=== PATIENT | female | born 1980 | race Caucasian/White ===

== ENCOUNTER 2018-06-01 16:50 | Outpatient (CLI) | payer OTHER, SELFPAY ==
[2018-06-01 17:09] VITALS: BMI 39.1
--- NOTE | 2018-06-02 08:41 | OB.TRI.NOTE ---
History of Present Illness Date of Service: 06/01/18 Reason For Visit: DECREASE MOVEMENT Date of Service: 06/01/18 Allergies iodine Allergy (Verified 01/14/16 14:49) Rash NST - FHR Rate Baby A Baseline: normal Variability:: Moderate Accelerations:: None Decelerations:: None NST Reactive:: Appropriate for gestational age, Non-Reactive FHR Category:: Category I Uterine Activity:: quiet Impression/Plan 38-year-old high risk multigravida at 26 weeks gestation with decreased movement. History of previous section. heart tones appropriate for gestational age. Reviewed with patient movement counts. Follow-up in the office as scheduled or as needed. patient is comfortable with this plan.
== END 2018-06-01 17:20 | disposition home or self-care (01) ==
LOC: WPOUT 16:55 → WP 16:55
PROVIDERS: Family Provider Family Medicine; PCP Family Medicine; Visit Provider Obstetrics & Gynecology
DX: O36.8120 Decreased fetal movements, second trimester, not applicable or unspecified (principal); Z3A.26 26 weeks gestation of pregnancy
CPT/HCPCS: 59025; 59050; 99218; G0378

== ENCOUNTER 2018-08-28 05:30 | Inpatient (IN) | payer OTHER, SELFPAY ==
[2018-08-24 16:48] VITALS: BMI 42.3
[2018-08-28] VITALS (20 sets, daily range): BP systolic 96–133; BP diastolic 55–82; PULSE 77–105; RESP 10–22; TEMP 36.1–37; O2SAT 96–99
[2018-08-28] MEDS: Lactated Ringers 1,000 ML 999 ML IV (06:00)
[2018-08-28 06:29] LABS: Absolute Lymphocyte Count 2.12 X10^3/ul (0.83-4.51); Absolute Neutrophil Count 6.9 X10^3/uL (2.0-7.7); Basophil# 0.02 X10^3/uL; Basophil% 0.2 % (0-1); Eosinophil# 0.08 X10^3/uL; Eosinophils% 0.8 % (0-5); Hematocrit 35.6 % (37-47); Hemoglobin 11.8 g/dl (12.0-15.0); Lymphocyte # 2.12 X10^3/ul (4.0); Lymphocyte % 21.5 % (19-41); Mean Corp Hgb Conc 33.1 g/gl (32-36); Mean Corpuscular Volume 87.5 fL (81-99); Monocyte# 0.68 X10^3/uL; Monocyte% 6.9 % (0-10); Neutrophil # 6.91 X10^3/uL (2.7-7.7); Neutrophil % 70.3 % (47-70); Platelet Count 252 K/mm3 (150-450); RBC Distribution Width CV 13.5 % (11.6-14.6); RBC Distribution Width SD 42.1 fl (35.1-43.9); Red Blood Count 4.07 M/mm3 (4.2-5.4); White Blood Count 9.8 K/mm3 (4.4-11.0)
[2018-08-28 06:34] LABS: POSITIVE COUNT NO; POSITIVE DIFFERENTIAL NO; POSITIVE MORPHOLOGY NO
[2018-08-28] MEDS: Sodium Citrate/Citric Acid 30 ML UDC PO (07:06)
[2018-08-28] MEDS: Lactated Ringers 1,000 ML 150 ML IV (07:07)
--- NOTE | 2018-08-28 07:30 | FALS_PTH ---
PATIENT: ESTELLA HOPSON LOC: [facility] U#:[id number] AGE/SX: 38/F ROOM: [facility]004 RE08/28/[address]: Dr. Irina Simpson MD : 1980 BED: 1 DIS: 08/30/2018 SPEC #: [id number] RECD: 08/28/18 09:52 STATUS: FRANCHESCA REEmelia #: [id number] LINCOLN: 08/28/18 07:[address]: Irina Simpson DEPT: SURGICAL PATHOLOGY RECD BY: Redd Lozano ENTERED: 08/28/18 11:18 SP TYPE: FALL TUBES OTHR DR: Dr. Nicholas Burciaga MD Tissues: Fallopian tube Procedures: Surgery Specimen Level II HEADER OPERATION: Tubal ligation PRE-OP DIAGNOSIS: Bilateral tubal ligation TISSUE SUBMITTED: Fallopian tube MICROSCOPIC DIAGNOSIS Right and left fallopian tubes, bilateral salpingectomies: Two complete segments of fallopian tubes with no pathologic change. AM:marjorie 08/29/18 MICROSCOPIC DESCRIPTION Slides are reviewed. GROSS DESCRIPTION Received is one container labeled with the patient's name and designated bilateral fallopian tubes. The specimen consists of two fallopian tubes with an average length of 3.5 cm and has an average diameter of 0.6 cm. One fallopian tube has a suture. No mass lesions are identified. Also present free in the container is what appears to be a fimbriated end of fallopian tube measuring 1.5 x 1 x 0.4 cm. The specimen is totally submitted in two cassettes. The fallopian tube with suture is submitted in cassette 1. / AM:marjorie 08/28/18 TC: 5 CPT: 15549 x2
[2018-08-28] MEDS: Cefazolin 2 GM in 0.9% Normal Saline 100 ML IV (07:35)
[2018-08-28] MEDS: Oxytocin 30 units/NS 500 ml 30 UNITS/500 ML IV.SOLN 167 UNITS IV (07:55)
[2018-08-28] MEDS: Nalbuphine 10 MG/ML Ampul 5 MG IV ×2 (09:43→13:18)
[2018-08-28 09:51] LABS: Pathology Specimen OB SEE PATHOLOGY REPORT
--- NOTE | 2018-08-28 12:58 | PCM.OB.CSR ---
Delivery Classification: Scheduled Final NITIN: 09/02/18 Final NITIN Source: US <20 weeks Gestational age: 39 Weeks and 2 Days Indications for : Repeat Elective , Desires elective sterilization Description of Procedure: The patient was taken to the operating room. She was prepped and draped in the dorsal supine position with a leftward tilt. A Pfannenstiel skin incision was made approximately 2 cm above the symphysis pubis and carried through to underlying layer fascia with the scalpel. The fascia was incised incised in the midline and extended laterally with the Khan scissors. The fascia was dissected off the rectus muscles with blunt and sharp dissection. The rectus muscles were in the midline and the peritoneum was entered bluntly. The peritoneal incision was stretched and the bladder blade was placed. The uterine incision was made in a low transverse fashion with the scalpel and extended superiorly and inferiorly with blunt dissection. The amniotic membranes were ruptured bluntly and clear amniotic fluid returned. The infant's head was brought to the incision in the flexed position and delivered without difficulty. The remainder of the infant was delivered with gentle traction and fundal pressure in the standard fashion. The mouth and nares were bulb suctioned. The cord was clamped and cut as the was stimulated. Cord clamping was delayed. The infant was handed off to the waiting nursing staff. There were no significant intraperitoneal adhesions. The placenta was delivered with fundal massage and gentle traction in the standard fashion. The uterus was exteriorized and cleared of all clots and debris. The cervix was dilated with a ring forcep. The bladder was checked to make sure that it was down below the level of the incision and all the way of the uterine closure. The uterine incision was closed with #1 Vicryl in a running locked fashion. A second layer of the same suture was used in an imbricating fashion. Several [id number] sutures were needed through some sinuses to obtain hemostasis. The incision was examined and was found to be hemostatic. The right tube was identified and followed out and it was noted there was no fimbriated end. The insertion near the cornual edge of the uterus was clamped across with a Varsha clamp. The antimesenteric portions of the tube were clamped across with Varsha clamps. This was carried down to where the tube appeared to end into the ovary. The tube was removed from the uterus and the broad ligament with Metzenbaum scissors. The pedicles were oversewn with 2-0 Vicryl sutures and free ties. A Filshie clip was placed over the proximal portion of the tube were inserted into the cornual. The pedicles were hemostatic. The left tube was followed out to the fimbriated end. The same procedure was performed on the contralateral side. When I reached the fimbria, the very distal portions of the fimbria were attached to the ovary near the IP ligament. A small portion of the fimbria were left attached to the ovary or so as not to disrupt the blood supply. The remainder the tube had been removed. Both sides were confirmed to be hemostatic. The uterus was placed back into the peritoneal cavity and hemostasis was again confirmed. The rectus muscles were examined and any bleeding was Bovie cauterized. The parietal peritoneum and rectus muscles were closed en bloc with an 0 Vicryl running suture. The surgical teams outer gloves were then changed. The rectus fascia was examined and any bleeding was Bovie cauterized and the rectus fascia was closed with #1 PDS suture in a running standard fashion. The subcutaneous tissue was examining and any bleeding was Bovie cauterized. The subcutaneous tissue was reapproximated with 3-0 Vicryl suture. The skin was closed in a subcuticular fashion by the SOFTWARE QUALITY ENGINEER with me present in the labor and delivery suite. I performed the remainder of the procedure with assistance. All sponge, lap, and needle counts were correct. The patient was taken to her room for recovery in a stable condition. Procedure: Repeat low transverse section Via Pfannenstiel skin incision with bilateral salpingectomy Surgeon: Irina Simpson MD Forensic Document Examiner: Triny TUCKER Amniotic Membrane Rupture Type: Artificial Amniotic Fluid Description: Clear Placenta Disposition: [facility] Specimen(s) sent to pathology: bilateral portions of fallopian tubes Drain: Soria to straight drain Fluids Replaced: 1700cc Cord Entanglement: Around neck x 1, loose Nuchal Cord Compression: Without compression Cord Vessel Description: 3 Vessels Esitmated Blood Loss (ml): 900 Gender: Male Delayed cord clamping: Yes Pre-op Antibiotic Given: Ancef 2 grams IV x1 Complications: None - Admit VTE Documentation VTE Present on Admission: No VTE Mechan Device Prophylaxis: SCD's VTE Pharm Prophylaxis ordered?: Yes
--- NOTE | 2018-08-28 13:04 | OP.PCM_ITS ---
Delivery Classification: Scheduled Final NITIN: 09/02/18 Final NITIN Source: US <20 weeks Gestational age: 39 Weeks and 2 Days Indications for : Repeat Elective , Desires elective sterilization Description of Procedure: The patient was taken to the operating room. She was prepped and draped in the dorsal supine position with a leftward tilt. A Pfannenstiel skin incision was made approximately 2 cm above the symphysis pubis and carried through to underlying layer fascia with the scalpel. The fascia was incised incised in the midline and extended laterally with the Khan scissors. The fascia was dissected off the rectus muscles with blunt and sharp dissection. The rectus muscles were in the midline and the peritoneum was entered bluntly. The peritoneal incision was stretched and the bladder blade was placed. The uterine incision was made in a low transverse fashion with the scalpel and extended superiorly and inferiorly with blunt dissection. The amniotic m embranes were ruptured bluntly and clear amniotic fluid returned. The infant's head was brought to the incision in the flexed position and delivered without difficulty. The remainder of the was delivered with gentle traction and fundal pressure in the standard fashion. The mouth and nares were bulb suctioned. The cord was clamped and cut as the was stimulated. Cord clamping was delayed. The was handed off to the waiting nursing staff. There were no significant intraperitoneal adhesions. The placenta was delivered with fundal massage and gentle traction in the stand barbra fashion. The uterus was exteriorized and cleared of all clots and debris. The cervix was dilated with a ring forcep. The bladder was checked to make sure that it was down below the level of the incision and all the way of the uterine closure. The uterine incision was closed with #1 Vicryl in a running locked fashion. A second layer of the same suture was used in an imbricating fashion. Several [id number]-[id number] sutures were needed through some sinuses to obtain hemostasis. The incision was examined and was found to be hemostatic. The right tube was identified and followed out and it was noted there was no fimbriated end. The insertion near the cornual edge of the uterus was clamped across with a Varsha clamp. The antimesenteric portions of the tube were clamped across with Varsha clamps. This was carried down to where the tube appeared to end into the ovary. The tube was removed from the uterus and the broad ligament with Metzenbaum scissors. The pedicles were oversewn with 2-0 Vicryl sutures and free ties. A Filshie clip was placed over the proximal portion of the tube were inserted into the cornual. The pedicles were hemostatic. The left tube was followed out to the fimbriated end. The same procedure was performed on the contralateral side. When I reached the fimbria, the very distal portions of the fimbria were attached to the ovary near the IP ligament. A small portion of the fimbria were left attached to the ovary or so as not to disrupt the blood supply. The remainder the tube had been removed. Both sides were confirmed to be hemostatic. The uterus was placed back into the peritoneal cavity and hemostasis was again confirmed. The rectus muscles were examined and any bleeding was Bovie cauterized. The parietal peritoneum and rectus muscles were closed en bloc with an 0 Vicryl running suture. The surgical teams outer gloves were then changed. The rectus fascia was examined and any bleeding was Bovie cauterized and the rectus fascia was closed with #1 PDS suture in a running standard fashion. The subcutaneous tissue was examining and any bleeding was Bovie cauterized. The subcutaneous tissue was reapproximated with 3-0 Vicryl suture. The skin was closed in a subcuticular fashion by the SUPERVISOR OVENS with me present in the labor and delivery suite. I performed the remainder of the procedure with assistance. All sponge, lap, and needle counts were correct. The patient was taken to her room for recovery in a stable condition. Procedure: Repeat low transverse section Via Pfannenstiel skin incision with bilateral salpingectomy Surgeon: Irina Simpson MD Audit Lead: Triny TUCKRE Amniotic Membrane Rupture Type: Artificial Amniotic Fluid Description: Clear Placenta Disposition: [facility] Specimen(s) sent to pathology: bilateral portions of fallopian tubes Drain: Soria to straight drain Fluids Replaced: 1700cc Cord Entanglement: Around neck x 1, loose Nuchal Cord Compression: Without compression Cord Vessel Description: 3 Vessels Esitmated Blood Loss (ml): 900 Infant Gender: Male Delayed cord clamping: Yes Pre-op Antibiotic Given: Ancef 2 grams IV x1 Complications: None - Admit VTE Documentation VTE Present on Admission: No VTE Mechan Device Prophylaxis: SCD's VTE Pharm Prophylaxis ordered?: Yes
[2018-08-28] MEDS: Ketorolac 30 MG/ML Syringe IV ×2 (13:18→19:03)
[2018-08-28] MEDS: 0.9% Saline Lock 10 ML Syringe IV ×3 (13:19→19:03)
[2018-08-28] MEDS: Ondansetron 4 MG/2 ML Vial IV (14:02)
[2018-08-28] MEDS: Lactated Ringers 1,000 ML 100 ML IV ×2 (16:08→22:14)
[2018-08-28] MEDS: proMETHazine 25 MG/ML Syringe 12.5 MG IV (16:24)
[2018-08-28] MEDS: Senna/Docusate Sodium 1 Tablet PO (21:53)
--- NOTE | 2018-08-28 22:34 | NURSING ---
Pt. has had c/o lightheadedness. Uterus firm at 2 below with appropriate bleeding. Pt. reports occasional gushing but bleeding on pad looks like a small amount. No clots palpable or expelled from uterus when massaged or checked. Blood pressure appropriate at 107/59.
[2018-08-29] VITALS (8 sets, daily range): BP systolic 94–116; BP diastolic 53–71; PULSE 70–89; RESP 15–18; TEMP 36.2–36.8; O2SAT 98–99
[2018-08-29] MEDS: Ketorolac 30 MG/ML Syringe IV ×4 (00:42→18:14)
[2018-08-29 05:22] LABS: Hematocrit 28.8 % (37-47); Hemoglobin 9.5 g/dl (12.0-15.0); Mean Corpuscular Hgb 28.9 pg (27.0-32.0); Mean Corpuscular Volume 87.5 fL (81-99); Mean Platelet Vol. 8.9 fl (6.2-12.0); Platelet Count 189 K/mm3 (150-450); RBC Distribution Width CV 14.1 % (11.6-14.6); RBC Distribution Width SD 44.7 fl (35.1-43.9); Red Blood Count 3.29 M/mm3 (4.2-5.4); Scan Indicated on CBC? Y/N NO; White Blood Count 9.7 K/mm3 (4.4-11.0)
[2018-08-29] MEDS: Enoxaparin 40 MG/0.4 ML Syringe SC (05:59)
--- NOTE | 2018-08-29 08:38 | PCM.PN.OB ---
Subjective: pain well controlled, average lochia, + flatus, less nausea this am. Able to tolerate some crackers and po fluids overnight. No lightheadedness - Physical Exam General: Alert, Cooperative, No apparent distress Abdomen: Soft, Distended - moderately, softly, Tender - appropriately Extremities: Edema - 1+ Skin: Incision - bandage clean,d ry and intact Vital Signs Temp Pulse Resp BP Pulse Ox 97.9 F 79 16 100/57 L 98 08/29/18 04:45 08/29/18 06:00 08/29/18 06:00 08/29/18 04:45 08/29/18 06:00 Oxygen Delivery Method Room Air Weight: 101.5 kg Body Mass Index (BMI) 42.3 Intake and Output for Last 24 Hours 08/27/18//18 08/29/18 23:59 23:59 23:59 Intake Total 4589 / 4589 1099 / 1099 Output Total 1325 / 1325 800 / 800 Balance 3264 / 3264 299 / 299 Laboratory Tests Past 24 Hrs 08/29/18 05:15 WBC 9.7 RBC 3.29 L Hgb 9.5 L Hct 28.8 L MCV 87.5 MCH 28.9 MCHC 33.0 RDW 14.1 RDW Differential 44.7 H Plt Count 189 MPV 8.9 Medical Necessity - Tobacco Use Smoking Status: Never smoker Assessment/Plan POD#1 doing well mild acute blood loss anemia, appropriate for EBL from surgery, recheck later today to ensure it isn't trending down ambulate d/c zuluaga diet as tolerated
[2018-08-29] MEDS: Senna/Docusate Sodium 1 Tablet PO (09:02)
[2018-08-29] MEDS: Acetaminophen 500 MG Tablet 1000 MG PO ×2 (09:03→17:04)
[2018-08-29] MEDS: 0.9% Saline Lock 10 ML Syringe IV ×3 (10:00→18:15)
[2018-08-29 14:20] LABS: Hematocrit 30.9 % (37-47); Hemoglobin 10.1 g/dl (12.0-15.0); Mean Corp Hgb Conc 32.7 g/gl (32-36); Mean Corpuscular Hgb 28.7 pg (27.0-32.0); Mean Corpuscular Volume 87.8 fL (81-99); Mean Platelet Vol. 9.2 fl (6.2-12.0); Platelet Count 206 K/mm3 (150-450); RBC Distribution Width SD 44.6 fl (35.1-43.9); Red Blood Count 3.52 M/mm3 (4.2-5.4); White Blood Count 10.2 K/mm3 (4.4-11.0)
[2018-08-29 14:21] LABS: Scan Indicated on CBC? Y/N NO
--- NOTE | 2018-08-29 21:45 | NURSING ---
Pt. reports having loose stools/diarrhea at least 3-4 times over the past two hours. States abdominal pain is getting better but she still feels puffy. Abdomen is distended and pt. is painful during fundus checks.
[2018-08-29] MEDS: oxyCODONE 5 MG Tablet PO (23:09)
--- NOTE | 2018-08-29 23:15 | NURSING ---
Pt. called RN to room for increasing abdominal pain requesting pain medication. Pt. says she coughed and the pain got worse. Dressing and abdomen assessed. Dressing intact with old drainage circled, no new drainage. Abdomen distended and tender. Pt. rates pain a 6 out of 10 and describes it as aching, pressure, crampy, and at times a sharp pain. This RN will continue to monitor.
--- NOTE | 2018-08-29 23:55 | NURSING ---
Pt. states abdominal pain and pressure has been relieved since administration of medication. She now rates her pain as a 1 or 2 out of 10. Pt. has been able to get more comfortable and sleep.
[2018-08-30] MEDS: Ketorolac 30 MG/ML Syringe IV ×2 (01:15→06:28)
[2018-08-30] MEDS: 0.9% Saline Lock 10 ML Syringe IV ×2 (01:16→06:28)
[2018-08-30 01:23] VITALS: BP 108/71; PULSE 64; RESP 17; TEMP 36.6; O2SAT 99
--- NOTE | 2018-08-30 01:23 | NURSING ---
Pt. states that her stomach feels less puffy than before. Abdomen assessed and pt. tolerance of pressure has improved. Pt. reports that she is able to pass gas and she thinks her bowel movements from earlier in the evening helped. Pt. is now stating her pain is a 2 out of 10.
[2018-08-30] MEDS: Enoxaparin 40 MG/0.4 ML Syringe SC (06:29)
[2018-08-30 08:20] VITALS: BP 108/79; PULSE 76; RESP 18; TEMP 36.4; O2SAT 97
[2018-08-30] MEDS: oxyCODONE 5 MG Tablet PO (08:29)
--- NOTE | 2018-08-30 09:07 | PCM.PN.OB ---
Subjective: pain well controlled, average lochia, + Bm. Tolerating PO. - Physical Exam General: Alert, Cooperative, No apparent distress Abdomen: Soft, Distended - mildly, softly, less than yesterday, - - fundus firm below umbilicus Skin: Incision - bandage clean, dry and intact Vital Signs Temp Pulse Resp BP Pulse Ox 97.8 F 64 17 108/71 99 08/30/18 01:23 08/30/18 01:23 08/30/18 01:23 08/30/18 01:23 08/30/18 01:23 Oxygen Delivery Method Room Air Weight: 101.5 kg Body Mass Index (BMI) 42.3 Intake and Output for Last 24 Hours 08/28/18 08/29/18 08/30/18 23:59 23:59 23:59 Intake Total 4589 / 4589 1099 / 1099 Output Total 1325 / 1325 1900 / 1900 Balance 3264 / 3264 -801 / -801 Laboratory Tests Past 24 Hrs 08/29/18 14:00 WBC 10.2 RBC 3.52 L Hgb 10.1 L Hct 30.9 L MCV 87.8 MCH 28.7 MCHC 32.7 RDW 14.0 RDW Differential 44.6 H Plt Count 206 MPV 9.2 Medical Necessity - Tobacco Use Smoking Status: Never smoker Assessment/Plan POD#2 doing well infant likely home later today
--- NOTE | 2018-08-30 09:19 | DCINST_ITS ---
Discharge Diet: No Restrictions Discharge Activity: Return to Normal Activity, May Not Drive - for 2 weeks, May not drive while taking narcotic pain medications., May Shower, May Take a Tub Bath - in 7 days. May resume sexual activity in: 4-6 weeks Lifting Restrictions: 20 pounds Additional Activity Instructions:: Nothing in the vagina for 4-6 weeks. You may return to work/school in 6 weeks. Call your doctor if your incision/area has: Continuous Slow Oozing, Sudden Increased Bleeding, Increased Pain/ Swelling, Increased Redness, Foul Smelling Discharge Call your doctor if you observe: Fever of 101 or Higher, Using more than one pad per hour - for 2 hours Suture Line Care: Avoid Pulling/Pushing, Avoid Pinching/Bending Cleanse incision/area with: Keep Dressing Clean & Dry, - - Remove the bandage on 09/01 or 09/02 or if it becomes wet or saturated Additional Instructions: If you experience any of the following, contact your healthcare provider. * Bleeding that soaks a pad every hour for 2 hours * Fever 100.4 or higher * Unrelieved incision or abdominal pain * Swelling, redness, discharge or bleeding from your incision or episiotomy site * Your incision begins to separate * Problems urinating (including inability to urinate or burning while urinating). * Visual changes * Severe headache * Flu-like symptoms * Pain or redness in one of both of your breasts * Pain, warmth, tenderness or swelling in your legs, especially the calf area * Frequent nausea and vomiting * Symptoms of depression or anxiety If you experience any of the following, call 911 or go to the nearest Emergency Room. * Chest pain * Problems breathing * Seizure activity * Partial or complete paralysis of a body part, slurred speech, weakness or drooping of the face, or a sudden inability to walk or hold your balance Allergies/Adverse Reactions: Allergies iodine Allergy (Verified 01/14/16 14:49) Rash Medications to take at Discharge Vits [Prenatabs FA ] 1 tablet PO DAILY 06/01/18 Ibuprofen [Motrin] 800 mg PO TID PRN PRN #60 tab 08/30/18 Oxycodone HCl/Acetaminophen [Percocet 5/325] 1 - 2 tab PO Q8 PRN 7 Days #28 tab 08/30/18 The following prescriptions were given: Ibuprofen [Motrin] 800 mg PO TID PRN PRN #60 tab PRN Reason: Pain Oxycodone HCl/Acetaminophen [Percocet 5/325] 1 - 2 tab PO Q8 PRN 7 Days #28 tab PRN Reason: Pain Follow-Up: Call to make an appointment with your doctor for an incision check in 1-2 weeks. You will also need a 6 week post- follow up appointment. Test results from this visit will be discussed in further detail at your follow- up appointment, if applicable. Please Follow Up With: Irina Simpson MD - Call to make an appointment for an incision check in 1-2 [phone] When: You will need a post check in 6 weeks. Primary Care Physician: Nicholas Burciaga MD [Primary Care Provider] -
[2018-08-30] MEDS: Docusate Sodium 100 MG Capsule PO (09:53)
[2018-08-30] MEDS: Naproxen 250 MG Tablet PO (13:04)
[2018-08-30 14:00] VITALS: BP 109/76; PULSE 81; RESP 18; TEMP 36.8; O2SAT 97
--- NOTE | 2018-08-31 10:43 | PCM.DC.SUM ---
Discharge Date and Diagnosis Date of Admission: 08/28/18 Date of Discharge: 08/30/18 Hospital Course and Treatment Operations: - - Repeat low transverse section Via Pfannenstiel skin incision with bilateral salpingectomy Procedures: None Summary of Care Provided: 38-year-old multigravida female whose was complicated by advanced maternal age and maternal obesity with BMI 42 presents for repeat section. She was 39 weeks gestation and desires sterilization. The repeat low transverse section Via Pfannenstiel skin incision with bilateral salpingectomy was performed without difficulty. She had mild acute blood loss anemia appropriate for blood loss during the surgery. By postoperative day #2 she was ambulating, urinating and tolerating regular diet without difficulty. She was discharged home with routine instructions and prescriptions. She is to follow-up in our office in 1-2 and 6 weeks or as needed. - Physical Exam Vital Signs Temp Pulse Resp BP Pulse Ox 98.3 F 81 18 109/76 97 08/30/18 14:00 08/30/18 14:00 08/30/18 14:00 08/30/18 14:00 08/30/18 14:00 Oxygen Delivery Method Room Air Weight: 101.5 kg Body Mass Index (BMI) 42.3 Intake and Output for Last 24 Hours 08/29/18 08/30/18 08/31/18 23:59 23:59 23:59 Intake Total 1099 / 1099 Output Total 1900 / 1900 Balance -801 / -801 Discharge Diet: No Restrictions Discharge Activity: Return to Normal Activity, May Not Drive - for 2 weeks, May not drive while taking narcotic pain medications., May Shower, May Take a Tub Bath - in 7 days. May resume sexual activity in: 4-6 weeks Additional Activity Instructions:: Nothing in the vagina for 4-6 weeks. You may return to work/school in 6 weeks. Call your doctor if your incision/area has: Continuous Slow Oozing, Sudden Increased Bleeding, Increased Pain/ Swelling, Increased Redness, Foul Smelling Discharge Call your doctor if you observe: Fever of 101 or Higher, Using more than one pad per hour - for 2 hours Suture Line Care: Avoid Pulling/Pushing, Avoid Pinching/Bending Cleanse incision/area with: Keep Dressing Clean & Dry, - - Remove the bandage on 09/01 or 12/22 or if it becomes wet or saturated Home Medications: Medications to take at Discharge Vits [Prenatabs FA ] 1 tablet PO DAILY 06/01/18 Docusate Sodium [Colace] 100 mg PO DAILY #30 cap 08/30/18 Ibuprofen [Motrin] 800 mg PO TID PRN PRN #60 tab 08/30/18 Oxycodone HCl/Acetaminophen [Percocet 5/325] 1 - 2 tab PO Q8 PRN 7 Days #28 tab 08/30/18 Following Prescrptions Were Given to Patient: Docusate Sodium [Colace] 100 mg PO DAILY #30 cap Ibuprofen [Motrin] 800 mg PO TID PRN PRN #60 tab PRN Reason: Pain Oxycodone HCl/Acetaminophen [Percocet 5/325] 1 - 2 tab PO Q8 PRN 7 Days #28 tab PRN Reason: Pain Primary Care Physician: Nicholas Burciaga MD [Primary Care Provider] - Please Follow Up With: Irina Simpson MD - Call to make an appointment for an incision check in 1-2 [phone] When: You will need a post check in 6 weeks. Medical Necessity - Tobacco Use Smoking Status: Never smoker Meaningful Use Info Meaningful Use Diagnoses (Choose all that apply): None applicable
--- OUTSIDE RECORDS SUMMARY | 2018-11-29 16:18 | XMS RPT_ITS ---
:1980 Author Organization OHIP Care Team Providers Name Role Phone SOFIE VELASQUEZ Attending Unavailable SOFIE VELASQUEZ Attending Unavailable SOFIE VELASQUEZ Referring Unavailable SOFIE VELASQUEZ Attending Unavailable SOFIE VELASQUEZ Referring Unavailable RAPHAEL GOINS Attending Unavailable EVA SOFIE L Referring Unavailable RAPHAEL GOINS Referring Unavailable EVA SOFIE Angely Attending Unavailable EVA SOFIE L Referring Unavailable EVA SOFIE L Referring Unavailable MADELIN GUERRERO Attending Unavailable EVA SOFIE Angely Referring Unavailable VIVI VELASQUEZCA Angely Attending Unavailable EVA SOFIE Angely Attending Unavailable EVA SOFIE Angely Attending Unavailable EVA SOFIE L Referring Unavailable EVA SOFIE Angely Attending Unavailable EVA SOFIE L Attending Unavailable EVA SOFIE Angely Attending Unavailable EVA SOFIE Angely Attending Unavailable EVA SOFIE Angely Attending Unavailable EVA SOFIE L Attending Unavailable EVA SOFIE L Attending Unavailable DAVIN, ADRIENNE Attending Unavailable WISWELL, ADRIENNE Referring Unavailable EVA, SOFIE L Attending Unavailable Burciaga, Nicholas Primary Care Unavailable Steven Owen Attending Unavailable Wiswell, Adrienne Attending Unavailable Wiswell, Adrienne Referring Unavailable Burciaga, Nicholas Primary Care Unavailable Eva, Sofie Admitting Unavailable Eva, Sofie Attending Unavailable Eva, Sofie Referring Unavailable Burciaga, Nicholas Primary Care Unavailable PROBLEMS PROBLEMS DATE TYPE CONDITION / CODE ATTENDING STATUS SOURCE 08/30/2018 Unknown G89.18 - Other acute Eva, Active [place] postprocedural pain Sofie [facility] / G89.18(ICD-10) Hospital Repository 06/12/2018 Unknown O36.8120 - Decreased Adrienne Taylor Active [place] movements, [facility] second trimester, Hospital not applicable or Repository unspecified / O36.8120(ICD-10) 03/28/2018 Active 17 weeks gestation NA Active [place] [facility] / Clinic Main Z3A.17(ICD-10) [place] Repository 01/23/2018 Active Supervision of NA Active [facility] Main multigravida, [place] unspecified Repository trimester / O09.529(ICD-10) 01/31/2018 Active 9 weeks gestation of NA Active [place] / Clinic Main Z3A.09(ICD-10) [place] Repository 01/31/2018 Active Supervision of NA Active [facility] Main multigravida, third [place] trimester / Repository O09.523(ICD-10) 01/31/2018 Active Supervision of high NA Active [place] risk , Clinic Main unspecified, first [place] trimester / Repository O09.91(ICD-10) 01/23/2018 Active Unknown / NA Active [place] UNK(Unknown) Clinic Main [place] Repository PROCEDURES PROCEDURES No Procedure Records FoundRESULTS RESULTS PROGRESS Observed: 09/06/2018 Status: COMPLETED Source: [place] 5:15 PM CLINIC MAIN CAMPUS REPOSITORY HNO ID: [id number] Author: Sofie Velasquez Service: (none) Author Type: Physician Type: Progress Notes Filed: 09/06/2018 5:18 PM Note Text: This is a 38 year old female who presents today with: CHIEF COMPLAINTS: postop c/s HISTORY OF PRESENT ILLNESS: S/p c/s on 08/28. Had another episode of being very cold early am on 09/05. Did not have last night. No fever. No increased pain. Average lochia. going well. No SOB/Cough or acute illness symptoms. Mild REDDY. No visual changes. No REDDY now. No CP. MEDICATIONS: Current Outpatient Prescriptions on File Prior to Visit: DOCOSAHEXANOIC ACID (DHA ORAL) Take by mouth. FOLIC ACID ORAL Take by mouth. [place]-3 Fatty Acids (FISH OIL) 500 mg cap Take 2 capsules by mouth once daily. POLYETHYLENE GLYCOL 3350 (MIRALAX ORAL) Take by mouth. multivitamin ( TABLET) 28 mg iron- 800 mcg tab Take 1 tablet by mouth once daily. No current facility-administered medications on file prior to visit. 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 Skin: Skin color, texture, turgor normal, no suspicious rashes or lesions incision well healed. No erythema. Abd- soft, nontender ext- trace edema 2+ DTRs, no clonus ASSESSMENT: postop c/s PLAN: doing well except for 2 nights in a row had chills. No fever w/ it. No source of infection. Did not occur last night. D/w her if fever or other change in symptoms notify us. Otherwise, monitor and she is comfortable w/ this. Seems like it is improving on its own. no evidence of preeclampsia. She is comfortable w/ plan Sofie Velasquez MD PROGRESS Observed: 09/06/2018 Status: COMPLETED Source: [place] 12:31 PM [facility] MAIN CAMPUS REPOSITORY [facility] ID: [id number] Author: Sofie Velasquez Service: (none) Author Type: Physician Type: Progress Notes Filed: 09/06/2018 12:37 PM Note Text: S/p repeat c/s and bilateral salpingectomy on 08/28/18. Patient was in the ED last night for an episode of feeling chilled and she just couldn't get warm. It was so intense that it was painful and she was crying. Her actually called the squad and she ended up going to the emergency room. When she arrived there, she started to feel somewhat better. She states breast-feeding is going well. She's had no persistent shortness of breath or headache. No visual changes or epigastric pain. She states she's having bowel movements. She denies any dysuria or hematuria. She has average lochia. Denies cough, sorethroat or other c/o At the emergency room, she had CAT scan of her head, blood work that was normal, her hgb was stable from dishcarge from her c/s, she was afebrile and her blood pressure was for the most part normal. PE- awake, alert, no acute distress. Patient is breathing easily. Skin-warm, dry and intact Breasts are symmetrical, no erythema, no palpable masses. ext- 3+ DTRs, no clonus, trace edema incision- clean, dry and intact abd- soft, nondistended, appropriately tender a/p POD#7 s/p c/s and bilateral salpingectomy I reassured the patient that there is no evidence of preeclampsia or acute infection. I discussed the patient recommend she continue with her NSAIDs and Tylenol as needed. If she gets a fever above 100.5, she should contact us. If she has symptoms of severe preeclampsia she could should contact us. Otherwise f/u in 2-3 days if not feeling well. If she is feeling well, okay to cancel her appointment in 2 days and follow up for her normal 6 week exam. Patient is comfortable with this plan. Sofie Velasquez MD EMERGENCY DEPARTMENT Observed: 09/04/2018 Status: F Source: [place] SUMMARY 5:31 AM [facility] REPOSITORY [facility] Medical Records Department [address] [place] [address] Emergency Department Summary 09/04/18 0338 MR#: [id number] Acct: [id number] Name: KRISTIN HOPSON Rep #: [id number] : 1980 38 From: Steven Owen MD PCP: Nicholas Burciaga MD Status: DEP ER - ER Visit Summary Date of Service: 09/04/18 Chief Complaint: Chills History of Present Illness: The patient is a [address] Nicholas Burciaga. She is a who had a [address] Velasquez. She was at 39 weeks. She was discharged from hospital after 2 days. No complications during or the delivery. She reports that her vaginal bleeding is essentially unchanged since the delivery. There is no odor to her lochia. She denies any abdominal pain. Patient reports that her blood pressure typically runs 107 over 60s. Patient reports approximately 2 hours ago she bent over to black pickler her son had the abrupt onset of chills. States that they have lasted approximately 2 minutes. She denies any fever or cold sweats. She states that she feels congested. She denies any sore throat or cough. She reports she has been nauseated. No vomiting or diarrhea. No dysuria frequency. No rash. Patient reports that she had an episode of chest pain yesterday while she was at rest. It was tightness on and off the last approximately 1 hour. Nothing made this better or worse. States that it was posterior to her left breast and she question whether it was my milk coming in. Patient reports that she has a headache that began yesterday and is gradually gotten worse. It is frontal in location. She describes as a dull, aching pain that is 3 out of 10 currently and 5 out of 10 at worst. This is not positional. Nothing makes this better or worse. There is no change in her vision. No numbness, tingling, or weakness. No photophobia. She does have a history of similar headaches. Physical Examination: Vitals: 98.5, 151/94, 91, 18, 95% on room air which is not hypoxic. General: Well-nourished and well-developed. Head: Normocephalic atraumatic. Neck: Supple, no lymphadenopathy. No JVD. Nontender. Cardiovascular: Regular rate and rhythm. No murmurs. Respiratory: No respiratory distress. Clear to auscultation bilaterally. Abdominal: Soft, nontender, nondistended, normal bowel sounds. No guarding, rebound, or peritoneal signs. Incision is healing well. There is appropriate tenderness to palpation. There is no erythema, warmth, or induration. Back: Nontender. The spinal site shows no erythema, warmth, or tenderness to palpation. Extremities: Nontender, no edema. Skin: Normal color, no rash. Neurologic: Alert and oriented 3. Cranial nerves II through XII are intact. Normal strength and sensation. Psych: Normal affect. Test Results: EKG is sinus at 90 with no acute changes. There is no old EKG for comparison. Troponin is negative. 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 Chest x-ray shows no acute disease. No cardiomegaly or CHF. CT brain is normal. UA shows 10-25 white blood cells, 25-50 red blood cells, and rare bacteria. This was sent for culture. LFTs are marked for an albumin of 2.5. Chem-7 is more for chloride of 110 and calcium 7.9. Lactic acid is 1.2. CBC is more for an H AND H of 10.6 and 32.4, 7 neutrophils 78, lymphs lites 15. Emergency Department Course and Treatment: Patient had an IV placed. She was given a liter of normal saline. She was given morphine and Zofran IV. Without any antihypertensive medication her blood pressure decreased to 122/74 and she is resting comfortably. Her heart rate came down to 78. Treatment Plan: Patient was discussed with Dr. Taylor. At this time she does not want her urine treated for infection. States that this is similar to what urine looks like at this point . This was sent for culture. She would like the patient to follow-up with her in the office today to repeat her blood pressure and to see how she is feeling. Patient is happy with this plan. Return to the emergency department for any worsening symptoms. Disposition: To home in improved and stable condition. Impression: 1. 1 week status post . 2. Cephalgia. 3. Atypical chest pain. 4. Chills. This note was generated with [employer] dictation software. It may contain incorrect words, spelling, and punctuation that were not noted in review of the chart prior to signing ED Disposition - Plan for ED Patient: Disposition: Home or Assisted Living Chief Complaint: General Illness Instructions: ED Cephalgia Unspecified Referrals: Adrienne Taylor DO [STAFF PHYSICIAN] - 09/04/18 What to do if you have Problems For any increased pain, shortness of breath, bleeding, nausea or vomiting, chest pain, or any unexpected problems, contact your Primary Care Provider. Call [facility] ([phone]) or report to the closest Emergency Room. Call 911 if necessary. 09/04/18 0531 <Electronically signed by Steven Owen MD> Date Steven Owen MD Cosigner Signature (If Indicated): Date CC: Nicholas Burciaga MD URINALYSIS, COMPLETE Collected: 09/04/2018 Status: F Source: [place] 2:05 AM [facility] REPOSITORY Order Comment: Order Date: 09/04/18 How was Urine Obtained? CLEAN CATCH TYPE CODE TESTS RESULT OUT OF RANGE REFERENCE UNITS LAB L400.3000 Yellow Normal COLOR SEE COMMENT BELOW Result Comment: Visual Urine Color: PINK LAB L400.3050 Clear Normal CLARITY Sl. Cloudy LAB L400.3200 Normal mg/dl Normal GLUCOSE, UR Normal LAB L400.3300 Negative mg/dL Normal BILIRUBIN URINE Negative LAB L400.3400 Negative mg/dl Normal KETONE UR Negative LAB L400.3465 1.002-1.030 Normal SP.GR. DIPSTX 1.005 LAB L400.3550 5.0 - 8.0 pH UR Normal 7.0 LAB L400.3600 Negative mg/dl High PROT 30 DIPSTX LAB L400.3700 Normal mg/dl Normal UROBILI Normal LAB L400.3750 Negative Normal NITRITE UR Negative LAB L400.3780 Negative /ul High OCCULT BLOOD-UR 250 LAB L400.3800 Negative /ul High LEUK ESTERASE 500 LAB L400.4050 0-5 /hpf WBC Normal 10-25 SEEN LAB L400.4100 0-5 /hpf Normal RBC-UA 25-50 SEEN LAB L400.4150 5-10 /hpf SQUAM Normal EPI 0-5 SEEN LAB L400.4300 None Seen /hpf Normal BACTERIA RARE LAB L400.4350 <or=2+ /hpf 0 Normal MUCUS, URINE SEEN Performed By: #### L400.0001 #### [facility] [address] [place], [address] Observed: 09/04/2018 Status: F Source: [place] CULTURE, URINE 2:05 AM [facility] REPOSITORY Order Date: 09/04/18 Has pt arrived? Y Urine Culture ORGANISM 1: Mixed Gram Positive Organisms [place] Count 50,000-80,000 MIX CULTURE Mixed contaminants. Submit a new specimen if indicated. Performed By: #### M100.0650 #### [facility] [address] [place], [address] CBC W/DIFF, AUTOMATED Collected: 09/04/2018 Status: F Source: [place] 1:30 AM [facility] REPOSITORY TYPE CODE TESTS RESULT OUT OF RANGE REFERENCE UNITS LAB L100.1000 4.4-11.0 K/mm3 Normal WBC 6.8 LAB L100.1200 4.2-5.4 M/mm3 Low RBC 3.63 LAB L100.1300 12.0-15.0 g/dl Low HGB 10.6 LAB L100.1400 37-47 % Low HCT 32.4 LAB L100.1500 81-99 fL Normal MCV 89.3 LAB L100.1600 27.0-32.0 pg Normal MCH 29.2 LAB L100.1700 32-36 g/gl Normal MCHC 32.7 LAB L100.1810 11.6-14.6 % Normal RDW CV 13.2 LAB L100.1820 35.1-43.9 fl Normal RDW SD 41.8 LAB L100.1900 150-450 K/mm3 Normal PLT 361 LAB L100.2000 6.2-12.0 fl Normal MPV 9.2 LAB L100.2100 47-70 % High NEUT% 77.9 LAB L100.2200 19-41 % Low LY% 14.8 LAB L100.2300 0-10 % Normal MONO% 5.3 LAB L100.2400 0-5 % Normal EO% 1.6 LAB L100.2500 0-1 % Normal BASO% 0.3 LAB L100.2550 0.0-0.9 % Normal IM GRAN % 0.100 Result Comment: IG% - Immature Granulocytes (promyelocytes, myelocytes and metamyelocytes) > 1% indicates that a LEFT SHIFT is Present. LAB L100.2620 2.0-7.7 X10 3/uL Normal Absolute Neut 5.3 LAB L100.2720 0.83-4.51 X10 3/ul Normal Absolute Lymph 1.01 Performed By: #### L100.0100 #### [facility] [address] [place], [address] COMPREHENSIVE METABOLIC Collected: 09/04/2018 Status: F [facility] 1:30 AM [facility] REPOSITORY TYPE CODE TESTS RESULT OUT OF RANGE REFERENCE UNITS LAB L501.0100 74-106 mg/dL Normal GLU 86 Result Comment: Please note revised GLUCOSE reference range effective 2017. LAB L501.1000 7-18 mg/dL Normal BUN 15 LAB L501.1100 0.55-1.02 mg/dL Normal CREAT,SERUM 0.66 Result Comment: The validity of the calculated GFR AND GFRAA in patients over 70 years has not been determined. Clinical correlation is essential. LAB L501.1110 >60 mL/min Normal EST GFR 106 Result Comment: Non- GFR Calc LAB L501.1115 >60 mL/min Normal EST GFR - AA 129 Result Comment: GFR Calc LAB L501.1255 ml/min Normal Estimated CRCL 87.21 LAB L501.1300 10-20 RATIO High BUN/CRE 22.8 LAB L501.1500 6.4-8. g/dL Normal 2 T PROT 6.7 LAB L501.1800 3.2-5. g/dL Low 0 ALB 2.5 LAB L501.1950 2.2-4. g/dL Normal 2 GLOB 4.2 LAB L501.2000 0.9-2. RATIO Low 4 A/G 0.6 LAB L501.2200 8.5-10 mg/dL Low .1 CA 7.9 LAB L501.4100 15-37 U/L Normal AST 18 LAB L501.4305 45-117 U/L Normal ALK P 115 LAB L501.4405 13-56 U/L Normal ALT 22 LAB L501.4600 0.20-1 mg/dL Normal .00 T BILI 0.20 LAB L501.5300 136-14 mmol/L Normal 5 NA 142 LAB L501.5600 3.5-5. mmol/L Normal 1 K 3.8 LAB L501.5900 98-107 mmol/L High CL 110 LAB L501.6100 21.0-3 mmol/L Normal 2.0 CO2 23.0 LAB L501.6200 5-15 Normal GAP 9 Performed By: #### L500.4050, L501.4010 #### [facility] [address] [place], [address] TROPONIN-I Collected: 09/04/2018 Status: F Source: [place] 1:30 AM [facility] REPOSITORY TYPE CODE TESTS RESULT OUT OF RANGE REFERENCE UNITS LAB L501.4010 <0.045 ng/mL Normal < 0.015 TROPONIN-I Result Comment: TROPONIN-I EXPECTED VALUES <0.045 Negative 0.045 - 0.590 Consistent with Cardiac Damage > OR = 0.600 Critical Value Not every elevated troponin is indicative of NJ. These values should be used with clinical judgement in examining the patient's clinical picture for diagnosis. To establish a diagnosis of NJ versus myocardial injury, there must be a demonstrated rise and/or fall in the troponin values, in addition to ischemic symptoms, EKG changes, new regional wall motion abnormality, and/or angiographical evidence. PLEASE NOTE: REFERENCE RANGES EDITED 18 Performed By: #### L500.4050, L501.4010 #### [facility] [address] [place], [address] LACTIC ACID Collected: 09/04/2018 Status: F Source: [place] 1:30 AM [facility] REPOSITORY Order Comment: Yes/No query for Sepsis Lactate Rule Y TYPE CODE TESTS RESULT OUT OF RANGE REFERENCE UNITS LAB L503.6005 0.4-2.0 mmol/L Normal LACTIC ACID 1.2 Performed By: #### L503.6005 #### [facility] [address] [place], [address] BNP,B-TYPE NATRIURETIC Collected: 09/04/2018 Status: F Source: [place] 1:30 AM [facility] REPOSITORY TYPE CODE TESTS RESULT OUT OF RANGE REFERENCE UNITS LAB L503.6620 0-100 pg/mL High B-TYPE 111.9 ILDA PEP Performed By: #### L503.6620 #### [facility] [address] [place], [address] Observed: 09/04/2018 Status: F Source: [place] CULTURE, BLOOD (WB) 1:30 AM [facility] REPOSITORY BC No growth in 5 days. Performed By: #### M200.1000 #### [facility] [address] [place], [address] Observed: 09/04/2018 Status: F Source: [place] CULTURE, BLOOD (WB) 1:30 AM [facility] REPOSITORY BC No growth in 5 days. Performed By: #### M200.1000 #### [facility] [address] [place], [address] BRAIN/HEAD WITHOUT Observed: 09/04/2018 Status: F Source: [place] CONTRAST 1:19 AM [facility] REPOSITORY [facility] Imaging Services [address] [place] [address] Brain/Head without Contrast MR#: [id number] Acct: [id number] Name: KRISTIN HOPSON Rep #: [id number] : 1980 F 38 From: Gregory Holguin MD PCP: Nicholas Burciaga MD Status: REG ER Study: Brain/Head without Contrast Date of Exam: 09/04/18 Exam# [id number] Ordering Dr: Steven Owen MD HISTORY: 6 days post , c/o reddy, cold chills, cp, s/p TECHNIQUE: Multiple axial images were obtained of the brain without intravenous contrast. A radiation dose optimization technique was used for this scan. IV Contrast dosage and agent: None. COMPARISON: None FINDINGS: PARANASAL SINUSES AND MASTOID AIR CELLS: Clear. INTRACRANIAL HEMORRHAGE: None. BRAIN PARENCHYMA: No CT evidence of stroke. No intracranial masses. There is preservation of the feliz/white matter interface. Posterior fossa structures are unremarkable. CSF SPACES: Appropriate for age. There is no hydrocephalus. MASS EFFECT: None. ORBITS: Both globes, extraocular muscles, optic nerves and retrobulbar fat appear unremarkable. CALVARIUM: No discrete lytic or blastic abnormalities observed. CT/Brain/Head without Contrast IMPRESSION: Normal CT brain without contrast. Individualized dose optimization techniques were used for this CT. at 0157 Reported and signed by: Gregory Holguin MD Electronically Signed: Gregory Holguin, at 1:56 EST Tel , Service support , CC: Nicholas Burciaga MD; Steven Owen MD Maintenance Shop Welder: Signed CHEST PA AND LATERAL Observed: 09/04/2018 Status: F Source: [place] 1:19 AM [facility] REPOSITORY [facility] Imaging Services [address] [place] [address] Chest PA and Lateral MR#: [id number] Acct: [id number] Name: KRISTIN HOPSON Rep #: [id number] : 1980 F 38 From: Gregory Holguin MD PCP: Nicholas Burciaga MD Status: REG ER Study: Chest PA and Lateral Date of Exam: 09/04/18 Exam# [id number] Ordering Dr: Steven Owen MD HISTORY: 6 DAYS POST C SECTION. HEADACHE, COLD CHILLS, AND CHEST PAIN EXAM: XR Chest 2 Views: COMPARISON: None FINDINGS: EKG leads in place. Shallow inspiration. Normal heart size. No vascular congestion, pleural effusion, or acute pulmonary infiltration. No pneumothorax. The bony thorax appears intact. RAD/Chest PA and Lateral IMPRESSION: No acute cardiopulmonary disease. at 0221 Reported and signed by: Gregory Holguin MD Electronically Signed: Gregory Holguin, at 2:20 EST Tel , Service support , CC: Nicholas Burciaga MD; Steven Owen MD Maintenance Shop Welder: Signed DISCHARGE SUMMARY Observed: 08/31/2018 Status: F Source: [place] 10:44 AM [facility] REPOSITORY [facility] Medical Records Department [address] [place] [address] Discharge Summary 08/31/18 1043 MR#: [id number] Acct: [id number] Name: KRISTIN HOPSON Rep #: [id number] : 1980 38 From: Sofie Velasquez MD PCP: Nicholas Burciaga MD Status: DIS IN Y Location: [id number] Discharge Date and Diagnosis Date of Admission: 08/28/18 Date of Discharge: 08/30/18 Hospital Course and Treatment Operations: - - Repeat low transverse section Via Pfannenstiel skin incision with bilateral salpingectomy Procedures: None Summary of Care Provided: 38-year-old multigravida female whose was complicated by advanced maternal age and maternal obesity with BMI 42 presents for repeat section. She was 39 weeks gestation and desires sterilization. The repeat low transverse section Via Pfannenstiel skin incision with bilateral salpingectomy was performed without difficulty. She had mild acute blood loss anemia appropriate for blood loss during the surgery. By postoperative day #2 she was ambulating, urinating and tolerating regular diet without difficulty. She was discharged home with routine instructions and prescriptions. She is to follow-up in our office in 1-2 and 6 weeks or as needed. - Physical Exam Vital Signs Temp Pulse Resp BP Pulse Ox 98.3 F 81 18 109/76 97 08/30/18 14:00 08/30/18 14:00 08/30/18 14:00 08/30/18 14:00 08/30/18 14:00 Oxygen Delivery Method Room Air Weight: 101.5 kg Body Mass Index (BMI) 42.3 Intake and Output for Last 24 Hours Intake Total 1099 / 1099 Output Total 1900 / 1900 Balance -801 / -801 Discharge Diet: No Restrictions Discharge Activity: Return to Normal Activity, May Not Drive - for 2 weeks, May not drive while taking narcotic pain medications., May Shower, May Take a Tub Bath - in 7 days. May resume sexual activity in: 4-6 weeks Additional Activity Instructions:: Nothing in the vagina for 4-6 weeks. You may return to work/school in 6 weeks. Call your doctor if your incision/area has: Continuous Slow Oozing, Sudden Increased Bleeding, Increased Pain/ Swelling, Increased Redness, Foul Smelling Discharge Call your doctor if you observe: Fever of 101 or Higher, Using more than one pad per hour - for 2 hours Suture Line Care: Avoid Pulling/Pushing, Avoid Pinching/Bending Cleanse incision/area with: Keep Dressing Clean AND Dry, - - Remove the bandage on 09/01 or 09/02 or if it becomes wet or saturated Home Medications: Medications to take at Discharge Vits [Prenatabs FA ] 1 tablet PO DAILY 06/01/18 Docusate Sodium [Colace] 100 mg PO DAILY #30 cap 08/30/18 Ibuprofen [Motrin] 800 mg PO TID PRN PRN #60 tab 08/30/18 Oxycodone HCl/Acetaminophen [Percocet 5/325] 1 - 2 tab PO Q8 PRN 7 Days #28 tab 08/30/18 Following Prescrptions Were Given to Patient: Docusate Sodium [Colace] 100 mg PO DAILY #30 cap Ibuprofen [Motrin] 800 mg PO TID PRN PRN #60 tab PRN Reason: Pain Oxycodone HCl/Acetaminophen [Percocet 5/325] 1 - 2 tab PO Q8 PRN 7 Days #28 tab PRN Reason: Pain Primary Care Physician: Nicholas Burciaga MD [Primary Care Provider] - Please Follow Up With: Sofie Velasquez MD - Call to make an appointment for an incision check in 1-2 [phone] When: You will need a post check in 6 weeks. Medical Necessity - Tobacco Use Smoking Status: Never smoker Meaningful Use Info Meaningful Use Diagnoses (Choose all that apply): None applicable 08/31/18 1044 <Electronically signed by Sofie Velasquez MD> Date Sofie Velasquez MD Cosigner Signature (if applicable): Date CC: Nicholas Burciaga MD; Sofie Velasquez MD Signed PROGRESS Observed: 08/30/2018 Status: COMPLETED Source: [place] 4:01 PM [facility] [place] REPOSITORY O ID: [id number] Author: Kimberly Olivera LPN Service: (none) Author Type: (none) Type: Progress Notes Filed: 08/30/2018 4:03 PM Note Text: Pt delivered via RC/S at [facility] on 08/28/[address] Velasquez and GARRETT. See OB Outcome note. Kimberly Olivera LPN DISCHARGE INSTRUCTION Observed: 08/30/2018 Status: F Source: [place] 9:19 AM [facility] REPOSITORY [facility] Medical Records Department [address] [place] [address] Instructions for Home/Discharge Instructions 08/30/18 0918 MR#: [id number] Acct: [id number] Name: KRISTIN HOPSON Rep #: [id number] : 1980 38 From: Sofie Velasquez MD PCP: Nicholas Burciaga MD Status: ADM IN Discharge Diet: No Restrictions Discharge Activity: Return to Normal Activity, May Not Drive - for 2 weeks, May not drive while taking narcotic pain medications., May Shower, May Take a Tub Bath - in 7 days. May resume sexual activity in: 4-6 weeks Lifting Restrictions: 20 pounds Additional Activity Instructions:: Nothing in the vagina for 4-6 weeks. You may return to work/school in 6 weeks. Call your doctor if your incision/area has: Continuous Slow Oozing, Sudden Increased Bleeding, Increased Pain/ Swelling, Increased Redness, Foul Smelling Discharge Call your doctor if you observe: Fever of 101 or Higher, Using more than one pad per hour - for 2 hours Suture Line Care: Avoid Pulling/Pushing, Avoid Pinching/Bending Cleanse incision/area with: Keep Dressing Clean AND Dry, - - Remove the bandage on 09/01 or 09/02 or if it becomes wet or saturated Additional Instructions: If you experience any of the following, contact your healthcare provider. * Bleeding that soaks a pad every hour for 2 hours * Fever 100.4 or higher * Unrelieved incision or abdominal pain * Swelling, redness, discharge or bleeding from your incision or episiotomy site * Your incision begins to separate * Problems urinating (including inability to urinate or burning while urinating). * Visual changes * Severe headache * Flu-like symptoms * Pain or redness in one of both of your breasts * Pain, warmth, tenderness or swelling in your legs, especially the calf area * Frequent nausea and vomiting * Symptoms of depression or anxiety If you experience any of the following, call 911 or go to the nearest Emergency Room. * Chest pain * Problems breathing * Seizure activity * Partial or complete paralysis of a body part, slurred speech, weakness or drooping of the face, or a sudden inability to walk or hold your balance Allergies/Adverse Reactions: Allergies iodine Allergy (Verified 01/14/16 14:49) Rash Medications to take at Discharge Vits [Prenatabs FA ] 1 tablet PO DAILY 06/01/18 Ibuprofen [Motrin] 800 mg PO TID PRN PRN #60 tab 08/30/18 Oxycodone HCl/Acetaminophen [Percocet 5/325] 1 - 2 tab PO Q8 PRN 7 Days #28 tab 08/30/18 The following prescriptions were given: Ibuprofen [Motrin] 800 mg PO TID PRN PRN #60 tab PRN Reason: Pain Oxycodone HCl/Acetaminophen [Percocet 5/325] 1 - 2 tab PO Q8 PRN 7 Days #28 tab PRN Reason: Pain Follow-Up: Call to make an appointment with your doctor for an incision check in 1-2 weeks. You will also need a 6 week post- follow up appointment. Test results from this visit will be discussed in further detail at your follow-up appointment, if applicable. Please Follow Up With: Sofie Velasquez MD - Call to make an appointment for an incision check in 1-2 [phone] When: You will need a post check in 6 weeks. Primary Care Physician: Nicholas Burciaga MD [Primary Care Provider] - 08/30/18 0919 <Electronically signed by Sofie Velasquez MD> Date Sofie Velasquez MD CC: Nicholas Burciaga MD HOSP Observed: 08/30/2018 Status: COMPLETED Source: [place] 12:00 AM [facility] REPOSITORY Patient Update (WOOB) MARK ANTHONYKRISTIN ([id number]) 1980 F Date Time Provider Department 08/30/18 SOFIE VELASQUEZ During your visit today, we recorded the following information about you: Suki RED 08/30/2018 4:03 PM Signed Pt delivered via RC/S at [facility] on 08/28/[address] Velasquez and GARRETT. See OB Outcome note. Suki RED Allergies As of Date: 08/30/2018 Noted Allergy Reaction IODINE 03/07/2013 2 - Rash Comments: Pt had reaction to iodine prep during csection Date Reviewed: 08/23/2018 Reviewed by: Sofie Velasquez - Fully Assessed Prescriptions as of 08/30/2018 Sig: DHA ORAL Take by mouth. FOLIC ACID ORAL Take by mouth. OMEGA-3 FATTY ACIDS 500 MG CA* Take 2 capsules by mouth once* MIRALAX ORAL Take by mouth. VITAMIN-FERROUS FUMA* Take 1 tablet by mouth once d* Problem List As Of Date 08/30/2018 Noted Resolved Threatened , antepartum [O20.0] INVALID FOR*11/13/2010 Supervision of normal [Z34.90] INVALID FOR*02/22/2011 Hx of maternal laceration, 3rd degree, currentl*INVALID FOR*01/30/2016 More... History of IBS [Z87.19] INVALID FOR*07/01/2015 More... History of depression [Z86.59] INVALID FOR* More... Family history of defects [Z82.79] INVALID FOR*01/30/2016 More... Fissure in ano [K60.2] INVALID FOR*07/01/2015 Hemorrhoids [K64.9] INVALID FOR*07/01/2015 Encounter for supervision of normal first pregn*INVALID FOR*07/01/2015 More... Supervision of other high risk pregnancies, fir*INVALID FOR*01/30/2016 Previous delivery affecting *INVALID FOR* More... Abnormal glucose complicating [O99.81*INVALID FOR*01/30/2016 Antepartum multigravida of advanced maternal ag*INVALID FOR* More... Patient requested diagnostic testing [Z01.89] INVALID FOR* More... Obesity in [O99.210] INVALID FOR* More... Request for sterilization [Z30.2] INVALID FOR* More... Encounter Status:Closed by KIMBERLY OLIVERA LPN on 08/30/18 CBC-COMPLETE BLOOD CNT Collected: 08/29/2018 Status: F Source: [place] NO DIFF 2:00 PM [facility] REPOSITORY TYPE CODE TESTS RESULT OUT OF RANGE REFERENCE UNITS LAB L100.1000 4.4-11.0 K/mm3 Normal WBC 10.2 LAB L100.1200 4.2-5.4 M/mm3 Low RBC 3.52 LAB L100.1300 12.0-15.0 g/dl Low HGB 10.1 LAB L100.1400 37-47 % Low HCT 30.9 LAB L100.1500 81-99 fL Normal MCV 87.8 LAB L100.1600 27.0-32.0 pg Normal MCH 28.7 LAB L100.1700 32-36 g/gl Normal MCHC 32.7 LAB L100.1810 11.6-14.6 % Normal RDW CV 14.0 LAB L100.1820 35.1-43.9 fl High RDW SD 44.6 LAB L100.1900 150-450 K/mm3 Normal PLT 206 LAB L100.2000 6.2-12.0 fl Normal MPV 9.2 Performed By: #### L100.0500 #### [facility] [address] [place], [place], [address] CBC-COMPLETE BLOOD CNT Collected: 08/29/2018 Status: F Source: [place] NO DIFF 5:15 AM [facility] REPOSITORY Order Comment: Comments: Day #1 Reason for Laboratory Test TYPE CODE TESTS RESULT OUT OF RANGE REFERENCE UNITS LAB L100.1000 4.4-11.0 K/mm3 Normal WBC 9.7 LAB L100.1200 4.2-5.4 M/mm3 Low RBC 3.29 LAB L100.1300 12.0-15.0 g/dl Low HGB 9.5 LAB L100.1400 37-47 % Low HCT 28.8 LAB L100.1500 81-99 fL Normal MCV 87.5 LAB L100.1600 27.0-32.0 pg Normal MCH 28.9 LAB L100.1700 32-36 g/gl Normal MCHC 33.0 LAB L100.1810 11.6-14.6 % Normal RDW CV 14.1 LAB L100.1820 35.1-43.9 fl High RDW SD 44.7 LAB L100.1900 150-450 K/mm3 Normal PLT 189 LAB L100.2000 6.2-12.0 fl Normal MPV 8.9 Performed By: #### L100.0500 #### [facility] [address] [place], [address] OPERATIVE REPORT Observed: 08/28/2018 Status: F Source: [place] 1:04 PM [facility] REPOSITORY [facility] Medical Records Department [address] [place] [address] Operative Report 08/28/18 1258 MR#: [id number] Acct: [id number] Name: KRISTIN HOPSON Rep #: [id number] : 1980 38 From: Sofie Velasquez MD PCP: Nicholas Burciaga MD Status: ADM IN Y Location: [place] [address]-1 Delivery Classification: Scheduled Final NITIN: 09/02/18 Final NITIN Source: US <20 weeks Gestational age: 39 Weeks and 2 Days Indications for : Repeat Elective , Desires elective sterilization Description of Procedure: The patient was taken to the operating room. She was prepped and draped in the dorsal supine position with a leftward tilt. A Pfannenstiel skin incision was made approximately 2 cm above the symphysis pubis and carried through to underlying layer fascia with the scalpel. The fascia was incised incised in the midline and extended laterally with the Khan scissors. The fascia was dissected off the rectus muscles with blunt and sharp dissection. The rectus muscles were in the midline and the peritoneum was entered bluntly. The peritoneal incision was stretched and the bladder blade was placed. The uterine incision was made in a low transverse fashion with the scalpel and extended superiorly and inferiorly with blunt dissection. The amniotic membranes were ruptured bluntly and clear amniotic fluid returned. The 's head was brought to the incision in the flexed position and delivered without difficulty. The remainder of the was delivered with gentle traction and fundal pressure in the standard fashion. The mouth and nares were bulb suctioned. The cord was clamped and cut as the infant was stimulated. Cord clamping was delayed. The was handed off to the waiting nursing staff. There were no significant intraperitoneal adhesions. The placenta was delivered with fundal massage and gentle traction in the standard fashion. The uterus was exteriorized and cleared of all clots and debris. The cervix was dilated with a ring forcep. The bladder was checked to make sure that it was down below the level of the incision and all the way of the uterine closure. The uterine incision was closed with #1 Vicryl in a running locked fashion. A second layer of the same suture was used in an imbricating fashion. Several [id number] sutures were needed through some sinuses to obtain hemostasis. The incision was examined and was found to be hemostatic. The right tube was identified and followed out and it was noted there was no fimbriated end. The insertion near the cornual edge of the uterus was clamped across with a Varsha clamp. The antimesenteric portions of the tube were clamped across with Varsha clamps. This was carried down to where the tube appeared to end into the ovary. The tube was removed from the uterus and the broad ligament with Metzenbaum scissors. The pedicles were oversewn with 2-0 Vicryl sutures and free ties. A Filshie clip was placed over the proximal portion of the tube were inserted into the cornual. The pedicles were hemostatic. The left tube was followed out to the fimbriated end. The same procedure was performed on the contralateral side. When I reached the fimbria, the very distal portions of the fimbria were attached to the ovary near the IP ligament. A small portion of the fimbria were left attached to the ovary or so as not to disrupt the blood supply. The remainder the tube had been removed. Both sides were confirmed to be hemostatic. The uterus was placed back into the peritoneal cavity and hemostasis was again confirmed. The rectus muscles were examined and any bleeding was Bovie cauterized. The parietal peritoneum and rectus muscles were closed en bloc with an 0 Vicryl running suture. The surgical teams outer gloves were then changed. The rectus fascia was examined and any bleeding was Bovie cauterized and the rectus fascia was closed with #1 PDS suture in a running standard fashion. The subcutaneous tissue was examining and any bleeding was Bovie cauterized. The subcutaneous tissue was reapproximated with 3-0 Vicryl suture. The skin was closed in a subcuticular fashion by the INTERPRETIVE NATURALIST with me present in the labor and delivery suite. I performed the remainder of the procedure with assistance. All sponge, lap, and needle counts were correct. The patient was taken to her room for recovery in a stable condition. Procedure: Repeat low transverse section Via Pfannenstiel skin incision with bilateral salpingectomy Surgeon: Sofie Velasquez MD Distresser: Triny TUCKER Amniotic Membrane Rupture Type: Artificial Amniotic Fluid Description: Clear Placenta Disposition: [facility] Specimen(s) sent to pathology: bilateral portions of fallopian tubes Drain: Soria to straight drain Fluids Replaced: 1700cc Cord Entanglement: Around neck x 1, loose Nuchal Cord Compression: Without compression Cord Vessel Description: 3 Vessels Esitmated Blood Loss (ml): 900 Gender: Male Delayed cord clamping: Yes Pre-op Antibiotic Given: Ancef 2 grams IV x1 Complications: None - Admit VTE Documentation VTE Present on Admission: No VTE Mechan Device Prophylaxis: SCD's VTE Pharm Prophylaxis ordered?: Yes 08/28/18 1304 <Electronically signed by Sofie Velasquez MD> Date Sofie Velasquez MD CC: Nicholas Burciaga MD; Sofie Velasquez MD Signed PATHOLOGY SPECIMEN OB Collected: 08/28/2018 Status: F Source: [place] 8:15 AM [facility] REPOSITORY Order Comment: Reason for Laboratory Test Placenta for Lab studies Send Specimen For (Specify): Studies @ [facility] Lab:Routine Time of Procedure: 729 Date of Procedure: 08/28/18 Reason specimen being sent to pathology (Hx/complications): tubal Type of specimen: Fallopian Tube Type of procedure performed: Tubal Ligation TYPE CODE TESTS RESULT OUT OF RANGE REFERENCE UNITS LAB L350.1800 SEE Normal PATH. PATHOLOGY Spec. OB REPORT Result Comment: Specimen submitted to Anatomical Pathology Department for testing. Performed By: #### L350.1800 #### [facility] [address], [address] FALLOPIAN TUBES/STERILIZATION Observed: 08/28/2018 Status: F Source: [place] 7:30 AM [facility] REPOSITORY Patient: KRISTIN HOPSON : 1980 (38/F) Acct Num: [id number] Phys: Sofie Velasquez MD Unit Num: [id number] Loc: WP [id number] Specimen: [id number] Received: 08/28/18951 Spec Type: FALL TUBES TISSUES 1 TISSUES: Fallopian tube GROSS DESCRIPTION Received is one container labeled with the patient's name and designated bilateral fallopian tubes. The specimen consists of two fallopian tubes with an average length of 3.5 cm and has an average diameter of 0.6 cm. One fallopian tube has a suture. No mass lesions are identified. Also present free in the container is what appears to be a fimbriated end of fallopian tube measuring 1.5 x 1 x 0.4 cm. The specimen is totally submitted in two cassettes. The fallopian tube with suture is submitted in cassette 1. / AM: 08/28/18 TC: 5 CPT: 15385 x2 HEADER OPERATION: Tubal ligation PRE-OP DIAGNOSIS: Bilateral tubal ligation TISSUE SUBMITTED: Fallopian tube MICROSCOPIC DESCRIPTION Slides are reviewed. MICROSCOPIC DIAGNOSIS Right and left fallopian tubes, bilateral salpingectomies: Two complete segments of fallopian tubes with no pathologic change. AM: 08/29/18 Signed Eligio Awan, DO 08/29/18 <signature on file> Performed By: #### PFALS #### [facility] [address] [place], [address] CBC W/DIFF, AUTOMATED Collected: 08/28/2018 Status: F Source: [place] 6:00 AM [facility] REPOSITORY TYPE CODE TESTS RESULT OUT OF RANGE REFERENCE UNITS LAB L100.1000 4.4-11.0 K/mm3 Normal WBC 9.8 LAB L100.1200 4.2-5.4 M/mm3 Low RBC 4.07 LAB L100.1300 12.0-15.0 g/dl Low HGB 11.8 LAB L100.1400 37-47 % Low HCT 35.6 LAB L100.1500 81-99 fL Normal MCV 87.5 LAB L100.1600 27.0-32.0 pg Normal MCH 29.0 LAB L100.1700 32-36 g/gl Normal MCHC 33.1 LAB L100.1810 11.6-14.6 % Normal RDW CV 13.5 LAB L100.1820 35.1-43.9 fl Normal RDW SD 42.1 LAB L100.1900 150-450 K/mm3 Normal PLT 252 LAB L100.2000 6.2-12.0 fl Normal MPV 10.0 LAB L100.2100 47-70 % High NEUT% 70.3 LAB L100.2200 19-41 % Normal LY% 21.5 LAB L100.2300 0-10 % Normal MONO% 6.9 LAB L100.2400 0-5 % Normal EO% 0.8 LAB L100.2500 0-1 % Normal BASO% 0.2 LAB L100.2550 0.0-0.9 % Normal IM GRAN % 0.300 Result Comment: IG% - Immature Granulocytes (promyelocytes, myelocytes and metamyelocytes) > 1% indicates that a LEFT SHIFT is Present. LAB L100.2620 2.0-7.7 X10 3/uL Normal Absolute Neut 6.9 LAB L100.2720 0.83-4.51 X10 3/ul Normal Absolute Lymph 2.12 Performed By: #### L100.0100 #### [facility] [address] [place], [place], [id number] TYPE AND SCREEN Collected: 08/28/2018 Status: F Source: [place] 6:00 AM [facility] REPOSITORY Order Comment: Reason for Type AND Screen/Red Cells: SURGERY Type of Surgery: TYPE CODE TESTS RESULT OUT OF RANGE REFERENCE UNITS LAB B10.0800 A Normal BLOOD TYPE GEL POSITIVE LAB B100.4000 Normal Antibody NEGATIVE Screen Performed By: #### B101.7450 #### [facility] [address] [place], [address] PROGRESS Observed: 08/23/2018 Status: COMPLETED Source: [place] 2:46 PM [facility] [place] REPOSITORY HNO ID: [id number] Author: Sofie Velasquez Service: (none) Author Type: Physician Type: Progress Notes Filed: 08/23/2018 3:46 PM Note Text: NST SUMMARY PROVIDER ASSESSMENT AND INTERPRETATION Kristin Hopson is a 38 year old female, , who is at 38w4d with an NITIN of 09/02/2018, by Last Menstrual Period dating method. Indications for NST: AMA Baseline: 145 Variability: Moderate Accelerations: Present 15 X 15 Decelerations: None Contractions: TOCO: None Interpretation: Category I and Reactive SIGNATURE: Sofie Velasuqez MD HISTORY PHYSICAL Observed: 08/23/2018 Status: COMPLETED Source: [place] 2:21 PM [facility] REPOSITORY HNO ID: [id number] Author: Sofie Velasquez Service: (none) Author Type: Physician Type: HANDP Filed: 08/23/2018 3:46 PM Note Text: Pre-Op History and Physical HPI: The patient is a 38 year old female presenting for pre-operative visit. She is scheduled for and sterilization, for delivery and tubal on 08/28/18. Procedure discussed along with risks, benefits and complications. Other alternatives discussed for management. Consent form signed? Yes. PAST MEDICAL HISTORY Diagnosis Date - Anemia - Depression 2002 took meds only couple weeks - Fissure, anal 2012 - Hemorrhoid - History of blood transfusion 2012 H/o transfusion after first c/s 2 units - IBS (irritable bowel syndrome) - PMH - PAST MEDICAL HISTORY OF [place] disease (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) - PMH - PAST MEDICAL HISTORY OF Slipped lumbar disc - depression - hemorrhage PAST SURGICAL HISTORY Procedure Laterality Date - DELIVERY ONLY 10/24/12 , low transverse - DELIVERY ONLY 01/15/16 , low transverse - EXTRACTION ERUPTED TOOTH/EXR @ 21yrs of age Current Outpatient Prescriptions: aspirin, enteric coated (ASPIRIN, ENTERIC COATED) 81 mg EC tablet Take 1 tablet by mouth once daily. start at 12 weeks Disp: 30 tablet Rfl: 6 DOCOSAHEXANOIC ACID (DHA ORAL) Take by mouth. Disp: Rfl: fenugreek seed extract 500 mg cap Take by mouth. Disp: Rfl: FOLIC ACID ORAL Take by mouth. Disp: Rfl: guaiFENesin (MUCINEX) 600 mg 12 hr tablet Take 2 tablets by mouth twice daily. Disp: 30 tablet Rfl: 0 guaiFENesin (MUCINEX) 600 mg 12 hr tablet Take 2 tablets by mouth twice daily. Disp: 30 tablet Rfl: 0 [place]-3 Fatty Acids (FISH OIL) 500 mg cap Take 2 capsules by mouth once daily. Disp: 120 capsule Rfl: 6 oxymetazoline (AFRIN SINUS, OXYMETAZOLINE,) 0.05 % nasal spray Use 2 Sprays in the nose twice daily. Disp: 1 Bottle Rfl: 0 POLYETHYLENE GLYCOL 3350 (MIRALAX ORAL) Take by mouth. Disp: Rfl: multivitamin ( TABLET) 28 mg iron- 800 mcg tab Take 1 tablet by mouth once daily. Disp: 30 tablet Rfl: 12 No current facility-administered medications for this visit. 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 Social History Main Topics Smoking status: Never Smoker Smokeless tobacco: Never Used Alcohol use: No Drug use: No Sexual activity: Yes Partners with: Male control/protection: Condom FAMILY HISTORY: FAMILY HISTORY Problem Relation Age of Onset - Hypertension Mother - Hypertension Father - Seizures Sister - Cancer Maternal Grandmother colon - Diabetes Maternal Grandfather - Diabetes Paternal Grandmother - Heart Paternal Grandmother - Hypertension Paternal Grandmother - Diabetes Paternal Grandfather - Heart Paternal Grandfather fatal [place] - Asthma Son - Allergies Son - Asthma Son - Allergies Son - Allergies Son REVIEW OF SYMPTOMS: GENERAL: denies fevers or chills ENDOCRINOLOGY: has not been on steroids Cardiology : denies palpitations or chest pain Respiratory: denies SOB or cough Hematology: denies history of prolonged bleeding or easy bruising or VTE Allergy: Denies history of personal or family history of allergy to anesthesia PHYSICAL EXAMINATION: VITALS: Last menstrual period 11/26/2017, currently . GENERAL: The patient is well nourished, well hydrated in no acute distress. , The patient is oriented to time, place, and person. NECK: Supple. No lynphadenopathy, normal thyroid, no thyromegaly. LUNGS: Clear to auscultation bilaterally. no wheezes, rhonchi or rales HEART: Regular rate and rhythm, Normal heart sounds and No murmurs or gallops IMPRESSION: 39 week on 08/28/18 PLAN: The risks/benefits/alternatives and personal involved for the planned c/s and salpingectomy or tubal ligation with filshie clips depending on anatomy were reviewed with the patient. Her questions were answered to her satisfaction and she desires to proceed. Consent was signed. I reviewed with her postop instructions and expectations. I have reviewed and updated past medical and surgical history, medications and allergies Sofie Velasquez M.D. PROGRESS Observed: 08/18/2018 Status: COMPLETED Source: [place] 4:33 PM [facility] REPOSITORY HNO ID: [id number] Author: Sofie Velasquez Service: (none) Author Type: Physician Type: Progress Notes Filed: 08/18/2018 4:35 PM Note Text: NST SUMMARY PROVIDER ASSESSMENT AND INTERPRETATION Kristin Hopson is a 38 year old female, , who is at 37w6d with an NITIN of 09/02/2018, by Last Menstrual Period dating method. Indications for NST: AMA Baseline: 120 Variability: Moderate Accelerations: Present 15 X 15 Decelerations: None Contractions: TOCO: Irregular Interpretation: Category I and Reactive SIGNATURE: Sofie Velasquez MD PROGRESS Observed: 08/13/2018 Status: COMPLETED Source: [place] 4:57 PM [facility] REPOSITORY HNO ID: [id number] Author: Sofie Velasquez Service: (none) Author Type: Physician Type: Progress Notes Filed: 08/13/2018 4:57 PM Note Text: lab reviewed, please place result in chart. Sofie Velasquez MD` PROGRESS Observed: 08/11/2018 Status: COMPLETED Source: [place] 2:39 PM [facility] REPOSITORY HNO ID: [id number] Author: Sofie Velasquez Service: (none) Author Type: Physician Type: Progress Notes Filed: 08/11/2018 2:47 PM Note Text: NST SUMMARY PROVIDER ASSESSMENT AND INTERPRETATION Kristin Hopson is a 38 year old female, , who is at 36w6d with an NIITN of 09/02/2018, by Last Menstrual Period dating method. Indications for NST: AMA and Decreased Movement Baseline: 120 Variability: Moderate Accelerations: Present 15 X 15 Decelerations: None Contractions: TOCO: Irregular Interpretation: Category I and Reactive SIGNATURE: Sofie Velasquez MD GROUP B STREP PCR Collected: 08/11/2018 Status: F Source: [place] 2:39 PM [facility] REPOSITORY TYPE CODE TESTS RESULT OUT OF RANGE REFERENCE UNITS LAB GBPCRT Positive for Abnormal Group B Alert GROUP B Streptococcus by STREP PCR PCR. If susceptibility testing is needed and was not requested with initial test order, call lab ([phone]) within 5 days to initiate workup. Performed By: #### GBPCR #### [facility] [address], [place] [address] PROGRESS Observed: 08/01/2018 Status: COMPLETED Source: [place] 2:22 PM [facility] REPOSITORY HNO ID: [id number] Author: Sofie Velasquez Service: (none) Author Type: Physician Type: Progress Notes Filed: 08/01/2018 4:01 PM Note Text: NST SUMMARY PROVIDER ASSESSMENT AND INTERPRETATION Kristin Hopson is a 38 year old female, , who is at 35w3d with an NITIN of 09/02/2018, by Last Menstrual Period dating method. Indications for NST: AMA Baseline: 140 Variability: Moderate Accelerations: Present 15 X 15 Decelerations: None Contractions: TOCO: None Interpretation: Category I and Reactive SIGNATURE: Sofie Velasquez MD PROGRESS Observed: 07/18/2018 Status: COMPLETED Source: [place] 3:24 PM [facility] REPOSITORY HNO ID: [id number] Author: Franny Beyer Ma Service: (none) Author Type: (none) Type: Progress Notes Filed: 07/19/2018 8:39 AM Note Text: Patient identified by name and date of . Kristin Hopson presents today for a vaccination of Tdap. Patient denies an allergy to latex: yes Patient denies a severe (life-threatening) allergy to a previous dose of Tdap, DTP, DTaP, DT or Td vaccine. Yes Patient denies history of epilepsy or neurological problems: Yes Patient is afebrile and denies being moderately or severely ill: Yes Patient denies history of Guillain-Floyd Syndrome (a severe paralytic illness): Yes Tdap Adacel injection was given without incident. See immunizations for details of immunizations administered today. VIS sheet provided: Yes Provider Dr Danielson was present in office at time of injection. Franny Beyer Ma PROGRESS Observed: 06/20/2018 Status: COMPLETED Source: [place] 3:18 PM [facility] REPOSITORY HNO ID: [id number] Author: Franny Beyer Ma Service: (none) Author Type: (none) Type: Progress Notes Filed: 06/20/2018 3:37 PM Note Text: 38 year old female here for INACTIVATED INFLUENZA VACCINE. 2205-6141 Season Patient is identified by name and date of : Yes [] CONTRAINDICATIONS color enhanced section Age less than 6 months? No Allergy to eggs, chicken, chicken feathers, or chicken dander? No Allergy to thimerosal (a preservative) or formaldehyde, gelatin? No History of severe reaction to any vaccine component or a previous dose of influenza vaccination? No History of Guillain-Floyd Syndrome within 6 weeks after a previous influenza vaccine? No Patient is not moderately or severely ill? No Current temperature greater or equal to 100.4F? No History of Bone Marrow Transplant prior 6 months or solid organ transplant in the past 3 months ? No History of fainting after a prior injection or medical procedure? No- ? If patient has fainted in the past, the CDC recommends sitting or lying down for 15 minutes after the vaccination. [] VERIFICATION color enhanced section Was the answer Yes for any of the above contraindications? No contraindications present. Acceptable to proceed with vaccine. Patient/guardian agrees the above answers are true to the best of their knowledge? Yes Flu vaccine information sheet given? Yes See immunization activity in EpicCare for details of immunizations adminstered today. Patient age: [age] year old For The 8918-2282 Flu Season 6-35 months old: Fluzone 0.25 ml - IM (Preservative Free) 3 years of age: Fluzone 0.5 ml - IM (Preservative Free) 3 years and older: Fluzone 0.5 ml- IM-(with Preservatives) 65+ years old: 2-49 years old Fluzone High-Dose 0.5 ml - IM (Preservative Free) FLUMIST- intranasal REMEMBER: If patient is less than 9 years of age and this is the first vaccine of Influenza to be received in any flu season, they should receive a second dose in one months time. PROGRESS Observed: 06/02/2018 Status: COMPLETED Source: [place] 10:05 AM [facility] REPOSITORY HNO ID: [id number] Author: Sofie Velasquez Service: (none) Author Type: Physician Type: Progress Notes Filed: 06/02/2018 10:05 AM Note Text: lab reviewed, please place result in chart. Sofie Velasquez MD` CBC AND DIFFERENTIAL Collected: 06/01/2018 Status: F Source: [place] 4:33 PM [facility] REPOSITORY TYPE CODE TESTS RESULT OUT OF REFERENCE UNITS RANGE LAB WBC 3.70-11.00 k/uL WBC 10.82 LAB RBC 3.90-5.20 m/uL RBC 3.91 LAB HGB 11.5-15.5 g/dL Hemoglobin 11.6 LAB HCT 36.0-46.0 % Hematocrit 36.3 LAB MCV 80.0-100.0 fL MCV 92.8 LAB MCH 26.0-34.0 pG MCH 29.7 LAB MCHC 30.5-36.0 g/dL MCHC 32.0 LAB RDWCV 11.5-15.0 % RDW-CV 13.4 LAB PLTCT 150-400 k/uL Platelet Count 300 LAB MPV 9.0-12.7 fL MPV 10.6 LAB ANEUT % Neut% 78.1 LAB AANEUT 1.45-7.50 k/uL Abs Neut High 8.45 LAB ALYMP % Lymph% 15.4 LAB AALYMP 1.00-4.00 k/uL Abs Lymph 1.67 LAB AMONO % [place]% 5.6 LAB AAMONO <0.87 k/uL Abs [place] 0.61 LAB AEOS % Eosin% 0.6 LAB AAEOS <0.46 k/uL Abs Eosin 0.06 LAB ABASO % Baso% 0.3 LAB AABASO <0.11 k/uL Abs Baso 0.03 LAB AUNRBC 0 /100 WBC NRBCs 0.0 LAB ABNRBC <0.01 k/uL Absolute nRBC <0.01 LAB DTYP DTYPE Auto Diff Performed By: #### CBCDIF, GLTGST #### [facility] [address] [place] [id number] 50G, 1HR GEST. Collected: 06/01/2018 Status: F Source: [place] GSCRN 4:33 PM [facility] REPOSITORY TYPE CODE TESTS RESULT OUT OF REFERENCE UNITS RANGE LAB GLUP 74-134 mg/dL Glucose 106 Screen, Preg Result Comment: [place] [employer] of Obstetricians and Gynecologists (Fischer/Junior) guidelines state a gestational diabetes mellitus positive screen is made, in women not previously diagnosed with overt diabetes, when the 1 hr plasma glucose level is equal to or above 140 mg/dL. The [facility] recommends a 135 mg/dL cutoff. Performed By: #### CBCDIF, GLTGST #### [facility] [address] [place] [address] CNCO Observed: 05/10/2018 Status: COMPLETED Source: [place] 12:00 AM [facility] REPOSITORY Letter Text Sofie Velasquez M.D. [address] [address] 05/10/2018 [place] [id number] CCF#: [id number] Dear Kristin, This letter is to confirm with you the dates and times of your upcoming surgery: Surgery at [facility] is on 08/28/18 at 7:30am Pre-Op Appointment at Dr. Velasquez's Office is on 08/23/18 at 3:10pm Pre-Admission Testing at [facility] is on 08/24/18 at 11:00am *An Arrival Time for Date of Surgery will be given at this appointment Post-Op Appointment at Dr. Velasquez's Office is on 09/06/18 at 3:10pm In addition, we will do a precertification approximately 1 week prior to your surgery. This means we will give your insurance company the medical information they need to make a predetermination. This is not a guarantee of payment and you will need to call your insurance company to verify benefits and coverage. If you are self-pay and/or receive [facility] Financial Assistance, and are having surgery at [facility], please call them at [phone] to make financial arrangements. We will only call you if there is a problem. If you have any questions, please feel free to call us at the phone number above. We appreciate your confidence in choosing the [facility] for your medical care and we look forward to seeing you at your next appointment. Thank you, [facility] PROGRESS Observed: 04/11/2018 Status: COMPLETED Source: [place] 6:39 PM [facility] REPOSITORY HNO ID: [id number] Author: Madelin Guerrero Service: (none) Author Type: Physician Type: Progress Notes Filed: 04/11/2018 6:41 PM Note Text: A mcelroy? fetus in utero with symmetric measurements Adequate growth (AGA). Estimated Date of Delivery: 09/02/18 EGA = 19w3d The anatomy appears normal. There are no evident malformations and /or effusions. No genetic markers are noted. The amniotic fluid volume is within normal limits. The sensitivity of ultrasound in the detection of malformations overall is approximately 35%. RECOMMENDATIONS: - Follow up ultrasound as clinically indicated ALPHA FETO MATERNAL Collected: 03/28/2018 Status: F Source: [place] 2:59 PM [facility] REPOSITORY TYPE CODE TESTS RESULT OUT OF REFERENCE UNITS RANGE LAB PREINT Screen Negative Interp LAB AFPM View Note results in Scanned Documents link when available. Performed By: #### AFPMAT #### [facility] [address] [place], [place] [address] PROGRESS Observed: 02/28/2018 Status: COMPLETED Source: [place] 1:04 PM [facility] REPOSITORY HNO ID: [id number] Author: Raphael Goins Service: (none) Author Type: Physician Type: Progress Notes Filed: 02/28/2018 1:05 PM Note Text: Please see ultrasound report for details of this visit. Raphael Goins M.D. [id number] PLUS Collected: 02/28/2018 Status: F Source: [place] 10:55 AM [facility] REPOSITORY TYPE CODE TESTS RESULT OUT OF REFERENCE UNITS RANGE LAB CHRM21 Chromosome 21 Negative LAB CHRM18 Chromosome 18 Negative LAB CHRM13 Chromosome 13 Negative LAB CHRMY Y Chromosome Detected LAB CHYINT Y Chromosome See Notes Interp Result Comment: (NOTE) Consistent with a male fetus. LAB AFIND Additional Findings N/A LAB AFINT Additnl Findings Int N/A LAB AFINTE Additnl Findings Nte N/A LAB MTINT MT21 Interpretation See Notes Result Comment: (NOTE) This specimen showed an expected representation of chromosome 21, 18 and 13 material. Clinical correlation is suggested. LAB LDNTE Stable Hand Nte See Notes Result Comment: (NOTE) Fraction: 7% LAB MTAPR MT21 Approval See Notes Result Comment: (NOTE) Kevin Sánchez MD LAB MTMETH Method See Notes Result Comment: (NOTE) Circulating cell-free DNA was purified from the plasma component of anti-coagulated maternal whole blood. It was then converted into a genomic DNA library for the determination of chromosome 21, 18, 13 representation and the presence of the Y chromosome.[1] Other chromosomal material, including sex chromosome (X and Y) representation, was also evaluated and will only be reported as an Additional Finding when an abnormality is detected. LAB MTABT About See the test Notes Result Comment: (NOTE) The GtdtshwO41 PLUS test analyzes circulating cell-free DNA extracted from a maternal blood sample. The test is indicated for use in women with increased risk for chromosomal aneuploidy. Validation data on twin pregnancies is limited and the ability of this test to detect aneuploidy in a triplet has not yet been validated. LAB MTPERF Performance See Notes Result Comment: (NOTE) The performance characteristics of the ZhrzprtE72 PLUS laboratory-developed test (LDT) have been determined in a clinical validation study with women at increased risk for chromosomal aneuploidy.[1,2,3] LAB MTPERD Performance Data See Notes Result Comment: (NOTE) Trisomy 21 Sensitivity: 99.1%; CI: 96.3-99.8% Trisomy 21 Specificity: 99.9%; CI: 99.6-99.9% Trisomy 18 Sensitivity: >99.9%; CI: 92.4-100.0% Trisomy 18 Specificity: 99.6%; CI: 99.2-99.8% Trisomy 13 Sensitivity: 91.7%; CI: 59.7-99.6% Trisomy 13 Specificity: 99.7%; CI: 99.3-99.9% Y Chromosome Accuracy: 99.4%; CI: 99.0-99.6% LAB MTLMT Limitations See Notes Result Comment: (NOTE) DNA test results do not provide a definitive genetic risk in all individuals. Cell-free DNA does not replace the accuracy and precision of diagnosis with CVS or amniocentesis. These tests are not intended to identify pregnancies at risk for neural tube defects or ventral wall defects. A patient with a positive test result or presence of an Additional Finding should be referred for genetic counseling and offered invasive diagnosis for confirmation of test results.[4] A negative test result does not ensure an unaffected . The absence of an Additional Finding does not indicate a negative result. While results of this testing are highly accurate, not all chromosomal abnormalities may be detected due to placental, maternal or mosaicism, or other causes. Sex chromosomal aneuploidies are not reportable for known multiple gestations. The health care provider is responsible for the use of this information in the management of their patient. LAB MTNTE See Test Note Notes Result Comment: (NOTE) This test was developed and its performance characteristics determined by [facility]. It has not been cleared or approved by the U.S. FDA. This test is used for clinical purposes. It should not be regarded as investigational or for research. This laboratory is certified under the Clinical Laboratory Improvement Amendments (CLIA) as qualified to perform high complexity clinical laboratory testing and accredited by the [employer] [place] [employer]. LAB MTREF References See Notes Result Comment: (NOTE) 1. Sigifredo WELLS, et al. Michelle Med. 2012;14(3):296-305. 2. Sigifredo WELLS, et al. Michelle Med. 2011;13(11):913-920. 3. Jonny AMOR, et al. Prenat Diag. 2013;33(6):591-597. 4. ACOG/SMFM Joint Committee Opinion No. 545, Aug 2012. CNPN Observed: 02/28/2018 Status: COMPLETED Source: [place] 12:00 AM [facility] REPOSITORY Telephone (WOOB) KRISTIN HOPSON ([id number]) 1980 F Date Time Provider Department 02/28/18 SOFIE VELASQUEZ During your visit today, we recorded the following information about you: Juliet Melgar RN 02/28/2018 11:46 AM Signed Please sign pending anatomy u/s order, per PSR request Juliet Velasquez MD 02/28/2018 11:48 AM Signed completed. Sofie Velasquez MD Allergies As of Date: 02/28/2018 Noted Allergy Reaction IODINE 03/07/2013 2 - Rash Comments: Pt had reaction to iodine prep during csection Date Reviewed: 02/28/2018 Reviewed by: Sofie Velasquez - Fully Assessed Reason for Visit: ultrasound order [Other] Primary Visit Diagnosis:Encounter for ultrasound [Z36.9] Other Visit Diagnoses:Previous delivery affecting [O34.219] Antepartum multigravida of advanced maternal age [O09.529] Order(s):[facility] [[id number]] Order #: [id number]: 1 Prescriptions as of 02/28/2018 Sig: OMEGA-3 FATTY ACIDS 500 MG CA* Take 2 capsules by mouth once* ASPIRIN 81 MG TABLET,DELAYED * Take 1 tablet by mouth once d* VITAMIN-FERROUS FUMA* Take 1 tablet by mouth once d* GUAIFENESIN ER 600 MG TABLET,* Take 2 tablets by mouth twice* Patient not taking: Reported on 02/28/2018 OXYMETAZOLINE 0.05 % NASAL SP* Use 2 Sprays in the nose twic* GUAIFENESIN ER 600 MG TABLET,* Take 2 tablets by mouth twice* FENUGREEK SEED EXTRACT 500 MG* Take by mouth. MIRALAX ORAL Take by mouth. DHA ORAL Take by mouth. FOLIC ACID ORAL Take by mouth. Problem List As Of Date 02/28/2018 Noted Resolved Threatened , antepartum [O20.0] INVALID FOR*11/13/2010 Supervision of normal [Z34.90] INVALID FOR*02/22/2011 Hx of maternal laceration, 3rd degree, currentl*INVALID FOR*01/30/2016 More... History of IBS [Z87.19] INVALID FOR*07/01/2015 More... History of depression [Z86.59] INVALID FOR* More... Family history of defects [Z82.79] INVALID FOR*01/30/2016 More... Fissure in ano [K60.2] INVALID FOR*07/01/2015 Hemorrhoids [K64.9] INVALID FOR*07/01/2015 Encounter for supervision of normal first pregn*INVALID FOR*07/01/2015 More... Supervision of other high risk pregnancies, fir*INVALID FOR*01/30/2016 Previous delivery affecting *INVALID FOR* More... Abnormal glucose complicating [O99.81*INVALID FOR*01/30/2016 Antepartum multigravida of advanced maternal ag*INVALID FOR* More... Patient requested diagnostic testing [Z01.89] INVALID FOR* More... Obesity in [O99.210] INVALID FOR* More... Encounter Status:Closed by SOFIE VELASQUEZ MD on 02/28/18 CBC Collected: 01/31/2018 Status: F Source: [place] 4:36 PM [facility] TYPE CODE TESTS RESULT OUT OF REFERENCE UNITS RANGE LAB WBC 3.70-11.00 k/uL WBC High 11.01 LAB RBC 3.90-5.20 m/uL RBC 4.52 LAB HGB 11.5-15.5 g/dL Hemoglobin 12.7 LAB HCT 36.0-46.0 % Hematocrit 39.3 LAB MCV 80.0-100.0 fL MCV 86.9 LAB MCH 26.0-34.0 pG MCH 28.1 LAB MCHC 30.5-36.0 g/dL MCHC 32.3 LAB RDWCV 11.5-15.0 % RDW-CV 13.4 LAB PLTCT 150-400 k/uL Platelet Count 310 LAB MPV 9.0-12.7 fL MPV 10.5 LAB ABSNUC <0.01 k/uL Absolute nRBC <0.01 Performed By: #### CBC, SYPHGX, HBSAG, HIV12C, RUBIGG #### [place] [id number] [place] [phone] SYPHILIS IGG WITH Collected: 01/31/2018 Status: F Source: [facility] 4:36 [facility] REPOSITORY TYPE CODE TESTS RESULT OUT OF REFERENCE UNITS RANGE LAB SYPHQL Nonreactive Syphilis IgG, Nonreactive Qual Result Comment: In conjunction with this result, the immune status of the patient should be evaluated based on their clinical status, related risk factors, and other diagnostic test results. LAB SYPHLG AI Syphilis IgG <0.2 Result Comment: Antibody index is interpreted as follows: Non reactive SPECIMENS <=0.8 Weak reactive SPECIMENS 0.9 to 5.9 Reactive SPECIMENS >=6.0 Performed By: #### CBC, SYPHGX, HBSAG, HIV12C, RUBIGG #### [phone] HEPATITIS B SURF. AG Collected: 01/31/2018 Status: F Source: [place] 4:36 [facility] REPOSITORY TYPE CODE TESTS RESULT OUT OF REFERENCE UNITS RANGE LAB HBSAG Negative Hepatitis B Negative Surf. Ag Performed By: #### CBC, SYPHGX, HBSAG, HIV12C, RUBIGG #### [place] [phone] HIV 12 COMBO (AG/AB) Collected: 01/31/2018 Status: F Source: [place] 4:36 [facility] REPOSITORY TYPE CODE TESTS RESULT OUT OF REFERENCE UNITS RANGE LAB HVAGAB Non Reactive HIV Non Reactive 12 Ag/Ab Result Comment: (NOTE) HIV Information: [place] Rev. Code 3701.243(E): This information has been disclosed to you from confidential records protected from disclosure by state law. You shall make no further disclosure of this information without the specific, written, and informed release of the individual to whom it pertains, or as otherwise permitted by state law. A general authorization for the release of medical or other information is not sufficient for the purpose of the release of HIV test results or diagnoses. Performed By: #### CBC, SYPHGX, HBSAG, HIV12C, RUBIGG #### [place] [id number] [place] [id number] RUBELLA IGG ANTIBODY Collected: 01/31/2018 Status: F Source: [place] 4:36 PM [facility] REPOSITORY TYPE CODE TESTS RESULT OUT OF RANGE REFERENCE UNITS LAB RUBGQL Negative Abnormal Rubella IgG Positive Alert Ab, Qual Result Comment: Sample is considered positive for IgG antibodies to rubella virus. A positive result indicates previous exposure to Rubella virus or vaccination. LAB RUBQNT Index Value Rubella IgG Ab 1.67 Result Comment: Index values are interpreted as follows: Negative specimens <0.90 Equivocol specimens 0.90 to 0.99 Positive specimens >0.99 The magnitude of the measured result is not indicative of the amount of antibody present. Performed By: #### CBC, SYPHGX, HBSAG, HIV12C, RUBIGG #### [place] [id number] 50G, 1HR GEST. Collected: 01/31/2018 Status: F Source: [place] GSCRN 4:36 PM [facility] REPOSITORY TYPE CODE TESTS RESULT OUT OF REFERENCE UNITS RANGE LAB GLUP 74-134 mg/dL Glucose 113 Screen, Preg Result Comment: [place] Congress of Obstetricians and Gynecologists (Fischer/Coustan) guidelines state a gestational diabetes mellitus positive screen is made, in women not previously diagnosed with overt diabetes, when the 1 hr plasma glucose level is equal to or above 140 mg/dL. The [facility] Relations [facility] [place] recommends a 135 mg/dL cutoff. Performed By: #### GLTGST #### [facility] [address] [place] [address] TYPE AND SCR,PRENATL Collected: 01/31/2018 Status: F Source: [place] 4:36 PM [facility] REPOSITORY TYPE CODE TESTS RESULT OUT OF REFERENCE UNITS RANGE LAB %ABR A ABO/RH(D) POSITIVE LAB % Antibody NEG Screen Performed By: #### TSPN #### [facility] [address] [place], [place] [address] GC/CHLAMYDIA AMPLIF Collected: 01/31/2018 Status: F Source: [place] 4:05 PM [facility] REPOSITORY TYPE CODE TESTS RESULT OUT OF REFERENCE UNITS RANGE LAB GCCTSR GC/Chlam Amp [facility]ervix Source LAB GCAMPL GC Negative Amplification for Neisseria gonorrhoeae by amplification. LAB CLAMPL Chlamydia Negative Amplif for Chlamydia trachomatis by amplification. Performed By: #### GCCT #### [facility] [address] [place], [place] [address] TOXICOLOGY SCREEN,UR Collected: 01/31/2018 Status: F Source: [place] 3:40 PM [facility] REPOSITORY TYPE CODE TESTS RESULT OUT OF REFERENCE UNITS RANGE LAB UPCP2 Negative Negative Phencyclidin e, Urine Result Comment: Cutoff threshold at 25 ng/mL. LAB UBENZ2 Negative Benzodiazepines, Ur Negative Result Comment: Cutoff threshold at 200 ng/mL. LAB UCOC2 Negative Cocaine, Negative Urine Result Comment: Cutoff threshold at 300 ng/mL. LAB UAMPH2 Negative Amphetamines, Urine Negative Result Comment: Cutoff threshold at 1000 ng/mL. LAB UTHC2 Negative Cannabinoids, Urine Negative Result Comment: Cutoff threshold at 50 ng/mL. LAB UOPI2 Negative Opiates, Negative Urine Result Comment: Cutoff threshold at 300 ng/mL. LAB UBARB2 Negative Barbiturates, Urine Negative Result Comment: Cutoff threshold at 200 ng/mL. LAB UETOH <11 mg/dL <11 Ethanol, Urine LAB UOXYC Negative Oxycodone, Negative Urine Result Comment: Cutoff threshold at 100 ng/mL. Comment: Immunoassay screen only. Cross reactivity with other substances can occur with immunoassay screening. Detection of any drug(s) in this urine toxicology panel is presumptive only. These tests are for med ical purposes only and should not be used for compliance monitoring, legal, or forensic use. In clinical settings, confirmatory testing is at the practitioner's discretion [1]. If clinically indicated, confirmation by high specificity, quantitative methodology may be requested on the same speci men through Client Services ([phone]) if contacted within 48 hours of initial testing. [1]Substance Abuse and Mental Health Services Administration (2012). Clinical Drug Testing in Primary Care Technical Assistance Publication Series 32. Department of Health and Human Services, [place], p.10. These tests were developed and their performance characteristics determined by [facility] [place] ([facility]). They have not been cleared or a pproved by the FDA. [facility] is regulated under CLIA as qualified to perform high complexity testing. These tests are used for clinical purposes. They should not be regarded as investigational or for research. Performed By: #### UTOX2 #### [facility] [address], [place] [address] Observed: 01/31/2018 Status: F Source: [place] URINE CULTURE 3:40 PM [facility] REPOSITORY Sp. Request/Comment: - Best Practice Alert: To ensure optimal transport conditions and accurate culture results transfer urine specimens to feliz top C and S preservative tube. Culture Result - 10,000 - <50,000 CFU/ml Normal urogenital nick Performed By: #### URCUL #### [facility] [address], [place] [address] PROGRESS Observed: 01/31/2018 Status: COMPLETED Source: [place] 3:27 PM [facility] REPOSITORY HNO ID: [id number] Author: Sofie Velasquez Service: (none) Author Type: Physician Type: Progress Notes Filed: 01/31/2018 4:15 PM Note Text: INITIAL OB ASSESSMENT OB Provider: Franny Beyer Ma HPI: Kristin Hopson is a 37 year old female here to establish Obstetrical Care. Patient's last menstrual period was 11/26/2017. from OB Dating Form. Cycle length: irreg slightly days Complaints: nausea without vomiting was planned. Obstetric History T3 L3 SAB1 TAB0 Ectopic0 Multiple0 Live Births3 Prior : yes x 2 History of 4th degree laceration: No Patient's Risk Screening for delivery: History of abnormal pap: No Prior treatment for cervical dysplasia: none. 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 Patient BMI over 30? 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 oxymetazoline (AFRIN SINUS, OXYMETAZOLINE,) 0.05 % nasal spray Use 2 Sprays in the nose twice daily. guaiFENesin (MUCINEX) 600 mg 12 hr tablet Take 2 tablets by mouth twice daily. fenugreek seed extract 500 mg cap Take by mouth. POLYETHYLENE GLYCOL 3350 (MIRALAX ORAL) Take by mouth. VIT/IRON FUMARATE/FA ( ORAL) Take by mouth. DOCOSAHEXANOIC ACID (DHA ORAL) Take by mouth. FOLIC ACID ORAL Take by mouth. No current facility-administered medications on file prior to visit. Review of Systems: GENERAL: Negative for: Fever or Chills HEENT: Negative for: Headache, Impaired Vision, Ringing in Ears, Nosebleeds NECK: Negative for: Swelling, Pain, Stiffness RESPIRATORY: Negative for: Cough, Shortness of breath, Wheezing GASTROINTESTINAL: Positive for: Constipation and nausea MUSCULOSKELETAL: Negative for: Muscle or joint pain, stiffness, Joint swelling NEUROLOGIC/PSYCHIATRIC: Negative for: Weakness, Paralysis, Numbness, Tingling, Tremor, Anxiety, Depression, Memory loss SKIN: Negative for: Rash, Itching GENITOURINARY: Negative for: vaginal itching, vaginal discharge, hematuria or dysuria PHYSICAL EXAM: LMP 11/26/2017 GENERAL: pleasant female in no apparent distress DERMATOLOGY: Normal, without lesions, non-icteric and non-hirsute NECK: Supple, full range of motion, no adenopathy and thyroid normal CHEST: Normal inspiratory effort BREAST: soft, non-tender, symmetric, no dominant mass, normal nipple-areolar complex, no lymphadenopathy and no nipple discharge ABDOMEN: soft, non-tender and no masses NEURO: alert and oriented x3,exam grossly non-focal PELVIS: External genitalia normal without lesions. Perineal body intact. No vaginal or cervical lesions. Cervix closed. Uterus 9 week size. No adnexal masses or tenderness. Clinical Pelvimetry: Pelvimetry clinically assessed as adequate Limited OB ultrasound exam: single intrauterine , positive cardiac activity and crown-rump length c/s 9w3d ASSESSMENT: 37 year old at 9w3d wks gestational age PLAN: 1) Patient oriented to practice. Discussed nutrition, folic acid supplementation, dietary guidelines, exercise, smoking, alcohol, caffeine, and drug use. Discussed routine OB labs including STD/HIV. Discussed aneuploidy screening options including serum screening and nuchal translucency. CF carrier screening discussed and declined. 2) recommend asa 81 mg daily for preeclampsia prevention Follow up in 4 weeks or sooner prn. Sofie Velasquez MD PROGRESS Observed: 01/23/2018 Status: COMPLETED Source: [place] 3:03 PM [facility] REPOSITORY HNO ID: [id number] Author: Adrianne Pascual RN Service: (none) Author Type: (none) Type: Progress Notes Filed: 01/23/2018 3:18 PM Note Text: #: 1, Date: 12/06/09, Sex: None, Weight: None, GA: 8w0d, Delivery: None, Apgar1: None, Apgar5: None, Living: None, Comments: No DANMA #: 2, Date: 01/01/11, Sex: Male, Weight: 7 lb (3.175 kg), GA: 40w6d, Delivery: Vaginal, Vacuum (Extractor), Apgar1: 8, Apgar5: 9, Living: Living, Comments: PROM,MATERNAL EXHERSTIONIO 3RD DEGREE PERINEAL LAC, LEFT VAG.VAULT LAC. #: 3, Date: 10/24/12, Sex: Male, Weight: 7 lb 8 oz (3.402 kg), GA: 41w2d, Delivery: , Low Transverse, Apgar1: None, Apgar5: None, Living: Living, Comments: AROM, Pitocin induction, arrest of descent, Right cervical transection, EBL 1500cc, blood transfusion #: 4, Date: 01/15/16, Sex: Male, Weight: 6 lb 11 oz (3.033 kg), GA: 39w4d, Delivery: , Low Transverse, Apgar1: None, Apgar5: None, Living: Living, Comments: FLOR LAST 800 #: 5, Date: None, Sex: None, Weight: None, GA: None, Delivery: None, Apgar1: None, Apgar5: None, Living: None, Comments: None CNNURSE Observed: 01/23/2018 Status: COMPLETED Source: [place] 1:30 PM [facility] REPOSITORY Nurse Visit (WOOB) KRISTIN HOPSON ([id number]) 1980 F Date Time Provider Department 01/23/18 1:30 PM NURSE PNOB [facility] WSTR WOOB During your visit today, we recorded the following information about you: Last Period 11/26/17 Adrianne Pascual RN 01/23/2018 2:03 PM Signed SEQUENTIAL SCREENINGS The [facility] offers sequential screenings for women who are interested in screenings for chromosomal abnormalities and certain defects during a . The sequential screen combines ultrasound and blood tests to determine the risk of chromosomal abnormalities, including Down's Syndrome (Trisomy 21) and Trisomy 18, as well as open neural tube defects including spina bifida. Ultrasound examination is performed between 11 weeks and 13 weeks gestational age. Blood tests are drawn after the ultrasound and again later in the between 15 and 21 weeks gestational age. Please let your physician know if you are interested in this testing. It will require an appointment with our civil laboratory technician. This is not an ultrasound performed by a physician in our office during a routine visit. SIGNS AND SYMPTOMS OF LABOR 1. Contractions every 10 minutes or more often 2. Clear, pink, or brownish fluid (water) leaking from vagina 3. Feeling that baby is pushing down, pressure 4. Low, dull backache 5. Cramps that feel like a period 6. Cramps with or without diarrhea If you notice any of the above symptoms, contact our office at [phone] and ask to speak with a nurse. After hours, you can call [facility] at [phone] OR call [facility] at [phone] and ask to have the doctor promotions firm accounts manager paged. If you consider this an emergency, dial [phone] or go to your nearest emergency department. Cord-Blood Banking Up until recently, the umbilical cord--along with the blood that remained in it after a baby was born and the cord cut--was simply discarded by the hospital. Then, in the late , researchers discovered that cord blood possessed unusual properties that made it useful in the treatment of patients with some cancers and other illnesses. While the actual process of collecting cord blood is straightforward, many parents are not even aware that this option now exists, much less familiar with all the issues involved. The case for saving your baby's cord blood The blood running back and forth between your baby and the placenta is full of immature cells called stem cells. Unlike embryonic stem cells, which have the ability to develop into any type of body cell, cord-blood stem cells already are locked into a certain, vital function: making all the different components of the blood, such as platelets, white blood cells, and red blood cells-serving, in effect, like bone marrow. When transfused into a patient whose own blood cells have faulty genetic coding or have been destroyed by chemotherapy or other cancer treatments, the cord-blood cells can implant themselves in the bone marrow and generate legions of new, healthy cells. These days, cord-blood transplants most commonly are used in cancer patients when a donor can't be found for a bone-marrow transplant. The treatment is particularly effective in young patients-the [facility] reports a 70 percent success rate in children, but only 20 to 40 percent in adults. Researchers envision improving those odds and see many future applications as well, such as curing sickle cell disease and other blood-related genetic illnesses. So there is a possibility that your child, or someone else, may need these super-healthy and versatile cells one day. The drawbacks Aside from not knowing about this medical option, the main reason most people do not save their baby's stem cells is cost. In a private blood bank, the initial costs run from $275 to $1,500. Most also charge a yearly storage fee of $50 to $95. The advantage of using a private bank is that your sample is saved for only you to use. An alternative to private banking Public cord-blood mcnamara are an alternative. These cost no money to use, but your sample is not specifically saved for you. Another person with a more immediate need may use it. If the time should come that you need stem cells, yours may still be available, or you may use donations from other people without charge. You also can direct your sample to go to a relative with an immediate need if the blood type matches. Anyone else needing to use stem cells from a public bank who has not been a donor must pay for it, sometimes tens of thousands of dollars. Will my family benefit from saving stem cells? Right now, situations in which stem cells would be helpful are quite rare. As mentioned earlier, stem-cell transplants are most commonly used for rare genetic conditions and for some types of cancer, including leukemia and lymphoma. And even with these present uses, many questions remain. In cancer treatment, for example, some researchers are concerned about the wisdom of transplanting back into the child the same cells that already showed a propensity to become malignant. Doctors also aren't sure if the number of cells taken at the time of would be enough to treat a full-grown 16-year-old. It is also not completely clear how active the cells would be after years of being stored. The treatment is so new and rare, we just don't have the data yet to resolve these important issues. What do the experts say? The [place] [employer] encourages philanthropic blood banking in public mcnamara, but only for families with a current or potential need. Blood-bank proponents encourage any kind of banking, pointing out that research is getting closer and closer to many diverse, live-saving applications. How do I decide? Each family must weigh the pros and cons for themselves. Some families say that any cost is worth their peace of mind. Others say that in the face of uncertainty about the effectiveness of the treatment, they will use their resources elsewhere. Some choose the middle ground of donating publicly, knowing that their sample might benefit another family, if not themselves. For more information, ask your doctor or nurse, and be sure to check out our article on the technical aspects of cord-blood banking. Technical Aspects of Cord-Blood Banking If you are interested in storing your baby's umbilical-cord blood because of its possible use in emerging medical treatments, you must make arrangements with a blood bank before your child is born. The collection procedure is quite simple: After delivery of the baby, the umbilical cord is clamped and cut in the usual way. The blood that remains in the umbilical-cord vessels is then collected in sterile containers. The blood may be removed from the cord with a large needle or allowed to flow freely, depending on the company's collection system. The containers may look like large test tubes or like the plastic bags used in a blood bank. It does not cause the mother or the baby any pain to collect the blood, and no blood is taken that the baby needs at the moment. The nurse, sheet rock nailer, or physician will then label the samples, check them over with you, and package them for a special pickup arranged with a commercial carrier. When the blood arrives at the blood-bank facility, it is processed and the parents are notified. It is then kept in an advanced storage system for years. How do I know that my sample is safe? Power outages and bankruptcies potentially could threaten any organization, but so far none have been reported. It is to be hoped that the scientists in these mcnamara would arrange for safe transfer to another facility if the need arose. YOU MUST MAKE ARRANGEMENTS AHEAD OF TIME! Public cord-blood mcnamara--DONATION: [employer] [phone] [facility] Placental Blood Program, [facility] Umbilical Cord Blood Bank, Private cord-blood mcnamara--SAVING FOR YOUR OWN USE: [employer], (I think this is the least expensive) [employer] [phone] [employer], [phone]) [employer] [place] [facility], [phone], [phone] [place] [facility], Cord Blood [facility], [phone]) [employer], An Internet search may provide you with additional listings. Adrianne Pascual RN 01/23/2018 3:18 PM Signed #: 1, Date: [birth year]06[birth year]09, Sex: None, Weight: None, GA: 8w0d, Delivery: None, Apgar1: None, Apgar5: None, Living: None, Comments: No [facility] #: 2, Date: 01/01/11, Sex: Male, Weight: 7 lb (3.175 kg), GA: 40w6d, Delivery: Vaginal, Vacuum (Extractor), Apgar1: 8, Apgar5: 9, Living: Living, Comments: PROM,MATERNAL EXHERSTIONIO 3RD DEGREE PERINEAL LAC, LEFT VAG.VAULT LAC. #: 3, Date: 10/24/12, Sex: Male, Weight: 7 lb 8 oz (3.402 kg), GA: 41w2d, Delivery: , Low Transverse, Apgar1: None, Apgar5: None, Living: Living, Comments: AROM, Pitocin induction, arrest of descent, Right cervical transection, EBL 1500cc, blood transfusion #: 4, Date: 01/15/16, Sex: Male, Weight: 6 lb 11 oz (3.033 kg), GA: 39w4d, Delivery: , Low Transverse, Apgar1: None, Apgar5: None, Living: Living, Comments: RC/S, EBL 800cc #: 5, Date: None, Sex: None, Weight: None, GA: None, Delivery: None, Apgar1: None, Apgar5: None, Living: None, Comments: None Referring Provider: SELF [[id number]] Allergies As of Date: 01/23/2018 Noted Allergy Reaction IODINE 03/07/2013 2 - Rash Comments: Pt had reaction to iodine prep during csection Date Reviewed: 01/23/2018 Reviewed by: Adrianne Pascual RN - Fully Assessed Reason for Visit: Care [86] Cmt: Pre-New OB Primary Visit Diagnosis:ADVANCED MATERNAL AGE:MULTIPARA[659.63] [O09.529] Other Visit Diagnoses:Antepartum multigravida of advanced maternal age [O09.529] Previous delivery affecting [O34.219] History of depression [Z86.59] Family history of defects [Z82.79] Patient requested diagnostic testing [Z01.89] Obesity in [O99.210] Prescriptions as of 01/23/2018 Sig: ORAL Take by mouth. DHA ORAL Take by mouth. FOLIC ACID ORAL Take by mouth. GUAIFENESIN ER 600 MG TABLET,* Take 2 tablets by mouth twice* Patient not taking: Reported on 01/23/2018 OXYMETAZOLINE 0.05 % NASAL SP* Use 2 Sprays in the nose twic* Patient not taking: Reported on 11/14/2016 GUAIFENESIN ER 600 MG TABLET,* Take 2 tablets by mouth twice* Patient not taking: Reported on 11/14/2016 FENUGREEK SEED EXTRACT 500 MG* Take by mouth. MIRALAX ORAL Take by mouth. Problem List As Of Date 01/23/2018 Noted Resolved Threatened , antepartum [O20.0] INVALID FOR*11/13/2010 Supervision of normal [Z34.90] INVALID FOR*02/22/2011 Hx of maternal laceration, 3rd degree, currentl*INVALID FOR*01/30/2016 More... History of IBS [Z87.19] INVALID FOR*07/01/2015 More... History of depression [Z86.59] INVALID FOR* More... Family history of defects [Z82.79] INVALID FOR*01/30/2016 More... Fissure in ano [K60.2] INVALID FOR*07/01/2015 Hemorrhoids [K64.9] INVALID FOR*07/01/2015 Encounter for supervision of normal first pregn*INVALID FOR*07/01/2015 More... Supervision of other high risk pregnancies, fir*INVALID FOR*01/30/2016 Previous delivery affecting *INVALID FOR* More... Abnormal glucose complicating [O99.81*INVALID FOR*01/30/2016 Antepartum multigravida of advanced maternal ag*INVALID FOR* More... Patient requested diagnostic testing [Z01.89] INVALID FOR* More... Obesity in [O99.210] INVALID FOR* More... Other instructions from your clinician: SEQUENTIAL SCREENINGS The [facility] offers sequential screenings for women who are interested in screenings for chromosomal abnormalities and certain defects during a . The sequential screen combines ultrasound and blood tests to determine the risk of chromosomal abnormalities, including Down's Syndrome (Trisomy 21) and Trisomy 18, as well as open neural tube defects including spina bifida. Ultrasound examination is performed between 11 weeks and 13 weeks gestational age. Blood tests are drawn after the ultrasound and again later in the between 15 and 21 weeks gestational age. Please let your physician know if you are interested in this testing. It will require an appointment with our civil laboratory technician. This is not an ultrasound performed by a physician in our office during a routine visit. SIGNS AND SYMPTOMS OF LABOR 1. Contractions every 10 minutes or more often 2. Clear, pink, or brownish fluid (water) leaking from vagina 3. Feeling that baby is pushing down, pressure 4. Low, dull backache 5. Cramps that feel like a period 6. Cramps with or without diarrhea If you notice any of the above symptoms, contact our office at [phone] and ask to speak with a nurse. After hours, you can call [facility] at [phone] OR call [facility] at [phone] and ask to have the doctor promotions firm accounts manager paged. If you consider this an emergency, dial 9-1-1 or go to your nearest emergency department. Cord-Blood Banking Up until recently, the umbilical cord--along with the blood that remained in it after a baby was born and the cord cut--was simply discarded by the hospital. Then, in the late 1980s, researchers discovered that cord blood possessed unusual properties that made it useful in the treatment of patients with some cancers and other illnesses. While the actual process of collecting cord blood is straightforward, many parents are not even aware that this option now exists, much less familiar with all the issues involved. The case for saving your baby's cord blood The blood running back and forth between your baby and the placenta is full of immature cells called stem cells. Unlike embryonic stem cells, which have the ability to develop into any type of body cell, cord-blood stem cells already are locked into a certain, vital function: making all the different components of the blood, such as platelets, white blood cells, and red blood cells-serving, in effect, like bone marrow. When transfused into a patient whose own blood cells have faulty genetic coding or have been destroyed by chemotherapy or other cancer treatments, the cord-blood cells can implant themselves in the bone marrow and generate legions of new, healthy cells. These days, cord-blood transplants most commonly are used in cancer patients when a donor can't be found for a bone-marrow transplant. The treatment is particularly effective in young patients- the [facility] Cord Blood [facility] reports a 70 percent success rate in children, but only 20 to 40 percent in adults. Researchers envision improving those odds and see many future applications as well, such as curing sickle cell disease and other blood-related genetic illnesses. So there is a possibility that your child, or someone else, may need these super-healthy and versatile cells one day. The drawbacks Aside from not knowing about this medical option, the main reason most people do not save their baby's stem cells is cost. In a private blood bank, the initial costs run from $275 to $1,500. Most also charge a yearly storage fee of $50 to $95. The advantage of using a private bank is that your sample is saved for only you to use. An alternative to private banking Public cord-blood m[facility] are an alternative. These cost no money to use, but your sample is not specifically saved for you. Another person with a more immediate need may use it. If the time should come that you need stem cells, yours may still be available, or you may use donations from other people without charge. You also can direct your sample to go to a relative with an immediate need if the blood type matches. Anyone else needing to use stem cells from a public bank who has not been a donor must pay for it, sometimes tens of thousands of dollars. Will my family benefit from saving stem cells? Right now, situations in which stem cells would be helpful are quite rare. As mentioned earlier, stem-cell transplants are most commonly used for rare genetic conditions and for some types of cancer, including leukemia and lymphoma. And even with these present uses, many questions remain. In cancer treatment, for example, some researchers are concerned about the wisdom of transplanting back into the child the same cells that already showed a propensity to become malignant. Doctors also aren't sure if the number of cells taken at the time of would be enough to treat a full-grown 16-year-old. It is also not completely clear how active the cells would be after years of being stored. The treatment is so new and rare, we just don't have the data yet to resolve these important issues. What do the experts say? The [place] [employer] encourages philanthropic blood banking in public m[place], but only for families with a current or potential need. Blood-bank proponents encourage any kind of banking, pointing out that research is getting closer and closer to many diverse, live-saving applications. How do I decide? Each family must weigh the pros and cons for themselves. Some families say that any cost is worth their peace of mind. Others say that in the face of uncertainty about the effectiveness of the treatment, they will use their resources elsewhere. Some choose the middle ground of donating publicly, knowing that their sample might benefit another family, if not themselves. For more information, ask your doctor or nurse, and be sure to check out our article on the technical aspects of cord-blood banking. Technical Aspects of Cord-Blood Banking If you are interested in storing your baby's umbilical- cord blood because of its possible use in emerging medical treatments, you must make arrangements with a blood bank before your child is born. The collection procedure is quite simple: After delivery of the baby, the umbilical cord is clamped and cut in the usual way. The blood that remains in the umbilical-cord vessels is then collected in sterile containers. The blood may be removed from the cord with a large needle or allowed to flow freely, depending on the company's collection system. The containers may look like large test tubes or like the plastic bags used in a blood bank. It does not cause the mother or the baby any pain to collect the blood, and no blood is taken that the baby needs at the moment. The nurse, sheet rock nailer, or physician will then label the samples, check them over with you, and package them for a special pickup arranged with a commercial carrier. When the blood arrives at the blood- bank facility, it is processed and the parents are notified. It is then kept in an advanced storage system for years. How do I know that my sample is safe? Power outages and bankruptcies potentially could threaten any organization, but so far none have been reported. It is to be hoped that the scientists in these m[place] would arrange for safe transfer to another facility if the need arose. YOU MUST MAKE ARRANGEMENTS AHEAD OF TIME! Public cord-blood mcnamara--DONATION: [employer] [phone] [facility] [facility], [facility] Cord [facility], Private cord-blood mcnamara--SAVING FOR YOUR OWN USE: ClearView™ Audio, (I think this is the least expensive) [employer] [phone] [employer], [phone]) [employer] [place] [facility], [phone] Cells, [phone] [place] [facility], Cord Blood Registry, [phone] CORDBLOOD [employer], An Internet search may provide you with additional listings. Disposition: Return in 3 weeks (on 02/14/2018) for New OB with Dr Velasquez. Follow-up and Disposition History Recorded Letter Text Dear Kristin Hopson: How to activate your [facility] [employer] Account 1. Visit the LoveThat[employer] Signup page at [email or web address] 2. Identify yourself using your one-time use activation code: [email or web address] 3. Follow the on-screen prompts to choose your own secure username and password The following information will be necessary to access your account for the first time: Information needed for sign-up: Your custom activation code used one-time only for the initial account set-up. Your date of The last 4 digits of your social security number What to do next: Fill in the requested information on the Identify Yourself Form at [email or web address] , click Next. Create your login and password, choose a LoveThatFit ID and password that will be easy for you to use, but impossible for anyone else to guess. Pick a security question that will assist you in the event you forget your password the next time you log-on. If you have difficulty activating your account, please call our LoveThat[employer] helpline at [phone] or toll free at . We hope you enjoy using LoveThat[employer]! Kindest Regards, [facility] [employer] Team Encounter Status:Closed by ADRIANNE PASCUAL RN on 01/23/18 ALLERGIES ALLERGIES DATE TYPE / CODE NAME / CODE REACTION SEVERITY SOURCE 01/14/2016 Drug iodine/[id number] Rash Unknown [facility] Allergy/4160 852(RXNORM) Hospital [address](SNOMED Repository CT) 03/07/[address] [facility] INGREDI/[address] [place] [address](SNOMED Repository CT) ENCOUNTERS ENCOUNTERS ADMIT/DISCHARGE ACCOUNT ADMITTING ENCOUNTER LOCATION SOURCE NUMBER CLASS 09/06/2018/09/08/20 [id number] Ambulatory [place] [facility] [address] [place] Repository 09/04/2018/09/08/20 [id number] Ambulatory [address] [place] Repository 09/04/2018/09/04/20 [id number] Emergency [address] ing:ED Repository 08/28/2018/08/30/20 [id number] Eva, Inpatient [place] [address] Sofie Encounter [facility] ing:WPRoom: Repository [id number]: 1 08/23/2018/08/24/20 [id number] Ambulatory [address] [place] Repository 08/18/2018/08/21/20 [id number] Ambulatory [address] [place] Repository 08/11/2018/08/14/20 [id number] Ambulatory [address] [place] Repository 08/01/2018/08/02/20 [id number] Ambulatory [address] [place] Repository 07/18/2018/07/20/20 [id number] Ambulatory [place] [facility] [place] Repository 07/03/2018/07/05/20 [id number] Ambulatory [place] [facility] [address] [place] Repository 06/20/2018/06/21/20 [id number] Ambulatory [place] [facility] [address] [place] Repository 06/01/2018/06/01/20 [id number] Ambulatory [address] ing:WPOUT Repository 06/01/2018/06/01/20 [id number] Ambulatory [place] [facility] [address] [place] Repository 05/16/2018/05/20/20 [id number] Ambulatory [place] [facility] [address] [place] Repository 05/05/2018/05/08/20 [id number] Ambulatory [place] [facility] [address] [place] Repository 04/11/2018/04/12/20 [id number] Ambulatory [place] 18 [facility] [address] [place] Repository 03/28/2018/03/28/20 [id number] Ambulatory [place] [facility] [address] [place] Repository 03/28/2018/03/29/20 [id number] Ambulatory [place] [facility] [address] [place] Repository 02/28/2018/02/29/20 [id number] Ambulatory [place] [facility] [address] [place] Repository 02/28/2018/02/29/20 [id number] Ambulatory [address] Repository 02/28/2018/03/02/20 [id number] Ambulatory [address] Repository 01/31/2018/02/01/20 [id number] Ambulatory [address] Repository 01/31/2018/02/01/[id number] Repository 01/27/2018/01/28/20 [id number] Ambulatory [address] Repository 01/23/2018/01/26/[id number] Repository PAYERS PAYERS ENCOUNTER GUARANTOR PAYER SUBSCRIBER SOURCE 09/04/2018 D EDGAR Primary EDGAR FANNONDOB: [place] [id number] Insurance:HE[facility] [id number] [address]Faq: (330) Number: Repository [phone] () [id number] Date:5937-80-94ZZ [address] [place] [address]MZ: 09/04/2018 Secondary NOT GIVENUNK [place] Insurance:SELF PAY [facility] Number: Effective Repository Date:2018-09-04 08/28/2018 D EDGAR Primary EDGAR FANNONDOB: [place] [id number] [address] Insurance:HEALTH [id number] [facility]als [facility] [address]Yov: (330) Number: Repository [phone] () [id number] Date:1748-30-89XG [address] [place] [address]XL: 08/28/2018 Secondary NOT GIVENUNK [place] Insurance:SELF PAY [facility] Number: Effective Repository Date:2018-05-10 06/01/2018 D Edgar Primary EDGAR FANNONDOB: [place] [id number] [place] Insurance:HEALTH [id number] [address]Nkw: (330) Number: Repository [phone] () [id number] Date:5019-02-78IY [address] [address]TI: 06/01/2018 Secondary NOT GIVENUNK [place] Insurance:SELF PAY [facility]: Effective Repository Date:2018-06-01
== END 2018-08-30 17:20 | disposition home or self-care (01) | DRG 784 ==
PROVIDERS: Admitting Provider Obstetrics & Gynecology; Family Provider Family Medicine; PCP Family Medicine; Referring Provider Obstetrics & Gynecology; Visit Provider Obstetrics & Gynecology
PROC: 10D00Z1 Extraction of Products of Conception, Low, Open Approach (ICD-10-PCS; CPT 59514; principal; 2018-08-28 07:15)
DX: O34.211 Maternal care for low transverse scar from previous cesarean delivery (principal); Z68.41 Body mass index [BMI] 40.0-44.9, adult; D62 Acute posthemorrhagic anemia; O69.81X0 Labor and delivery complicated by cord around neck, without compression, not applicable or unspecified; O99.214 Obesity complicating childbirth; Z3A.39 39 weeks gestation of pregnancy; Z37.0 Single live birth; O90.81 Anemia of the puerperium; Z79.82 Long term (current) use of aspirin
CPT/HCPCS: 85025; 85027; 86850; 86900; 88302; 99218; J7120; A4216; G0378; J2405

== ENCOUNTER 2018-09-04 00:52 | Emergency (ER) | payer OTHER, SELFPAY ==
[2018-09-04] VITALS (7 sets, daily range): BP systolic 122–151; BP diastolic 74–94; PULSE 76–94; RESP 18–20; TEMP 36.5–36.9; O2SAT 94–98; BMI 41.6
--- NOTE | 2018-09-04 01:10 | ED.RN ---
I SPOKE TO AGBRIELLE SMITH RN IN OB TO SEE IF PATIENT IS TO COME OVER THERE FIRST PRIOR TO BEING SEEN FOR HEADACHE, HYPERTENSION AND POST . SHE SAID TO EVALUATE HER FIRST AND IF HER OB WANTS HER TO COME OVER SHE CAN.
--- NOTE | 2018-09-04 01:16 | CT_ITS ---
HISTORY: 6 days post , c/o reddy, cold chills, cp, s/p TECHNIQUE: Multiple axial images were obtained of the brain without intravenous contrast. A radiation dose optimization technique was used for this scan. IV Contrast dosage and agent: None. COMPARISON: None FINDINGS: PARANASAL SINUSES AND MASTOID AIR CELLS: Clear. INTRACRANIAL HEMORRHAGE: None. BRAIN PARENCHYMA: No CT evidence of stroke. No intracranial masses. There is preservation of the feliz/white matter interface. Posterior fossa structures are unremarkable. CSF SPACES: Appropriate for age. There is no hydrocephalus. MASS EFFECT: None. ORBITS: Both globes, extraocular muscles, optic nerves and retrobulbar fat appear unremarkable. CALVARIUM: No discrete lytic or blastic abnormalities observed. CT/Brain/Head without Contrast IMPRESSION: Normal CT brain without contrast. Individualized dose optimization techniques were used for this CT. at 0157 Reported and signed by: Gregory Holguin MD Electronically Signed: Gregory Holguin, at 1:56 EST Tel , Service support ,
--- NOTE | 2018-09-04 01:45 | RAD_ITS ---
HISTORY: 6 DAYS POST C SECTION. HEADACHE, COLD CHILLS, AND CHEST PAIN EXAM: XR Chest 2 Views: COMPARISON: None FINDINGS: EKG leads in place. Shallow inspiration. Normal heart size. No vascular congestion, pleural effusion, or acute pulmonary infiltration. No pneumothorax. The bony thorax appears intact. RAD/Chest PA and Lateral IMPRESSION: No acute cardiopulmonary disease. at 0221 Reported and signed by: Gregory Holguin MD Electronically Signed: Gregory Holguin, at 2:20 EST Tel , Service support ,
[2018-09-04 01:47] LABS: Absolute Lymphocyte Count 1.01 X10^3/ul (0.83-4.51); Absolute Neutrophil Count 5.3 X10^3/uL (2.0-7.7); Basophil# 0.02 X10^3/uL; Basophil% 0.3 % (0-1); Eosinophil# 0.11 X10^3/uL; Eosinophils% 1.6 % (0-5); Hematocrit 32.4 % (37-47); Hemoglobin 10.6 g/dl (12.0-15.0); Lymphocyte # 1.01 X10^3/ul (4.0); Lymphocyte % 14.8 % (19-41); Mean Corp Hgb Conc 32.7 g/gl (32-36); Mean Corpuscular Hgb 29.2 pg (27.0-32.0); Mean Corpuscular Volume 89.3 fL (81-99); Mean Platelet Vol. 9.2 fl (6.2-12.0); Monocyte# 0.36 X10^3/uL; Monocyte% 5.3 % (0-10); Neutrophil # 5.31 X10^3/uL (2.7-7.7); Neutrophil % 77.9 % (47-70); Platelet Count 361 K/mm3 (150-450); RBC Distribution Width CV 13.2 % (11.6-14.6); RBC Distribution Width SD 41.8 fl (35.1-43.9); Red Blood Count 3.63 M/mm3 (4.2-5.4); White Blood Count 6.8 K/mm3 (4.4-11.0)
[2018-09-04 01:48] LABS: POSITIVE COUNT NO; POSITIVE DIFFERENTIAL NO; POSITIVE MORPHOLOGY NO
[2018-09-04 02:00] LABS: ALB/GLOB Ratio 0.6 RATIO (0.9-2.4); AST(SGOT) 18 U/L (15-37); Alanine Aminotransfer ALT/SGPT 22 U/L (13-56); Albumin, Serum 2.5 g/dL (3.2-5.0); Alkaline Phosphatase 115 U/L (45-117); Anion Gap 9 (5-15); BUN 15 mg/dL (7-18); BUN/Creat Ratio 22.8 RATIO (10-20); Calcium,Total 7.9 mg/dL (8.5-10.1); Chloride 110 mmol/L (98-107); Creatinine, Serum 0.66 mg/dL (0.55-1.02); EST Glomerular Filtration Rate 106 mL/min (>60); Est Glom Filt Rate - Afr Amer 129 mL/min (>60); Estimated Creatinine Clearance 87.21 ml/min; Globulin 4.2 g/dL (2.2-4.2); Glucose 86 mg/dL (74-106); Potassium 3.8 mmol/L (3.5-5.1); Protein, Total 6.7 g/dL (6.4-8.2); Sodium Level 142 mmol/L (136-145)
[2018-09-04 02:10] LABS: Mucous, Urine 0 SEEN /hpf (<or=2+)
[2018-09-04 02:12] LABS: Glucose, Dipstick Normal (Normal); Ketone-Dipstick Negative (Negative); Leukocyte Esterase-Dipstick 500 /ul (Negative); Nitrite-Dipstick Negative (Negative); Occult Blood-Urine 250 /ul (Negative); Protein-Dipstick 30 mg/dl (Negative); Specific Gravity, Urine 1.005 (1.002-1.030); Urine Bilirubin Dipstick Negative (Negative); Urine Clarity Sl. Cloudy (Clear); Urine Urobilinogen Normal (Normal)
[2018-09-04 02:26] LABS: Lactic Acid 1.2 mmol/L (0.4-2.0)
[2018-09-04 02:27] LABS: BNP,B-Type NATRIURETIC PEPTIDE 111.9 pg/mL (0-100)
[2018-09-04 02:31] LABS: Color, Urine SEE COMMENT BELOW (Yellow)
[2018-09-04 02:32] LABS: Bacteria RARE /hpf (None Seen); Red Blood Cells-Urine 25-50 SEEN /hpf (0-5); Squamous Epithelial Cells - UA 0-5 SEEN /hpf (5-10); White Blood Cells 10-25 SEEN /hpf (0-5)
--- NOTE | 2018-09-04 03:38 | ED.VISSUMM ---
- ER Visit Summary Date of Service: 09/04/18 Chief Complaint: Chills History of Present Illness: The patient is a [address] Nicholas Burciaga. She is a who had a [address] Simpson. She was at 39 weeks. She was discharged from hospital after 2 days. No complications during or the delivery. She reports that her vaginal bleeding is essentially unchanged since the delivery. There is no odor to her lochia. She denies any abdominal pain. Patient reports that her blood pressure typically runs 107 over 60s. Patient reports approximately 2 hours ago she bent over to leaf size picker her son had the abrupt onset of chills. States that they have lasted approximately 2 minutes. She denies any fever or cold sweats. She states that she feels congested. She denies any sore throat or cough. She reports she has been nauseated. No vomiting or diarrhea. No dysuria frequency. No rash. Patient reports that she had an episode of chest pain yesterday while she was at rest. It was tightness on and off the last approximately 1 hour. Nothing made this better or worse. States that it was posterior to her left breast and she question whether it was my milk coming in. Patient reports that she has a headache that began yesterday and is gradually gotten worse. It is frontal in location. She describes as a dull, aching pain that is 3 out of 10 currently and 5 out of 10 at worst. This is not positional. Nothing makes this better or worse. There is no change in her vision. No numbness, tingling, or weakness. No photophobia. She does have a history of similar headaches. Physical Examination: Vitals: 98.5, 151/94, 91, 18, 95% on room air which is not hypoxic. General: Well-nourished and well-developed. Head: Normocephalic atraumatic. Neck: Supple, no lymphadenopathy. No JVD. Nontender. Cardiovascular: Regular rate and rhythm. No murmurs. Respiratory: No respiratory distress. Clear to auscultation bilaterally. Abdominal: Soft, nontender, nondistended, normal bowel sounds. No guarding, rebound, or peritoneal signs. Incision is healing well. There is appropriate tenderness to palpation. There is no erythema, warmth, or induration. Back: Nontender. The spinal site shows no erythema, warmth, or tenderness to palpation. Extremities: Nontender, no edema. Skin: Normal color, no rash. Neurologic: Alert and oriented ?3. Cranial nerves II through XII are intact. Normal strength and sensation. Psych: Normal affect. Test Results: EKG is sinus at 90 with no acute changes. There is no old EKG for comparison. Troponin is negative. PT [employer]P[facility] [employer]NAGER is minimally elevated at 111.9. Chest x-ray shows no acute disease. No cardiomegaly or CHF. CT brain is normal. UA shows 10-25 white blood cells, 25-50 red blood cells, and rare bacteria. This was sent for culture. LFTs are marked for an albumin of 2.5. Chem-7 is more for chloride of 110 and calcium 7.9. Lactic acid is 1.2. CBC is more for an H&H of 10.6 and 32.4, 7 neutrophils 78, lymphs lites 15. Emergency Department Course and Treatment: Patient had an IV placed. She was given a liter of normal saline. She was given morphine and Zofran IV. Without any antihypertensive medication her blood pressure decreased to 122/74 and she is resting comfortably. Her heart rate came down to 78. Treatment Plan: Patient was discussed with Dr. Taylor. At this time she does not want her urine treated for infection. States that this is similar to what urine looks like at this point . This was sent for culture. She would like the patient to follow-up with her in the office today to repeat her blood pressure and to see how she is feeling. Patient is happy with this plan. Return to the emergency department for any worsening symptoms. Disposition: To home in improved and stable condition. Impression: 1. 1 week status post . 2. Cephalgia. 3. Atypical chest pain. 4. Chills. This note was generated with [employer] dictation software. It may contain incorrect words, spelling, and punctuation that were not noted in review of the chart prior to signing ED Disposition - Plan for ED Patient: Disposition: Home or Assisted Living Chief Complaint: General Illness Instructions: ED Cephalgia Unspecified Referrals: Ceci Taylor DO [STAFF PHYSICIAN] - 09/04/18
== END 2018-09-04 03:47 | disposition home or self-care (01) ==
PROVIDERS: Emergency Provider Emergency Medicine; Family Provider Family Medicine; PCP Family Medicine
DX: O90.89 Other complications of the puerperium, not elsewhere classified (principal); R51 Headache; R07.89 Other chest pain; R68.83 Chills (without fever)
CPT/HCPCS: 70450; 71046; 80053; 81001; 83605; 83880; 84484; 85025; 87040; 87086; 87088; 93005; 96360; 99284; J7030; J7040; A4216; J2405

== ENCOUNTER → 2019-09-18 11:28 | Outpatient (CLI) | payer OTHER, SELFPAY ==
[2018-09-04 00:54] VITALS: BMI 41.6
--- NOTE | 2019-09-18 11:31 | RAD_ITS ---
STUDY: X-RAY CHEST REASON FOR EXAM: Female, 39 years old. Acute bronchitis TECHNIQUE: PA and lateral views of the chest. COMPARISON: Comparison is made with prior study dated September 04, 2018. FINDINGS: The lungs are clear and expanded. Scattered calcified granulomas. There is no demonstrated pleural abnormality. Normal size heart. Normal mediastinum and kalpana. Normal visualized pulmonary arteries. Normal visualized aortic arch and descending thoracic aorta. Normal visualized thoracic spine. Normal visualized ribs, clavicles, and shoulders. There is no demonstrated abnormality of the visualized soft tissue structures of the upper abdomen. RAD/Chest PA and Lateral IMPRESSION: No acute abnormality is seen. Electronically Signed: Jose Abraham, at 12:52 EST , Service support ,
== END ==
PROVIDERS: Family Provider Family Medicine; PCP Family Medicine; Referring Provider Family Medicine; Visit Provider Family Medicine
DX: J20.9 Acute bronchitis, unspecified (principal)
CPT/HCPCS: 71046

== ENCOUNTER → 2019-09-20 12:04 | Outpatient (CLI) | payer OTHER, SELFPAY ==
[2018-09-04 00:54] VITALS: BMI 41.6
--- NOTE | 2019-09-20 12:08 | RAD_ITS ---
STUDY: X-RAY - UNILATERAL RIBS ( LEFT ) REASON FOR EXAM: Female, 39 years old. left side rib pain TECHNIQUE: 3 view(s) of the ribs. COMPARISON: 70 11/30/2019 chest x-ray FINDINGS: There is no pneumothorax. There are no displaced rib fractures or destructive lesions. Please note that nondisplaced rib fractures are not well detected with conventional imaging modalities. Shoulder appears unremarkable. Soft tissues are unremarkable. RAD/Ribs Unil 2V No CXR IMPRESSION: 1. No pneumothorax. 2. No displaced rib fractures. Electronically Signed: Roxi Lyn, at 19:41 EST Tel , Service support ,
== END ==
PROVIDERS: Family Provider Family Medicine; PCP Family Medicine; Referring Provider Family Medicine; Visit Provider Family Medicine
DX: R07.81 Pleurodynia (principal)
CPT/HCPCS: 71100; 71101

== ENCOUNTER → 2019-09-21 11:30 | Outpatient (CLI) | payer OTHER, SELFPAY ==
[2018-09-04 00:54] VITALS: BMI 41.6
--- NOTE | 2019-09-21 11:33 | CT_ITS ---
STUDY: CT CHEST WITH CONTRAST REASON FOR EXAM: Female, 39 years old. LT RIB PAIN/INCLUDE SPLEEN. Cough x 3 weeks. Rib xray normal RADIATION DOSAGE (If Supplied By Facility): CTDIvol = ( 12.90 ) mGy, DLP = ( 663.79 ) mGycm TECHNIQUE: Transaxial imaging was performed following intravenous administration of IV 100mL Isovue-300. Multiplanar coronal and sagittal images were reformatted. Individualized dose optimization techniques were used for this CT. COMPARISON: None. FINDINGS: Small benign appearing bilateral axillary lymph nodes. Patchy infiltrate in the posterior aspect of the right upper lobe as well as in the right middle lobe adjacent to the right minor fissure. Infiltration is also seen in the right lower lobe as well as patchy infiltrate in the left lower lobe. There is no demonstrated pleural abnormality. Normal heart and pericardium. Normal mediastinum. Normal hilar regions. Normal enhanced pulmonary arteries. Normal aorta arch and descending thoracic aorta. Normal osseous structures. There is no demonstrated abnormality of the visualized upper abdomen. CT/Chest WITH Contrast IMPRESSION: Bilateral patchy pulmonary infiltrates worse on the right side as described. Radiographic follow-up is recommended. Electronically Signed: Jose Abraham, at 12:13 EST , Service support ,
== END ==
PROVIDERS: Family Provider Family Medicine; PCP Family Medicine; Referring Provider Family Medicine; Visit Provider Family Medicine
DX: R07.81 Pleurodynia (principal)
CPT/HCPCS: 71260; Q9967

== ENCOUNTER → 2021-01-19 11:51 | Outpatient (CLI) | payer OTHER, SELFPAY ==
[2018-09-04 00:54] VITALS: BMI 41.6
[2021-01-19 15:05] LABS: Absolute Lymphocyte Count 2.05 X10^3/uL (0.83-4.51); Absolute Neutrophil Count 4.2 X10^3/uL (2.0-7.7); Basophil# 0.05 X10^3/uL; Basophil% 0.7 % (0-1); Eosinophil# 0.08 X10^3/uL; Eosinophils% 1.1 % (0-5); Hematocrit 39.5 % (37-47); Hemoglobin 12.4 g/dL (12.0-15.0); Lymphocyte # 2.05 X10^3/ul (0.83-4.51); Lymphocyte % 29.5 % (19-41); Mean Corp Hgb Conc 31.4 g/dL (32-36); Mean Corpuscular Hgb 27.6 pg (27.0-32.0); Mean Platelet Vol. 10.4 fl (6.2-12.0); Monocyte# 0.53 X10^3/uL; Monocyte% 7.6 % (0-10); NRBC Flagged by Analyzer 0 % (0-5); Neutrophil # 4.23 X10^3/uL (2.7-7.7); Neutrophil % 60.8 % (47-70); Platelet Count 306 K/mm3 (150-450); RBC Distribution Width CV 13.5 % (11.6-14.6); RBC Distribution Width SD 43.8 fl (35.1-43.9); Red Blood Count 4.49 M/mm3 (4.2-5.4)
[2021-01-19 15:13] LABS: Anion Gap 3 (5-15); BUN 12 mg/dL (7-18); BUN/Creat Ratio 17.9 RATIO (10-20); Calcium,Total 8.8 mg/dL (8.5-10.1); Chloride 106 mmol/L (98-107); Creatinine, Serum 0.67 mg/dL (0.55-1.02); EST Glomerular Filtration Rate 103 mL/min (>60); Est Glom Filt Rate - Afr Amer 125 mL/min (>60); Glucose 78 mg/dL (74-106); Potassium 4.1 mmol/L (3.5-5.1); Sodium Level 137 mmol/L (136-145)
[2021-01-19 15:53] LABS: D-Dimer Quantitative (DVT/PE) <= 0.27 FEU/ug/m (0.27-0.49)
== END ==
PROVIDERS: PCP Family Medicine; Referring Provider Family Medicine; Visit Provider Family Medicine
DX: R07.9 Chest pain, unspecified (principal)
CPT/HCPCS: 36415; 80048; 85025; 85379

== ENCOUNTER → 2025-05-29 | Outpatient (CLI) | payer BC, SELFPAY ==
[2025-05-29 18:00] LABS: Hematocrit 36.9 % (37-47); Hemoglobin 12.2 g/dL (12.0-15.0); Immature Granulocytes Count 0.040 X10^3/uL (0.0-0.0); Mean Corp Hgb Conc 33.1 g/dL (32-36); Mean Corpuscular Volume 79.9 fL (81-99); Mean Platelet Vol. 9.9 fl (6.2-12.0); NRBC Flagged by Analyzer 0 % (0-5); POSITIVE MORPHOLOGY YES; Platelet Count 300 K/mm3 (150-450); RBC Distribution Width CV 14.4 % (11.6-14.6); RBC Distribution Width SD 41.9 fl (35.1-43.9); Red Blood Count 4.62 M/mm3 (4.2-5.4); White Blood Count 6.6 K/mm3 (4.4-11.0)
[2025-05-29 18:06] LABS: Differential Indicated SCAN CRITERIA MET
[2025-05-29 18:30] LABS: AST(SGOT) 129 U/L (<=31); Alanine Aminotransfer ALT/SGPT 108 U/L (<=34); Albumin, Serum 3.6 g/dL (3.5-5.0); Alkaline Phosphatase 92 U/L (35-104); Anion Gap 12 (5-15); BUN 10 mg/dL (4-19); BUN/Creat Ratio 14.3 RATIO (10-20); Calcium,Total 8.4 mg/dL (7.6-11.0); Carbon Dioxide 20.8 mmol/L (21.0-32.0); Chloride 106 mmol/L (98-108); Globulin 2.9 g/dL (2.2-4.2); Glucose 98 mg/dL (70-99); Potassium 3.4 mmol/L (3.3-5.1)
[2025-05-29 19:21] LABS: Differential Comment SCANNED
--- OUTSIDE RECORDS SUMMARY | 2025-05-29 21:39 | XMS RPT_ITS | CCD ---
Author Organization [facility] Care Team Providers Care Speech Assistant Name Role Phone Gualberto CHISHOLM, Nicholas Hallman Primary Care Provider [phone] Laurita CHISHOLM, Meliton Ortega Primary Care Provider Laurita CHISHOLM, Meliton Ortega Primary Care Provider Laurita CHISHOLM, Meliton Ortega Primary Care Provider MELITON SHAY Primary Care Unavailable ANGELICA SHETTY Attending Unavail able LAURITA, MELITON Ortega Primary Care Unavailable IRINA VELASQUEZ Referring Unavailable IRINA VELASQUEZ Attending Unavailable LAURITA, MELITON Ortega Primary Care Unavailable ANGELICA SHETTY Referring Unavail able SHAY, MELITON Ortega Primary Care Unavailable SHAY, MELITON Ortega Primary Care Unavailable AGNELICA SHETTY Attending Unavail able IRINA VELASQUEZ Attending Unavailable ESTELLA BASURTO Referring Unavailable SHAY, MELITON Ortega Primary Care Unavailable ESTELLA BASURTO Referring Unavailable SHAY, MELITON Ortega Primary Care Unavailable SHANNAN COX Referring Unavailable SHAY, MELITON Ortega Primary Care Unavailable SUSAN RICHARD Attending Unavailable SHAY, MELITON Ortega Primary Care Unavailable SHANNAN COX Attending Unavailable SUSAN RICHARD Referring Unavailable SHAY, MELITON Ortega Primary Care Unavailable HALIMA BLANCHARD Attending Unavailable Allergies Allergy Classification Reported Allergen(s) Allergy Type Date of Onset Reaction(s) Facility (20 sources) Iodine; Translations: [IODINE] Drug Allergy 03-07-2013 [facility] Work Phone: Medications Current Medications Medication Drug Class(es) Dates Sig (Normalized) Sig (Original) 24 hr buPROPion hydrochloride 150 mg extended release oral tablet (20 sources) Aminoketone Start: 09-17-2024 End: 03-20-2025 take 1 tablet by mouth once daily buPROPion XL (WELLBUTRIN XL) 150 mg 24 hr tablet Take 1 tablet by mouth once daily. 30 tablet 6 03/20/2025 Active Start: 04-18-2024 End: 09-17-2024 take 1 tablet by mouth once daily as needed buPROPion SR (WELLBUTRIN SR) 100 mg 12 hr tablet Take 1 tablet by mouth once daily as needed (for symptoms). 30 tablet 1 04/18/2024 09/17/2024 Discontinued cholecalciferol 1.25 mg oral capsule (9 sources) Vitamin D Start: 12-20-2024 End: 03-20-2025 take 1 capsule by mouth every week cholecalciferol, Vitamin D3, (VITAMIN D3) 1,250 mcg (50,000 unit) cap capsule Indications: Vitamin D deficiency Take 1 capsule by mouth one time a week. 4 capsule 2 12/20/2024 Active ondansetron 4 mg disintegrating oral tablet (1 source) Serotonin-3 Receptor Antagonist Start: 05-26-2025 take 1 tablet by mouth every eight hours as needed for nausea ondansetron orally disintegrating (ZOFRAN ODT) 4 mg disintegrating tablet Indications: Viral gastroenteritis , Nausea and vomiting, unspecified vomiting type Take 1 tablet by mouth every 8 hours as needed for nausea/vomiting. 10 tablet 2 05/26/2025 Active oseltamivir 75 mg oral capsule (1 source) Neuraminidase Inhibitor Start: 10-16-2023 End: 10-21-2023 take 1 capsule by mouth twice daily oseltamivir (TAMIFLU) 75 mg capsule Indications: Influenza A Take 1 capsule by mouth two times a day for 5 days. 10 capsule 0 10/16/2023 10/21/2023 Active Comment on above: [facility] 5 days. polyethylene glycol 3350 607998 mg / potassium chloride 2970 mg / sodium bicarbonate 6740 mg / sodium chloride 5860 mg / sodium sulfate 96309 mg powder for oral solution (1 source) Osmotic Laxative Start: 05-03-2024 End: 05-03-2024 peg 3350-Electrolytes (GOLYTELY) 236-22.74-6.74 -5.86 gram suspension Indications: Blood in stool Take 4,000 mL by mouth one time only for 1 dose. Refer to printed prep instructions from your provider. 4000 mL 05/03/2024 05/03/2024 Active Completed/Discontinued Medications Medication Drug Class(es) Dates Sig (Normalized) Sig (Original) [id number] 200 actuat albuterol 0.09 mg/actuat metered dose inhaler (4 sources) beta2-Adrenergic Agonist Start: 09-16-2019 End: 11-18-2022 take 2 puff(s) by inhalation every four hours as needed for wheezing albuterol HFA (PROVENTIL HFA, VENTOLIN HFA) 90 mcg/actuation inhaler Indications: Viral bronchitis Inhale 2 Puffs as instructed every 4 hours as needed for Wheezing/Shortness of Breath. 1 Inhaler 0 09/16/2019 11/18/2022 Discontinued Comment on above: Inhale 2 Puffs as instructed every 4 ivone rs as needed for Wheezing/Shortness of Breath. Benzocaine (1 source) Standardized Chemical Allergen Start: 06-04-2024 End: 06-04-2024 1 [place], TOPICAL, DIRECTED, Starting on Tue06/04/24 at 1200, Until Tue06/04/24 at 1559, Dosing as directed for intraprocedural use only - Pharmaceutical Waste: Aerosol -, Intraprocedure calcium chloride 0.0014 meq/ml / potassium chloride 0.004 meq/ml / sodium chloride 0.103 meq/ml / sodium lactate 0.028 meq/ml injectable solution (1 source) Start: 06-04-2024 End: 06-04-2024 take 100 mL intravenously every hour 100 mL/hr, INTRAVENOUS, CONTINUOUS, Starting on Tue06/04/24 at 1200, Until Tue06/04/24 at 1215, Preprocedure cholecalciferol, vitamin D3, (VITAMIN D3 ORAL) (5 sources) End: 04-16-2024 cholecalciferol, vitamin D3, (VITAMIN D3 ORAL) Take by mouth. 0 04/16/2024 Discontinued cholecalciferol, vitamin D3, (VITAMIN D3 ORAL) Take by mouth. 0 Active Comment on above: Take by mouth. diphenhydrAMINE (1 source) Histamine-1 Receptor Antagonist Start: 06-04-2024 End: 06-04-2024 12.5-50 mg, INTRAVENOUS, DIRECTED, Starting on Tue06/04/24 at 1200, Until Tue06/04/24 at 1559, DOSING DIRECTED BY PHYSICIAN FOR PROCEDURAL SEDATION ONLY, Intraprocedure DOCOSAHEXANOIC ACID (DHA ORAL) (4 sources) End: 11-18-2022 DOCOSAHEXANOIC ACID (DHA ORAL) Take by mouth. 0 11/18/2022 Discontinued DOCOSAHEXANOIC A JOHN (DHA ORAL) Take by mouth. 0 Active Comment on above: Take by mouth. Docusate (4 sources) End: 11-18-2022 docusate sodium (STOOL SOFTE NER ORAL) Take by mouth. 0 11/18/2022 Discontinued docusate sodium (STOOL SOFTENER ORAL) Take by mouth. 0 Active Comment on above: Take by mouth. escitalopram 10 mg oral tablet (4 sources) Serotonin Reuptake Inhibitor Start: 0 End: 3 take 1 tablet by mouth once daily escitalopram oxalate (LEXAPRO) 10 mg tablet Take 1 tablet by mouth once daily. 30 tablet 5 12/03/2019 11/18/2022 Discontinued Comment on above: Take 1 tablet by sai th once daily. Ethinyl Estradiol / Norethindrone (5 sources) Estrogen Start: 3 End: 4 take 1 tablet by mouth once daily, then take 0.05 tablet by mouth once Norethindrone Acet-Ethinyl Est (LOESTRIN 1/20, 21,) 1-20 mg-mcg per tablet Take 1 tablet by mouth once daily. 28 tablet 12 04/25/2023 04/16/2024 Discontinued Start: 04-25-2023 take 1 tablet by sai th once daily, then take 0.05 tablet by mouth once Norethindrone Acet-Ethinyl Est (LOESTRIN 120, 21,) 1-20 mg-mcg per tablet Take 1 tablet by mouth once daily. 28 tablet 12 04/25/2023 Active Comment on above: Take 1 tablet by sai th once daily. 1 ml fentaNYL 0.05 mg/ml injection (1 source) Opioid Agonist Start: 06-04-2024 End: 06-04-2024 25-100 mcg, INTRAVENOUS, DIRECTED, Starting on Tue06/04/24 at 1200, Until Tue06/04/24 at 1559, DOSING DIRECTED BY PHYSICIAN FOR PROCEDURAL SEDATION ONLY, Intraprocedure Folic Acid (4 sources) End: 11-18-2022 FOLIC ACID ORAL Take by mouth. 0 11/18/2022 Discontinued FOLIC ACID ORAL Take by mouth. 0 Active Comment on above: Take by mouth. 5 ml midazolam 1 mg/ml injection (1 source) Benzodiazepine Start: 06-04-2024 End: 06-04-2024 1-5 mg, INTRAVENOUS, DIRECTED, Starting on Tue06/04/24 at 1200, Until Tue06/04/24 at 1559, DOSING DIRECTED BY PHYSICIAN FOR PROCEDURAL SEDATION ONLY, Intraprocedure [place]-3 Fatty Acids (FISH OIL) 500 mg cap (10 sources) Start: 02-28-2018 End: 04-16-2024 take 2 capsules by mouth once daily [place]-3 Fatty Acids (FISH OIL) 500 mg cap Take 2 capsules by mouth once daily. 120 capsule 6 02/28/2018 04/16/2024 Discontinued Start: 02-28-2018 take 2 capsules by m outh once daily [place]-3 Fatty Acids (FISH OIL) 500 mg cap Take 2 capsules by mouth once daily. 120 capsule 6 02/28/2018 Active Comment on above: Take 2 capsules by m outh once daily. Polyethylene Glycols (4 sources) End: 11-18-2022 POLYETHYLENE GLYCOL 3350 (MIRALAX ORAL) Take by mouth. 0 11/18/2022 Discontinued POLYETHYLENE GLY COL 3350 (MIRALAX ORAL) Take by mouth. 0 Active Comment on above: Take by mouth. predniSONE 10 mg oral tablet (4 sources) Start: 10-15-2023 End: 04-16-2024 predniSONE (DELTASONE) 10 mg tablet Take 4 tabs daily for 3 days, then 2 tabs daily for 3 days, then 1 tab daily for 3 days with food. 21 tablet 0 10/15/2023 04/16/2024 Discontinued Comment on above: Take 4 tabs daily fo r 3 days, then 2 tabs daily for 3 days, then 1 tab daily for 3 days with food. multivitamin ( TABLET) 28 mg iron- 800 mcg tab (4 sources) Start: 01-31-2018 End: 11-18-2022 take 1 tablet by mouth once daily multivitamin ( TABLET) 28 mg iron- 800 mcg tab Take 1 tablet by mouth once daily. 30 tablet 12 01/31/2018 11/18/2022 Discontinued Start: 01-31-2018 take 1 tablet by sai th once daily multivitamin ( TABLET) 28 mg iron- 800 mcg tab Take 1 tablet by mouth once daily. 30 tablet 12 01/31/2018 Active Comment on above: Take 1 tablet by sai th once daily. Uh[place]'s Wort 300 mg cap (8 sources) Start: 09-17-2019 End: 04-16-2024 Gabriel's Wort 300 mg cap Start: 09-17-2019 [place]'s Wor t 300 mg cap VITAMIN B COMPLEX-100 ORAL (8 sources) Start: 09-17-2019 End: 04-16-2024 VITAMIN B COMPLEX-100 ORAL Start: 09-17-2019 VITAMIN B COMP BLAS-100 ORAL Problems Active Problems Problem Classification Problem Date Documented Da te Episodic/Chronic Disorders of lipid metabolism (2 sources) Hypercholesterolemi a; Translations: [Pure hypercholesterolemi a, unspecified] Onset: 04-18-2025 12-19-2024 Chronic Influenza (1 source) Influenza due to Influenza A virus; Translations: [Influenza due to other identified influenza virus with other respiratory manifestations] 10-16-2023 Episodic Intestinal infection (2 sources) Viral gastroenteritis; Translations: [Viral intestinal infection, unspecified] Onset: 05-26-2025 05-26-2025 Episodic Malaise and fatigue (6 sources) Malaise and fatigue; Translations: [Other malaise] Onset: 04-18-2025 04-25-2023 Episodic Menstrual disorders (1 source) Irregular periods; Translations: [Irregular menstruation, unspecified] 04-25-2023 Chronic Nausea and vomiting (2 sources) Nausea and vomiting; Translations: [Nausea with vomiting, unspecified] Onset: 05-26-2025 05-26-2025 Episodic Nutritional deficiencies (1 source) Vitamin D deficiency; Translations: [Vitamin D deficiency, unspecified] 12-20-2024 Chronic Other endocrine disorders (1 source) Polycystic ovary syndrome; Translations: [Polycystic ovarian syndrome] 12-19-2024 Chronic Other endocrine disorders (1 source) Polycystic ovarian syndrome; Translations: [PCOS (polycystic ovarian syndrome)] Onset: 04-18-2025 Chronic Other lower respiratory disease (3 sources) Snoring; Translations: [Snoring] 12-19-2024 Episodic Other lower respiratory disease (1 source) Snoring; Translations: [Snoring] Onset: 04-18-2025 Episodic Other nervous system disorders (1 source) Mental disorder; Translations: [Other symptoms and signs involving cognitive functions and awareness] 04-16-2024 Episodic Other nutritional; endocrine; and metabolic disorders (2 sources) Obesity caused by energy imbalance; Translations: [Other obesity due to excess calories] 04-16-2024 Chronic Other nutritional; endocrine; and metabolic disorders (3 sources) Severe obesity; Translations: [Class 2 severe obesity with serious comorbidity and body mass index (BMI) of 38.0 to 38.9 in adult, unspecified obesity type (HCC)] 12-19-2024 Chronic Other nutritional; endocrine; and metabolic disorders (1 source) Body mass index (BMI) 38.0-38.9, adult; Translations: [Class 2 severe obesity with serious comorbidity and body mass index (BMI) of 38.0 to 38.9 in adult, unspecified obesity type (HCC)] Onset: 12-19-2024 Chronic Other nutritional; endocrine; and metabolic disorders (1 source) Morbid (severe) obesity due to excess calories; Translations: [Class 2 severe obesity with serious comorbidity and body mass index (BMI) of 38.0 to 38.9 in adult, unspecified obesity type (HCC)] Onset: 12-19-2024 Chronic Other upper respiratory infections (1 source) Acute upper respiratory infection; Translations: [Acute upper respiratory infection, unspecified] 10-15-2023 Episodic Residual codes; unclassified (3 sources) Sleep apnea; Translations: [Sleep apnea, unspecified] 12-19-2024 Chronic Residual codes; unclassified (1 source) Sleep apnea, unspecified; Translations: [Observed sleep apnea] Onset: 04-18-2025 Chronic Unclassified (1 source) Class 2 severe obesity with serious comorbidity and body mass index (BMI) of 38.0 to 38.9 in adult, unspecified obesity type (HCC); Translations: [Class 2 severe obesity with serious comorbidity and body mass index (BMI) of 38.0 to 38.9 in adult, unspecified obesity type (HCC)] Onset: 12-19-2024 Past or Other Problems Problem Classification Problem Date Documented Da te Episodic/Chronic Anal and rectal conditions (20 sources) Anal fissure; Translations: [Anal fissure, unspecified] Onset: 03-22-2012 Resolved: 07-01-2015 07-01-2015 Episodic Diabetes or abnormal glucose tolerance complicating ; childbirth; or the puerperium (20 sources) Abnormal glucose level; Translations: [Abnormal glucose complicating ] Onset: 10-20-2015 Resolved: 01-30-2016 01-30-2016 Episodic Gastrointestinal hemorrhage (20 sources) Hematochezia; Translations: [Melena] Onset: 06-04-2024 04-16-2024 Episodic Hemorrhage during ; abruptio placenta; placenta previa (20 sources) Threatened miscarriage; Translations: [Threatened ] Onset: 05-01-2010 Resolved: 11-13-2010 11-13-2010 Episodic Hemorrhoids (20 sources) Hemorrhoids; Translations: [Unspecified hemorrhoids] Onset: 04-11-2013 Resolved: 07-01-2015 07-01-2015 Episodic Nonmalignant breast conditions (7 sources) Lump in right breast; Translations: [Unspecified lump in the right breast, unspecified quadrant] Onset: 02-05-2025 12-27-2024 Episodic Other complications of (20 sources) History of third degree perineal laceration; Translations: [Supervision of with other poor reproductive or obstetric history, unspecified trimester] Onset: 02-23-2012 Resolved: 01-30-2016 09-07-2021 Episodic Other complications of (20 sources) High risk ; Translations: [Supervision of other high risk pregnancies, first trimester] Onset: 07-01-2015 Resolved: 01-30-2016 01-30-2016 Episodic Other gastrointestinal disorders (20 sources) History of irritable bowel syndrome; Translations: [Personal history of other diseases of the digestive system] Onset: 02-23-2012 Resolved: 07-01-2015 09-07-2021 Episodic Other gastrointestinal disorders (18 sources) Dysphagia; Translations: [Dysphagia, unspecified] Onset: 06-04-2024 05-03-2024 Episodic Other gastrointestinal disorders (1 source) Dysphagia, unspecified; Translations: [Dysphagia, unspecified type] Onset: 06-04-2024 Episodic Other and delivery including normal (20 sources) Normal ; Translations: [Encounter for supervision of normal , unspecified, unspecified trimester] Onset: 05-07-2010 Resolved: 07-01-2015 02-22-2011 Episodic Other screening for suspected conditions (not mental disorders or infectious disease) (20 sources) Patient encounter status; Translations: [Encounter for screening mammogram for malignant neoplasm of breast] Onset: 06-04-2024 Episodic Residual codes; unclassified (20 sources) FH: Congenital anomaly; Translations: [Family history of other congenital malformations, deformations and chromosomal abnormalities] Onset: 02-23-2012 Resolved: 01-30-2016 01-23-2018 Episodic Screening and history of mental health and substance abuse codes (20 sources) H/O: depression; Translations: [Personal history of other mental and behavioral disorders] Onset: 02-23-2012 01-23-2018 Episodic Results Test Name Value Interpretation Reference Range Facility [facility] 05-26-2025 CNOV Office Visit ([facility]) ESTELLA ROBLES ([id number]) 1980 F Date Time Provider Department 05/26/25 11:00 AM HALIMA BLANCHARD During your visit today, we recorded the following information about you: Temperature Pulse Respiration Blood pressure 98 degrees 83/minute 16/minute 108/76 Weight 94.2 kg Halima Blanchard MD 05/26/2025 11:23 AM Signed [facility] Subjective Estella Robles is a 45 year old female. Patient presents with: Fever: Fever, vomiting and fatigue x 1 day HPI Generalized Weakness and Myalgias: - Onset yesterday. - Estella is taking ibuprofen, Theraflu, and Tylenol with minimal relief. Fever: - Tmax 100.4 degreeF last night. Abdominal Pain: - Diffuse abdominal pain xweeks. Emesis: - Multiple episodes of emesis and dry heaving since last night. - Estella is unable to tolerate oral intake; emesis triggered by drinking fluids. Dizziness: - Episodes of dizziness and lightheadedness when sitting, standing, and ambulating. - Episodes last a few minutes. Review of Systems Constitutional: (+) generalized weakness, (+) fever Ears/Nose/Mouth/Throa t: (-) nasal congestion Respiratory: (-) cough, (-) dyspnea Gastrointestinal: (+) abdominal pain, (+) vomiting, (+) dry heaving, (-) diarrhea Musculoskeletal: (+) myalgias Neurological: (+) dizziness Objective BP 108/76 Pulse 83 Temp 36.7 ?C (98 ?F) (Tympanic) Resp 16 Wt 94.2 kg (207 lb 10.8 oz) LMP 04/07/2025 (Within Days) SpO2 98% BMI 38.60 kg/m? Physical Exam General: Well-appearing in NAD Cardiovascular - Rate/Rhythm: Regular rate and rhythm - Heart sounds: Normal Pulmonary - Respiratory Effort: Breathing comfortably, lungs CTA bilaterally Abdomen: soft, ND, Mild diffuse tenderness, no focal findings on palpation, no rebound or guarding Neurologic - Mental Status: Cognition grossly normal Lymphatic - Cervical: No cervical lymphadenopathy { 1. Viral gastroenteritis (A08.4) 2. Nausea and vomiting, unspecified vomiting type (R11.2) - Most likely etiology is viral gastroenteritis - Start Zofran as needed for nausea and vomiting. - Continue supportive care with Tylenol and ibuprofen for fever, fatigue, and myalgias. - Advised to maintain adequate hydration and monitor for worsening symptoms, including severe abdominal pain, inability to tolerate oral intake, or persistent dizziness. - Provided education on typical illness course - Provided work absence note for tomorrow - Discussed covid/flu/rsv testing which pt declined and Recording using ambient [employer] software for draft documentation of the visit was discussed with the patient/authorized risk control representative; all questions welcomed and answered. Patient/authorized risk control representative agreed to proceed Halima Blanchard MD [facility] May 26, 2025 11:06 AM Differential Diagnoses - Viral gastroenteritis is more likely for the following reason(s): suggested by HANDP - Nausea and vomiting is more likely for the following reason(s): suggested by HANDP Disposition The patient was discharged. OTC Medications were advised: Tylenol/ibuprofen Procedures Allergies As of Date: 05/26/2025 Noted Allergy Reaction IODINE 03/07/2013 2 - Rash Comments: Pt had reaction to iodine prep during csection Date Reviewed: 05/26/2025 Reviewed by: [place], Pricila, VOCATIONAL INSTRUCTOR - Fully Assessed Reason for Visit: Fever [47] Cmt: Fever, vomiting and fatigue x 1 day Primary Visit Diagnosis:Viral gastroenteritis [A08.4] Other Visit Diagnosis:Nausea and vomiting, unspecified vomiting type [R11.2] Order(s):ondansetron orally disintegrating (ZOFRAN ODT) 4 mg disintegrating tabletTake 1 tablet by mouth every 8 hours as needed for nausea/vomiting.Disp: 10 tabletRfl: 2 Prescriptions as of 05/26/2025 - ondansetron orally disintegrating (ZOFRAN ODT) 4 mg disintegrating tablet Take 1 tablet by mouth every 8 hours as needed for nausea/vomiting. - buPROPion XL (WELLBUTRIN XL) 150 mg 24 hr tablet Take 1 tablet by mouth once daily. - cholecalciferol, Vitamin D3, (VITAMIN D3) 1,250 mcg (50,000 unit) cap capsule Take 1 capsule by mouth one time a week. Problem List As Of Date 05/26/2025 Noted Resolved Threatened , antepartum [O20.0] 05/01/2010 11/13/2010 Supervision of normal [Z34.90] 05/07/2010 02/22/2011 Hx of maternal laceration, 3rd degree, currentl*02/23/2012 01/30/2016 History of IBS [Z87.19] 02/23/2012 07/01/2015 History of depression [Z86.59] 02/23/2012 Family history of defects [Z82.79] 02/23/2012 01/30/2016 Fissure in ano [K60.2] 03/22/2012 07/01/2015 Hemorrhoids [K64.9] 04/11/2013 07/01/2015 Encounter for supervision of normal first pregn*06/30/2015 07/01/2015 Supervision of other high risk pregnancies, fir*07/01/2015 01/30/2016 Abnormal glucose complicating [O99.81*10/20/2015 01/30/2016 Blood in (more content not included)... Normal [facility]OV[facility] 04-18-2025 CNOV Office Visit (OBGYWM ) ESTELLA ROBLES ([id number]) 1980 F Date Time Provider Department 04/18/25 3:00 PM ANGELICA SHETTY [facility] During your visit today, we recorded the following information about you: Pulse Blood pressure Weight Last Period 97/minute 124/72 95.7 kg 04/07/25 Angelica Shetty MD 04/18/2025 4:57 PM Signed Some documentation from previous visit of 12/19/24 was copied and pasted, documentation has been reviewed and edited as necessary for today's visit. Patient Summary: Estella is a 45 year old Female who presents for follow-up evaluation of obesity/weight management to treat and prevent related co-morbidities. In our previous visits we have discussed lifestyle intervention including a nutrition recommendations and physical activity optimization. Her last office visit was 4 month ago. Assessment/plan from last visit: -PT WOULD LIKE TO START WITH NUTRITION ONLY WILL CONSIDER MEDICATIONS - SLEEP STUDY ORDERED and consult to sleep medicine - DISCUSSED PROTEIN 90-140 G PER DAY - TRACKING REVIEWED- DIFFICULT FOR PATIENT -LABS ORDERED - METFORMIN REVIEWED- CONSIDER PHENTERMINE / TOPIRAMATE Interval History PT specifies the following items as new or significant updates since the last appointment: - - Reports gaining 10 lbs after stopping intermittent fasting. - Describes herself as an emotional eater, noting that the last few weeks have been extremely stressful, contributing to weight gain. - Denies wanting to start weight loss medications at this time. 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 - Often eats late at night, sometimes as late as 10:30 PM, and acknowledges that this is not ideal for her weight management goals. - Tried using the [employer] gabriele but found it was not free; switched back to [employer] but struggled to keep up with tracking due to a hectic schedule. - Attempting to drink more water but finds it challenging to measure intake accurately. - Trying to increase protein intake and has reduced carbohydrate consumption, avoiding breads and focusing on natural carbs like fruits and brown rice. - Has not been measuring food portions, citing time constraints. - Tried drinking protein shakes before practice but found it difficult to maintain this habit consistently. - Discussed with her the possibility of him taking over lunch preparations to reduce her evening snacking. - Continues to exercise regularly, although not this week due to a busy schedule with [employer] ([employer]). 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 Weight loss since last vist: +5 lbs - Last Wt 04/18/25 : 95.7 kg (211 lb) 12/19/24 : 93.4 kg (206 lb)- Initial weight Goal weight: 170 lb 5% weight loss = 196 lbs, 10% weight loss = 185 lbs Anti-obesity medications: none. Benefit: Adverse effects: Anti-obesity medications: . Benefit: Adverse effects: AOM Medications: Bupropion- Dr. Velasquez Weight promoting medications: Other none reported Previous Diet (initial appointment): Awake - 6:30am B - tries to do 16hr fast (7:30-11:30) works out in morning 8:15-8:45- no improvement S - L - protein shake- 30g powder from aldi , sometimes 2- apple w/ all natural PB, lunch meat without bread, eggs, S - popcorn 4pm sweet cravings- tammy crackers, raisins D - 7-8:30pm egg casserole, oatmeal casserole, madhav steak sandwich without bread, broccoli, green beans, always has fruit and sometimes salads, always dips fork in dressing. S - 9pm-9:30pm- grazing super food Fluids: drinking less since fasting- water (<40oz per day), decaf tea unsweetened, occasionally soda (2 cans in 3 months) Bedtime - 12am Quality of diet: 24hr recall suggests in between diet. Characterization of diet:Unstructured, excessive cravings, evening snacking, and skip meals. 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 of impaired eating habits:excessive hunger, mindlessness , boredom, emotion, and stress Eating Disorder no Cravings: sweets Dietary changes: has not made many- but trying to get more protein B - S - L - S - D - S - Fluids - Increasing protein Current Barriers: emotional eating, stress eating, eating high-calorie foods, large portion sizes, grazing/irregular meal patterns, poor sleep hygiene, and inadequate sleep duration Exercise: stable Regular exercise: yes -weight lifting-3 days a week, pilates, walking other 2 days a week - goal is 30min - MORNING workout Strength/resistance exercise:yes Barriers to regular exercise? 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 Gym Membership: no Activity Tracker: no average steps per day N/A Stress: stableYES, Cause:Personal Sleep: stable 6 hours. Wakes up gasping for air sometimes - h (more content not included)... Normal [facility] Kristin 02-08-2025 CNPN Telephone (OBGYWM) ESTELLA ROBLES ([id number]) 1980 F Date Time Provider Department 02/08/25 ANGELICA SHETTY OBGY During your visit today, we recorded the following information about you: Yazmin Cardona RN 02/08/2025 4:08 PM Signed Next weight mgmt appt is scheduled for 02/26, but she won't have her sleep study results until 03/08. Asking if she should reschedule her weight mgmt appt for after the instead so you have those results to discuss? Next available appt isn't until April 18 though as of right now. HALINA Hays Deidre, MD 02/08/2025 4:51 PM Signed No- she should keep her appointment as is. Melina Valera RN 02/08/2025 4:57 PM Signed Pt notified and voiced understanding. Melina Valera RN Allergies As of Date: 02/08/2025 Noted Allergy Reaction IODINE 03/07/2013 2 - Rash Comments: Pt had reaction to iodine prep during csection Date Reviewed: 12/27/2024 Reviewed by: Irina Velasquez MD - Fully Assessed Reason for Visit: Appointment [186] Prescriptions as of 02/08/2025 - cholecalciferol, Vitamin D3, (VITAMIN D3) 1,250 mcg (50,000 unit) cap capsule Take 1 capsule by mouth one time a week. - buPROPion XL (WELLBUTRIN XL) 150 mg 24 hr tablet Take 1 tablet by mouth once daily. Problem List As Of Date 02/08/2025 Noted Resolved Threatened , antepartum [O20.0] 05/01/2010 11/13/2010 Supervision of normal [Z34.90] 05/07/2010 02/22/2011 Hx of maternal laceration, 3rd degree, currentl*02/23/2012 01/30/2016 History of IBS [Z87.19] 02/23/2012 07/01/2015 History of depression [Z86.59] 02/23/2012 Family history of defects [Z82.79] 02/23/2012 01/30/2016 Fissure in ano [K60.2] 03/22/2012 07/01/2015 Hemorrhoids [K64.9] 04/11/2013 07/01/2015 Encounter for supervision of normal first pregn*06/30/2015 07/01/2015 Supervision of other high risk pregnancies, fir*07/01/2015 01/30/2016 Abnormal glucose complicating [O99.81*10/20/2015 01/30/2016 Blood in stool [K92.1] 06/04/2024 Dysphagia [R13.10] 06/04/2024 Screen for colon cancer [Z12.11] 06/04/2024 Encounter Status:Closed by MELINA VALERA on 02/08/25 Normal [facility] DBT Breast - right diagnosti c for implanton 02-05-2025 IMPRESSION: There is no mammographic or sonographic evidence of malignancy. Return to annual screening mammogram is recommended. Annual mammogram will be due in 8 months. BI-RADS Category 2: Benign RISK: Based on the Tyrer-Cuzick (TC) risk assessment model, this patient has a 4.4% lifetime risk of developing breast cancer, meaning they are at average risk for developing breast cancer. However, this is only an estimate based on available history provided on the patient's questionnaire. We encourage all patients to talk with their providers about these results, further recommendations for managing breast health, and appropriate supplemental screening options if the patient has dense breast tissue. Interpreting Radiologist: Robbie Young M.D. Electronically signed on: 02/05/2025 Pharmacy Messenger: YVES Transcribe Date/Time: Feb 05 2025 8:27A Dictated by: ROBBIE YOUNG MD This examination was interpreted and the report reviewed and electronically signed by: ROBBIE YOUGN MD on Feb 05 2025 9:26AM [facility] DIVISION OF RADIOLOGY * * *Final Report* * * DATE OF EXAM: Feb 05 2025 8:37AM [facility] 0629 - [facility] DIAG W JESSICA RT / PROCEDURE REASON: Mass of right breast, unspecified quadrant * * * * Physician Interpretation * * * * RESULT: [place] [address] #[id number] - [facility] DIAG W JESSICA RT #[id number] - [facility] BREAST LTD RT HISTORY: 44 year-old patient seen for diagnostic evaluation of a palpable abnormality and area of clinical concern in the right breast. Patient states no personal history of breast cancer. COMPARISON STUDIES: The present examination has been compared to prior imaging studies dated 01/25/2022 (mammogram), 02/01/2023 (mammogram) and 09/17/2024 (mammogram). MAMMOGRAM TECHNIQUE: The study was acquired using full field digital technology and interpreted from soft copy. Digital Breast Tomosynthesis (DBT) images were obtained and used to assist in the interpretation of this examination. MAMMOGRAM FINDINGS: The breast is almost entirely fatty. There is a fat-containing cyst measuring 1 cm with circumscribed margins in the right breast at 12 o'clock. This is consistent with an oil cyst. No suspicious masses, calcifications or other abnormalities are seen in the right breast. ULTRASOUND TECHNIQUE: Targeted ultrasound of the indicated area was performed. Storm scale images were saved. ULTRASOUND FINDINGS: Ultrasound demonstrates a cyst measuring 0.9 cm in the right breast at 12 o'clock. There are no suspicious findings in the imaged area. DIVISION OF RADIOLOGY Provider, [facility] - 02/05/2025 * * *Final Report* * * DATE OF EXAM: Feb 05 2025 8:37AM [facility] 0629 - [facility] BINU Sal[place]ar JESSICA RT / PROCEDURE REASON: Mass of right breast, unspecified quadrant * * * * Physician Interpretation * * * * RESULT: [facility] [address] [id number] #[id number] - [facility] BINU W JESSICA RT #[id number] - [facility] US BREAST LTD RT HISTORY: 44 year-old patient seen for diagnostic evaluation of a palpable abnormality and area of clinical concern in the right breast. Patient states no personal history of breast cancer. COMPARISON STUDIES: The present examination has been compared to prior imaging studies dated 01/25/2022 (mammogram), 02/01/2023 (mammogram) and 09/17/2024 (mammogram). MAMMOGRAM TECHNIQUE: The study was acquired using full field digital technology and interpreted from soft copy. Digital Breast Tomosynthesis (DBT) images were obtained and used to assist in the interpretation of this examination. MAMMOGRAM FINDINGS: The breast is almost entirely fatty. There is a fat-containing cyst measuring 1 cm with circumscribed margins in the right breast at 12 o'clock. This is consistent with an oil cyst. No suspicious masses, calcifications or other abnormalities are seen in the right breast. ULTRASOUND TECHNIQUE: Targeted ultrasound of the indicated area was performed. Storm scale images were saved. ULTRASOUND FINDINGS: Ultrasound demonstrates a cyst measuring 0.9 cm in the right breast at 12 o'clock. There are no suspicious findings in the imaged area. IMPRESSION IMPRESSION: There is no mammographic or sonographic evidence of malignancy. Return to annual screening mammogram is recommended. Annual mammogram will be due in 8 months. BI-RADS Category 2: Benign RISK: Based on the Tyrer-Cuzick (TC) risk assessment model, this patient has a 4.4% lifetime risk of developing breast cancer, meaning they are at average risk for developing breast cancer. However, this is only an estimate based on available history provided on the patient's questionnaire. We encourage all patients to talk with their providers about these results, further recommendations for managing breast health, and appropriate supplemental screening options if the patient has dense breast tissue. Interpreting Radiologist: Robbie Young M.D. Electronically signed on: 02/05/2025 Pharmacy Messenger: YVES Transcribe Date/Time: Feb 05 2025 8:27A Dictated by: ROBBIE YOUNG MD This examination was interpreted and the report reviewed and electronically signed by: ROBBIE YOUNG MD on Feb 05 2025 9:26AM EST [facility] JASMEET DIAG W JESSICA RTon 025 [facility]ET DIAG W JESSICA RT * * *Final Report* * * DATE OF EXAM: Feb 05 2025 8:37AM [facility] 0629 - [facility] DIAG W JESSICA RT / PROCEDURE REASON: Mass of right breast, unspecified quadrant * * * * Physician Interpretation * * * * RESULT: [address] [address] [place] [address] #[id number] - [facility] DIAG W JESSICA RT #[id number] - [facility] US BREAST LTD RT HISTORY: 44 year-old patient seen for diagnostic evaluation of a palpable abnormality and area of clinical concern in the right breast. Patient states no personal history of breast cancer. COMPARISON STUDIES: The present examination has been compared to prior imaging studies dated 01/25/2022 (mammogram), 02/01/2023 (mammogram) and 09/17/2024 (mammogram). MAMMOGRAM TECHNIQUE: The study was acquired using full field digital technology and interpreted from soft copy. Digital Breast Tomosynthesis (DBT) images were obtained and used to assist in the interpretation of this examination. MAMMOGRAM FINDINGS: The breast is almost entirely fatty. There is a fat-containing cyst measuring 1 cm with circumscribed margins in the right breast at 12 o'clock. This is consistent with an oil cyst. No suspicious masses, calcifications or other abnormalities are seen in the right breast. ULTRASOUND TECHNIQUE: Targeted ultrasound of the indicated area was performed. Storm scale images were saved. ULTRASOUND FINDINGS: Ultrasound demonstrates a cyst measuring 0.9 cm in the right breast at 12 o'clock. There are no suspicious findings in the imaged area. IMPRESSION: There is no mammographic or sonographic evidence of malignancy. Return to annual screening mammogram is recommended. Annual mammogram will be due in 8 months. BI-RADS Category 2: Benign RISK: Based on the Tyrer-Cuzick (TC) risk assessment model, this patient has a 4.4% lifetime risk of developing breast cancer, meaning they are at average risk for developing breast cancer. However, this is only an estimate based on available history provided on the patient's questionnaire. We encourage all patients to talk with their providers about these results, further recommendations for managing breast health, and appropriate supplemental screening options if the patient has dense breast tissue. Interpreting Radiologist: Robbie Young M.D. Electronically signed on: 02/05/2025 Pharmacy Messenger: YVES Transcribe Date/Time: Feb 05 2025 8:27A Dictated by: ROBBIE YOUNG MD This examination was interpreted and the report reviewed and electronically signed by: ROBBIE YOUNG MD on Feb 05 2025 9:26AM EST [id number] Normal [facility] BREAST [employer] RTon 02-05 [facility] [place] BREAST [employer] RT * * *Final Report* * * DATE OF EXAM: Feb 05 2025 9:15AM [facility] 0594 - [facility] [place] BREAST [employer] RT / PROCEDURE REASON: Mass of right breast, unspecified quadrant * * * * Physician Interpretation * * * * [place] [address] #[id number] - [facility] BINU LOPEZ RT #[id number] - [facility] [employer] BREAST [employer] RT HISTORY: 44 year-old patient seen for diagnostic evaluation of a palpable abnormality and area of clinical concern in the right breast. Patient states no personal history of breast cancer. COMPARISON STUDIES: The present examination has been compared to prior imaging studies dated 01/25/2022 (mammogram), 02/01/2023 (mammogram) and 09/17/2024 (mammogram). MAMMOGRAM TECHNIQUE: The study was acquired using full field digital technology and interpreted from soft copy. Digital Breast Tomosynthesis (DBT) images were obtained and used to assist in the interpretation of this examination. MAMMOGRAM FINDINGS: The breast is almost entirely fatty. There is a fat-containing cyst measuring 1 cm with circumscribed margins in the right breast at 12 o'clock. This is consistent with an oil cyst. No suspicious masses, calcifications or other abnormalities are seen in the right breast. ULTRASOUND TECHNIQUE: Targeted ultrasound of the indicated area was performed. Storm scale images were saved. ULTRASOUND FINDINGS: Ultrasound demonstrates a cyst measuring 0.9 cm in the right breast at 12 o'clock. There are no suspicious findings in the imaged area. IMPRESSION: There is no mammographic or sonographic evidence of malignancy. Return to annual screening mammogram is recommended. Annual mammogram will be due in 8 months. BI-RADS Category 2: Benign RISK: Based on the Tyrer-Cuzick (TC) risk assessment model, this patient has a 4.4% lifetime risk of developing breast cancer, meaning they are at average risk for developing breast cancer. However, this is only an estimate based on available history provided on the patient's questionnaire. We encourage all patients to talk with their providers about these results, further recommendations for managing breast health, and appropriate supplemental screening options if the patient has dense breast tissue. Interpreting Radiologist: Robbie Young M.D. Electronically signed on: 02/05/2025 Pharmacy Messenger: YVES Transcribe Date/Time: Feb 05 2025 8:59A Dictated by : ROBBIE YOUNG MD This examination was interpreted and the report reviewed and electronically signed by: ROBBIE YOUNG MD on Feb 05 2025 9:26AM EST [id number] Normal [facility] No Panel InformationOrdered By: Cc Provider on 02-05-2025 [facility] No Panel Informationon 02-05 Radiology Study observation (narrative) [facility] US Breast - right limitedon 02-05-2025 IMPRESSION: There is no mammographic or sonographic evidence of malignancy. Return to annual screening mammogram is recommended. Annual mammogram will be due in 8 months. BI-RADS Category 2: Benign RISK: Based on the Tyrer-Cuzick (TC) risk assessment model, this patient has a 4.4% lifetime risk of developing breast cancer, meaning they are at average risk for developing breast cancer. However, this is only an estimate based on available history provided on the patient's questionnaire. We encourage all patients to talk with their providers about these results, further recommendations for managing breast health, and appropriate supplemental screening options if the patient has dense breast tissue. Interpreting Radiologist: Robbie Young M.D. Electronically signed on: 02/05/2025 Pharmacy Messenger: YVES Transcribe Date/Time: Feb 05 2025 8:59A Dictated by : ROBBIE YOUNG MD This examination was interpreted and the report reviewed and electronically signed by: ROBBIE YOUNG MD on Feb 05 2025 9:26AM [facility] DIVISION OF RADIOLOGY * * *Final Report* * * DATE OF EXAM: Feb 05 2025 9:15AM [facility] 0594 - [facility] [place] BREAST [employer] RT / PROCEDURE REASON: Mass of right breast, unspecified quadrant * * * * Physician Interpretation * * * * [place] [address] #[id number] - [facility] BINU LOPEZ RT #[id number] - [facility] [employer] RT HISTORY: 44 year-old patient seen for diagnostic evaluation of a palpable abnormality and area of clinical concern in the right breast. Patient states no personal history of breast cancer. COMPARISON STUDIES: The present examination has been compared to prior imaging studies dated 01/25/2022 (mammogram), 02/01/2023 (mammogram) and 09/17/2024 (mammogram). MAMMOGRAM TECHNIQUE: The study was acquired using full field digital technology and interpreted from soft copy. Digital Breast Tomosynthesis (DBT) images were obtained and used to assist in the interpretation of this examination. MAMMOGRAM FINDINGS: The breast is almost entirely fatty. There is a fat-containing cyst measuring 1 cm with circumscribed margins in the right breast at 12 o'clock. This is consistent with an oil cyst. No suspicious masses, calcifications or other abnormalities are seen in the right breast. ULTRASOUND TECHNIQUE: Targeted ultrasound of the indicated area was performed. Storm scale images were saved. ULTRASOUND FINDINGS: Ultrasound demonstrates a cyst measuring 0.9 cm in the right breast at 12 o'clock. There are no suspicious findings in the imaged area. DIVISION OF RADIOLOGY Provider, [facility] - 02/05/2025 * * *Final Report* * * DATE OF EXAM: Feb 05 2025 9:15AM [facility] 0594 - [facility] [place] BREAST [employer] RT / PROCEDURE REASON: Mass of right breast, unspecified quadrant * * * * Physician Interpretation * * * * [address] [id number] #[id number] - [facility] BINU LOPEZ RT #[id number] - [facility] US BREAST LTD RT HISTORY: 44 year-old patient seen for diagnostic evaluation of a palpable abnormality and area of clinical concern in the right breast. Patient states no personal history of breast cancer. COMPARISON STUDIES: The present examination has been compared to prior imaging studies dated 01/25/2022 (mammogram), 02/01/2023 (mammogram) and 09/17/2024 (mammogram). MAMMOGRAM TECHNIQUE: The study was acquired using full field digital technology and interpreted from soft copy. Digital Breast Tomosynthesis (DBT) images were obtained and used to assist in the interpretation of this examination. MAMMOGRAM FINDINGS: The breast is almost entirely fatty. There is a fat-containing cyst measuring 1 cm with circumscribed margins in the right breast at 12 o'clock. This is consistent with an oil cyst. No suspicious masses, calcifications or other abnormalities are seen in the right breast. ULTRASOUND TECHNIQUE: Targeted ultrasound of the indicated area was performed. Storm scale images were saved. ULTRASOUND FINDINGS: Ultrasound demonstrates a cyst measuring 0.9 cm in the right breast at 12 o'clock. There are no suspicious findings in the imaged area. IMPRESSION IMPRESSION: There is no mammographic or sonographic evidence of malignancy. Return to annual screening mammogram is recommended. Annual mammogram will be due in 8 months. BI-RADS Category 2: Benign RISK: Based on the Tyrer-Cuzick (TC) risk assessment model, this patient has a 4.4% lifetime risk of developing breast cancer, meaning they are at average risk for developing breast cancer. However, this is only an estimate based on available history provided on the patient's questionnaire. We encourage all patients to talk with their providers about these results, further recommendations for managing breast health, and appropriate supplemental screening options if the patient has dense breast tissue. Interpreting Radiologist: Robbie Young M.D. Electronically signed on: 02/05/2025 Pharmacy Messenger: YVES Transcribe Date/Time: Feb 05 2025 8:59A Dictated by : ROBBIE YOUNG MD This examination was interpreted and the report reviewed and electronically signed by: ROBBIE YOUNG MD on Feb 05 2025 9:26AM EST [facility] CNOVon 12-27-2024 CNOV Office Visit (OBGYWM ) ESTELLA ROBLES ([id number]) 1980 F Date Time Provider Department 12/27/24 11:20 AM IRINA VELASQUEZ OBGYWM During your visit today, we recorded the following information about you: Blood pressure Weight Last Period 110/72 94.3 kg 12/26/24 Irina Velasquez MD 12/27/2024 1:25 PM Signed BREAST LUMP HISTORY: This is a 44 year old female Presents with breast mass right Mass has been present for 1 weeks Tenderness No Change in sizeNo Any history breast mass no Caffeine use No Last [id number] normal no nipple discharge or itching Any previous breast surgery No Any family history breast disease/ breast cancer Yes Doing well on wellbutrin, doesn't get as low or go in her hole of despair. OB History Gravida5 Para4 Term4 Preterm0 AB1 Living4 SAB1 IAB0 Ectopic0 Multiple0 Live Births4 PAST MEDICAL HISTORY Diagnosis Date Anemia Depression 2002 took meds only couple weeks Fissure, anal 2012 Hemorrhoid History of blood transfusion 2012 H/o transfusion after first c/s 2 units IBS (irritable bowel syndrome) PMH - PAST MEDICAL HISTORY OF [place] disease (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) PMH - PAST MEDICAL HISTORY OF Slipped lumbar disc depression hemorrhage (HCC) PAST SURGICAL HISTORY Procedure Laterality Date DELIVERY ONLY 10/24/2012 , low transverse DELIVERY ONLY 01/15/2016 , low transverse DELIVERY ONLY 08/28/2018 RC/S low transverse COLONOSCOPY SCREENING 06/04/2024 repeat 10 years EGD W/O [facility] SPEC VARICIES INJ 06/04/2024 EXTRACTION, ERUPTED TOOTH OR EXPOSED ROOT (ELEVATION AND/OR FORCEPS REMOVAL) @ 21yrs of age SALPINGECTOMY COMPLETE/PARTIAL UNI/BI SPX Bilateral 08/28/2018 FAMILY HISTORY Problem Relation Age of Onset Hypertension Mother Hypertension Father Seizures Sister Heart Sister Cancer Maternal Grandmother colon Diabetes Maternal Grandfather Diabetes Paternal Grandmother Heart Paternal Grandmother Hypertension Paternal Grandmother Diabetes Paternal Grandfather Heart Paternal Grandfather fatal [place] Asthma Son Allergies Son Asthma Son Allergies Son Allergies Son SOCIAL HISTORY Social History Tobacco Use Smoking status: Never Smokeless tobacco: Never Vaping Use Vaping status: Never Used Substance Use Topics Alcohol use: No Drug use: No PAST SURGICAL HISTORY Procedure Laterality Date DELIVERY ONLY 10/24/2012 , low transverse DELIVERY ONLY 01/15/2016 , low transverse DELIVERY ONLY 08/28/2018 RC/S low transverse COLONOSCOPY SCREENING 06/04/2024 repeat 10 years EGD W/O [facility] SPEC VARICIES INJ 06/04/2024 EXTRACTION, ERUPTED TOOTH OR EXPOSED ROOT (ELEVATION AND/OR FORCEPS REMOVAL) @ 21yrs of age SALPINGECTOMY COMPLETE/PARTIAL UNI/BI SPX Bilateral 08/28/2018 Current Outpatient Medications Medication Sig cholecalciferol, Vitamin D3, (VITAMIN D3) 1,250 mcg (50,000 unit) cap capsule Take 1 capsule by mouth one time a week. buPROPion XL (WELLBUTRIN XL) 150 mg 24 hr tablet Take 1 tablet by mouth once daily. No current facility-administered medications for this visit. Allergies As of Date: 12/27/2024 Allergen Noted Reaction IODINE 03/07/2013 Rash Fully Assessed 12/27/2024 SENSITIVE EXAM: Sensitive exam not performed. EXAMINATION: There is no concerning cervical, supraclavicular, or axillary lymphadenopathy. She has a 1.3 x 0.7 cm irregularly shaped, rubbery, mobile nontender area at approximately 10-11 o'clock on the right upper outer quadrant. No other discrete nodules are noted. There are some diffuse density bilaterally.. On the left are no dominant masses, skin changes or nipple discharge. There are no skin changes or nipple discharge. IMPRESSION: right breast mass. PLAN: No orders found for this visit on 12/27/24. A discussion was held with the patient and patient who agrees with Imaging Irina Velasquez MD Allergies As of Date: 12/27/2024 Noted Allergy Reaction IODINE 03/07/2013 2 - Rash Comments: Pt had reaction to iodine prep during csection Date Reviewed: 12/27/2024 Reviewed by: Irina Velasquez MD - Fully Assessed Reason for Visit: Breast Problem [16] Cmt: Right breast lump Primary Visit Diagnosis:Mass of right breast, unspecified quadrant [N63.10] Order(s):[facility] DIAGNOSTIC RIGHT [[id number]] Order #: [id number] FUTURE BREAST LTD RIGHT [[id number]] Order #: [id number] FUTURE Prescriptions as of 12/27/2024 - cholecalciferol, Vitamin D3, (VITAMIN D3) 1,250 mcg (50,000 unit) cap capsule Take 1 capsule by mouth one time a week. - buPROPion XL (WELLBUTRIN XL) 150 mg 24 hr tablet Take 1 tablet by mouth once daily. Problem List As Of Date 12/27/2024 Noted Resolved Threatened , antepartum [O20.0] 05/01/2010 11/13/2010 Supervision of (more content not included)... Normal [facility] Kristin 12-21-2024 CNPN Telephone (OBGYWM) ESTELLA ROBLES ([id number]) 1980 F Date Time Provider Department 12/21/24 IRINA VELASQUEZ OBGYWM During your visit today, we recorded the following information about you: Melina Valera RN 12/21/2024 8:57 AM Signed Last annual exam with RR 09/17/24. Pt calls stating she recently as noticed a right breast lump that seems to be changing in size. Denies pain to right breast. Denies dimpling/Denies nipple drainage. Scheduled appt with RR 12/27/24. Melina Valera RN Allergies As of Date: 12/21/2024 Noted Allergy Reaction IODINE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 Encounter for screening for malignant neoplasm of colon CPT copyright 2020 [employer]. All rights reserved. The codes documented in this report are preliminary and upon eap consultant review may be revised to meet current compliance requirements. Attending Participation: I personally performed the entire procedure. Scope In: 11:54:37 AM Scope Out: 12:07:21 PM MD Shannan Shah MD 06/04/2024 12:10:36 PM This report has been signed electronically by Shannan Cox MD Number of Addenda: 0 Note Initiated On: 06/04/2024 11:23 AM Estimated Blood Loss: Estimated blood loss: none. Normal [facility] EGD Study observation Narrat ashley 06-04-2024 [facility] Gastrointestinal Endoscopy Patient Name: Estella Robles Procedure Date: 06/04/2024 11:24 AM Date of : 1980 Admit Type: Outpatient Age: 44 Gender: Female Note Status: Bdc Manager Override Procedure: Upper GI endoscopy Indications: Dysphagia Providers: Shannan Cox MD Patient Profile: Refer to note in patient chart for documentation of history and physical. Referring Physician: Susan Richard (Referring MD) Medicines: Midazolam 6 mg IV, Fentanyl 50 micrograms IV, Diphenhydramine 50 mg IV, Benzocaine spray, See the other procedure note for documentation of the administered medications Complications: No immediate complications. Requesting Provider: Procedure: Pre-Anesthesia Assessment: - Prior to the procedure, a History and Physical was performed, and patient medications and allergies were reviewed. The patient is competent. The risks and benefits of the procedure and the sedation options and risks were discussed with the patient. All questions were answered and informed consent was obtained. Patient identification and proposed procedure were verified by the physician in the pre-procedure area. Mental Status Examination: alert and oriented. Airway Examination: normal oropharyngeal airway and neck mobility. Respiratory Examination: clear to auscultation. CV Examination: normal. Prophylactic Antibiotics: The patient does not require prophylactic antibiotics. Prior Anticoagulants: The patient has taken no anticoagulant or antiplatelet agents. ASA Grade Assessment: II - A patient with mild systemic disease. After reviewing the risks and benefits, the patient was deemed in satisfactory condition to undergo the procedure. The anesthesia plan was to use moderate sedation / analgesia (conscious sedation). Immediately prior to administration of medications, the patient was re-assessed for adequacy to receive sedatives. The heart rate, respiratory rate, oxygen saturations, blood pressure, adequacy of pulmonary ventilation, and response to care were monitored throughout the procedure. The physical status of the patient was re-assessed after the procedure. After obtaining informed consent, the endoscope was passed under direct vision. Throughout the procedure, the patient's blood pressure, pulse, and oxygen saturations were monitored continuously. The Endoscope was introduced through the mouth, and advanced to the second part of duodenum. The upper GI endoscopy was accomplished without difficulty. The patient tolerated the procedure well. Moderate Sedation: The administration of moderate sedation was initiated at 11:34 AM. Moderate (conscious) sedation was personally administered by the endoscopist. The following parameters were monitored: oxygen saturation, heart rate, blood pressure, respiratory rate, EKG, adequacy of pulmonary ventilation, and response to care. See the other procedure note for documentation of moderate sedation with intraservice time. Findings: The first portion of the duodenum, second portion of the duodenum and third portion of the duodenum were normal. Localized mildly erythematous mucosa without bleeding was found in the gastric antrum. Biopsies were taken with a cold forceps for histology/H pylori. Verification of patient identification for the specimen was done by the nurse. Estimated blood loss was minimal. A very small hiatal hernia was present. Biopsies were taken with a cold forceps for histology at the GEJ and mid esophagus to rule out EE. Verification of patient identification for the specimen was done by the nurse. Estimated blood loss was minimal. Impression: - Normal first portion of the duodenum, second portion of the duodenum and third portion of the duodenum. - Erythematous mucosa in the (more content not included)... [facility] Flexible sigmoidoscopy study on 06-04-2024 [facility] Gastrointestinal Endoscopy Patient Name: Estella Robles Procedure Date: 06/04/2024 11:23 AM Date of : 1980 Admit Type: Outpatient Age: 44 Gender: Female Note Status: Finalized Procedure: Colonoscopy Indications: Screening for colorectal malignant neoplasm Providers: Shannan Cox MD Patient Profile: Refer to note in patient chart for documentation of history and physical. Last Colonoscopy: none. The patient's first colonoscopy is today. Referring Physician: Susan Richard (Referring MD) Medicines: Midazolam 2 mg IV, See the other procedure note for documentation of the administered medications Complications: No immediate complications. Requesting Provider: Procedure: Pre-Anesthesia Assessment: - Prior to the procedure, a History and Physical was performed, and patient medications and allergies were reviewed. The patient is competent. The risks and benefits of the procedure and the sedation options and risks were discussed with the patient. All questions were answered and informed consent was obtained. Patient identification and proposed procedure were verified by the physician in the pre-procedure area. Mental Status Examination: alert and oriented. Airway Examination: normal oropharyngeal airway and neck mobility. Respiratory Examination: clear to auscultation. CV Examination: normal. Prophylactic Antibiotics: The patient does not require prophylactic antibiotics. Prior Anticoagulants: The patient has taken no anticoagulant or antiplatelet agents. ASA Grade Assessment: II - A patient with mild systemic disease. After reviewing the risks and benefits, the patient was deemed in satisfactory condition to undergo the procedure. The anesthesia plan was to use moderate sedation / analgesia (conscious sedation). Immediately prior to administration of medications, the patient was re-assessed for adequacy to receive sedatives. The heart rate, respiratory rate, oxygen saturations, blood pressure, adequacy of pulmonary ventilation, and response to care were monitored throughout the procedure. The physical status of the patient was re-assessed after the procedure. After I obtained informed consent, the scope was passed under direct vision. Throughout the procedure, the patient's blood pressure, pulse, and oxygen saturations were monitored continuously. The Colonoscope was introduced through the anus and advanced to the cecum, identified by the appendiceal orifice, IC valve and transillumination. The colonoscopy was performed without difficulty. The patient tolerated the procedure well. The appendiceal orifice and the rectum were photographed. The quality of the bowel preparation was suboptimal. There was still retained fecal material which required lavage and aspiration to visualize the archibald adequately. This was done, but took some time, however, the archibald were visualized adequately. Moderate Sedation: The administration of moderate sedation was initiated at 11:52 AM. Moderate (conscious) sedation was personally administered by the endoscopist. The following parameters were monitored: oxygen saturation, heart rate, blood pressure, respiratory rate, EKG, adequacy of pulmonary ventilation, and response to care. Findings: The perianal and digital rectal examinations were normal. Non-bleeding internal hemorrhoids were found. Impression: - Non-bleeding internal hemorrhoids. - No specimens collected. Recommendation: - Repeat colonoscopy in 10 years for screening purposes. - Return to primary care physician PRN. - Patient has a contact number available for emergenci (more content not included)... [facility] HISTORY PHYSICALon HISTORY PHYSICAL HNO ID: [id number] Author: SHANNAN COX MD Service: General Surgery Author Type: Physician Type: H&P Filed: 06/04/2024 10:37 Note Text: HISTORY AND PHYSICAL Estella Robles : 1980 REFERRING PHYSICIAN: Ir[address] [facility] [address] CHIEF COMPLAINT: Patient presents with: Consult: Colonoscopy consultation, blood in stool, family history of colon cancer. HPI: Estella is a 44 year old female referred for endoscopy. Estella notes blood in stools. Estella states that she was on vacation in March when she had 2 episodes of BRBPR when wiping followed by an episode of bright red blood in the toilet. Estella also refers that frequently when she is eating she will choke on the food, this does not happen with water Only also refers that after eating she will get upset stomach with mild allover abdominal pain that relieves on its own. Denies any change in bowel habits, weight changes, black tarry stools. Denies reflux Refers family history of colon issues.-Maternal grandmother with colon cancer Estella has not undergone prior endoscopy. CURRENT MEDICATIONS Current Outpatient Medications Medication Sig buPROPion SR (WELLBUTRIN SR) 100 mg 12 hr tablet Take 1 tablet by mouth once daily as needed (for symptoms). No current facility-administered medications for this visit. ALLERGIES: Iodine PAST MEDICAL HISTORY PAST MEDICAL HISTORY No date: Anemia 2002: Depression Comment: took meds only couple weeks 2013: Fissure, anal No date: Hemorrhoid 2013: History of blood transfusion Comment: H/o transfusion after first c/s 2 units No date: IBS (irritable bowel syndrome) No date: PMH - PAST MEDICAL HISTORY OF Comment: [place] disease (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) No date: PMH - PAST MEDICAL HISTORY OF Comment: Slipped lumbar disc No date: depression No date: hemorrhage PAST SURGICAL HISTORY PAST SURGICAL HISTORY 10/24/12: DELIVERY ONLY Comment: , low transverse 01/15/16: DELIVERY ONLY Comment: , low transverse 08/28/2018: DELIVERY ONLY Comment: RC/S low transverse No date: EXTRACTION, ERUPTED TOOTH OR EXPOSED ROOT (ELEVATION AND/OR FORCEPS REMOVAL) Comment: @ 21yrs of age 1208/28/2018: SALPINGECTOMY COMPLETE/PARTIAL UNI/BI SPX; Bilateral FAMILY HISTORY FAMILY HISTORY Problem Relation Age of Onset Hypertension Mother Hypertension Father Seizures Sister Heart Sister Cancer Maternal Grandmother colon Diabetes Maternal Grandfather Diabetes Paternal Grandmother Heart Paternal Grandmother Hypertension Paternal Grandmother Diabetes Paternal Grandfather Heart Paternal Grandfather fatal [place] Asthma Son Allergies Son Asthma Son Allergies Son Allergies Son SOCIAL HISTORY Social History Tobacco Use Smoking status: Never Smokeless tobacco: Never Vaping Use Vaping status: Never Used Substance Use Topics Alcohol use: No Drug use: No REVIEW OF SYMPTOMS: The review of systems data was entered by the nurse and reviewed by hi Nursing Notes: Edna Paula RN 05/03/2024 10:01 AM Signed REVIEW OF SYSTEMS: General: The patient denies fatigue, denies weight loss, denies weight gain, denies feeling hot, and denies feelings of cold. Eyes: The patient denies glaucoma, denies eye injury/surgery, does not wear glasses or contacts. Ear/Nose/Throat: The patient NOTES allergies, denies hayfever, denies ear infections, and denies bloody noses. Cardiovascular: The patient denies chest pain, denies heart disease, denies high blood pressure,denies cardiac stent, denies prior heart attack, denies irregular heart beat, denies high cholesterol, denies poor circulation, denies heart failure, other cardiac issues, denies claudication, denies cold feet, denies peripheral arterial stent. Respiratory: The patient denies tuberculosis, denies pneumonia, denies frequent cough, denies pulmonary embolism, denies shortness of breath, and denies coughing up blood. Gastrointestinal: The patient denies difficulty swallowing, denies acid reflux, denies ulcers, denies vomiting, denies jaundice/hepatitis, denies gallbladder problems, denies black or tarry stools, NOTES hemorrhoids, NOTES bleeding from rectum, denies diverticulitis, denies constipation, denies diarrhea, denies loss of stool control, denies hernias, and NOTES IBS. Kidney/Bladder: The patient denies kidney stones, denies urine infections, and denies bloody urine. Skin: The patient denies a history of skin cancer, denies bleeding/changing moles, and denies a history of skin rash. Neurologic: The patient denies a history of epilepsy/convulsions, denies headaches, denies head/spinal injuries, and denies stroke/TIA. Psychiatric: The patient denies psychiatric medications, NOTES depression, and denies voices, denies substance abuse. Endocrine: The patient denies thyroid disorders, denies (more content not included)... Normal [facility] No Panel Informationon 06-04 Radiology Study observation (narrative) [facility] SURGICAL PATHOLOGYon 024 CASE REPORT Normal [facility] Comment on above: Order Comment: Speci men Type: TISSUE SPECIMENOrdering Facility: [facility] Address: [address] [place] [address] Result Comment: Surg [facility] Pathology Report Case: [id number] Authorizing Provider: Shannan Cox MD Collected: 06/04/2024 11:44 AM Ordering Location: Ambulatory Surgery Received: 06/04/2024 12:22 PM Pathologist: Nicholas Butler MD Specimens: A) - Stomach, Antrum, Biopsy, stomach bx check for h/h B) - Esophagogastric Junction, Biopsy, GE junction bx C) - Esophagus, Mid, Biopsy Performed By: #### S ####[facility] LABCLIA [id number] [address] LABCLIA [id number] [address] FINAL DIAGNOSIS Normal [facility] Comment on above: Order Comment: Speci men Type: TISSUE SPECIMENOrdering Facility: [facility] Address: [address] [place] [address] Result Comment: A. G astric antrum, biopsy: - No significant pathologic change. - No morphologic evidence of Helicobacter pylori. B. Esophagogastric junction, biopsy: - Fragments of fundic-type mucosa and scant fragments of superficial squamous mucosa. - No evidence of intestinal metaplasia or dysplasia. - No evidence of eosinophilia. C. Mid esophagus, biopsy: - Fragments of unremarkable squamous mucosa. - No evidence of eosinophilia. JORJE/[place] 06/05/2024 Performed By: #### S ####[facility] LABCLIA [id number] [place] [id number] [facility] LABCLIA [id number] [address] OF [place] FINAL PERFORMING LAB Normal [facility] Comment on above: Order Comment: Speci men Type: TISSUE SPECIMENOrdering Facility: [facility] Address: [address] [place] [address] Result Comment: Diag nostic interpretation performed at [facility], [address] [place] [address] CLIA# [id number] Slice Plug Cutter Operator Helper: Malick Gutierrez M.D. Performed By: #### S ####[facility] LABCLIA [id number] [address] STATES OF [facility] LABCLIA [id number] [address] STATES OF [place] GROSS DESCRIPTION Normal [facility] Comment on above: Order Comment: Speci men Type: TISSUE SPECIMENOrdering Facility: [facility] Address: [address] [place] [address] Result Comment: A. S tomach, Antrum, Biopsy Received in formalin are two pieces of ryder, soft tissue aggregating to 0.5 x 0.4 x 0.2 cm. Totally submitted in one cassette. B. Esophagogastric Junction, Biopsy Received in formalin are two pieces of ryder, soft tissue aggregating to 0.6 x 0.3 x 0.2 cm. Totally submitted in one cassette. C. Esophagus, Mid, Biopsy Received in formalin are multiple pieces of ryder, soft tissue aggregating to 0.5 x 0.4 x 0.2 cm. Totally submitted in one cassette. [facility] June 04, 2024 8:35 PM Gross examination performed at [facility], [address] [place] [address] Performed By: #### S ####[facility] LABCLIA [id number] [address] OF [facility] LABCLIA [id number] [address] STATES OF [place] Upper GI endoscopyon 06-04-2 024 Upper GI endoscopy [facility] Gastrointestinal Endoscopy Patient Name: Estella Robles Procedure Date: 06/04/2024 11:24 AM Date of : 1980 Admit Type: Outpatient Age: 44 Gender: Female Note Status: Bdc Manager Override Procedure: Upper GI endoscopy Indications: Dysphagia Providers: Shannan Cox MD Patient Profile: Refer to note in patient chart for documentation of history and physical. Referring Physician: Susan Richard (Referring MD) Medicines: Midazolam 6 mg IV, Fentanyl 50 micrograms IV, Diphenhydramine 50 mg IV, Benzocaine spray, See the other procedure note for documentation of the administered medications Complications: No immediate complications. Requesting Provider: Procedure: Pre-Anesthesia Assessment: - Prior to the procedure, a History and Physical was performed, and patient medications and allergies were reviewed. The patient is competent. The risks and benefits of the procedure and the sedation options and risks were discussed with the patient. All questions were answered and informed consent was obtained. Patient identification and proposed procedure were verified by the physician in the pre-procedure area. Mental Status Examination: alert and oriented. Airway Examination: normal oropharyngeal airway and neck mobility. Respiratory Examination: clear to auscultation. CV Examination: normal. Prophylactic Antibiotics: The patient does not require prophylactic antibiotics. Prior Anticoagulants: The patient has taken no anticoagulant or antiplatelet agents. ASA Grade Assessment: II - A patient with mild systemic disease. After reviewing the risks and benefits, the patient was deemed in satisfactory condition to undergo the procedure. The anesthesia plan was to use moderate sedation / analgesia (conscious sedation). Immediately prior to administration of medications, the patient was re-assessed for adequacy to receive sedatives. The heart rate, respiratory rate, oxygen saturations, blood pressure, adequacy of pulmonary ventilation, and response to care were monitored throughout the procedure. The physical status of the patient was re-assessed after the procedure. After obtaining informed consent, the endoscope was passed under direct vision. Throughout the procedure, the patient's blood pressure, pulse, and oxygen saturations were monitored continuously. The Endoscope was introduced through the mouth, and advanced to the second part of duodenum. The upper GI endoscopy was accomplished without difficulty. The patient tolerated the procedure well. Moderate Sedation: The administration of moderate sedation was initiated at 11:34 AM. Moderate (conscious) sedation was personally administered by the endoscopist. The following parameters were monitored: oxygen saturation, heart rate, blood pressure, respiratory rate, EKG, adequacy of pulmonary ventilation, and response to care. See the other procedure note for documentation of moderate sedation with intraservice time. Findings: The first portion of the duodenum, second portion of the duodenum and third portion of the duodenum were normal. Localized mildly erythematous mucosa without bleeding was found in the gastric antrum. Biopsies were taken with a cold forceps for histology/H pylori. Verification of patient identification for the specimen was done by the nurse. Estimated blood loss was minimal. A very small hiatal hernia was present. Biopsies were taken with a cold forceps for histology at the GEJ and mid esophagus to rule out EE. Verification of patient identification for the specimen was done by the nurse. Estimated blood loss was minimal. Impression: - Normal first portion of the duodenum, second portion of the duodenum and third portion of the duodenum. - Erythematous mucosa in the antrum. Biopsied. - Small hiatal hernia. Biopsied esophagus. Recommendation: - Discharge patient to home (ambulatory). - Resume previous diet. - Continue present medications. - Await pathology results. - - Follow up with Shiela Richard NP, may be via televisit for discussion of pathology results and determination of timing of future endoscopies Procedure Code(s): --- Professional --- 76089, Esophagogastroduodeno scopy, flexible, transoral; with biopsy, single or multiple Diagnosis Code(s): --- Professional --- R13.10, Dysphagia, unspecified K44.9, Diaphragmatic hernia without obstruction or gangrene K31.89, Other diseases of stomach and duodenum CPT copyright 2020 [employer]. All rights reserved. The codes documented in this report are preliminary and upon eap consultant review may be revised to meet current compliance requirements. Attending Participation: I personally performed the entire procedure. Scope In: 11:42:59 AM Scope Out: 11:47:03 AM MD Shannan Shah MD 06/04/2024 11:51:34 AM This report has been signed electronicall (more content not included)... Normal [facility] STREP A MOLECULAR (POC)on Procedural Control Valid [facility] Strep A (POCT) Negative Negative [facility] JASMEET SCREENINGon 02-01-2023 [facility] JASMEET SCREENINGon 01-25-2022 [facility] Basic Metabolic Profile (BMP )on 01-19-2021 BUN/CRE 17.9 RATIO Normal 07-01 [facility] Comment on above: Performed By: #### L 300.8000, L500.2500, L100.0100 #### [facility] [address] [place], [address] CA,Total 8.8 mg/dL Normal 8.5-10.1 [facility] Comment on above: Performed By: #### L 300.8000, L500.2500, L100.0100 #### [facility] [address] [place], [address] Chloride [Moles/Vol] 106 mmol/L Normal 98-107 [facility] Comment on above: Performed By: #### L 300.8000, L500.2500, L100.0100 #### [facility] [address] [place], [address] CO2 [Moles/Vol] 28.0 mmol/L Normal 21.0-32.0 [facility] Comment on above: Performed By: #### L 300.8000, L500.2500, L100.0100 #### [facility] [address] [place], [address] Creatinine [Mass/Vol] 0.67 mg/dL Normal 0.55-1.02 [facility] Comment on above: Result Comment: The validity of the calculated GFR GFRAA in patients over 70 years has not been determined. Clinical correlation is essential. Performed By: #### L 300.8000, L500.2500, L100.0100 #### [facility] [address] [place], [address] EST GFR - AA 125 mL/min Normal >60 [facility] Comment on above: Result Comment: Afri can [employer] GFR Calc Performed By: #### L 300.8000, L500.2500, L100.0100 #### [facility] [address] [place], [address] GAP 3 Low 5-15 [facility] Comment on above: Performed By: #### L 300.8000, L500.2500, L100.0100 #### [facility] [address] [place], [address] GFR/1.73 sq M.predicted among non-blacks MDRD (S/P/Bld) [Vol rate/Area] 103 mL/min/{1.73_m2} Normal >60 [facility] Comment on above: Result Comment: Non- GFR Calc Performed By: #### L 300.8000, L500.2500, L100.0100 #### [facility] [address] [place], [address] Glucose [Mass/Vol] 78 mg/dL Normal 74-106 [facility] Comment on above: Result Comment: Dequanangy note revised GLUCOSE reference range effective 2017. Performed By: #### L 300.8000, L500.2500, L100.0100 #### [facility] [address] [place], [address] Potassium [Moles/Vol] 4.1 mmol/L Normal 3.5-5.1 [facility] Comment on above: Performed By: #### L 300.8000, L500.2500, L100.0100 #### [facility] [address] [place], [address] Sodium [Moles/Vol] 137 mmol/L Normal 136-145 [facility] Comment on above: Performed By: #### L 300.8000, L500.2500, L100.0100 #### [facility] [address] [place], [address] Urea nitrogen [Mass/Vol] 12 mg/dL Normal 7-18 [facility] Comment on above: Performed By: #### L 300.8000, L500.2500, L100.0100 #### [facility] [address] [place], [address] CBC W/Diff, Automatedon 05-1 0-2020 Absolute Lymph 2.05 X10 3/uL Normal 0.83-4.51 [facility] Comment on above: Performed By: #### L 300.8000, L500.2500, L100.0100 #### [facility] [address] [place], [address] Absolute Neut 4.2 X10 3/uL Normal 2.0-7.7 [facility] Comment on above: Performed By: #### L 300.8000, L500.2500, L100.0100 #### [facility] [address] [place], [address] Basophils/100 WBC (Bld) 0.7 % Normal 0-1 [facility] Comment on above: Performed By: #### L 300.8000, L500.2500, L100.0100 #### [facility] [address] [place], [address] Eosinophils/100 WBC (Bld) 1.1 % Normal 0-5 [facility] Comment on above: Performed By: #### L 300.8000, L500.2500, L100.0100 #### [facility] [address] [place], [address] Erythrocyte distribution width (RBC) [Ratio] 13.5 % Normal 11.6-14.6 [facility] Comment on above: Performed By: #### L 300.8000, L500.2500, L100.0100 #### [facility] [address] [place], [address] Hematocrit (Bld) [Volume fraction] 39.5 % Normal 37-47 [facility] Comment on above: Performed By: #### L 300.8000, L500.2500, L100.0100 #### [facility] [address] [place], [address] Hemoglobin (Bld) [Mass/Vol] 12.4 g/dL Normal 12.0-15.0 [facility] Comment on above: Performed By: #### L 300.8000, L500.2500, L100.0100 #### [facility] [address] [place], [address] IG% 0.300 Normal 0.0-0.9 [facility] Comment on above: Result Comment: IG% - Immature Granulocytes (promyelocytes, myelocytes and metamyelocytes) > 1% indicates that a LEFT SHIFT is Present. Performed By: #### L 300.8000, L500.2500, L100.0100 #### [facility] [address] [place], [address] Lymphocytes/100 WBC (Bld) 29.5 % Normal 19-41 [facility] Comment on above: Performed By: #### L 300.8000, L500.2500, L100.0100 #### [facility] [address] [place], [address] MCH (RBC) [Entitic mass] 27.6 pg Normal 27.0-32.0 [facility] Comment on above: Performed By: #### L 300.8000, L500.2500, L100.0100 #### [facility] [address] [place], [address] MCHC (RBC) [Mass/Vol] 31.4 g/dL Low 32-36 [facility] Comment on above: Performed By: #### L 300.8000, L500.2500, L100.0100 #### [facility] [address] [place], [address] MCV (RBC) [Entitic vol] 88.0 fL Normal 81-99 [facility] Comment on above: Performed By: #### L 300.8000, L500.2500, L100.0100 #### [facility] [address] [facility] [place], [address] Monocytes/100 WBC (Bld) 7.6 % Normal 0-10 [facility] Comment on above: Performed By: #### L 300.8000, L500.2500, L100.0100 #### [facility] [address] [place], [address] Neutrophils/100 WBC (Bld) 60.8 % Normal 47-70 [facility] Comment on above: Performed By: #### L 300.8000, L500.2500, L100.0100 #### [facility] [address] [place], [address] Nucleated RBC (Bld) [#/Vol] 0 10*3/uL Normal 0-5 [facility] Comment on above: Performed By: #### L 300.8000, L500.2500, L100.0100 #### [facility] [address] [place], [address] Platelet mean volume (Bld) [Entitic vol] 10.4 fL Normal 6.2-12.0 [facility] Comment on above: Performed By: #### L 300.8000, L500.2500, L100.0100 #### [facility] [address] [place], [address] Platelets (Bld) [#/Vol] 306 10*3/uL Normal 150-450 [facility] Comment on above: Performed By: #### L 300.8000, L500.2500, L100.0100 #### [facility] [address] [place], [address] RBC (Bld) [#/Vol] 4.49 10*6/uL Normal 4.2-5.4 [facility] Comment on above: Performed By: #### L 300.8000, L500.2500, L100.0100 #### [facility] [address] [place], [address] RDW SD 43.8 fl Normal 35.1-43.9 [facility] Comment on above: Performed By: #### L 300.8000, L500.2500, L100.0100 #### [facility] [address] [place], [address] WBC (Bld) [#/Vol] 7.0 10*3/uL Normal 4.4-11.0 [facility] Comment on above: Performed By: #### L 300.8000, L500.2500, L100.0100 #### [facility] [address] [place], [address] D-Dimer Quantitative (DVT/PE )on 01-19-2021 D-DIMER QUANT <= 0.27 Normal 0.27-0.49 [facility] Comment on above: Result Comment: NORM AL D-Dimer level (<0.50) indicates no DVT or PE. Performed By: #### L 300.8000, L500.2500, L100.0100 #### [facility] [address] [place], [place], [address] Vital Signs Date Time Vital Sign Value Performing Clinician Stevie ahmadi 05-26-2025 11:06-0400 Body mass index (BMI) [Ratio] 38.6 kg/m2 Halima Blanchard MD Work Phone: [facility] 05-26-2025 11:06-0400 Body temperature 98.01 [degF] Halima Blanchard MD Work Phone: [facility] 05-26-2025 11:06-0400 Body weight 94.2 kg Halima Blanchard MD Work Phone: [facility] 05-26-2025 11:06-0400 Diastolic blood pressure 76 mm[Hg] Halima Blanchard MD Work Phone: [facility] 05-26-2025 11:06-0400 Heart rate 83 /min Halima Blanchard MD Work Phone: [facility] 05-26-2025 11:06-0400 Respiratory rate 16 /min Halima Blanchard MD Work Phone: [facility] 05-26-2025 11:06-0400 SaO2% (BldA) [Mass fraction] 98 % Halima Blanchard MD Work Phone: [facility] 05-26-2025 11:06-0400 Systolic blood pressure 108 mm[Hg] Halima Blanchard MD Work Phone: [facility] 12-27-2024 11:30-0400 Body mass index (BMI) [Ratio] 38.66 kg/m2 Irina Velasquez MD Work Phone: [facility] 12-27-2024 11:30-0400 Body weight 94.35 kg Irina Velasquez MD Work Phone: [facility] 12-27-2024 11:30-0400 Diastolic blood pressure 72 mm[Hg] Irina Velasquez MD Work Phone: [facility] 12-27-2024 11:30-0400 Systolic blood pressure 110 mm[Hg] Irina Velasquez MD Work Phone: [facility] 12-19-2024 10:09-0400 Body height 156.2 cm Angelica Garber MD Work Phone: [facility] 12-19-2024 10:09-0400 Body mass index (BMI) [Ratio] 38.29 kg/m2 Angelica Garber MD Work Phone: [facility] 12-19-2024 10:09-0400 Body weight 93.44 kg Angelica Garber MD Work Phone: [facility] 12-19-2024 10:09-0400 Diastolic blood pressure 80 mm[Hg] Angelica Garber MD Work Phone: [facility] 12-19-2024 10:09-0400 Heart rate 82 /min Angelica Garber MD Work Phone: [facility] 12-19-2024 10:09-0400 SaO2% (BldA) [Mass fraction] 99 % Angelica Garber MD Work Phone: [facility] 12-19-2024 10:09-0400 Systolic blood pressure 132 mm[Hg] Angelica Garber MD Work Phone: [facility] 09-17-2024 10:130500 Body height 156.2 cm Irina Velasquez MD Work Phone: [facility] 09-17-2024 10:13-0500 Body mass index (BMI) [Ratio] 38.11 kg/m2 Irina Velasquez MD Work Phone: [facility] 09-17-2024 10:13-0500 Body weight 92.99 kg Irina Velasquez MD Work Phone: [facility] 09-17-2024 10:13-0500 Diastolic blood pressure 78 mm[Hg] Irina Velasquez MD Work Phone: [facility] 09-17-2024 10:13-0500 Systolic blood pressure 114 mm[Hg] Irina Velasquez MD Work Phone: [facility] 06-04-2024 12:45-0400 Respiratory rate 16 /min Shannan Cox MD Work Phone: [facility] 06-04-2024 12:06-0400 Diastolic blood pressure 76 mm[Hg] Shannan Cox MD Work Phone: [facility] 06-04-2024 12:06-0400 Heart rate 79 /min Shannan Cox MD Work Phone: [facility] 06-04-2024 12:06-0400 SaO2% (BldA) [Mass fraction] 96 % Shannan Cox MD Work Phone: [facility] 06-04-2024 12:06-0400 Systolic blood pressure 132 mm[Hg] Shannan Cox MD Work Phone: [facility] 06-04-2024 11:22-0400 Body mass index (BMI) [Ratio] 39.01 kg/m2 Shannan Cox MD Work Phone: [facility] 06-04-2024 11:22-0400 Body temperature 98.1 [degF] Shannan Cox MD Work Phone: [facility] 06-04-2024 11:22-0400 Body weight 95.2 kg Shannan Cox MD Work Phone: [facility] 05-03-2024 09:52-0400 Body height 156.2 cm Susan Nikolai BUSINESS INTELLIGENCE DEVELOPER[employer] Work Phone: [facility] 05-03-2024 09:52-0400 Body mass index (BMI) [Ratio] 39 kg/m2 Susan Nikolai BUSINESS INTELLIGENCE DEVELOPER[employer] Work Phone: [facility] 05-03-2024 09:52-0400 Body temperature 98.01 [degF] Susan Nikolai BUSINESS INTELLIGENCE DEVELOPER.[employer] Work Phone: [facility] 05-03-2024 09:52-0400 Body weight 95.17 kg Susan Nikolai BUSINESS INTELLIGENCE DEVELOPER.[employer] Work Phone: [facility] 05-03-2024 09:52-0400 Diastolic blood pressure 70 mm[Hg] Susan Nikolai BUSINESS INTELLIGENCE DEVELOPER.[employer] Work Phone: [facility] 05-03-2024 09:52-0400 Heart rate 97 /min Susan Nikolai BUSINESS INTELLIGENCE DEVELOPER[employer] Work Phone: [facility] 05-03-2024 09:52-0400 SaO2% (BldA) [Mass fraction] 98 % Susan Nikolai BUSINESS INTELLIGENCE DEVELOPER[employer] Work Phone: [facility] 05-03-2024 09:52-0400 Systolic blood pressure 118 mm[Hg] Susan Nikolai BUSINESS INTELLIGENCE DEVELOPER[employer] Work Phone: [facility] 04-16-2024 09:27-0400 Body mass index (BMI) [Ratio] 37.43 kg/m2 Irina Velasquez MD Work Phone: [facility] 04-16-2024 09:27-0400 Body weight 92.08 kg Irina Velasquez MD Work Phone: [facility] 04-16-2024 09:27-0400 Diastolic blood pressure 72 mm[Hg] Irina Velasquez MD Work Phone: [facility] 04-16-2024 09:27-0400 Systolic blood pressure 118 mm[Hg] Irina Velasquez MD Work Phone: [facility] 10-15-2023 11:02-0500 Body temperature 97.7 [degF] Sloane Walter BUSINESS INTELLIGENCE DEVELOPER[employer] Work Phone: [facility] 10-15-2023 11:02-0500 Body weight 94.8 kg Sloane Walter BUSINESS INTELLIGENCE DEVELOPER.[employer] Work Phone: [facility] 10-15-2023 11:02-0500 Diastolic blood pressure 64 mm[Hg] Sloane Walter BUSINESS INTELLIGENCE DEVELOPER[employer] Work Phone: [facility] 10-15-2023 11:02-0500 Heart rate 100 /min Sloane Walter BUSINESS INTELLIGENCE DEVELOPER[employer] Work Phone: [facility] 10-15-2023 11:02-0500 Respiratory rate 16 /min Sloane Walter BUSINESS INTELLIGENCE DEVELOPER[employer] Work Phone: [facility] 10-15-2023 11:02-0500 SaO2% (BldA) [Mass fraction] 97 % Sloane Walter BUSINESS INTELLIGENCE DEVELOPER[employer] Work Phone: [facility] 10-15-2023 11:02-0500 Systolic blood pressure 104 mm[Hg] Sloane Walter BUSINESS INTELLIGENCE DEVELOPER[employer] Work Phone: [facility] 04-25-2023 09:03-0400 Body height 156.8 cm Irina Velasquez MD Work Phone: [facility] 04-25-2023 09:03-0400 Body weight 88.91 kg Irina Velasquez MD Work Phone: [facility] 04-25-2023 09:03-0400 Diastolic blood pressure 64 mm[Hg] Irina Velasquez MD Work Phone: [facility] 04-25-2023 09:03-0400 Systolic blood pressure 116 mm[Hg] Irina Velasquez MD Work Phone: [facility] 01-25-2022 14:02-0400 Body weight 83.92 kg Irina Velasquez MD Work Phone: [facility] 01-25-2022 14:02-0400 Diastolic blood pressure 68 mm[Hg] Irina Velasquez MD Work Phone: [facility] 01-25-2022 14:02-0400 Systolic blood pressure 118 mm[Hg] Irina Velasquez MD Work Phone: [facility] Encounters Encounter Date Encounter Type Care Provider Facility Start: 05-26-2025 End: 05-26-2025 Office outpatient new 30 minutes Halima Blanchard MD Work Phone: [facility] [place] Comment on above: Viral gastroenteriti s (Primary Dx); Nausea and vomiting, unspecified vomiting type Start: 05-26-2025 End: 05-27-2025 ambulatory [facility] Facility:[facility] Start: 04-18-2025 End: 04-18-2025 ambulatory [facility] Facility:[facility] Start: 03-20-2025 End: 03-20-2025 Refill Irina Velasquez MD Work Phone: OB/Gynecology Comment on above: Refill Request Start: 02-08-2025 End: 02-08-2025 Telephone encounter Angelica Garber MD Work Phone: OB/Gynecology Comment on above: Appointment Start: 02-05-2025 ambulatory [facility] Facility :[facility] Start: 02-05-2025 End: 02-05-2025 Subsequent hospital visit by physician [facility] Work Phone: Radiology Comment on above: Mass of right breast , unspecified quadrant [N63.10] Start: 01-19-2025 End: 01-21-2025 Refill Irina Velasquez MD Work Phone: OB/Gynecology Comment on above: Refill Request Start: 12-27-2024 End: 12-27-2024 Patient encounter procedure Irina Velasquez MD Work Phone: OB/Gynecology Comment on above: Mass of right breast , unspecified quadrant (Primary Dx) Start: 12-27-2024 End: 12-27-2024 ambulatory IRINA VELASQUEZ Facility:[facility] Start: 12-21-2024 End: 12-21-2024 Telephone encounter Irina Velasquez MD Work Phone: OB/Gynecology Comment on above: Right breast lump Start: 12-20-2024 End: 02-19-2025 Follow-up encounter Angelica Garber MD Work Phone: OB/Gynecology Start: 12-19-2024 End: 12-19-2024 ambulatory ANGELICA GARBER Facility:[facility] Start: 12-19-2024 End: 12-19-2024 ambulatory MELITON SHAY Facility:[facility] Start: 12-19-2024 End: 12-19-2024 Patient encounter procedure Angelica Garber MD Work Phone: OB/Gynecology Comment on above: PCOS (polycystic ova raúl syndrome) (Primary Dx); Malaise and fatigue; Hypercholesteremia; Snoring; Observed sleep apnea; Screening cholesterol level; Screening for deficiency anemia; Screening for diabetes mellitus; Screening for metabolic disorder; Screening for thyroid disorder; Encounter for vitamin deficiency screening; Class 2 severe obesity with serious comorbidity and body mass index (BMI) of 38.0 to 38.9 in adult, unspecified obesity type (HCC); Class 2 obesity due to excess calories without serious comorbidity with body mass index (BMI) of 37.0 to 37.9 in adult Start: 12-17-2024 End: 12-17-2024 E-mail encounter from caregiver Angelica Garber MD Work Phone: OB/Gynecology Start: 12-17-2024 End: 12-17-2024 Patient encounter procedure Angelica Garber MD Work Phone: OB/Gynecology Comment on above: Dr. Garber appoint ment 12/19/2024 Start: 09-17-2024 End: 09-17-2024 Patient encounter procedure Irina Velasquez MD Work Phone: OB/Gynecology Comment on above: Encounter for gyneco logical examination (general) (routine) without abnormal findings (Primary Dx); Encounter for screening mammogram for breast cancer Start: 09-17-2024 End: 09-17-2024 Patient encounter status Irina Velasquez MD Work Phone: [facility] Start: 09-17-2024 End: 09-17-2024 ambulatory IRINA VELASQUEZ Facility:[facility] Start: 09-17-2024 End: 09-17-2024 Subsequent hospital visit by physician Screen Mammo [facility] M[facility] Comment on above: Encounter for screen ing mammogram for malignant neoplasm of breast [Z12.31] Start: 06-13-2024 End: 06-13-2024 ambulatory SHANNAN COX Facility:[facility] Start: 06-13-2024 End: 06-13-2024 Patient encounter procedure Susan Richard APRN.[employer] Work Phone: General Surgery Comment on above: BRBPR (bright red bl ood per rectum) (Primary Dx) Start: 06-04-2024 End: 02-14-2025 Telephone encounter Shannan Cox MD Work Phone: General Surgery Comment on above: Patient Question Start: 06-04-2024 End: 06-04-2024 ambulatory MELITON SHAY Facility:[facility] Start: 06-04-2024 End: 06-04-2024 Subsequent hospital visit by physician Shannan Cox MD Work Phone: Ambulatory Surgery Comment on above: Blood in stool [K92. 1] Start: 06-03-2024 End: 06-03-2024 ambulatory Tania (Rn) Laurent RN NURSE REAL ESTATE RECRUITER Comment on above: Nausea & Vomiting Start: 05-03-2024 End: 05-03-2024 Patient encounter procedure Susan Richard APRN.[employer] Work Phone: General Surgery Comment on above: Blood in stool (Prim tremayne Dx); Dysphagia, unspecified type; Screen for colon cancer; BRBPR (bright red blood per rectum) Start: 04-16-2024 End: 04-16-2024 Patient encounter procedure Irina Velasquez MD Work Phone: OB/Gynecology Comment on above: Blood in stool (Prim tremayne Dx); Class 2 obesity due to excess calories without serious comorbidity with body mass index (BMI) of 37.0 to 37.9 in adult; Thought disorder Start: 04-06-2024 Telephone encounter Irina Velasquez MD Work Phone: OB/Gynecology Comment on above: Orders (Screening Ma mmogram) Start: 10-16-2023 Telephone encounter Louisa Casas BUSINESS INTELLIGENCE DEVELOPER.[employer] Work Phone: [facility] Comment on above: Results Start: 10-15-2023 End: 10-15-2023 Patient encounter procedure Sloane Saba BUSINESS INTELLIGENCE DEVELOPER.[employer]AL[employer] Work Phone: [facility] Comment on above: URI, acute (Primary Dx) Start: 04-25-2023 End: 04-25-2023 Patient encounter procedure Irina Velasquez MD Work Phone: OB/Gynecology Comment on above: Encounter for gyneco logical examination (general) (routine) without abnormal findings (Primary Dx); Encounter for screening mammogram for breast cancer; Malaise and fatigue; Irregular menstrual cycle; Screening cholesterol level; Encounter for screening for diabetes mellitus Start: 04-25-2023 End: 04-25-2023 Patient encounter status Irina Velasquez MD Work Phone: [facility] Start: 02-01-2023 End: 02-01-2023 Patient encounter status Screen [facility] Start: 02-01-2023 End: 02-01-2023 Subsequent hospital visit by physician Screen Mammo [facility] M[facility] Comment on above: Encounter for gyneco logical examination (general) (routine) without abnormal findings [Z01.419] Start: 11-18-2022 Telephone encounter Irina Velasquez MD Work Phone: OB/Gynecology Comment on above: Patient Question Start: 01-25-2022 End: 01-25-2022 Patient encounter procedure Irina Velasquez MD Work Phone: OB/Gynecology Comment on above: Encounter for gyneco logical examination (general) (routine) without abnormal findings; Screening for cervical cancer; Encounter for screening for human papillomavirus (HPV); Encounter for screening mammogram for breast cancer Start: 01-25-2022 End: 01-25-2022 Patient encounter status Irina Velasquez MD Work Phone: OB/Gynecology Start: 01-25-2022 End: 01-25-2022 Subsequent hospital visit by physician Screen Mammo [facility] Comment on above: Encounter for screen ing mammogram for malignant neoplasm of breast [Z12.31] Start: 12-07-2021 Telephone encounter Irina Velasquez MD Work Phone: OB/Gynecology Comment on above: Orders Procedures Date Procedure Procedure Detail Performing Clinician Start: 02-05-2025 Us breast uni real time with image limited Irina Velasquez MD Work Phone: Start: 02-05-2025 Digital breast tomosynthesis unilateral Irina Velasquez MD Work Phone: Start: 12-19-2024 Lipid 1996 panel - Serum or Plasma Ryan Garber MD Work Phone: Start: 06-04-2024 Colonoscopy flx dx w/collj spec when pfrmd Susan Richard BUSINESS INTELLIGENCE DEVELOPER.[employer] Work Phone: Start: 06-04-2024 Esophagogastroduodenoscopy transoral diagnostic Susan Richard BUSINESS INTELLIGENCE DEVELOPER.[employer] Work Phone: Start: 06-04-2024 SURGICAL PATHOLOGY Shannan Cox MD Work Phone: Start: 06-04-2024 Colonoscopy Susan Richard BUSINESS INTELLIGENCE DEVELOPER.[employer] Work Phone: Start: 10-15-2023 STREP A MOLECULAR (POC) Sloane Walter BUSINESS INTELLIGENCE DEVELOPER.[employer] Work Phone: Start: 02-01-2023 End: 02-01-2023 Mammography Irina Velasquez MD Work Phone: Start: 01-25-2022 End: 01-25-2022 Mammography Irina Velasquez MD Work Phone: Plan of Treatment Date Care Activity Detail Author Start: 06-04-2034 Screening for malign ant neoplasm of colon [facility] Start: 12-19-2029 Lipid panel Lipid Screening [facility] Start: 07-18-2028 Urine microalbumin profile [facility] Start: 12-20-2027 Diabetes Screening Diabetes Screenin g [facility] Start: 01-25-2027 HPV TESTING HPV TESTING [facility] Start: 01-25-2027 PAP TESTING PAP TESTING [facility] Start: 01-25-2027 Screening for malign ant neoplasm of cervix [facility] Start: 09-18-2025 End: 09-18-2025 Patient encounter procedure Mammogram Comment on above: Encounter for screen ing mammogram for breast cancer [Z12.31] Annual Start: 09-17-2025 Screening for malign ant neoplasm of breast Mammogram Screening [facility] Start: 05-13-2025 Influenza vaccination [facility] Start: 04-18-2025 End: 04-18-2025 Patient encounter procedure 04/18/2025 3:00 PM EDT Office Visit OB/Gynecology [address] [place] [address] Angelica Shetty MD [address] [place] [address] weight management follow up OB/Gynecology Comment on above: weight management fo llow up Start: 02-26-2025 End: 02-26-2025 Patient encounter procedure 02/26/2025 8:20 AM EDT Office Visit OB/Gynecology [address] [place] [address] Angelica Shetty MD [address] [place] [address] weight management follow up OB/Gynecology Comment on above: weight management fo llow up Start: 02-05-2025 End: 02-05-2025 Patient encounter procedure Mammogram Comment on above: Mass of right breast , unspecified quadrant [N63.10] Comp- RT Mass Start: 12-27-2024 End: 12-27-2024 Patient encounter procedure 12/27/2024 11:20 AM EDT Office Visit OB/Gynecology [address] [place] [address] Irina Velasquez MD [address] [place] [address] Lump in right breast OB/Gynecology Comment on above: Lump in right breast Start: 12-19-2024 End: 03-20-2025 25-hydroxyvitamin D3 [Mass/volume] in Serum or Plasma [facility] Work Phone: Comment on above: Expected: 12/19/2024 , Expires: 03/20/2025 Start: 12-19-2024 End: 03-20-2025 Hemoglobin A1c in Blood [facility] Comment on above: Expected: 12/19/2024 , Expires: 03/20/2025 Start: 12-19-2024 End: 03-20-2025 Insulin [Units/volume] in Serum or Plasma [facility] Comment on above: Expected: 12/19/2024 , Expires: 03/20/2025 Start: 12-19-2024 End: 03-20-2025 Lipid 1996 panel - Serum or Plasma [facility] Comment on above: Expected: 12/19/2024 , Expires: 03/20/2025 Start: 12-19-2024 End: 03-20-2025 Thyrotropin [Units/volume] in Serum or Plasma [facility] Comment on above: Expected: 12/19/2024 , Expires: 03/20/2025 Start: 12-19-2024 End: 12-19-2024 Patient encounter procedure 12/19/2024 10:20 AM EDT Office Visit OB/Gynecology [address] [address] Angelica Shetty MD [address] [place] [address] weight management consult OB/Gynecology Comment on above: weight management co nsult Start: 10-12-2024 End: 10-12-2024 Patient encounter procedure 10/12/2024 8:00 AM EST Office Visit OB/Gynecology [address] [place] [address] Ann-Marie Heath APRN.SAL[employer] AG[employer] [address] [place] [address] New Wt Mmgt OB/Gynecology Comment on above: New Wt Mmgt Start: 09-14-2024 End: 09-14-2024 Patient encounter procedure 09/14/2024 2:20 PM EST Office Visit OB/Gynecology [address] [place] [address] Irina Velasquez MD [address] [place] [address] Annual OB/Gynecology Comment on above: Annual Start: 09-14-2024 End: 09-14-2024 Patient encounter procedure 09/14/2024 1:10 PM EST Appointment Mammogram [address] [place] [address] Screening Mammogram Comment on above: Screening Start: 07-19-2024 End: 07-19-2024 Patient encounter procedure 07/19/2024 8:00 AM EST Office Visit OB/Gynecology [address] [place] [address] Ann-Marie Heath APRN.[employer]AL[employer] [address] [place] [address] New Wt Mmgt OB/Gynecology Comment on above: New Wt Mmgt Start: 06-13-2024 End: 06-13-2024 Patient encounter procedure 06/13/2024 9:30 AM EDT Office Visit General Surgery [address] [place] [address] Susan Richard APRN.[employer] [address] [place] [address] 06-04 EGD & Colon follow up General Surgery Comment on above: 06-04 EGD & Colon fo llow up Start: 06-04-2024 End: 06-04-2024 Patient encounter procedure Ambulatory Surgery Comment on above: Blood in stool [K92. 1] Start: 05-13-2024 Covid-19 Vaccine ( season) Covid-19 Vaccine () [facility] Start: 05-13-2024 Influenza vaccination Influenza Vacc ine (#1) [facility] Start: 05-03-2024 End: 05-03-2024 Patient encounter procedure 05/03/2024 10:00 AM EDT Office Visit General Surgery [address] [place] [address] Susan Richard APRN.[employer] [address] [place] [address] Colonoscopy Consult General Surgery Comment on above: Colonoscopy Consult Start: 04-25-2024 End: 04-25-2024 Patient encounter procedure 04/25/2024 9:00 AM EDT Office Visit OB/Gynecology [address] [place] [address] Irina Velasquez MD [address] [place] [address] Annual OB/Gynecology Comment on above: Annual Start: 04-16-2024 End: 04-16-2024 Patient encounter procedure 04/16/2024 9:20 AM EDT Office Visit OB/Gynecology [address] [place] [address] Irina Velasquez MD [address] [place] [place] [address] Decipher if symptoms of fatigue, cramping, bloating, nausea, and abdominal pain when eating are caused from perimenopause OB/Gynecology Comment on above: Decipher if symptoms of fatigue, cramping, bloating, nausea, and abdominal pain when eating are caused from perimenopause Start: 02-02-2024 Mammography [facility] Start: 02-02-2024 Screening for malign ant neoplasm of breast Mammogram Screening [facility] Start: 10-15-2023 End: 10-29-2023 COVID & INFLUENZA A/B & RSV NAAT, ROUTINE COVID & INFLUENZA A/B & RSV NAAT, ROUTINE Microbiology Routine URI, acute Expected: 10/15/2023, Expires: 10/29/2023 [facility] Work Phone: Comment on above: Expected: 10/15/2023 , Expires: 10/29/2023 Start: 09-12-2023 Depression Assessment Depression Ass essment [facility] Start: 05-13-2023 Covid-19 Vaccine () Covid-19 Vaccine () [facility] Start: 05-13-2023 Influenza vaccination C [facility] Start: 04-25-2023 End: 06-25-2023 Basic metabolic 2000 panel - Serum or Plasma BASIC METABOLIC PNL Lab Routine Malaise and fatigue Encounter for screening for diabetes mellitus Expected: 04/25/2023, Expires: 06/25/2023 [facility] Work Phone: Comment on above: Expected: 04/25/2023 , Expires: 06/25/2023 Start: 04-25-2023 End: 06-25-2023 CBC panel - Blood by Automated count CBC Lab Routine Malaise and fatigue Expected: 04/25/2023, Expires: 06/25/2023 [facility] Work Phone: Comment on above: Expected: 04/25/2023 , Expires: 06/25/2023 Start: 04-25-2023 End: 06-25-2023 Hemoglobin A1c in Blood HGB A1C Lab Routine Encounter for screening for diabetes mellitus Expected: 04/25/2023, Expires: 06/25/2023 [facility] Work Phone: Comment on above: Expected: 04/25/2023 , Expires: 06/25/2023 Start: 04-25-2023 End: 06-25-2023 LIPID PANEL, NONFASTING LIPID PANEL, NONFASTING Lab Routine Screening cholesterol level Expected: 04/25/2023, Expires: 06/25/2023 [facility] Work Phone: Comment on above: Expected: 04/25/2023 , Expires: 06/25/2023 Start: 04-25-2023 End: 06-25-2023 Thyrotropin [Units/volume] in Serum or Plasma TSH BLD Lab Routine Malaise and fatigue Expected: 04/25/2023, Expires: 06/25/2023 [facility] Work Phone: Comment on above: Expected: 04/25/2023 , Expires: 06/25/2023 Start: 01-25-2023 Mammography MAMMOGRAM [facility] Start: 09-12-2022 DEPRESSION ASSESSMENT DEPRESSION ASS ESSMENT [facility] Start: 05-13-2022 Influenza vaccination C [facility] Start: 05-13-2021 Influenza vaccination INFLUENZA (#1) [facility] Start: 2020 Mammography MAMMOGRAM [facility] Start: 07-05-2019 HPV TESTING HPV TESTING [facility] Start: 07-05-2019 PAP TESTING PAP TESTING [facility] Start: 02-08-2007 HPV Vaccine (1 - 3-d ose SCDM series) HPV Vaccine (1 - 3-dose SCDM series) [facility] Start: 02-08-1999 Hepatitis B Vaccine (1 of 3 - 19+ 3-dose series) Hepatitis B Vaccine (1 of 3 - 19+ 3-dose series) [facility] Start: 02-08-1998 Anxiety Screening Anxiety Screening [facility] Start: 02-08-1998 Depression Screening Depression Scre ening [facility] Start: 02-08-1998 HEPATITIS C SCREENING HEPATITIS C [facility] Start: 02-08-1998 Hepatitis C screening Hepatitis C [facility] Start: 1992 Adult depression screening assessment DEPRESSION SCREENING [facility] Start: 02-08-1985 COVID-19 VACCINE (#1) COVID-19 VACCI NE (#1) [facility] Start: 02-08-1985 COVID-19 VACCINE (1) COVID-19 VACCIN E (1) [facility] Start: 1980 COVID-19 VACCINE (#1) COVID-19 VACCI NE (#1) [facility] Start: 1980 HEPATITIS B (1 of 3 - 3-dose series) HEPATITIS B (1 of 3 - 3-dose series) [facility] Start: 1980 Hepatitis B Vaccine (1 of 3 - 3-dose series) Hepatitis B Vaccine (1 of 3 - 3-dose series) [facility] Start: 1980 Screening for malign ant neoplasm of colon [facility] End: 10-17-2025 DBT Breast - bilateral screening JASMEET SCREENING W JESSICA Radiology Routine Encounter for gynecological examination (general) (routine) without abnormal findings Encounter for screening mammogram for breast cancer 1 Occurrences starting 09/17/2024 until 10/17/2025 [facility] Work Phone: Comment on above: 1 Occurrences starti ng 09/17/2024 until 10/17/2025 End: 05-03-2025 EGD DIAGNOSTIC EGD DIAGNOSTIC Endoscopy Routine Blood in stool Dysphagia, unspecified type 1 Occurrences starting 05/03/2024 until 05/03/2025 [facility] Comment on above: 1 Occurrences starti ng 05/03/2024 until 05/03/2025 End: 05-03-2025 Flexible sigmoidoscopy study COLONOSCOPY DIAGNOSTIC Endoscopy Routine Blood in stool Screen for colon cancer 1 Occurrences starting 05/03/2024 until 05/03/2025 [facility] Work Phone: Comment on above: 1 Occurrences starti ng 05/03/2024 until 05/03/2025 End: 12-19-2025 HOME SLEEP APNEA TEST (HSAT) HOME SLEEP APNEA TEST (HSAT) Procedures Routine Malaise and fatigue Class 2 severe obesity with serious comorbidity and body mass index (BMI) of 38.0 to 38.9 in adult, unspecified obesity type (HCC) Observed sleep apnea Snoring 1 Occurrences starting 12/19/2024 until 12/19/2025 [facility] Comment on above: 1 Occurrences starti ng 12/19/2024 until 12/19/2025 End: 05-24-2024 JASMEET SCREENING JASMEET SCREENING Radiology Routine Encounter for gynecological examination (general) (routine) without abnormal findings Encounter for screening mammogram for breast cancer 1 Occurrences starting 04/25/2023 until 05/24/2024 [facility] Work Phone: Comment on above: 1 Occurrences starti ng 04/25/2023 until 05/24/2024 End: 01-26-2026 MG Breast - right Diagnostic for implant JASMEET DIAGNOSTIC RIGHT Radiology Routine Mass of right breast, unspecified quadrant 1 Occurrences starting 12/27/2024 until 01/26/2026 [facility] Work Phone: Comment on above: 1 Occurrences starti ng 12/27/2024 until 01/26/2026 End: 05-06-2025 MG Breast Screening JASMEET SCREENING Radiology Routine Encounter for screening mammogram for malignant neoplasm of breast 1 Occurrences starting 04/06/2024 until 05/06/2025 [facility] Work Phone: Comment on above: 1 Occurrences starti ng 04/06/2024 until 05/06/2025 MG Breast Screening JASMEET SCREENIN G Radiology Routine Encounter for screening mammogram for malignant neoplasm of breast 09/17/2024 9:56 AM EST [facility] Work Phone: PAP FLUID CERVICAL SCREENING PAP FLUID CERVICAL SCREENING Lab Routine Encounter for gynecological examination (general) (routine) without abnormal findings Screening for cervical cancer Encounter for screening for human papillomavirus (HPV) 01/25/2022 3:00 PM EDT [facility] Work Phone: End: 01-06-2023 Screening mammography bi 2-view breast inc cad JASMEET SCREENING Radiology Routine Encounter for screening mammogram for malignant neoplasm of breast 1 Occurrences starting 12/07/2021 until 01/06/2023 [facility] Work Phone: Comment on above: 1 Occurrences starti ng 12/07/2021 until 01/06/2023 End: 02-24-2023 Screening mammography bi 2-view breast inc cad JASMEET SCREENING Radiology Routine Encounter for gynecological examination (general) (routine) without abnormal findings Encounter for screening mammogram for breast cancer 1 Occurrences starting 01/25/2022 until 02/24/2023 [facility] Work Phone: Comment on above: 1 Occurrences starti ng 01/25/2022 until 02/24/2023 End: 01-26-2026 US Breast - right limited US BREAST LTD RIGHT Radiology Routine Mass of right breast, unspecified quadrant 1 Occurrences starting 12/27/2024 until 01/26/2026 [facility] Comment on above: 1 Occurrences starti ng 12/27/2024 until 01/26/2026 [facility] Immunizations Immunization Date Immunization Notes Care Provider Claudette [email or web address] 07-18-2018 tetanus toxoid, redu jamir diphtheria toxoid, and acellular pertussis vaccine, adsorbed Irina Velasquez MD Work Phone: [facility] 06-20-2018 influenza, injectabl e, quadrivalent, contains preservative Irina Velasquez MD Work Phone: [facility] 06-20-2018 influenza virus vaccine, unspecified formulation Screen Wstr [facility] 10-01-2017 influenza, injectabl e, quadrivalent, contains preservative Irina Velasquez MD Work Phone: [facility] Work Phone: 10-01-2017 influenza, injectabl e, quadrivalent, preservative free Irina Velasquez MD Work Phone: [facility] Work Phone: 11-13-2015 influenza, injectabl e, quadrivalent, contains preservative Irina Velasquez MD Work Phone: [facility] 10-28-2015 tetanus toxoid, redu jamir diphtheria toxoid, and acellular pertussis vaccine, adsorbed Irina Velasquez MD Work Phone: [facility] Work Phone: 07-27-2012 tetanus toxoid, redu jamir diphtheria toxoid, and acellular pertussis vaccine, adsorbed Irina Velasquez MD Work Phone: [facility] Work Phone: 06-15-2012 influenza virus vaccine, unspecified formulation Irina Velasquez MD Work Phone: [facility] Payers Date Payer Category Payer [employer] BLUE CARD PPO OOS [id number] 2021 Unknown [employer] BLUE CARD PPO OOS [id number] 2021-Present [phone] [address] [place] [address] PPO [id number] 2021 Unknown [employer] BLUE CARD PPO OOS [id number] 2021-Present [phone] [id number] [place] [id number] PPO [id number] 2021 Unknown [id number] 2011 Private Health Insurance SELMA Perez [email or web address] [id number] 2011-Present [phone] [address] [place] [address] Indemnity [id number] 2011 Private Health Insurance SELMA Perez [email or web address] [id number] 2011-Present [phone] [address] [place] [address] Indemnity [id number] Social History Date Type Detail Facility Start: [facility] Start: 12-03-2019 End: 05-26-2025 Alcohol intake Current non-drinker of alcohol (finding) [facility] Start: 1980 Sex Assigned At Not on file C [facility] Start: 01-15-2022 End: 01-25-2022 Exposure to SARS-CoV-2 (event) Not sure [facility] Start: 04-25-2023 End: 12-27-2024 History of Social function [facility] Start: 04-25-2023 End: 12-27-2024 Tobacco use panel [facility] Start: 08-13-2012 National Score (1-10 0), lower number is lower risk 64 [facility] Start: 04-16-2024 Tobacco use and exposure Smoke less tobacco non-user [facility] Functional Status Date Assessment Result Facility 07-05-2014 Are you deaf, or do you have serious difficulty hearing No 07/05/2014 4:01 PM Desiree Rouse Ma [facility] 07-05-2014 Are you blind, or do you have serious difficulty seeing, even when wearing glasses Yes 07/05/2014 4:01 PM Desiree Rouse Ma Yes [facility] 07-05-2014 Do you have serious difficulty walking or climbing stairs No 07/05/2014 4:01 PM Desiree Rouse Ma No [facility] 07-05-2014 Do you have difficul ty dressing or bathing No 07/05/2014 4:01 PM Desiree Rouse Ma No [facility] 07-05-2014 Because of a physica l, mental, or emotional condition, do you have difficulty doing errands alone such as visiting a physician's office or shopping No 07/05/2014 4:01 PM Desiree Rouse Ma [facility] Mental Status Date Assessment Result Facility 07-05-2014 Because of a physica l, mental, or emotional condition, do you have serious difficulty concentrating, remembering, or making decisions Yes 07/05/2014 4:01 PM Desiree Rouse Ma Yes [facility] Clinical Notes 10-20-2015 to 05-26-2025 Halima Blanchard MD - 05/26/2025 11:06 AM EDTTelephone Encounter - Radha Wooten RN - 03/20/2025 11:46 AM EDTTelephone Encounter - Radha Wooten RN - 03/20/2025 11:46 AM EDTPatient Instructions Note Date & Type Note Facility 05-26-2025 Note HNO ID: [id number] Author: HALIMA BLANCHARD MD Service: ? Author Type: Physician Type: Progress Notes Filed: 05/26/2025 11:23 Note Text: [facility] Subjective Estella Robles is a 45 year old female. Patient presents with: Fever: Fever, vomiting and fatigue x 1 day HPI Generalized Weakness and Myalgias: - Onset yesterday. - Estella is taking ibuprofen, Theraflu, and Tylenol with minimal relief. Fever: - Tmax 100.4 degreeF last night. Abdominal Pain: - Diffuse abdominal pain xweeks. Emesis: - Multiple episodes of emesis and dry heaving since last night. - Estella is unable to tolerate oral intake; emesis triggered by drinking fluids. Dizziness: - Episodes of dizziness and lightheadedness when sitting, standing, and ambulating. - Episodes last a few minutes. Review of Systems Constitutional: (+) generalized weakness, (+) fever Ears/Nose/Mouth/Throat: (-) nasal congestion Respiratory: (-) cough, (-) dyspnea Gastrointestinal: (+) abdominal pain, (+) vomiting, (+) dry heaving, (-) diarrhea Musculoskeletal: (+) myalgias Neurological: (+) dizziness Objective BP 108/76 Pulse 83 Temp 36.7 ?C (98 ?F) (Tympanic) Resp 16 Wt 94.2 kg (207 lb 10.8 oz) LMP 04/07/2025 (Within Days) SpO2 98% BMI 38.60 kg/m? Physical Exam General: Well-appearing in NAD Cardiovascular - Rate/Rhythm: Regular rate and rhythm - Heart sounds: Normal Pulmonary - Respiratory Effort: Breathing comfortably, lungs CTA bilaterally Abdomen: soft, ND, Mild diffuse tenderness, no focal findings on palpation, no rebound or guarding Neurologic - Mental Status: Cognition grossly normal Lymphatic - Cervical: No cervical lymphadenopathy { 1. Viral gastroenteritis (A08.4) 2. Nausea and vomiting, unspecified vomiting type (R11.2) - Most likely etiology is viral gastroenteritis - Start Zofran as needed for nausea and vomiting. - Continue supportive care with Tylenol and ibuprofen for fever, fatigue, and myalgias. - Advised to maintain adequate hydration and monitor for worsening symptoms, including severe abdominal pain, inability to tolerate oral intake, or persistent dizziness. - Provided education on typical illness course - Provided work absence note for tomorrow - Discussed covid/flu/rsv testing which pt declined and Recording using [email or web address] software for draft documentation of the visit was discussed with the patient/authorized risk control representative; all questions welcomed and answered. Patient/authorized risk control representative agreed to proceed Halima Blanchard MD [facility] May 26, 2025 11:06 AM Differential Diagnoses - Viral gastroenteritis is more likely for the following reason(s): suggested by HANDP - Nausea and vomiting is more likely for the following reason(s): suggested by HANDP Disposition The patient was discharged. OTC Medications were advised: Tylenol/ibuprofen Procedures [facility] 05-26-2025 History of Present illness Narrative [facility] Mendez Estella Robles is a 45 year old female. Patient presents with: Fever: Fever, vomiting and fatigue x 1 day HPI Generalized Weakness and Myalgias: - Onset yesterday. - Estella is taking ibuprofen, Theraflu, and Tylenol with minimal relief. Fever: - Tmax 100.4 degreeF last night. Abdominal Pain: - Diffuse abdominal pain xweeks. Emesis: - Multiple episodes of emesis and dry heaving since last night. - Estella is unable to tolerate oral intake; emesis triggered by drinking fluids. Dizziness: - Episodes of dizziness and lightheadedness when sitting, standing, and ambulating. - Episodes last a few minutes. Review of Systems Constitutional: (+) generalized weakness, (+) fever Ears/Nose/Mouth/Throat: (-) nasal congestion Respiratory: (-) cough, (-) dyspnea Gastrointestinal: (+) abdominal pain, (+) vomiting, (+) dry heaving, (-) diarrhea Musculoskeletal: (+) myalgias Neurological: (+) dizziness Objective BP 108/76 Pulse 83 Temp 36.7 C (98 F) (Tympanic) Resp 16 Wt 94.2 kg (207 lb 10.8 oz) LMP 04/07/2025 (Within Days) SpO2 98% BMI 38.60 kg/m Physical Exam General: Well-appearing in NAD Cardiovascular - Rate/Rhythm: Regular rate and rhythm - Heart sounds: Normal Pulmonary - Respiratory Effort: Breathing comfortably, lungs CTA bilaterally Abdomen: soft, ND, Mild diffuse tenderness, no focal findings on palpation, no rebound or guarding Neurologic - Mental Status: Cognition grossly normal Lymphatic - Cervical: No cervical lymphadenopathy { 1. Viral gastroenteritis (A08.4) 2. Nausea and vomiting, unspecified vomiting type (R11.2) - Most likely etiology is viral gastroenteritis - Start Zofran as needed for nausea and vomiting. - Continue supportive care with Tylenol and ibuprofen for fever, fatigue, and myalgias. - Advised to maintain adequate hydration and monitor for worsening symptoms, including severe abdominal pain, inability to tolerate oral intake, or persistent dizziness. - Provided education on typical illness course - Provided work absence note for tomorrow - Discussed covid/flu/rsv testing which pt declined and Recording using [email or web address] software for draft documentation of the visit was discussed with the patient/authorized risk control representative; all questions welcomed and answered. Patient/authorized risk control representative agreed to proceed Halima Blanchard MD [facility] May 26, 2025 11:06 AM Differential Diagnoses - Viral gastroenteritis is more likely for the following reason(s): suggested by H&P - Nausea and vomiting is more likely for the following reason(s): suggested by H&P Disposition The patient was discharged. OTC Medications were advised: Tylenol/ibuprofen Procedures documented in this encounter [facility] 04-18-2025 Note HNO ID: [id number] Author: ANGELICA SHETTY MD Service: ? Author Type: Physician Type: Progress Notes Filed: 04/18/2025 16:57 Note Text: Some documentation from previous visit of 12/19/24 was copied and pasted, documentation has been reviewed and edited as necessary for today's visit. Patient Summary: Estella is a 45 year old Female who presents for follow-up evaluation of obesity/weight management to treat and prevent related co-morbidities. In our previous visits we have discussed lifestyle intervention including a nutrition recommendations and physical activity optimization. Her last office visit was 4 month ago. Assessment/plan from last visit: -PT WOULD LIKE TO START WITH NUTRITION ONLY WILL CONSIDER MEDICATIONS - SLEEP STUDY ORDERED and consult to sleep medicine - DISCUSSED PROTEIN 90-140 G PER DAY - TRACKING REVIEWED- DIFFICULT FOR PATIENT -LABS ORDERED - METFORMIN REVIEWED- CONSIDER PHENTERMINE / TOPIRAMATE Interval History PT specifies the following items as new or significant updates since the last appointment: - - Reports gaining 10 lbs after stopping intermittent fasting. - Describes herself as an emotional eater, noting that the last few weeks have been extremely stressful, contributing to weight gain. - Denies wanting to start weight loss medications at this time. 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 - Often eats late at night, sometimes as late as 10:30 PM, and acknowledges that this is not ideal for her weight management goals. - Tried using the Lose It gabriele but found it was not free; switched back to [employer] but struggled to keep up with tracking due to a hectic schedule. - Attempting to drink more water but finds it challenging to measure intake accurately. - Trying to increase protein intake and has reduced carbohydrate consumption, avoiding breads and focusing on natural carbs like fruits and brown rice. - Has not been measuring food portions, citing time constraints. - Tried drinking protein shakes before practice but found it difficult to maintain this habit consistently. - Discussed with her the possibility of him taking over lunch preparations to reduce her evening snacking. - Continues to exercise regularly, although not this week due to a busy schedule with [employer] ([employer]). 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 Weight loss since last vist: +5 lbs - Last Wt 04/18/25 : 95.7 kg (211 lb) 12/19/24 : 93.4 kg (206 lb)- Initial weight Goal weight: 170 lb 5% weight loss = 196 lbs, 10% weight loss = 185 lbs Anti-obesity medications: none. Benefit: Adverse effects: Anti-obesity medications: . Benefit: Adverse effects: AOM Medications: Bupropion- Dr. Velasquez Weight promoting medications: Other none reported Previous Diet (initial appointment): Awake - 6:30am B - tries to do 16hr fast (7:30-11:30) works out in morning 8:15-8:45- no improvement S - L - protein shake- 30g powder from aldi , sometimes 2- apple w/ all natural PB, lunch meat without bread, eggs, S - popcorn 4pm sweet cravings- tammy crackers, raisins D - 7-8:30pm egg casserole, oatmeal casserole, madhav steak sandwich without bread, broccoli, green beans, always has fruit and sometimes salads, always dips fork in dressing. S - 9pm-9:30pm- grazing super food Fluids: drinking less since fasting- water (<40oz per day), decaf tea unsweetened, occasionally soda (2 cans in 3 months) Bedtime - 12am Quality of diet: 24hr recall suggests in between diet. Characterization of diet:Unstructured, excessive cravings, evening snacking, and skip meals. 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 of impaired eating habits:excessive hunger, mindlessness , boredom, emotion, and stress Eating Disorder no Cravings: sweets Dietary changes: has not made many- but trying to get more protein B - S - L - S - D - S - Fluids - Increasing protein Current Barriers: emotional eating, stress eating, eating high-calorie foods, large portion sizes, grazing/irregular meal patterns, poor sleep hygiene, and inadequate sleep duration Exercise: stable Regular exercise: yes -weight lifting-3 days a week, pilates, walking other 2 days a week - goal is 30min - MORNING workout Strength/resistance exercise:yes Barriers to regular exercise? 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 Gym Membership: no Activity Tracker: no average steps per day N/A Stress: stableYES, Cause:Personal Sleep: stable 6 hours. Wakes up gasping for air sometimes - has witness apena for 9 seconds. Does snore at times. Has never had sleep study. TARIQ NO ; CPAP NO Estimated Creatinine Clearance: 98.6 mL/min (based on SCr of 0.77 mg/dL). PAST MEDICAL HISTORY Diagnosis Date Anemia Depression 2002 took meds only couple (more content not included)... [facility] 03-20-2025 Telephone encounter Note Patient calling requesting a refill on her Wellbutrin Rx. Patient states she is doing well on this medication and dosage. Last seen 09/17/24 for annual. Order pended, will only call patient back if there is a problem. Radha Wooten RN [facility] 03-20-2025 Miscellaneous Notes Patient calling requesting a refill on her Wellbutrin Rx. Patient states she is doing well on this medication and dosage. Last seen 09/17/24 for annual. Order pended, will only call patient back if there is a problem. Radha Wooten RN documented in this encounter [facility] 02-08-2025 Telephone encounter Note Pt notified and voiced understanding. Melina Valera RN [facility] 02-08-2025 Miscellaneous Notes Pt notified and voiced understanding. Melina Valera RN No- she should keep her appointment as is. Next weight mgmt appt is scheduled for 02/26, but she won't have her sleep study results until 03/08. Asking if she should reschedule her weight mgmt appt for after the instead so you have those results to discuss? Next available appt isn't until April 18 though as of right now. Yazmin Cardona RN documented in this encounter [facility] 02-08-2025 Telephone encounter Note No- she should keep her appointment as is. [facility] 02-08-2025 Telephone encounter Note Next weight mgmt appt is scheduled for 02/26, but she won't have her sleep study results until 03/08. Asking if she should reschedule her weight mgmt appt for after the instead so you have those results to discuss? Next available appt isn't until April 18 though as of right now. Yazmin Cardona RN [facility] 02-05-2025 History of Present illness Narrative Radiology Service Progress Note PATIENT NAME: Estella Robles DATE OF SERVICE: February 05, 2025 TIME: 1:18 PM PATIENT IDENTITY VERIFICATION COMPLETED USING TWO (2) IDENTIFIERS: Name and Date of confirmed by patient verbally. FALL SCREENING: Has the patient had 2 falls in the last year or 1 fall with injury or currently using an Ambulatory Assistive Device (Walker, Cane, Wheelchair, Crutches, etc.)? No PATIENT GENDER DATA: Assigned female at . status: : No status: NO. PATIENT RELEVANT IMPLANT DATA REVIEWED: Not Applicable PATIENT PRESENTS WITH AN IMPLANTABLE OR ATTACHED BUILDING SERVICES COORDINATOR: No RADIOLOGY DEPARTMENT: Ultrasound PERIPHERAL IV DATA: Not applicable SIGNED BY: Sloane Tolentino RDMS RVT February 05, 2025 1:18 PM documented in this encounter [facility] 02-05-2025 Note HNO ID: [id number] Author: SLOANE TOLENTINO RDMS Service: ? Author Type: Maintenance Manager Type: Progress Notes Filed: 02/05/2025 13:18 Note Text: Radiology Service Progress Note PATIENT NAME: Estella Robles DATE OF SERVICE: February 05, 2025 TIME: 1:18 PM PATIENT IDENTITY VERIFICATION COMPLETED USING TWO (2) IDENTIFIERS: Name and Date of confirmed by patient verbally. FALL SCREENING: Has the patient had 2 falls in the last year or 1 fall with injury or currently using an Ambulatory Assistive Device (Walker, Cane, Wheelchair, Crutches, etc.)? No PATIENT GENDER DATA: Assigned female at . status: : No status: NO. PATIENT RELEVANT IMPLANT DATA REVIEWED: Not Applicable PATIENT PRESENTS WITH AN IMPLANTABLE OR ATTACHED BUILDING SERVICES COORDINATOR: No RADIOLOGY DEPARTMENT: Ultrasound PERIPHERAL IV DATA: Not applicable SIGNED BY: Sloane Tolentino RDMS RVT February 05, 2025 1:18 PM [facility] 02-05-2025 History of Present illness Narrative Radiology Service Progress Note PATIENT NAME: Estella Robles DATE OF SERVICE: February 05, 2025 TIME: 9:48 AM PATIENT IDENTITY VERIFICATION COMPLETED USING TWO (2) IDENTIFIERS: Name and Date of confirmed by patient verbally. FALL SCREENING: Has the patient had 2 falls in the last year or 1 fall with injury or currently using an Ambulatory Assistive Device (Walker, Cane, Wheelchair, Crutches, etc.)? No PATIENT GENDER DATA: Assigned female at . status: : No status: NO. PATIENT RELEVANT IMPLANT DATA REVIEWED: Not Applicable PATIENT PRESENTS WITH AN IMPLANTABLE OR ATTACHED BUILDING SERVICES COORDINATOR: No RADIOLOGY DEPARTMENT: Mammography PERIPHERAL IV DATA: Not applicable SIGNED BY: DESMOND Aragon) February 05, 2025 9:48 AM documented in this encounter [facility] 02-05-2025 Note HNO ID: [id number] Author: SARAH ALCALA RT(R) Service: ? Author Type: Technologist Type: Progress Notes Filed: 02/05/2025 09:49 Note Text: Radiology Service Progress Note PATIENT NAME: Estella Robles DATE OF SERVICE: February 05, 2025 TIME: 9:48 AM PATIENT IDENTITY VERIFICATION COMPLETED USING TWO (2) IDENTIFIERS: Name and Date of confirmed by patient verbally. FALL SCREENING: Has the patient had 2 falls in the last year or 1 fall with injury or currently using an Ambulatory Assistive Device (Walker, Cane, Wheelchair, Crutches, etc.)? No PATIENT GENDER DATA: Assigned female at . status: : No status: NO. PATIENT RELEVANT IMPLANT DATA REVIEWED: Not Applicable PATIENT PRESENTS WITH AN IMPLANTABLE OR ATTACHED BUILDING SERVICES COORDINATOR: No RADIOLOGY DEPARTMENT: Mammography PERIPHERAL IV DATA: Not applicable SIGNED BY: Sarah Alcala, RT(R) February 05, 2025 9:48 AM [facility] 12-27-2024 Note HNO ID: [id number] Author: IRINA VELASQUEZ MD Service: ? Author Type: Physician Type: Progress Notes Filed: 12/27/2024 13:25 Note Text: BREAST LUMP HISTORY: This is a 44 year old female Presents with breast mass right Mass has been present for 1 weeks Tenderness No Change in sizeNo Any history breast mass no Caffeine use No Last [id number] normal no nipple discharge or itching Any previous breast surgery No Any family history breast disease/ breast cancer Yes Doing well on wellbutrin, doesn't get as low or go in her hole of despair. OB History Gravida5 Para4 Term4 Preterm0 AB1 Living4 SAB1 IAB0 Ectopic0 Multiple0 Live Births4 PAST MEDICAL HISTORY Diagnosis Date Anemia Depression 2002 took meds only couple weeks Fissure, anal 2012 Hemorrhoid History of blood transfusion 2012 H/o transfusion after first c/s 2 units IBS (irritable bowel syndrome) PMH - PAST MEDICAL HISTORY OF [place] disease (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) PMH - PAST MEDICAL HISTORY OF Slipped lumbar disc depression hemorrhage (HCC) PAST SURGICAL HISTORY Procedure Laterality Date DELIVERY ONLY 10/24/2012 , low transverse DELIVERY ONLY 01/15/2016 , low transverse DELIVERY ONLY 08/28/2018 RC/S low transverse COLONOSCOPY SCREENING 06/04/2024 repeat 10 years EGD W/O BRSH SPEC VARICIES INJ 06/04/2024 EXTRACTION, ERUPTED TOOTH OR EXPOSED ROOT (ELEVATION AND/OR FORCEPS REMOVAL) @ 21yrs of age SALPINGECTOMY COMPLETE/PARTIAL UNI/BI SPX Bilateral 08/28/2018 FAMILY HISTORY Problem Relation Age of Onset Hypertension Mother Hypertension Father Seizures Sister Heart Sister Cancer Maternal Grandmother colon Diabetes Maternal Grandfather Diabetes Paternal Grandmother Heart Paternal Grandmother Hypertension Paternal Grandmother Diabetes Paternal Grandfather Heart Paternal Grandfather fatal [place] Asthma Son Allergies Son Asthma Son Allergies Son Allergies Son SOCIAL HISTORY Social History Tobacco Use Smoking status: Never Smokeless tobacco: Never Vaping Use Vaping status: Never Used Substance Use Topics Alcohol use: No Drug use: No PAST SURGICAL HISTORY Procedure Laterality Date DELIVERY ONLY 10/24/2012 , low transverse DELIVERY ONLY 01/15/2016 , low transverse DELIVERY ONLY 08/28/2018 RC/S low transverse COLONOSCOPY SCREENING 06/04/2024 repeat 10 years EGD W/O [facility] SPEC VARICIES INJ 06/04/2024 EXTRACTION, ERUPTED TOOTH OR EXPOSED ROOT (ELEVATION AND/OR FORCEPS REMOVAL) @ 21yrs of age SALPINGECTOMY COMPLETE/PARTIAL UNI/BI SPX Bilateral 08/28/2018 Current Outpatient Medications Medication Sig cholecalciferol, Vitamin D3, (VITAMIN D3) 1,250 mcg (50,000 unit) cap capsule Take 1 capsule by mouth one time a week. buPROPion XL (WELLBUTRIN XL) 150 mg 24 hr tablet Take 1 tablet by mouth once daily. No current facility-administered medications for this visit. Allergies As of Date: 12/27/2024 Allergen Noted Reaction IODINE 03/07/2013 Rash Fully Assessed 12/27/2024 SENSITIVE EXAM: Sensitive exam not performed. EXAMINATION: There is no concerning cervical, supraclavicular, or axillary lymphadenopathy. She has a 1.3 x 0.7 cm irregularly shaped, rubbery, mobile nontender area at approximately 10-11 o'clock on the right upper outer quadrant. No other discrete nodules are noted. There are some diffuse density bilaterally.. On the left are no dominant masses, skin changes or nipple discharge. There are no skin changes or nipple discharge. IMPRESSION: right breast mass. PLAN: No orders found for this visit on 12/27/24. A discussion was held with the patient and patient who agrees with Imaging Irina Velasquez MD [facility] 12-27-2024 History of Present illness Narrative BREAST LUMP HISTORY: This is a 44 year old female Presents with breast mass right Mass has been present for 1 weeks Tenderness No Change in sizeNo Any history breast mass no Caffeine use No Last [id number] normal no nipple discharge or itching Any previous breast surgery No Any family history breast disease/ breast cancer Yes Doing well on wellbutrin, doesn't get as low or go in her hole of despair. OB History Gravida5 Para4 Term4 Preterm0 AB1 Living4 SAB1 IAB0 Ectopic0 Multiple0 Live Births4 PAST MEDICAL HISTORY Diagnosis Date Anemia Depression 2002 took meds only couple weeks Fissure, anal 2012 Hemorrhoid History of blood transfusion 2012 H/o transfusion after first c/s 2 units IBS (irritable bowel syndrome) PMH - PAST MEDICAL HISTORY OF [place] disease (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) PMH - PAST MEDICAL HISTORY OF Slipped lumbar disc depression hemorrhage (HCC) PAST SURGICAL HISTORY Procedure Laterality Date DELIVERY ONLY 10/24/2012 , low transverse DELIVERY ONLY 01/15/2016 , low transverse DELIVERY ONLY 08/28/2018 RC/S low transverse COLONOSCOPY SCREENING 06/04/2024 repeat 10 years EGD W/O BRSH SPEC VARICIES INJ 06/04/2024 EXTRACTION, ERUPTED TOOTH OR EXPOSED ROOT (ELEVATION AND/OR FORCEPS REMOVAL) @ 21yrs of age SALPINGECTOMY COMPLETE/PARTIAL UNI/BI SPX Bilateral 08/28/2018 FAMILY HISTORY Problem Relation Age of Onset Hypertension Mother Hypertension Father Seizures Sister Heart Sister Cancer Maternal Grandmother colon Diabetes Maternal Grandfather Diabetes Paternal Grandmother Heart Paternal Grandmother Hypertension Paternal Grandmother Diabetes Paternal Grandfather Heart Paternal Grandfather fatal [place] Asthma Son Allergies Son Asthma Son Allergies Son Allergies Son SOCIAL HISTORY Social History Tobacco Use Smoking status: Never Smokeless tobacco: Never Vaping Use Vaping status: Never Used Substance Use Topics Alcohol use: No Drug use: No PAST SURGICAL HISTORY Procedure Laterality Date DELIVERY ONLY 10/24/2012 , low transverse DELIVERY ONLY 01/15/2016 , low transverse DELIVERY ONLY 08/28/2018 RC/S low transverse COLONOSCOPY SCREENING 06/04/2024 repeat 10 years EGD W/O BRSH SPEC VARICIES INJ 06/04/2024 EXTRACTION, ERUPTED TOOTH OR EXPOSED ROOT (ELEVATION AND/OR FORCEPS REMOVAL) @ 21yrs of age SALPINGECTOMY COMPLETE/PARTIAL UNI/BI SPX Bilateral 08/28/2018 Current Outpatient Medications Medication Sig cholecalciferol, Vitamin D3, (VITAMIN D3) 1,250 mcg (50,000 unit) cap capsule Take 1 capsule by mouth one time a week. buPROPion XL (WELLBUTRIN XL) 150 mg 24 hr tablet Take 1 tablet by mouth once daily. No current facility-administered medications for this visit. Allergies As of Date: 12/27/2024 Allergen Noted Reaction IODINE 03/07/2013 Rash Fully Assessed 12/27/2024 SENSITIVE EXAM: Sensitive exam not performed. EXAMINATION: There is no concerning cervical, supraclavicular, or axillary lymphadenopathy. She has a 1.3 x 0.7 cm irregularly shaped, rubbery, mobile nontender area at approximately 10-11 o'clock on the right upper outer quadrant. No other discrete nodules are noted. There are some diffuse density bilaterally.. On the left are no dominant masses, skin changes or nipple discharge. There are no skin changes or nipple discharge. IMPRESSION: right breast mass. PLAN: No orders found for this visit on 12/27/24. A discussion was held with the patient and patient who agrees with Imaging Irina Velasquez MD documented in this encounter [facility] 12-21-2024 Telephone encounter Note Last annual exam with RR 09/17/24. Pt calls stating she recently as noticed a right breast lump that seems to be changing in size. Denies pain to right breast. Denies dimpling/Denies nipple drainage. Scheduled appt with RR 12/27/24. Melina Valera RN [facility] 12-21-2024 Miscellaneous Notes Last annual exam with RR 09/17/24. Pt calls stating she recently as noticed a right breast lump that seems to be changing in size. Denies pain to right breast. Denies dimpling/Denies nipple drainage. Scheduled appt with RR 12/27/24. Melina Valera, HALINA documented in this encounter [facility] 12-19-2024 Note Addended by: ANGELICA AMES on: 12/19/2024 02:55 PM Modules accepted: Orders [facility] 12-19-2024 Miscellaneous Notes Addended by: ANGELICA GARBER on: 12/19/2024 02:55 PM Modules accepted: Orders documented in this encounter [facility] 12-19-2024 Note HNO ID: [id number] Author: ANGELICA SHETTY MD Service: ? Author Type: Physician Type: Progress Notes Filed: 12/19/2024 14:55 Note Text: Patient Summary: Estella Robles is a 44 year old female with obesity who presents for an initial evaluation of overweight/obesity to treat and prevent co-morbidities and is interested in behavioral . Motivation for seeking treatment for the disease of overweight/obesity : She wants to lose weight Goal weight: 170 lb Lowest recall weight: 145 lb (1999) Highest non- recall weight: 221 lb ([id number]) Patient identified barriers to weight loss: Time and frustration not seeing results with efforts. They eat late as a family due to kids activities Weight History: She reports a strong family history of obesity (parents/sister, grandparents) and childhood weight gain. She states her weight gain is related to the following factors, including weight retention , consumption of unhealthy foods, and inadequate sleep duration. Difficulty losing weight? Yes she has tried numerous things and the scale doesn't move much History of weight loss with regain? In college she went from 175 lbs to 145 lbs. She was working out 2 times a day. During pandemic in 2019 she went from 212 lb down to 170 lb she was fasting and had more time to cook better (no carbs and sugar). She noticed after age 40 the same weight loss efforts did not work the same. - Last Wt 12/19/24 : 93.4 kg (206 lb) 5% weight loss = 196 lbs, 10% weight loss = 185 lbs WEIGHT GRAPH: Diet/Nutrition overview: Awake - 6:30am B - tries to do 16hr fast (7:30-11:30) works out in morning 8:15-8:45- no improvement S - L - protein shake- 30g powder from aldi , sometimes 2- apple w/ all natural PB, lunch meat without bread, eggs, S - popcorn 4pm sweet cravings- tammy crackers, raisins D - 7-8:30pm egg casserole, oatmeal casserole, madhav steak sandwich without bread, broccoli, green beans, always has fruit and sometimes salads, always dips fork in dressing. S - 9pm-9:30pm- grazing super food Fluids: drinking less since fasting- water (<40oz per day), decaf tea unsweetened, occasionally soda (2 cans in 3 months) Bedtime - 12am Quality of diet: 24hr recall suggests in between diet. Characterization of diet:Unstructured, excessive cravings, evening snacking, and skip meals. 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 of impaired eating habits:excessive hunger, mindlessness , boredom, emotion, and stress Eating Disorder no Cravings: sweets Sleep Duration: 6 hours. Wakes up gasping for air sometimes - has witness apena for 9 seconds. Does snore at times. Has never had sleep study. TARIQ NO ; CPAP NO Stress Stress:YES, Cause:Personal Obesity Related Comorbidities: Prior Weight Loss Surgery:No PAST MEDICAL HISTORY Diagnosis Date Anemia Depression 2002 took meds only couple weeks Fissure, anal 2012 Hemorrhoid History of blood transfusion 2012 H/o transfusion after first c/s 2 units IBS (irritable bowel syndrome) PMH - PAST MEDICAL HISTORY OF [place] disease (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) PMH - PAST MEDICAL HISTORY OF Slipped lumbar disc depression hemorrhage (HCC) PAST SURGICAL HISTORY Procedure Laterality Date DELIVERY ONLY 10/24/2012 , low transverse DELIVERY ONLY 01/15/2016 , low transverse DELIVERY ONLY 08/28/2018 RC/S low transverse COLONOSCOPY SCREENING 06/04/2024 repeat 10 years EGD W/O BRSH SPEC VARICIES INJ 06/04/2024 EXTRACTION, ERUPTED TOOTH OR EXPOSED ROOT (ELEVATION AND/OR FORCEPS REMOVAL) @ 21yrs of age SALPINGECTOMY COMPLETE/PARTIAL UNI/BI SPX Bilateral 08/28/2018 FAMILY HISTORY Problem Relation Age of Onset Hypertension Mother Hypertension Father Seizures Sister Heart Sister Cancer Maternal Grandmother colon Diabetes Maternal Grandfather Diabetes Paternal Grandmother Heart Paternal Grandmother Hypertension Paternal Grandmother Diabetes Paternal Grandfather Heart Paternal Grandfather fatal [place] Asthma Son Allergies Son Asthma Son Allergies Son Allergies Son Social History Tobacco Use Smoking status: Never Smokeless tobacco: Never Vaping Use Vaping status: Never Used Substance Use Topics Alcohol use: No Drug use: No AOM Medications: Bupropion- Dr. Velasquez Weight Promoting Medications: Diet/weight loss History: Past weight loss attempts? self-directed. Low Carbohydrate diet, low sugar, Erwin plan and intermittent fasting Exercise: Regular exercise: yes -weight lifting-3 days a week, pilates, walking other 2 days a week - goal is 30min - MORNING workout Strength/resistance exercise:yes Barriers to regular exercise? 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 [facility] 12-19-2024 History of Present illness Narrative Images from the original note were not included. Patient Summary: Estella Robles is a 44 year old female with obesity who presents for an initial evaluation of overweight/obesity to treat and prevent co-morbidities and is interested in behavioral . Motivation for seeking treatment for the disease of overweight/obesity : She wants to lose weight Goal weight: 170 lb Lowest recall weight: 145 lb (1999) Highest non- recall weight: 221 lb ([id number]) Patient identified barriers to weight loss: Time and frustration not seeing results with efforts. They eat late as a family due to kids activities Weight History: She reports a strong family history of obesity (parents/sister, grandparents) and childhood weight gain. She states her weight gain is related to the following factors, including weight retention , consumption of unhealthy foods, and inadequate sleep duration. Difficulty losing weight? Yes she has tried numerous things and the scale doesn't move much History of weight loss with regain? In college she went from 175 lbs to 145 lbs. She was working out 2 times a day. During pandemic in 2019 she went from 212 lb down to 170 lb she was fasting and had more time to cook better (no carbs and sugar). She noticed after age 40 the same weight loss efforts did not work the same. - Last Wt 12/19/24 : 93.4 kg (206 lb) 5% weight loss = 196 lbs, 10% weight loss = 185 lbs WEIGHT GRAPH: Diet/Nutrition overview: Awake - 6:30am B - tries to do 16hr fast (7:30-11:30) works out in morning 8:15-8:45- no improvement S - L - protein shake- 30g powder from aldi , sometimes 2- apple w/ all natural PB, lunch meat without bread, eggs, S - popcorn 4pm sweet cravings- tammy crackers, raisins D - 7-8:30pm egg casserole, oatmeal casserole, madhav steak sandwich without bread, broccoli, green beans, always has fruit and sometimes salads, always dips fork in dressing. S - 9pm-9:30pm- grazing super food Fluids: drinking less since fasting- water (<40oz per day), decaf tea unsweetened, occasionally soda (2 cans in 3 months) Bedtime - 12am Quality of diet: 24hr recall suggests in between diet. Characterization of diet:Unstructured, excessive cravings, evening snacking, and skip meals. 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 of impaired eating habits:excessive hunger, mindlessness , boredom, emotion, and stress Eating Disorder no Cravings: sweets Sleep Duration: 6 hours. Wakes up gasping for air sometimes - has witness apena for 9 seconds. Does snore at times. Has never had sleep study. 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) PMH - PAST MEDICAL HISTORY OF Slipped lumbar disc depression hemorrhage (HCC) PAST SURGICAL HISTORY Procedure Laterality Date DELIVERY ONLY 10/24/2012 , low transverse DELIVERY ONLY 01/15/2016 , low transverse DELIVERY ONLY 08/28/2018 RC/S low transverse COLONOSCOPY SCREENING 06/04/2024 repeat 10 years EGD W/O BRSH SPEC VARICIES INJ 06/04/2024 EXTRACTION, ERUPTED TOOTH OR EXPOSED ROOT (ELEVATION AND/OR FORCEPS REMOVAL) @ 21yrs of age SALPINGECTOMY COMPLETE/PARTIAL UNI/BI SPX Bilateral 08/28/2018 FAMILY HISTORY Problem Relation Age of Onset Hypertension Mother Hypertension Father Seizures Sister Heart Sister Cancer Maternal Grandmother colon Diabetes Maternal Grandfather Diabetes Paternal Grandmother Heart Paternal Grandmother Hypertension Paternal Grandmother Diabetes Paternal Grandfather Heart Paternal Grandfather fatal [place] Asthma Son Allergies Son Asthma Son Allergies Son Allergies Son Social History Tobacco Use Smoking status: Never Smokeless tobacco: Never Vaping Use Vaping status: Never Used Substance Use Topics Alcohol use: No Drug use: No AOM Medications: Bupropion- Dr. Velasquez Weight Promoting Medications: Diet/weight loss History: Past weight loss attempts? self-directed. Low Carbohydrate diet, low sugar, Erwin plan and intermittent fasting Exercise: Regular exercise: yes -weight lifting-3 days a week, pilates, walking other 2 days a week - goal is 30min - MORNING workout Strength/resistance exercise:yes Barriers to regular exercise? 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 Contraception: tubal sterilization Obesity ROS/ FHx GEN: Fatigue:yes -sometimes CV: h/o palpitations/cardiac arrhythmia, Chest pain: no HTN: no PULM: Asthma:no GI: GERD:no- some acid reflux ; Gallstones:no ; Fatty liver disease:no Pancreatitis: no MSK: Joint Pain:no : Nephrolithiasis: no Symptoms of PCOS: yes dx early 20s NEURO: Migraines/COONYE: yes- sometimes headache ; H/o seizures: no Glaucoma:no; Cataracts no Symptoms of or History of pseudotumor cerebri:no Family or personal History of MEN2 or Medullary thyroid cancer: no PE BP 132/80 Pulse 82 Ht 156.2 cm (5' 1.5) Wt 93.4 kg (206 lb) LMP 11/28/2024 (Within Days) SpO2 99% BMI 38.29 kg/m Waist Circumference: 44.75 Neck Circumference: 14.75 GENERAL: Female in NAD. Mixed central and gluteofemoral adiposity. SKIN: acanthosis nigricans no, Skin tags: no Hirsutism: no HEENT: PERRL, No supraclavicular adiposity. No dorsal adiposity. ABDOMEN: Large pannus; EXTREMITIES: peripheral edema: no Impression: Estella Robles is a 44 year old Female with Class II obesity (Body mass index is 38.29 kg/m .) who has childhood obesity with gradual weight gain despite several weight loss attempts. The causes of her obesity are multifactorial, biological, psychological and social and environmental. Specific factors include increased consumption of high calorie/process foods, irregular eating patterns , inadequate sleep duration, and poor sleep quality. She has no significant weight-related medical comorbidities which increase her cardiovascular mortality risk. There are additional metabolic obesity complications including dyslipidemia and PCOS. Other medical conditions as above. Regarding her lifestyle, as above, she has several behavioral contributors; her physical activity is regular. Overall, it is clear that her quality of life is moderately compromised by her weight. It is likely a combination of weight loss therapies will be needed. She appears motivated today. 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 -- We discussed several strategies to track food intake and increase mindfulness around eating while will decrease calorie intake. She was counseled on the following: Eating primarily whole foods. Limit carbs, especially processed carbs. Do not drink your calories 30 grams of protein for breakfast decreases your hunger during the day by up to 40 % Premier Protein or generic 30 gm protein 1 gm sugar Walk for 15 minutes immediately a meal. -- Encouraged the patient to improve her physical activity. Although cardiovascular exercise is most beneficial for weight loss initially, we discussed healthy muscle from a combination of resistance training and cardiovascular exercise is the best intermodal owner operator truck driver plan. An overall goal of 150-200 minutes per week of exercise has been effective in weight loss and maintenance. -- Reviewed that monitoring weight daily and food intake can have a positive impact on overall weight loss and maintenance of weight loss. Activity tracking can be used to stay on target for exercise however should not be used to reward oneself She understands that there can be limitations of pharmacotherapy due to contraindications, side effects and cost. Patient was told to contact her insurance company to see what AOMs and supervised behavioral medical appointments are currently covered. Patient understands she will have more success when following a healthy lifestyle. We reviewed continued use of online tracking of daily weights, food journal and if desired physical activity. We reviewed that during management she is to report any concerning side effects of any pharmacotherapy she is placed on. She understands that she will need routine follow up in the office. Prior to any virtual visits in the future she will need to check her Blood pressure, weight, and pulse. -PT WOULD LIKE TO START WITH NUTRITION ONLY WILL CONSIDER MEDICATIONS - SLEEP STUDY ORDERED and consult to sleep medicine - DISCUSSED PROTEIN 90-140 G PER DAY - TRACKING REVIEWED- DIFFICULT FOR PATIENT -LABS ORDERED - METFORMIN REVIEWED- CONSIDER PHENTERMINE / TOPIRAMATE (E28.2) PCOS (polycystic ovarian syndrome) (primary encounter diagnosis) (R53.81, R53.83) Malaise and fatigue (E78.00) Hypercholesteremia (R06.83) Snoring (G47.30) Observed sleep apnea (Z13.220) Screening cholesterol level (Z13.0) Screening for deficiency anemia (Z13.1) Screening for diabetes mellitus (Z13.228) Screening for metabolic disorder (Z13.29) Screening for thyroid disorder (Z13.21) Encounter for vitamin deficiency screening (E66.812, Z68.38, E66.01) Class 2 severe obesity with serious comorbidity and body mass index (BMI) of 38.0 to 38.9 in adult, unspecified obesity type (HCC) (E66.812, E66.09, Z68.37) Class 2 obesity due to excess calories without serious comorbidity with body mass index (BMI) of 37.0 to 37.9 in adult Prescription instructions reviewed with patient as applicable. Potential red flag symptoms discussed with the patient. Reviewed appropriate action plan to take if red flag symptoms occur. Patient agreeable to treatment plan. -- follow-up visit in 8 weeks for management of above interventions I spent a total of 70 minutes on the date of the service which included preparing to see the patient, [id number] patient care, completing clinical documentation, obtaining and/or reviewing separately obtained history, performing a medically appropriate examination, counseling and educating the patient/family/caregiver, and ordering medications, tests, or procedures. Angelica Cantrell MD, FACOG, DABOM documented in this encounter [facility] 12-19-2024 Instructions Angelica Shetty MD - 12/19/2024 9:49 AM EDT Images from the original note were not included. Weight Management: You have taken the initiative to become a healthier version of yourself and to decrease the risks that come with the diagnosis of obesity or being overweight. We are happy to help you along this journey but know this is a lifetime commitment to yourself. Losing just 3-10 % of your body weight can decrease your risks of many other serious diseases like diabetes, heart disease, osteoarthritis, hypertension, cancer and so many others. During this time you will have triumphs, setbacks and plateaus- your body will fight against you but we are here to give you the tools and the resources to continue to reach your goals. We recommend during this time that you track your weight daily or at least five times per week as well as tracking your nutrition. You may track your activity but do not use hitting your fitness goals as a reward system as this can derail your success. We recommend weekly physical activity of 150-200 min/week-although physical exercise, this will be especially important for weight maintenance. Exercise can have many other benefits including improving insulin resistance, improving balance, bone health, improving mental health and cardiovascular health. Do not feel overwhelmed - we will discuss this more at your visits. Our time will be limited with each visit but we will try to touch on factors that are important to you and to your overall goals. We will try to set a goal at the end of each visit and then decide on what we want to accomplish with your upcoming visits. On your After Visit Summary (AVS), we will provide you with information that may be useful during this journey so please remember to read the information given. Check your AVS a few days after your appointment because we may have added more information specifically for you. Remember that if you are placed on medications, they are tools that can help you succeed but you must put in the work. Your nutrition will be the main factor. There are medications that work well for some and not for others- so it may take time to find the right combination for your body's needs. Please remember that factors such as other health co-morbidities one might have, as well as insurance coverage, will play a factor in determining which medications you can take. Most of the newer medications that are all the craze ,injectables, may not be covered or will only be covered if you fail months of oral medications or have Type 2 diabetes so please be patient with the process. It would be beneficial for you to determine what your insurance covers as far as Anti-Obesity Medications (AOMs), Nutritional Counseling, behavioral intervention and weight loss surgery. Please call your health insurance prior to your first appointment and write down coverage for each of those therapies. Most importantly, remember that ultimately our goal is to help you get to a healthier weight which will decrease your overall health risks. We will work together as a team and try to reach your personalized goals as well. Follow-up appointments Please arrive to follow-up visits a minimum of 15 minutes prior to your appointment. Follow-up weight management visits can be virtual. You will need to report a current blood pressure, heart rate (pulse) and weight at the beginning of each virtual appointment so you will need to have a reliable BP cuff, either wrist or upper arm. If you need to reschedule your appointment time or switch from an in-office visit to a virtual visit or vice versa, you need to call our office as we have designated appointment slots. This should not be done [facility] as you will not be scheduled appropriately and will need to be rescheduled. We appreciate that you have entrusted us with your health and know that we are committed to this process with you. Sincerely, Angelica Garber MD, LUIS A MATTHEWS & Ann-Marie Heath CNP Advanced Education from the [employer]esity [employer] Association Obesity Obesity is a disease that affects nearly one-third of the adult [place] population (approximately 60 million). The number of overweight and obese Americans has continued to increase since 1959, a trend that is not slowing down. Today, 64.5 percent of adult Americans (about 127 million) are categorized as being overweight or obese. Each year, obesity causes at least 300,000 excess deaths in the [place] and healthcare costs of [place] adults with obesity amount to approximately $100 billion. (AOA) Obesity is a complex, multi-factorial chronic disease involving: Environmental (social and cultural) The tendency toward obesity is a result of our environment: lack of physical activity along with high-calorie, low-cost foods. Home, work, school, and even the community can inhibit a healthy lifestyle. Genetic (Hereditary plays a large role in determining how susceptible people are to overweight and obesity). Genes also influence how the body arthur calories for energy and stores fat. Physiologic, metabolic, behavioral (eating too many calories while not getting enough exercise) and psychological components. It is the second leading cause of preventable in the [place] Behavioral changes brought on by economic development, modernization and urbanization have been linked to the rise in global obesity. Calculating BMI Body Mass Index (BMI) is a measurement tool used to determine excess body weight. Overweight is defined as a BMI of 25 or more, obesity is 30 or more, and severe obesity is 40 or more. You can visit www.nhlbi.nih.gov to estimate your BMI. Obesity Related Health Conditions The morbidity and mortality risk from being overweight is proportional to its degree. Individuals with morbid obesity, therefore, have the highest risk for developing numerous illnesses that often reduce mobility and quality of life due to their excess weight. In particular, type 2 diabetes, gallbladder disease and osteoarthritis have been found to increase concurrently with higher BMI. Premature , a 20-year shorter life span, has also been found in individuals with morbid obesity. All of the systems that make the body function are affected by morbid obesity. Type 2 diabetes Gallbladder disease and gallstones Liver disease Osteoarthritis, a disease in which the joints deteriorate. This is possibly the result of excess weight on the joints. Gout, another disease affecting the joints Pulmonary (breathing) problems, including sleep apnea in which a person can stop breathing for a short time during sleep Reproductive problems in women, including menstrual irregularities and infertility Gastroesophageal reflux/heartburn Hypertension Heart Disease Depression Psychological disorders/social impairments Urinary Stress Incontinence Obesity is also linked to higher rates of certain types of cancer. Obese men are more likely than non-obese men to from cancer of the colon, rectum, or prostate. Obese women are more likely than non-obese women to from cancer of the gallbladder, breast, uterus, cervix, or ovaries [email or web address] MEDICATIONS: METFORMIN, TOPIRAMATE, PHENTERMINE, NALTREXONE WITH WELLBUTRIN - Eat primarily whole foods. Limit carbs, especially processed carbs. Eat - Meat, vegetables and fruits with skin on if possible, eggs, cheese. - Do not drink your calories - 30 grams of protein for your first meal of the day decreases your hunger during the day by up to 40 %. Options include: Premier Protein or generic 30 gm protein 1 gm sugar or 5 eggs or 2-3 eggs and some unbreaded meat and/or cheese. No fruit, vegetables, bread, grain, yogurt, Smoothies, etc. - Walk for 15 minutes immediately after meal. Nutrition Reminders: NO NAKED CARBS!! Protein >= Carbs for each meal (if you are going to eat 50g carbs for lunch you should eat 50g protein or more). If you do not eat your carbs for lunch you do not get to save them for dinner- you use them or lose them. Balance your Protein between meals. Unless told otherwise your Minimum protein each day is 30grams per meal but don t be afraid to eat more (try to aim for 1.6g protein per Kilogram of bodyweight). Focus on WHOLE FOODS if you can as your Gut Microbiome will benefit and you will feel more satisfied - the only caviot to this is protein shakes if needed. Water intake should be a minimum of 64oz per day- but more is better (to an extent) unless you have a medical condition that requires you to keep it to a minimum. Nothing is off limits- this is not about restricting yourself- this about learning what your body can have and still respond well to and learning how to balance food and still feel good. Track your food, weigh your food, measure your portion sizes as most people underestimate their food by approximately 40%. You should be tracking your Carbohydrates and Protein daily. It s ok if you had a bad day- write it down and move on! Weigh yourself daily or at least 5 times per week, it will help to keep you accountable. If you are hungry- think about your stress level, your sleep (did you get 7.5-9hrs?) and your protein consumption- if you did not meet your goals then those could be contributing to your hunger. During weight loss phase it is ok to use two protein shakes per day and eating one meal along with it - studies have shown you will lose more weight and keep it off. Take a multivitamin daily Sit less Move more- Exercise including resistance training is very important for your health and if you are not getting routine exercise right now there will come a point when it will become an important piece of this process. Do Not skip meals- it could lead to you not getting enough protein or overeating at your next meal. Intermittent fasting can be a good tool for some but right now try to eat 3 regular meals. Only consume snacks if you are truly hungry. Meal replacements: Meal Replacements Plant-based protein bars Meal replacements. One option that works for some people is to use meal replacements, as in the DiRECT and Look AHEAD trials.The available options in Look AHEAD included shakes, bars, and meals from a variety of companies ([employer], [employer], [employer], and [employer]). The calorie content was 150 to 220 calories, depending on the product. People who used meal replacements 12 times a week instead of preparing their own meals lost about 11% of their weight in the first year, whereas those who used just two per week lost about 6% of their weight. Keep in mind, though, that people in the trial who used meal replacements also tended to consume a healthier diet over all; they were more likely to have met their goals for dietary fat, fruits and vegetables, and dairy foods, and to have cut back on sweets, than those who didn t use meal replacements. Similarly, in the DiRECT trial, participants consumed special nutritionally complete shakes and soups (the Counterweight-Plus program) for the first 12 weeks.If you opt for meal-replacement drinks, bars, or frozen entrees, here are some criteria to look for: calories, 150 to 300 fat, 3 to 10 grams protein, > 20 grams sugar < 5 g Meal replacements are typically fortified with vitamins and minerals and contain some fiber. Because they are calorie controlled, the amount of added sugars is usually minimal. If you want to try this approach to boost weight loss, ask your dietitian or another member of your health care team how to incorporate the replacements into your meal planning and discuss whether you might need to reduce your doses of diabetes medications to prevent hypoglycemia (low blood sugar) as you cut calories and lose weight. It is important to find a meal-replacement product that suits your taste. If you prefer not to consume processed foods, you can make your own portion-controlled versions. Note that meal replacements don t work for everyone. While some people like meal-replacement shakes, bars, and soups and find them to be a convenient way to sustain a reduced calorie intake over time, others don t feel satisfied drinking them and often end up simply adding them to what they d normally eat--which could lead to weight gain. What s more, some people have a hard time readjusting to eating real food after they stop using meal replacements. 5 (FIVE) gram carb vegetable options 1 cup raw OR cup cooked: Asparagus Stearns sprouts Beets Broccoli Brussel sprouts Cabbage Carrots Cauliflower Celery [place] Eggplant Green beans Lettuce Peppers Snap peas Spaghetti squash Spinach Tomato Turnips Zucchini 15 gram carb vegetable options cup cooked corn or hominy corn on the cob, large (5 oz) cup cooked green peas 4.3 gm complete protein cup cooked gil beans 1 small potato or sweet potato cup cooked potato, plain cup cooked sweet potato, plain 1 cup winter squash (pumpkin, acorn, butternut) 1 cup marinara or pasta sauce - check label cup tomato juice cup tomato puree Beans, Seeds, Nuts cup cooked beans (kidney, ruff, red, green, etc.) cup cooked lentils cup baked beans 4 tablespoons nut butter <15 gram carb fruit options Berries have the lowest sugar content 1/2 medium apple - 12.5 carbs 1/2 medium avocado - 6.5 gm carbs 1/2 medium banana - 15 carbs 1/2 cup blueberries - 11 carbs - may actually help you lose weight 1/2 cup fresh cherries -11 carbs 1 medium Roxana -9 carbs 1/2 cup fresh cranberries - 6.5 carbs 1/2 c grapes - 15 carbs 1/2 medium grapefruit - 10.5 carbs 1/2 cup diced honeydew melon - 8 carbs 1 medium kiwi without skin - 11 carbs 1/2 cup sliced julia -14 carbs 1 medium nectarine - 15 carbs 1 medium orange -15.5 carbs 1 medium peach -14.5 carbs 1/2 cup fresh pineapple -11 carbs 1 medium plum -7.5 carbs 1 prune - 6 carbs 1/4 c raisins - 31.25 carbs 1/2 cup raspberries -7.5 carbs 1/2 c strawberries - 12.7 carbs 1 medium tangerine -12 carbs 1/2 cup diced watermelon - 6 carbs Grains Brown rice 1/2 c 5.5g protein 24 carb White long-grain rice 1/2 c 2g protein 22.5 carb Quinoa 1/2 c 4 gm complete protein 25 carb Oatmeal, old fashioned 1/2 c 5g protein 27g carb Protein - no carbs Egg 1 large - 6g Egg white 1 large 3.6g 3 oz is approximately the size of a deck of cards and equals 21 g protein so 4 oz is 28 gm protein Beef, Chicken, Nov[place], Pork, [place] 1 oz 7g Fish, Tuna Fish 1 oz 7g (Starkist tuna packet 2.6 oz 17 gm protein) Seafood (Crabmeat, Shrimp, Lobster) 1 oz 6g Protein shakes (read labels) Premier Protein or generic [employer] Equate, [employer] High Performance- 30g protein & 1g carb - meal replacement Premier Protein powder or generic- 30 gm protein, 1g carb Premier Protein plant protein powder - 25 gm protein, 0 sugar/2 carb Vanilla and chocolate (not a meal replacement) Fairlife 30 gram protein - 30g protein & 3g carb BOOST Glucose Control Max 30g Protein Nutritional Drink - 30g protein & 1 carb - meal replacement Slimfast High Protein - 20g protein & 1g carb Ensure Max Protein Nutrition Shake 30g protein & 2 carb Protein AND carbs Beef/Novice Jerky 1 oz dried 10-15g protein - check carb count, can be high if sugar added Slim Trino - 6 gm protein and 4 net carb Great Value original turkey sausage sticks - 7 gm protein and 2 gm carb Yoanna & Angel (at [facility]) Original smoked sausage sticks - 8 gm protein and 0 carb Imitation Crab Meat 1 oz - 2g protein & 4g carb Milk, skim 2% or 1% 8 oz - 8g protein & 12g carb Fairlife 2% milk 8 oz -13 g protein & 6g carb [place] yogurt Full Fat [place] Yogurt 1 cup - 20.4g protein & 9.1g carb 2% [place] Yogurt 1 cup - 22.7g protein & 9.1g carb 0% (fat-free) [place] Yogurt - 1 cup 24g protein & 9.3g carb Aldi Protein [place] yogurt single svg - 13/g15g protein & 7g carb Chobani Zero Sugar single svg: - 12g protein & 5g carb Chobani drinkable 15g, 20g and 30g protein & 18 carb Dannon [place] Light + Fit 1 single svg - 12g protein & 9g carb Oikos Pro single svg - 20g protein & 8g carb Oikos Triple Zero [place] Nonfat Yogurt 1 single svg - 15g protein & 7g carb Oikos Pro drinkable yogurt 1 single svg - 23 g protein & 8 g carb :ratio, KETO Friendly Dairy Snack 1 single svg - 15g protein & 2g carb :ratio Protein 1 single svg - 25g protein & 8g carb Two Good Lowfat [place] Yogurt, [place], Lower Sugar - 12g protein & 2g carb Yoplait Protein 1 single svg 15gm protein & 5gm carb Dairy Free - [place] unsweetened [place] almond/soy 15 gm protein & 3 gm carb Dairy Free - True Goodness by [facility] coconut-based yogurt alternative 1 gm protein 1 gm net carb 180 harsh Cheese each oz Brie 5.9g protein & 0.1g carb Cheddar 7g protein & 0.4g carb Mariano 6.7g protein & 0.7g carb Cream Cheese 1.7g protein & 1.2g carb Feta 4g protein & 1.2g carb Mozzarella 6.3g protein & 0.6g carb Parmesan 10g protein & 0.9g carb Thai 7.6g protein & 1.5g carb Cottage Cheese 1/2 c [place] 2% 13g protein 7g carb Valerie 2% 13g protein 5 g carb Good Culture 2% 14g protein 3g carb Delgado s Low Fat 12g protein & 4g carb Legumes Lentils cup 9g protein & 20g carb Gil beans cup 7g protein & 20g carb Kidney, Black, [place], Cannellini beans cup 8g protein & 20g carb Soybeans 1/2 c 14g complete protein & 8.5g carb [place] milk, unsweetened 8 oz 1g protein & 2g carb Soy milk 8 oz 3.5g protein & 1.6g carb Tofu 1/2 cup 10g protein & 2.3g carb Peanut butter, natural 2 Tbsp 7-8g protein & 4g net carbs, 190 calories PB2 powder 2 Tbsp 6g protein & 5g carb Nuts and Seeds per oz Almonds - 5.9g protein & 6.1g carb [place] Nuts - 4.0g protein & 3.4g carb Cashews - 5.1g protein & 9.2g carb Hazelnuts - 4.2g protein & 4.7g carb Hemp seeds/hearts 3 T/30 gms - 9.5 gm complete protein and 2.5 gm carb Peanuts - 7g protein & 4.6g carb Pecans - 2.6g protein & 3.9g carb Pistachios - 5.8g protein & 7.8g carb Pumpkin Seeds - 6.9g protein & 5g carb [place] Seeds - 5.8g protein & 5.6g carb Walnuts - 4.3g protein & 3.8g carb Edamame Beans (soybean) snack 1 pack 11 gm complete protein 2 carb High Protein Snack Ideas 1. Jerky 2. [place] mix without dried fruit 3. Novice roll-ups 4. [place] yogurt 5. Veggies and yogurt dip 6. Tuna 7. Hard-boiled eggs 8. Peanut butter with celery 9. Cheese slices/ Cheese Stick 10. Handful of almonds, peanuts or walnuts 11. Cottage Cheese 12. Beef sticks 13. Protein bars 14. Canned [place] 15. Pumpkin seeds 16. Nut butter 17. Protein shakes 18. Avocado and chicken salad 19. Egg muffins 20. Leftover protein or lunch meat 21. 1/2 c blended cottage cheese or [place] yogurt with dry ranch/Mrs. Dash/herb seasoning mix to make protein dip 22. 1/2 c blended cottage cheese with 1 Tbsp sugar-free dry cheesecake pudding mix 12g protein 10 carb 23. Pudding - 1 30 gm protein shake with 1/2 pkg sugar-free pudding 4 svgs - 7.8 gm protein, 5 carb each svg 24. SF Sunkist or Root Beer with 1-2 Tablespoons heavy whipping cream 25. Mini frozen dessert bites - layer protein yogurt, skinny syrup and crushed nuts and freeze VEGAN PROTEIN LIST SOY Tempeh: 17g protein 8g carbohydrate in 1/2 cup, Shelled [place]ame: 9g Protein, 8g carbohydrate in 1/2cup Tofu: 9g protein,2 g carbohydrate per 3oz Soy Milk: 7g Protein, 15g carbohydrate in 1 cup Nutritional Yeast 8g Protein, 5g Carbohydrate in 2TBSP (16g) Seitan 30g Protein, 6.8g Carbohydrate in 1/2 cup Whole Grains Quinoa: 8g protein in 1cup Wild rice 6.5g protein in 1 cup Legumes Lentils 12g protein, 23g carbohydrate in 1/2 cup cooked Chickpea 6g protein, 17g carbohydrate in 1/2 cup cooked Black Beans 7g protein, 19g carbohydrate in 1/2 cup cooked Green Split peas 8g protein, 22g carbohydrate in 1/2 cup cooked Gil Stearns 8g protein, 20g carbohydrate in 1/2 cup cooked Seeds Pumpkin 8g protein, 3 carbohydrate in 1/4cup Hemp 9g protein, 3 carbohydrate in 3 Tablespoons Tahini 10g protein, 3 carbohydrate in 2 Tablespoons Tim 5g protein, 10g carbohydrate in 2 tablespoons Nuts Almonds 6g protein, 6g carbohydrate in 1/4cup Walnuts 4g protein, 4g carbohydrate in 1/4cup Cashew 4g protein, 9g carbohydrate in 1/4cup Peanuts 8g protein, 5g carbohydrate in 1/4cup Peanut butter 7g protein, 6g carbohydrate in 2 TBSP Potatoes Russet potato- 1 medium (173g) 4.5g protein, 37g carbohydrate Red Potato- 1 large (299g) 6.9g protein, 59g carbohydrate Sweet Potato - 1 medium (114g) 2.3g protein, 24g carbohydrate Sprouted grain bread Ari bread- per slice 5g protein, 15g carbohydrate Vegetables Artichoke- 4.2g protein, 13g carbohydrate in 1 medium (128g) Green Peas- 8g protein, 21g carbohydrates in 1 cup Brussel Sprouts - 3g protein, 8g carbohydrate in 1 cup [place]- 4.3g protein, 19g carbohydrate in 1/2cup Spinach- 1g protein, 1g carbohydrate in 1 cup 3g carb8g carb 20g protein, 4 carbohydrate per scoop QUICK VEGAN PROTEIN PRODUCTS/SNACKS: NOT high in protein- BUT LOW CARB SUBSTITUTE FOR NOODLES 10 [place] Ways to Stop Eating Late at Night Many people find themselves eating late at night, even when they are not hungry. Nighttime eating can cause you to eat more calories than you need, which can lead to weight gain. Here are 10 things you can do to stop eating late in the evening or at night. 1. Identify the cause Some people eat most of their food late in the evening or during the night. To change this habit, you need to identify the cause of the problem. Nighttime eating may be the result of overly restricted daytime food intake, leading to hunger at night. Habit or boredom may also be the cause. However, nighttime eating has also been linked to some eating disorders, including binge eating disorder and night eating syndrome (1Trusted Source, 2Trusted Source, 3Trusted Source). These two disorders are characterized by different eating patterns and behaviors, but they can have the same negative effects on your health (4Trusted Source, 5Trusted Source). In both, people use food to curb emotions such as sadness, anger or frustration, and they often eat even when they are not hungry. Binge eaters also tend to eat very large amounts of food in one sitting and feel out of control while they are eating (6Trusted Source). On the other hand, people with nighttime eating syndrome tend to graze throughout the evening and wake up during the night to eat, consuming at least 25% of their daily calories at night (7Trusted Source, 8Trusted Source). Both conditions have been linked to obesity, depression, and trouble sleeping. SUMMARY Nighttime eating can be caused by boredom, hunger, binge eating disorder and nighttime eating syndrome. Identifying the cause can help you take the right steps to solve the problem. 2. Identify your triggers As well as identifying the overall cause of your overeating, you may find it useful to look for a specific pattern of events that usually sets off your eating behavior. People reach for food for many reasons. If you re not hungry but nonetheless find yourself eating at night, think about what led up to it. Often you will find you are using food to meet a need that is not hunger (9Trusted Source). With nighttime eating syndrome, your entire eating pattern may be delayed due to your lack of daytime hunger (10Trusted Source, 11Trusted Source). One effective way to identify the cause of your nighttime eating and the things that trigger it is to keep a food and mood diary (12Trusted Source, 13Trusted Source). Tracking your eating and exercise habits alongside your feelings can help you identify patterns, enabling you to work on breaking any negative cycles of behavior. SUMMARY Monitoring your behavior patterns and identifying what triggers you to eat at night will help you break cycles of emotional eating. 3. Use a routine If you re overeating because you aren t eating enough during the day, getting yourself into a routine may be helpful. Structured eating and sleeping times can help you spread your food intake over the day so that you re less hungry at night. Getting good quality sleep is vital when it comes to managing your food intake and weight. According to a 2015 review of studies, lack of sleep and short sleep duration have been linked to higher calorie intake and poor-quality diets. Over a long period of time, poor sleep can increase your risk for developing obesity and related chronic diseases. However, as the review noted, though sleep plays an important part in eating patterns, other factors are involved such as appetite-related hormones and time frames around food intake. (14Trusted Source). Having set times for eating and sleeping can help you separate the two activities, especially if you are prone to waking in the night to eat. SUMMARY Having a routine for meal and sleep times can help you break unhealthy cycles of behavior. This can help if you have no appetite during the day or tend to binge at night. 4. Plan your meals As part of your routine, you may also benefit from using a meal plan. Planning your meals and eating healthy snacks can help reduce the chances that you will eat on impulse and make poor food choices (15Trusted Source). A 2013 study looked at the relationship between food and impulsivity. Study participants were people with overweight or obesity who either had BED or didn t have the condition. Results showed that the mere sight of food can act as a trigger for the body s reward and disinhibition responses. Researchers observed this happened more often in participants who had BED. (16Trusted Source). Having a meal plan can also reduce any anxiety about how much you are eating and help you spread your food throughout the day, keeping hunger at bay. SUMMARY Planning your meals and snacks can help manage your food intake and stave off hunger. 5. Seek emotional support If you think you may have nighttime eating syndrome or binge eating disorder, you may want to speak with a doctor. If needed, they can refer you to a mental health professional who can help you identify your triggers and implement a treatment plan. These plans often use cognitive behavioral therapy (CBT), which has been shown to help with many eating disorders. In a 2014 randomized controlled study, researchers compared the rapid-response and long-term impact of using three different therapeutic treatment methods, including CBT, in treating 205 people with confirmed BED diagnoses. Results showed the best outcomes, both short term (rapid response) and intermediate (remission), resulted from the use of CBT. (17Trusted Source, 18Trusted Source, 19Trusted Source, 20Trusted Source). Creating an emotional support network will also help you find ways to manage negative emotions, which otherwise might lead you to the fridge (21Trusted Source). SUMMARY For some people with eating disorders, seeking professional help and support can be wilson to overcoming problematic eating at night. 6. De-Stress Anxiety and stress are two of the most common reasons why people eat when they are not hungry. However, using food to curb your emotions generally tends to be a temporary solution. If you notice that you eat when you are anxious or stressed, try to find another way to let go of negative emotions and relax. Research has shown that relaxation techniques can help manage eating disorders such as nighttime eating syndrome and binge eating. In a 2002 study, 20 people with a confirmed diagnosis of night eating syndrome (FERNANDO) were randomly assigned to one of two groups for an equal amount of time over a period of 2 weeks. One group received Abbreviated Progressive Muscle Relaxation Therapy (APRT), while the second group was placed in a controlled relaxation environment that provided similar benefits. Results showed that with just 20 minutes of APRT, participants benefited from lower stress levels. Over the 8-day period of practicing this technique daily, participants showed higher morning and lower nighttime hunger rates. (22Trusted Source, 23Trusted Source, 24Trusted Source). Relaxation techniques you may find useful include: breathing exercises meditation hot baths yoga gentle exercise stretching SUMMARY Instead of eating, try to deal with stress and anxiety using relaxation techniques, gentle exercise, or stretching. 7. Eat regularly throughout the day Overeating at night has been linked to erratic eating patterns that can often be categorized as disordered eating (25Trusted Source). Eating at planned intervals throughout the day in line with normal eating patterns can help keep your blood sugar stable. It can also help prevent you from feeling famished, tired, irritable or having a perceived lack of food, which may lead to a binge (26Trusted Source). When you get really hungry, you are more likely to make poor food choices and reach for high fat, high sugar and processed foods (27Trusted Source). Studies find that those with regular meal times (eating 3 or more times per day), have better appetite control and lower weight (28Trusted Source, 29Trusted Source). Generally speaking, eating less than 3 times per day is thought to reduce your ability to manage your appetite and food choices (30Trusted Source, 31Trusted Source). However, it s important to note that results in this area have been mixed. The best eating frequency for managing hunger and the amount of food consumed is likely to vary among people (32Trusted Source, 33Trusted Source). SUMMARY Eating regular meals will prevent you from getting too hungry and will help you manage your cravings and food impulses. 8. Include protein at every meal Different foods can have different effects on your appetite. If you eat due to hunger, including protein at every meal may help curb your hunger. It could also help you feel more satisfied throughout the day, stop you from being preoccupied with food and help prevent snacking at night (34Trusted Source). A 2011 study looked at consuming high-protein (HP) vs. normal-protein (PRODUCTION WELDER) meals and the frequency of consuming them to determine if the effect of this combination method on managing hunger. The study involved 47 men who were overweight or had obesity. Results found that eating high-protein meals reduced cravings by 60% and cut the desire to eat at night by half, but frequency did not significantly impact outcomes overall (35Trusted Source). SUMMARY Protein is known to keep you garcia for longer. Including protein at every meal can help reduce cravings and nighttime eating. 9. Stock up on healthy snacks that are readily accessible If you are prone to eating high fat, high sugar and highly processed foods, try to limit your consumption. If snacks with low nutritional value are not within easy reach, you are much less likely to eat them. Instead, fill your house with nutrient-rich food that you enjoy. Then when you have the urge to eat, you won t snack on junk. Good snack-friendly foods to have available if you get hungry include fruits, nuts, berries, plain yogurt and cottage cheese. SUMMARY Try to avoid bringing low-nutrient food choices into your home. If less nutritious snacks are not within arm s reach you won t be tempted to eat them. 10. Distract yourself If you are preoccupied with thoughts of food because you re bored, then find something else you enjoy doing in the evening. Try going for a walk, calling a friend, reading or researching recipes for healthy recipes. This will help keep your mind occupied. Finding a new hobby or planning evening activities can help prevent mindless late-night snacking. SUMMARY If you are eating out of boredom, then try finding something else you enjoy doing in the evening to keep your mind occupied. The bottom line Nighttime eating has been linked to excess calorie intake, developing obesity, and poor health. If eating at night is a problem for you, considering trying the steps above. They may help you in better managing your nighttime eating patterns. [email or web address] documented in this encounter [facility] 09-17-2024 History of Present illness Narrative Radiology Service Progress Note PATIENT NAME: Estella Robles DATE OF SERVICE: September 17, 2024 TIME: 9:35 AM PATIENT IDENTITY VERIFICATION COMPLETED USING TWO (2) IDENTIFIERS: Name and Date of confirmed by patient verbally. FALL SCREENING: Has the patient had 2 falls in the last year or 1 fall with injury or currently using an Ambulatory Assistive Device (Walker, Cane, Wheelchair, Crutches, etc.)? No PATIENT GENDER DATA: Female. status: : No status: NO. PATIENT RELEVANT IMPLANT DATA REVIEWED: Not Applicable PATIENT PRESENTS WITH AN IMPLANTABLE OR ATTACHED BUILDING SERVICES COORDINATOR: No RADIOLOGY DEPARTMENT: Mammography PERIPHERAL IV DATA: Not applicable SIGNED BY: Cruz Cuadra September 17, 2024 9:35 AM documented in this encounter [facility] 09-17-2024 Note HNO ID: [id number] Author: YUNIOR AGUILAR Mammo Tech Service: ? Author Type: Drive In Theater Attendant Type: Progress Notes Filed: 09/17/2024 09:35 Note Text: Radiology Service Progress Note PATIENT NAME: Estella Robles DATE OF SERVICE: September 17, 2024 TIME: 9:35 AM PATIENT IDENTITY VERIFICATION COMPLETED USING TWO (2) IDENTIFIERS: Name and Date of confirmed by patient verbally. FALL SCREENING: Has the patient had 2 falls in the last year or 1 fall with injury or currently using an Ambulatory Assistive Device (Walker, Cane, Wheelchair, Crutches, etc.)? No PATIENT GENDER DATA: Female. status: : No status: NO. PATIENT RELEVANT IMPLANT DATA REVIEWED: Not Applicable PATIENT PRESENTS WITH AN IMPLANTABLE OR ATTACHED BUILDING SERVICES COORDINATOR: No RADIOLOGY DEPARTMENT: Mammography PERIPHERAL IV DATA: Not applicable SIGNED BY: Yunior Aguilar [employer] September 17, 2024 9:35 AM [facility] 09-17-2024 Note HNO ID: [id number] Author: IRINA VELASQUEZ MD Service: ? Author Type: Physician Type: Progress Notes Filed: 09/17/2024 11:00 Note Text: Estella is a 44 year old who presents for an annual gynecologic exam notes that she has had some improvement w/ the wellbutrin with just some lightheadedness Menses: some heavier than others OB History T4 L4 SAB1 IAB0 Ectopic0 Multiple0 Live Births4 Private Watchman History LMP: 09/07/2024 (Within Days), Having periods Age at Menarche: Age at First : Age at Menopause: Private Watchman History Comments: Sexual Activity: Yes; Male; bilateral salpingectomy at c/s Contraception: Tubal Ligation PAST MEDICAL HISTORY Diagnosis Date Anemia Depression 2002 took meds only couple weeks Fissure, anal 2012 Hemorrhoid History of blood transfusion 2012 H/o transfusion after first c/s 2 units IBS (irritable bowel syndrome) PMH - PAST MEDICAL HISTORY OF [place] disease (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) PMH - PAST MEDICAL HISTORY OF Slipped lumbar disc depression hemorrhage PAST SURGICAL HISTORY Procedure Laterality Date DELIVERY ONLY 10/24/2012 , low transverse DELIVERY ONLY 01/15/2016 , low transverse DELIVERY ONLY 08/28/2018 RC/S low transverse COLONOSCOPY SCREENING 06/04/2024 repeat 10 years EGD W/O BRSH SPEC VARICIES INJ 06/04/2024 EXTRACTION, ERUPTED TOOTH OR EXPOSED ROOT (ELEVATION AND/OR FORCEPS REMOVAL) @ 21yrs of age SALPINGECTOMY COMPLETE/PARTIAL UNI/BI SPX Bilateral 08/28/2018 FAMILY HISTORY Problem Relation Age of Onset Hypertension Mother Hypertension Father Seizures Sister Heart Sister Cancer Maternal Grandmother colon Diabetes Maternal Grandfather Diabetes Paternal Grandmother Heart Paternal Grandmother Hypertension Paternal Grandmother Diabetes Paternal Grandfather Heart Paternal Grandfather fatal [place] Asthma Son Allergies Son Asthma Son Allergies Son Allergies Son SOCIAL HISTORY Social History Tobacco Use Smoking status: Never Smokeless tobacco: Never Vaping Use Vaping status: Never Used Substance Use Topics Alcohol use: No Drug use: No REVIEW OF SYSTEMS Abdomen: No abdominal pain, nausea, vomiting, diarrhea, or constipation. No bloating, early satiety, indigestion, or increased flatulence. Bladder: No dysuria, gross hematuria, urinary frequency, urinary urgency, or incontinence. Breast: No breast lumps, nipple d/c, overlying skin changes, redness or skin retraction. Allergies and current medication updated:Yes SENSITIVE EXAM: The sensitive examination was discussed with the Patient or Patient's Authorized Funding Specialist. As applicable, any other physician, advance practice provider, medical student, or other health professional student that will be observing or involved in the sensitive examination for educational or training purposes was discussed with the Patient or Authorized Funding Specialist. The Patient or Authorized Funding Specialist has agreed to proceed with the sensitive examination. (Sensitive examination includes inspection and/or palpation of the breasts, pelvis, prostate and anorectal regions). EXAM: BP 114/78 Wt 205 lb (93.0kg) LMP 09/07/2024 GENERAL: pleasant, female in no apparent distress HEENT: Normocephalic, atraumatic, mucus membranes moist, and no lesions NECK: Supple, full range of motion, no adenopathy, and thyroid normal DERMATOLOGY: Normal, without lesions, non-icteric, and non-hirsute BREAST: soft, non-tender, symmetric, no dominant mass, normal nipple-areolar complex, no lymphadenopathy, and no nipple discharge CHEST: Normal inspiratory effort ABDOMEN: soft, non-tender, and no masses PELVIC: external genitalia normal, normal Bartholin's glands, urethra, [place]'s glands, no vulvar lesions, no cervical lesions, good vaginal support, physiologic discharge present, normal appearing perineal body and perianal region BIMANUAL: uterus normal size, shape and consistency, no adnexal masses, and non-tender RECTOVAGINAL: deferred. NEURO: alert and oriented x3,exam grossly non-focal EXTREMITIES: normal ASSESSMENT/PLAN: 1) Health maintenance: Pap/HPV up to date. Mammogram ordered. 2) Contraception: tubal sterilization. Contraceptive options reviewed and information provided. 3) STD screening: Declined STD check. 4) Follow up one year or sooner as needed trial welbutrin daily as some depression and still interested in wt management Irina Velasquez MD [facility] 09-17-2024 History of Present illness Narrative Estella is a 44 year old who presents for an annual gynecologic exam notes that she has had some improvement w/ the wellbutrin with just some lightheadedness Menses: some heavier than others OB History T4 L4 SAB1 IAB0 Ectopic0 Multiple0 Live Births4 Private Watchman History LMP: 09/07/2024 (Within Days), Having periods Age at Menarche: Age at First : Age at Menopause: Private Watchman History Comments: Sexual Activity: Yes; Male; bilateral salpingectomy at c/s Contraception: Tubal Ligation PAST MEDICAL HISTORY Diagnosis Date Anemia Depression 2002 took meds only couple weeks Fissure, anal 2013 Hemorrhoid History of blood transfusion 2012 H/o transfusion after first c/s 2 units IBS (irritable bowel syndrome) PMH - PAST MEDICAL HISTORY OF [place] disease (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) PMH - PAST MEDICAL HISTORY OF Slipped lumbar disc depression hemorrhage PAST SURGICAL HISTORY Procedure Laterality Date DELIVERY ONLY 10/24/2012 , low transverse DELIVERY ONLY 01/15/2016 , low transverse DELIVERY ONLY 08/28/2018 RC/S low transverse COLONOSCOPY SCREENING 06/04/2024 repeat 10 years EGD W/O BRSH SPEC VARICIES INJ 06/04/2024 EXTRACTION, ERUPTED TOOTH OR EXPOSED ROOT (ELEVATION AND/OR FORCEPS REMOVAL) @ 21yrs of age SALPINGECTOMY COMPLETE/PARTIAL UNI/BI SPX Bilateral 08/28/2018 FAMILY HISTORY Problem Relation Age of Onset Hypertension Mother Hypertension Father Seizures Sister Heart Sister Cancer Maternal Grandmother colon Diabetes Maternal Grandfather Diabetes Paternal Grandmother Heart Paternal Grandmother Hypertension Paternal Grandmother Diabetes Paternal Grandfather Heart Paternal Grandfather fatal [place] Asthma Son Allergies Son Asthma Son Allergies Son Allergies Son SOCIAL HISTORY Social History Tobacco Use Smoking status: Never Smokeless tobacco: Never Vaping Use Vaping status: Never Used Substance Use Topics Alcohol use: No Drug use: No REVIEW OF SYSTEMS Abdomen: No abdominal pain, nausea, vomiting, diarrhea, or constipation. No bloating, early satiety, indigestion, or increased flatulence. Bladder: No dysuria, gross hematuria, urinary frequency, urinary urgency, or incontinence. Breast: No breast lumps, nipple d/c, overlying skin changes, redness or skin retraction. Allergies and current medication updated:Yes SENSITIVE EXAM: The sensitive examination was discussed with the Patient or Patient's Authorized Funding Specialist. As applicable, any other physician, advance practice provider, medical student, or other health professional student that will be observing or involved in the sensitive examination for educational or training purposes was discussed with the Patient or Authorized Funding Specialist. The Patient or Authorized Funding Specialist has agreed to proceed with the sensitive examination. (Sensitive examination includes inspection and/or palpation of the breasts, pelvis, prostate and anorectal regions). EXAM: BP 114/78 Wt 205 lb (93.0kg) LMP 09/07/2024 GENERAL: pleasant, female in no apparent distress HEENT: Normocephalic, atraumatic, mucus membranes moist, and no lesions NECK: Supple, full range of motion, no adenopathy, and thyroid normal DERMATOLOGY: Normal, without lesions, non-icteric, and non-hirsute BREAST: soft, non-tender, symmetric, no dominant mass, normal nipple-areolar complex, no lymphadenopathy, and no nipple discharge CHEST: Normal inspiratory effort ABDOMEN: soft, non-tender, and no masses PELVIC: external genitalia normal, normal Bartholin's glands, urethra, [place]'s glands, no vulvar lesions, no cervical lesions, good vaginal support, physiologic discharge present, normal appearing perineal body and perianal region BIMANUAL: uterus normal size, shape and consistency, no adnexal masses, and non-tender RECTOVAGINAL: deferred. NEURO: alert and oriented x3,exam grossly non-focal EXTREMITIES: normal ASSESSMENT/PLAN: 1) Health maintenance: Pap/HPV up to date. Mammogram ordered. 2) Contraception: tubal sterilization. Contraceptive options reviewed and information provided. 3) STD screening: Declined STD check. 4) Follow up one year or sooner as needed trial welbutrin daily as some depression and still interested in wt management Irina Velasquez MD documented in this encounter [facility] 06-13-2024 History of Present illness Narrative FOLLOW UP VISIT - ENDOSCOPY Estella Robles 1980 [id number] REFERRING PHYSICIAN: Shannan Cox [address] [facility] [address] Estella Robles is a patient I am following for BRBPR, dysphagia. Dr. Cox performed upper & lower endoscopy on 06/04/24. The patient was found to have EGD Impression: - Normal first portion of the duodenum, second portion of the duodenum and third portion of the duodenum. - Erythematous mucosa in the antrum. Biopsied. - Small hiatal hernia. Biopsied esophagus. COLONOSCOPY Impression: - Non-bleeding internal hemorrhoids. - No specimens collected. PATHOLOGY FINAL DIAGNOSIS A. Gastric antrum, biopsy: - No significant pathologic change. - No morphologic evidence of Helicobacter pylori. B. Esophagogastric junction, biopsy: - Fragments of fundic-type mucosa and scant fragments of superficial squamous mucosa. - No evidence of intestinal metaplasia or dysplasia. - No evidence of eosinophilia. C. Mid esophagus, biopsy: - Fragments of unremarkable squamous mucosa. - No evidence of eosinophilia. JORJE/[facility] 06/05/2024 The patient notes no complaints since the procedure. VITALS: There were no vitals taken for this visit. General: patient is alert, cooperative, pleasant and in no acute distress On examination, the abdomen is benign. Assessment ASSESSMENT/PLAN: 1. BRBPR (bright red blood per rectum) - ICD9: 569.3, ICD10: K62.5 - most likely from hemorrhoids d/t seeing it with wiping. Keep stools soft and regular, avoid straining. The operative findings and pathology report were reviewed with the patient, and the patient has had the opportunity to ask questions and have questions answered. If the patient notes any problems or changes in bowel function, the patient should contact me immediately. Otherwise I recommend follow up upper endoscopy as symptoms dictate & colonoscopy in 5 years due to family history. HM updated and recall letter generated. Discussed treatment plan and patient voices understanding. Patient's questions answered appropriately. Medications and potential side effects were discussed and patient voices understanding. Return to the office as scheduled or as needed for worsening/no improvement. Susan Richard APRN.[employer] documented in this encounter [facility] 06-13-2024 Note HNO ID: [id number] Author: USSAN RICHARD APRN.GIN Service: ? Author Type: Nurse Practitioner Type: Progress Notes Filed: 06/13/2024 09:49 Note Text: FOLLOW UP VISIT - ENDOSCOPY Estella Robles 1980 [id number] REFERRING PHYSICIAN: Shannan Cox [address] [facility] [address] Estella Robles is a patient I am following for BRBPR, dysphagia. Dr. Cox performed upper AND lower endoscopy on 06/04/24. The patient was found to have EGD Impression: - Normal first portion of the duodenum, second portion of the duodenum and third portion of the duodenum. - Erythematous mucosa in the antrum. Biopsied. - Small hiatal hernia. Biopsied esophagus. COLONOSCOPY Impression: - Non-bleeding internal hemorrhoids. - No specimens collected. PATHOLOGY FINAL DIAGNOSIS A. Gastric antrum, biopsy: - No significant pathologic change. - No morphologic evidence of Helicobacter pylori. B. Esophagogastric junction, biopsy: - Fragments of fundic-type mucosa and scant fragments of superficial squamous mucosa. - No evidence of intestinal metaplasia or dysplasia. - No evidence of eosinophilia. C. Mid esophagus, biopsy: - Fragments of unremarkable squamous mucosa. - No evidence of eosinophilia. JORJE/[facility] 06/05/2024 The patient notes no complaints since the procedure. VITALS: There were no vitals taken for this visit. General: patient is alert, cooperative, pleasant and in no acute distress On examination, the abdomen is benign. Assessment ASSESSMENT/PLAN: 1. BRBPR (bright red blood per rectum) - ICD9: 569.3, ICD10: K62.5 - most likely from hemorrhoids d/t seeing it with wiping. Keep stools soft and regular, avoid straining. The operative findings and pathology report were reviewed with the patient, and the patient has had the opportunity to ask questions and have questions answered. If the patient notes any problems or changes in bowel function, the patient should contact me immediately. Otherwise I recommend follow up upper endoscopy as symptoms dictate AND colonoscopy in 5 years due to family history. HM updated and recall letter generated. Discussed treatment plan and patient voices understanding. Patient's questions answered appropriately. Medications and potential side effects were discussed and patient voices understanding. Return to the office as scheduled or as needed for worsening/no improvement. Susan Richard APRN.[employer] [facility] 06-04-2024 Note HNO ID: [id number] Author: NOEMY HUITRON RN Service: ? Author Type: Registered Nurse Type: Nursing Progress Note Filed: 06/04/2024 12:29 Note Text: pt arrived to phase 2 resting, awake. SR up x 2, call light in reach. Noemy Huitron RN [facility] 06-04-2024 Nurse Note pt arrived to phase 2 resting, awake. SR up x 2, call light in reach. Noemy Huitron RN [facility] 06-04-2024 Nurse Note pt arrived to phase 2 resting, awake. SR up x 2, call light in reach. Noemy Huitron RN documented in this encounter [facility] 06-04-2024 Attending History and physical note UPDATED PROCEDURAL SEDATION HISTORY AND PHYSICAL EXAMINATION SERVICE DATE: 06/04/2024 SERVICE TIME: 11:29 PHYSICAL EXAM MUST BE COMPLETED ON ADMISSION PROCEDURE: EGd and colonoscopy, possible biopsies Procedure Indications: screening for colno cancer, heartburn The History and Physical (completed in the past 30 days) has been reviewed and the patient has been examined. The contents accurately reflect the patient's condition with the following additions or revisions since the H&P was completed. ASA Class: ASA Class: Patient with mild systemic disease Examination indicates no changes. AIRWAY: Airway Visualization of Uvula: Yes Mouth opening greater than 2 fingerbreadths: Yes Neck Full Range of Motion: Yes LUNGS: Lungs clear to auscultation CARDIAC: Regular rhythm,Regular rate Provisional Diagnosis/Treatment Plan: EGD/colonosocpy, possible biopsies Sedation Goal: Moderate This H&P can be found in the Electronic Medical Record . SIGNATURE: Shannan Cox MD PATIENT NAME: Estella Robles DATE: June 04, 2024 TIME: 11:29 AM Source Note - Shannan Cox MD - 06/04/2024 11:30 AM EDT HISTORY AND PHYSICAL Estella Robles : 1980 REFERRING PHYSICIAN: Irina [address] [facility] [id number] CHIEF COMPLAINT: Patient presents with: Consult: Colonoscopy consultation, blood in stool, family history of colon cancer. HPI: Estella is a 44 year old female referred for endoscopy. Estella notes blood in stools. Estella states that she was on vacation in March when she had 2 episodes of BRBPR when wiping followed by an episode of bright red blood in the toilet. Estella also refers that frequently when she is eating she will choke on the food, this does not happen with water Only also refers that after eating she will get upset stomach with mild allover abdominal pain that relieves on its own. Denies any change in bowel habits, weight changes, black tarry stools. Denies reflux Refers family history of colon issues.-Maternal grandmother with colon cancer Estella has not undergone prior endoscopy. CURRENT MEDICATIONS Current Outpatient Medications Medication Sig buPROPion SR (WELLBUTRIN SR) 100 mg 12 hr tablet Take 1 tablet by mouth once daily as needed (for symptoms). No current facility-administered medications for this visit. ALLERGIES: Iodine PAST MEDICAL HISTORY PAST MEDICAL HISTORY No date: Anemia 2003: Depression Comment: took meds only couple weeks 2013: Fissure, anal No date: Hemorrhoid 2013: History of blood transfusion Comment: H/o transfusion after first c/s 2 units No date: IBS (irritable bowel syndrome) No date: PMH - PAST MEDICAL HISTORY OF Comment: [place] disease (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) No date: PMH - PAST MEDICAL HISTORY OF Comment: Slipped lumbar disc No date: depression No date: hemorrhage PAST SURGICAL HISTORY PAST SURGICAL HISTORY 10/24/12: DELIVERY ONLY Comment: , low transverse 01/15/16: DELIVERY ONLY Comment: , low transverse 08/28/2018: DELIVERY ONLY Comment: RC/S low transverse No date: EXTRACTION, ERUPTED TOOTH OR EXPOSED ROOT (ELEVATION AND/OR FORCEPS REMOVAL) Comment: @ 21yrs of age 1208/28/2018: SALPINGECTOMY COMPLETE/PARTIAL UNI/BI SPX; Bilateral FAMILY HISTORY FAMILY HISTORY Problem Relation Age of Onset Hypertension Mother Hypertension Father Seizures Sister Heart Sister Cancer Maternal Grandmother colon Diabetes Maternal Grandfather Diabetes Paternal Grandmother Heart Paternal Grandmother Hypertension Paternal Grandmother Diabetes Paternal Grandfather Heart Paternal Grandfather fatal [place] Asthma Son Allergies Son Asthma Son Allergies Son Allergies Son SOCIAL HISTORY Social History Tobacco Use Smoking status: Never Smokeless tobacco: Never Vaping Use Vaping status: Never Used Substance Use Topics Alcohol use: No Drug use: No REVIEW OF SYMPTOMS: The review of systems data was entered by the nurse and reviewed by hi Nursing Notes: Edna Paula RN 05/03/2024 10:01 AM Signed REVIEW OF SYSTEMS: General: The patient denies fatigue, denies weight loss, denies weight gain, denies feeling hot, and denies feelings of cold. Eyes: The patient denies glaucoma, denies eye injury/surgery, does not wear glasses or contacts. Ear/Nose/Throat: The patient NOTES allergies, denies hayfever, denies ear infections, and denies bloody noses. Cardiovascular: The patient denies chest pain, denies heart disease, denies high blood pressure,denies cardiac stent, denies prior heart attack, denies irregular heart beat, denies high cholesterol, denies poor circulation, denies heart failure, other cardiac issues, denies claudication, denies cold feet, denies peripheral arterial stent. Respiratory: The patient denies tuberculosis, denies pneumonia, denies frequent cough, denies pulmonary embolism, denies shortness of breath, and denies coughing up blood. Gastrointestinal: The patient denies difficulty swallowing, denies acid reflux, denies ulcers, denies vomiting, denies jaundice/hepatitis, denies gallbladder problems, denies black or tarry stools, NOTES hemorrhoids, NOTES bleeding from rectum, denies diverticulitis, denies constipation, denies diarrhea, denies loss of stool control, denies hernias, and NOTES IBS. Kidney/Bladder: The patient denies kidney stones, denies urine infections, and denies bloody urine. Skin: The patient denies a history of skin cancer, denies bleeding/changing moles, and denies a history of skin rash. Neurologic: The patient denies a history of epilepsy/convulsions, denies headaches, denies head/spinal injuries, and denies stroke/TIA. Psychiatric: The patient denies psychiatric medications, NOTES depression, and denies voices, denies substance abuse. Endocrine: The patient denies thyroid disorders, denies diabetes, and denies hormonal problems. Hematologic: The patient denies a history of bruising, denies bleeding, and NOTES anemia, denies blood clots. Infections: The patient denies a history of measles and mumps, denies rheumatic fever, and denies sexually transmitted diseases. Musculoskeletal: The patient NOTES back pain/injury, NOTES back problems, denies sciatica, denies knee/foot trouble, denies arthritis, or denies gout. When was patient's last Mammogram screening? 02/01/2023 Last Colonoscopy: None Edna Paula RN PHYSICAL EXAMINATION: General: The patient is 44 year old, female well nourished, well hydrated in no acute distress. The patient is oriented to time, place, and person. VITALS: Blood pressure 118/70, pulse 97, temperature 36.7 C (98 F), height 156.2 cm (5' 1.5), weight 95.2 kg (209 lb 12.8 oz), last menstrual period 04/12/2024, SpO2 98%. Body mass index is 39 kg/m . HEENT: Normal cephalic, ataumatic, pupils are equally round, sclera are anicteric, mucous membranes are moist, oropharynx is clear. Neck has no masses, asymmetry or lymphadenopathy. Respiratory: Clear to auscultation and percussion. Normal respiratory excursion and pattern. Cardiac: Examination is regular rate and rhythm. Normal S1/S2 Abdominal exam: Soft, nontender, with no palpable masses. No hepatosplenomegaly. No palpable hernias. Extremities: no clubbing, cyanosis or edema. No adenopathy. LABORATORY VALUES: As Noted RADIOLOGIC STUDIES: As Noted Assessment IMPRESSION: BRBPR, blood in stool, screen for colon cancer, dysphagia PLAN: I have reviewed my findings with the surgeon. Will plan for upper and lower endoscopy. We discussed the risks and benefits of the planned endoscopy. I have informed the patient that complications can occur including failure to complete the endoscopy and perforation. Estella had the opportunity to ask questions concerning the planned endoscopy. My staff has also explained the procedure to the patient in understandable terms and has given the patient printed material concerning the procedure. Estella freely consents to surgery. I plan to use GoLytely bowel preparation I have explained to the patient the difference between IV conscious sedation and MAC anesthesia - and I have offered either, according to the patient's wishes. I have explained that with IV conscious sedation there is no anesthesia provider available and therefore there is a limitation of the amount of IV medications that can be given and that the patient may wake up in the middle of the procedure and/or experience pain/discomfort during the procedure. Further discussion was done and the patient was given the opportunity to ask questions and all questions were answered. Estella chooses IV conscious sedation Estella was counseled that if there are changes in his/her medical condition, to let the office know if surgery should proceed. If there are changes in patient's medical condition from time of this encounter to the day of the procedure that preclude anesthesia, patient may have procedure cancelled for patient's safety. Diagnoses: (K92.1) Blood in stool (primary encounter diagnosis) (R13.10) Dysphagia, unspecified type (Z12.11) Screen for colon cancer (K62.5) BRBPR (bright red blood per rectum) Consultation requested by Dr. Velasquez for an opinion regarding blood in stool. My final recommendations will be communicated back to the requesting physician by way of shared Medical record or letter to requesting physician via US mail. Susan Richard APRN.[employer] [facility] 06-04-2024 History and physical note HISTORY AND PHYSICAL Estella Robles : 1980 REFERRING PHYSICIAN: [address] [facility] [id number] CHIEF COMPLAINT: Patient presents with: Consult: Colonoscopy consultation, blood in stool, family history of colon cancer. HPI: Estella is a 44 year old female referred for endoscopy. Estella notes blood in stools. Estella states that she was on vacation in March when she had 2 episodes of BRBPR when wiping followed by an episode of bright red blood in the toilet. Estella also refers that frequently when she is eating she will choke on the food, this does not happen with water Only also refers that after eating she will get upset stomach with mild allover abdominal pain that relieves on its own. Denies any change in bowel habits, weight changes, black tarry stools. Denies reflux Refers family history of colon issues.-Maternal grandmother with colon cancer Estella has not undergone prior endoscopy. CURRENT MEDICATIONS Current Outpatient Medications Medication Sig buPROPion SR (WELLBUTRIN SR) 100 mg 12 hr tablet Take 1 tablet by mouth once daily as needed (for symptoms). No current facility-administered medications for this visit. ALLERGIES: Iodine PAST MEDICAL HISTORY PAST MEDICAL HISTORY No date: Anemia 2003: Depression Comment: took meds only couple weeks 2013: Fissure, anal No date: Hemorrhoid 2013: History of blood transfusion Comment: H/o transfusion after first c/s 2 units No date: IBS (irritable bowel syndrome) No date: PMH - PAST MEDICAL HISTORY OF Comment: [place] disease (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) No date: PMH - PAST MEDICAL HISTORY OF Comment: Slipped lumbar disc No date: depression No date: hemorrhage PAST SURGICAL HISTORY PAST SURGICAL HISTORY 10/24/12: DELIVERY ONLY Comment: , low transverse 01/15/16: DELIVERY ONLY Comment: , low transverse 08/28/2018: DELIVERY ONLY Comment: RC/S low transverse No date: EXTRACTION, ERUPTED TOOTH OR EXPOSED ROOT (ELEVATION AND/OR FORCEPS REMOVAL) Comment: @ 21yrs of age 1208/28/2018: SALPINGECTOMY COMPLETE/PARTIAL UNI/BI SPX; Bilateral FAMILY HISTORY FAMILY HISTORY Problem Relation Age of Onset Hypertension Mother Hypertension Father Seizures Sister Heart Sister Cancer Maternal Grandmother colon Diabetes Maternal Grandfather Diabetes Paternal Grandmother Heart Paternal Grandmother Hypertension Paternal Grandmother Diabetes Paternal Grandfather Heart Paternal Grandfather fatal [place] Asthma Son Allergies Son Asthma Son Allergies Son Allergies Son SOCIAL HISTORY Social History Tobacco Use Smoking status: Never Smokeless tobacco: Never Vaping Use Vaping status: Never Used Substance Use Topics Alcohol use: No Drug use: No REVIEW OF SYMPTOMS: The review of systems data was entered by the nurse and reviewed by hi Nursing Notes: Edna Paula RN 05/03/2024 10:01 AM Signed REVIEW OF SYSTEMS: General: The patient denies fatigue, denies weight loss, denies weight gain, denies feeling hot, and denies feelings of cold. Eyes: The patient denies glaucoma, denies eye injury/surgery, does not wear glasses or contacts. Ear/Nose/Throat: The patient NOTES allergies, denies hayfever, denies ear infections, and denies bloody noses. Cardiovascular: The patient denies chest pain, denies heart disease, denies high blood pressure,denies cardiac stent, denies prior heart attack, denies irregular heart beat, denies high cholesterol, denies poor circulation, denies heart failure, other cardiac issues, denies claudication, denies cold feet, denies peripheral arterial stent. Respiratory: The patient denies tuberculosis, denies pneumonia, denies frequent cough, denies pulmonary embolism, denies shortness of breath, and denies coughing up blood. Gastrointestinal: The patient denies difficulty swallowing, denies acid reflux, denies ulcers, denies vomiting, denies jaundice/hepatitis, denies gallbladder problems, denies black or tarry stools, NOTES hemorrhoids, NOTES bleeding from rectum, denies diverticulitis, denies constipation, denies diarrhea, denies loss of stool control, denies hernias, and NOTES IBS. Kidney/Bladder: The patient denies kidney stones, denies urine infections, and denies bloody urine. Skin: The patient denies a history of skin cancer, denies bleeding/changing moles, and denies a history of skin rash. Neurologic: The patient denies a history of epilepsy/convulsions, denies headaches, denies head/spinal injuries, and denies stroke/TIA. Psychiatric: The patient denies psychiatric medications, NOTES depression, and denies voices, denies substance abuse. Endocrine: The patient denies thyroid disorders, denies diabetes, and denies hormonal problems. Hematologic: The patient denies a history of bruising, denies bleeding, and NOTES anemia, denies blood clots. Infections: The patient denies a history of measles and mumps, denies rheumatic fever, and denies sexually transmitted diseases. Musculoskeletal: The patient NOTES back pain/injury, NOTES back problems, denies sciatica, denies knee/foot trouble, denies arthritis, or denies gout. When was patient's last Mammogram screening? 02/01/2023 Last Colonoscopy: None Edna Paula RN PHYSICAL EXAMINATION: General: The patient is 44 year old, female well nourished, well hydrated in no acute distress. The patient is oriented to time, place, and person. VITALS: Blood pressure 118/70, pulse 97, temperature 36.7 C (98 F), height 156.2 cm (5' 1.5), weight 95.2 kg (209 lb 12.8 oz), last menstrual period 04/12/2024, SpO2 98%. Body mass index is 39 kg/m . HEENT: Normal cephalic, ataumatic, pupils are equally round, sclera are anicteric, mucous membranes are moist, oropharynx is clear. Neck has no masses, asymmetry or lymphadenopathy. Respiratory: Clear to auscultation and percussion. Normal respiratory excursion and pattern. Cardiac: Examination is regular rate and rhythm. Normal S1/S2 Abdominal exam: Soft, nontender, with no palpable masses. No hepatosplenomegaly. No palpable hernias. Extremities: no clubbing, cyanosis or edema. No adenopathy. LABORATORY VALUES: As Noted RADIOLOGIC STUDIES: As Noted Assessment IMPRESSION: BRBPR, blood in stool, screen for colon cancer, dysphagia PLAN: I have reviewed my findings with the surgeon. Will plan for upper and lower endoscopy. We discussed the risks and benefits of the planned endoscopy. I have informed the patient that complications can occur including failure to complete the endoscopy and perforation. Estella had the opportunity to ask questions concerning the planned endoscopy. My staff has also explained the procedure to the patient in understandable terms and has given the patient printed material concerning the procedure. Estella freely consents to surgery. I plan to use GoLytely bowel preparation I have explained to the patient the difference between IV conscious sedation and MAC anesthesia - and I have offered either, according to the patient's wishes. I have explained that with IV conscious sedation there is no anesthesia provider available and therefore there is a limitation of the amount of IV medications that can be given and that the patient may wake up in the middle of the procedure and/or experience pain/discomfort during the procedure. Further discussion was done and the patient was given the opportunity to ask questions and all questions were answered. Estella chooses IV conscious sedation Estella was counseled that if there are changes in his/her medical condition, to let the office know if surgery should proceed. If there are changes in patient's medical condition from time of this encounter to the day of the procedure that preclude anesthesia, patient may have procedure cancelled for patient's safety. Diagnoses: (K92.1) Blood in stool (primary encounter diagnosis) (R13.10) Dysphagia, unspecified type (Z12.11) Screen for colon cancer (K62.5) BRBPR (bright red blood per rectum) Consultation requested by Dr. Velasquez for an opinion regarding blood in stool. My final recommendations will be communicated back to the requesting physician by way of shared Medical record or letter to requesting physician via [place] mail. Susan Richard APRN.[employer] [facility] 06-04-2024 History and physical note UPDATED PROCEDURAL SEDATION HISTORY AND PHYSICAL EXAMINATION SERVICE DATE: 06/04/2024 SERVICE TIME: 11:29 PHYSICAL EXAM MUST BE COMPLETED ON ADMISSION PROCEDURE: EGd and colonoscopy, possible biopsies Procedure Indications: screening for colno cancer, heartburn The History and Physical (completed in the past 30 days) has been reviewed and the patient has been examined. The contents accurately reflect the patient's condition with the following additions or revisions since the H&P was completed. ASA Class: ASA Class: Patient with mild systemic disease Examination indicates no changes. AIRWAY: Airway Visualization of [place]vula: Yes Mouth opening greater than 2 fingerbreadths: Yes Neck Full Range of Motion: Yes LUNGS: Lungs clear to auscultation CARDIAC: Regular rhythm,Regular rate Provisional Diagnosis/Treatment Plan: EGD/colonosocpy, possible biopsies Sedation Goal: Moderate This H&P can be found in the Electronic Medical Record . SIGNATURE: Shannan Cox MD PATIENT NAME: Estella Robles DATE: June 04, 2024 TIME: 11:29 AM Source Note - Shannan Cox MD - 06/04/2024 11:30 AM EDT HISTORY AND PHYSICAL Estella Robles : 1980 REFERRING PHYSICIAN: [address] [facility] [id number] CHIEF COMPLAINT: Patient presents with: Consult: Colonoscopy consultation, blood in stool, family history of colon cancer. HPI: Estella is a 44 year old female referred for endoscopy. Estella notes blood in stools. Estella states that she was on vacation in March when she had 2 episodes of BRBPR when wiping followed by an episode of bright red blood in the toilet. Estella also refers that frequently when she is eating she will choke on the food, this does not happen with water Only also refers that after eating she will get upset stomach with mild allover abdominal pain that relieves on its own. Denies any change in bowel habits, weight changes, black tarry stools. Denies reflux Refers family history of colon issues.-Maternal grandmother with colon cancer Estella has not undergone prior endoscopy. CURRENT MEDICATIONS Current Outpatient Medications Medication Sig buPROPion SR (WELLBUTRIN SR) 100 mg 12 hr tablet Take 1 tablet by mouth once daily as needed (for symptoms). No current facility-administered medications for this visit. ALLERGIES: Iodine PAST MEDICAL HISTORY PAST MEDICAL HISTORY No date: Anemia 2003: Depression Comment: took meds only couple weeks 2013: Fissure, anal No date: Hemorrhoid 2013: History of blood transfusion Comment: H/o transfusion after first c/s 2 units No date: IBS (irritable bowel syndrome) No date: PMH - PAST MEDICAL HISTORY OF Comment: [place] disease (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) No date: PMH - PAST MEDICAL HISTORY OF Comment: Slipped lumbar disc No date: depression No date: hemorrhage PAST SURGICAL HISTORY PAST SURGICAL HISTORY 10/24/12: DELIVERY ONLY Comment: , low transverse 01/15/16: DELIVERY ONLY Comment: , low transverse 08/28/2018: DELIVERY ONLY Comment: RC/S low transverse No date: EXTRACTION, ERUPTED TOOTH OR EXPOSED ROOT (ELEVATION AND/OR FORCEPS REMOVAL) Comment: @ 21yrs of age 1208/28/2018: SALPINGECTOMY COMPLETE/PARTIAL UNI/BI SPX; Bilateral FAMILY HISTORY FAMILY HISTORY Problem Relation Age of Onset Hypertension Mother Hypertension Father Seizures Sister Heart Sister Cancer Maternal Grandmother colon Diabetes Maternal Grandfather Diabetes Paternal Grandmother Heart Paternal Grandmother Hypertension Paternal Grandmother Diabetes Paternal Grandfather Heart Paternal Grandfather fatal [place] Asthma Son Allergies Son Asthma Son Allergies Son Allergies Son SOCIAL HISTORY Social History Tobacco Use Smoking status: Never Smokeless tobacco: Never Vaping Use Vaping status: Never Used Substance Use Topics Alcohol use: No Drug use: No REVIEW OF SYMPTOMS: The review of systems data was entered by the nurse and reviewed by hi Nursing Notes: Edna Paula RN 05/03/2024 10:01 AM Signed REVIEW OF SYSTEMS: General: The patient denies fatigue, denies weight loss, denies weight gain, denies feeling hot, and denies feelings of cold. Eyes: The patient denies glaucoma, denies eye injury/surgery, does not wear glasses or contacts. Ear/Nose/Throat: The patient NOTES allergies, denies hayfever, denies ear infections, and denies bloody noses. Cardiovascular: The patient denies chest pain, denies heart disease, denies high blood pressure,denies cardiac stent, denies prior heart attack, denies irregular heart beat, denies high cholesterol, denies poor circulation, denies heart failure, other cardiac issues, denies claudication, denies cold feet, denies peripheral arterial stent. Respiratory: The patient denies tuberculosis, denies pneumonia, denies frequent cough, denies pulmonary embolism, denies shortness of breath, and denies coughing up blood. Gastrointestinal: The patient denies difficulty swallowing, denies acid reflux, denies ulcers, denies vomiting, denies jaundice/hepatitis, denies gallbladder problems, denies black or tarry stools, NOTES hemorrhoids, NOTES bleeding from rectum, denies diverticulitis, denies constipation, denies diarrhea, denies loss of stool control, denies hernias, and NOTES IBS. Kidney/Bladder: The patient denies kidney stones, denies urine infections, and denies bloody urine. Skin: The patient denies a history of skin cancer, denies bleeding/changing moles, and denies a history of skin rash. Neurologic: The patient denies a history of epilepsy/convulsions, denies headaches, denies head/spinal injuries, and denies stroke/TIA. Psychiatric: The patient denies psychiatric medications, NOTES depression, and denies voices, denies substance abuse. Endocrine: The patient denies thyroid disorders, denies diabetes, and denies hormonal problems. Hematologic: The patient denies a history of bruising, denies bleeding, and NOTES anemia, denies blood clots. Infections: The patient denies a history of measles and mumps, denies rheumatic fever, and denies sexually transmitted diseases. Musculoskeletal: The patient NOTES back pain/injury, NOTES back problems, denies sciatica, denies knee/foot trouble, denies arthritis, or denies gout. When was patient's last Mammogram screening? 02/01/2023 Last Colonoscopy: None Edna Paula RN PHYSICAL EXAMINATION: General: The patient is 44 year old, female well nourished, well hydrated in no acute distress. The patient is oriented to time, place, and person. VITALS: Blood pressure 118/70, pulse 97, temperature 36.7 C (98 F), height 156.2 cm (5' 1.5), weight 95.2 kg (209 lb 12.8 oz), last menstrual period 04/12/2024, SpO2 98%. Body mass index is 39 kg/m . HEENT: Normal cephalic, ataumatic, pupils are equally round, sclera are anicteric, mucous membranes are moist, oropharynx is clear. Neck has no masses, asymmetry or lymphadenopathy. Respiratory: Clear to auscultation and percussion. Normal respiratory excursion and pattern. Cardiac: Examination is regular rate and rhythm. Normal S1/S2 Abdominal exam: Soft, nontender, with no palpable masses. No hepatosplenomegaly. No palpable hernias. Extremities: no clubbing, cyanosis or edema. No adenopathy. LABORATORY VALUES: As Noted RADIOLOGIC STUDIES: As Noted Assessment IMPRESSION: BRBPR, blood in stool, screen for colon cancer, dysphagia PLAN: I have reviewed my findings with the surgeon. Will plan for upper and lower endoscopy. We discussed the risks and benefits of the planned endoscopy. I have informed the patient that complications can occur including failure to complete the endoscopy and perforation. Estella had the opportunity to ask questions concerning the planned endoscopy. My staff has also explained the procedure to the patient in understandable terms and has given the patient printed material concerning the procedure. Estella freely consents to surgery. I plan to use GoLytely bowel preparation I have explained to the patient the difference between IV conscious sedation and MAC anesthesia - and I have offered either, according to the patient's wishes. I have explained that with IV conscious sedation there is no anesthesia provider available and therefore there is a limitation of the amount of IV medications that can be given and that the patient may wake up in the middle of the procedure and/or experience pain/discomfort during the procedure. Further discussion was done and the patient was given the opportunity to ask questions and all questions were answered. Estella chooses IV conscious sedation Estella was counseled that if there are changes in his/her medical condition, to let the office know if surgery should proceed. If there are changes in patient's medical condition from time of this encounter to the day of the procedure that preclude anesthesia, patient may have procedure cancelled for patient's safety. Diagnoses: (K92.1) Blood in stool (primary encounter diagnosis) (R13.10) Dysphagia, unspecified type (Z12.11) Screen for colon cancer (K62.5) BRBPR (bright red blood per rectum) Consultation requested by Dr. Velasquez for an opinion regarding blood in stool. My final recommendations will be communicated back to the requesting physician by way of shared Medical record or letter to requesting physician via [place] mail. Susan Richard APRN.[employer] HISTORY AND PHYSICAL Estella Robles : 1980 REFERRING PHYSICIAN: [address] [facility] [address] CHIEF COMPLAINT: Patient presents with: Consult: Colonoscopy consultation, blood in stool, family history of colon cancer. HPI: Estella is a 44 year old female referred for endoscopy. Estella notes blood in stools. Estella states that she was on vacation in March when she had 2 episodes of BRBPR when wiping followed by an episode of bright red blood in the toilet. Estella also refers that frequently when she is eating she will choke on the food, this does not happen with water Only also refers that after eating she will get upset stomach with mild allover abdominal pain that relieves on its own. Denies any change in bowel habits, weight changes, black tarry stools. Denies reflux Refers family history of colon issues.-Maternal grandmother with colon cancer Estella has not undergone prior endoscopy. CURRENT MEDICATIONS Current Outpatient Medications Medication Sig buPROPion SR (WELLBUTRIN SR) 100 mg 12 hr tablet Take 1 tablet by mouth once daily as needed (for symptoms). No current facility-administered medications for this visit. ALLERGIES: Iodine PAST MEDICAL HISTORY PAST MEDICAL HISTORY No date: Anemia 2002: Depression Comment: took meds only couple weeks 2013: Fissure, anal No date: Hemorrhoid 2013: History of blood transfusion Comment: H/o transfusion after first c/s 2 units No date: IBS (irritable bowel syndrome) No date: PMH - PAST MEDICAL HISTORY OF Comment: [place] disease (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) No date: PMH - PAST MEDICAL HISTORY OF Comment: Slipped lumbar disc No date: depression No date: hemorrhage PAST SURGICAL HISTORY PAST SURGICAL HISTORY 10/24/12: DELIVERY ONLY Comment: , low transverse 01/15/16: DELIVERY ONLY Comment: , low transverse 08/28/2018: DELIVERY ONLY Comment: RC/S low transverse No date: EXTRACTION, ERUPTED TOOTH OR EXPOSED ROOT (ELEVATION AND/OR FORCEPS REMOVAL) Comment: @ 21yrs of age 1208/28/2018: SALPINGECTOMY COMPLETE/PARTIAL UNI/BI SPX; Bilateral FAMILY HISTORY FAMILY HISTORY Problem Relation Age of Onset Hypertension Mother Hypertension Father Seizures Sister Heart Sister Cancer Maternal Grandmother colon Diabetes Maternal Grandfather Diabetes Paternal Grandmother Heart Paternal Grandmother Hypertension Paternal Grandmother Diabetes Paternal Grandfather Heart Paternal Grandfather fatal [place] Asthma Son Allergies Son Asthma Son Allergies Son Allergies Son SOCIAL HISTORY Social History Tobacco Use Smoking status: Never Smokeless tobacco: Never Vaping Use Vaping status: Never Used Substance Use Topics Alcohol use: No Drug use: No REVIEW OF SYMPTOMS: The review of systems data was entered by the nurse and reviewed by me Nursing Notes: Edna Paula RN 05/03/2024 10:01 AM Signed REVIEW OF SYSTEMS: General: The patient denies fatigue, denies weight loss, denies weight gain, denies feeling hot, and denies feelings of cold. Eyes: The patient denies glaucoma, denies eye injury/surgery, does not wear glasses or contacts. Ear/Nose/Throat: The patient NOTES allergies, denies hayfever, denies ear infections, and denies bloody noses. Cardiovascular: The patient denies chest pain, denies heart disease, denies high blood pressure,denies cardiac stent, denies prior heart attack, denies irregular heart beat, denies high cholesterol, denies poor circulation, denies heart failure, other cardiac issues, denies claudication, denies cold feet, denies peripheral arterial stent. Respiratory: The patient denies tuberculosis, denies pneumonia, denies frequent cough, denies pulmonary embolism, denies shortness of breath, and denies coughing up blood. Gastrointestinal: The patient denies difficulty swallowing, denies acid reflux, denies ulcers, denies vomiting, denies jaundice/hepatitis, denies gallbladder problems, denies black or tarry stools, NOTES hemorrhoids, NOTES bleeding from rectum, denies diverticulitis, denies constipation, denies diarrhea, denies loss of stool control, denies hernias, and NOTES IBS. Kidney/Bladder: The patient denies kidney stones, denies urine infections, and denies bloody urine. Skin: The patient denies a history of skin cancer, denies bleeding/changing moles, and denies a history of skin rash. Neurologic: The patient denies a history of epilepsy/convulsions, denies headaches, denies head/spinal injuries, and denies stroke/TIA. Psychiatric: The patient denies psychiatric medications, NOTES depression, and denies voices, denies substance abuse. Endocrine: The patient denies thyroid disorders, denies diabetes, and denies hormonal problems. Hematologic: The patient denies a history of bruising, denies bleeding, and NOTES anemia, denies blood clots. Infections: The patient denies a history of measles and mumps, denies rheumatic fever, and denies sexually transmitted diseases. Musculoskeletal: The patient NOTES back pain/injury, NOTES back problems, denies sciatica, denies knee/foot trouble, denies arthritis, or denies gout. When was patient's last Mammogram screening? 02/01/2023 Last Colonoscopy: None Edna Paula RN PHYSICAL EXAMINATION: General: The patient is 44 year old, female well nourished, well hydrated in no acute distress. The patient is oriented to time, place, and person. VITALS: Blood pressure 118/70, pulse 97, temperature 36.7 C (98 F), height 156.2 cm (5' 1.5), weight 95.2 kg (209 lb 12.8 oz), last menstrual period 04/12/2024, SpO2 98%. Body mass index is 39 kg/m . HEENT: Normal cephalic, ataumatic, pupils are equally round, sclera are anicteric, mucous membranes are moist, oropharynx is clear. Neck has no masses, asymmetry or lymphadenopathy. Respiratory: Clear to auscultation and percussion. Normal respiratory excursion and pattern. Cardiac: Examination is regular rate and rhythm. Normal S1/S2 Abdominal exam: Soft, nontender, with no palpable masses. No hepatosplenomegaly. No palpable hernias. Extremities: no clubbing, cyanosis or edema. No adenopathy. LABORATORY VALUES: As Noted RADIOLOGIC STUDIES: As Noted Assessment IMPRESSION: BRBPR, blood in stool, screen for colon cancer, dysphagia PLAN: I have reviewed my findings with the surgeon. Will plan for upper and lower endoscopy. We discussed the risks and benefits of the planned endoscopy. I have informed the patient that complications can occur including failure to complete the endoscopy and perforation. Estella had the opportunity to ask questions concerning the planned endoscopy. My staff has also explained the procedure to the patient in understandable terms and has given the patient printed material concerning the procedure. Estella freely consents to surgery. I plan to use GoLytely bowel preparation I have explained to the patient the difference between IV conscious sedation and MAC anesthesia - and I have offered either, according to the patient's wishes. I have explained that with IV conscious sedation there is no anesthesia provider available and therefore there is a limitation of the amount of IV medications that can be given and that the patient may wake up in the middle of the procedure and/or experience pain/discomfort during the procedure. Further discussion was done and the patient was given the opportunity to ask questions and all questions were answered. Estella chooses IV conscious sedation Estella was counseled that if there are changes in his/her medical condition, to let the office know if surgery should proceed. If there are changes in patient's medical condition from time of this encounter to the day of the procedure that preclude anesthesia, patient may have procedure cancelled for patient's safety. Diagnoses: (K92.1) Blood in stool (primary encounter diagnosis) (R13.10) Dysphagia, unspecified type (Z12.11) Screen for colon cancer (K62.5) BRBPR (bright red blood per rectum) Consultation requested by Dr. Velasquez for an opinion regarding blood in stool. My final recommendations will be communicated back to the requesting physician by way of shared Medical record or letter to requesting physician via [place] mail. Susan Richard APRN.[employer] documented in this encounter [facility] 06-04-2024 Telephone encounter Note Patient called. Verified name and date of . Patient is scheduled for colonscopy/EGD this morning at 1130. She states she spoke with Dr. Cox and was advised to take more of the prep a few hours after having vomiting 20 oz of it and okay to take X-Lax as well if needed. Patient was defecating clear last evening and is having some remnants this morning and will take x-lax. She is planning to come in this morning as scheduled. Shiela Fox LPN [facility] 06-04-2024 Miscellaneous Notes Patient called. Verified name and date of . Patient is scheduled for colonscopy/EGD this morning at 1130. She states she spoke with Dr. Cox and was advised to take more of the prep a few hours after having vomiting 20 oz of it and okay to take X-Lax as well if needed. Patient was defecating clear last evening and is having some remnants this morning and will take x-lax. She is planning to come in this morning as scheduled. Shiela Fox LPN documented in this encounter [facility] 06-03-2024 Telephone encounter Note Patient calling regarding nausea and vomiting during colonoscopy prep. Conferenced to [facility] swing saw operator, Kimberly , to speak with provider police communications dispatcher for Gastroenterology . Delon Richard [facility] 06-03-2024 Miscellaneous Notes Patient calling regarding nausea and vomiting during colonoscopy prep. Conferenced to [facility] swing saw operator, Kimberly , to speak with provider police communications dispatcher for Gastroenterology . Delon Richard documented in this encounter [facility] 05-03-2024 Nurse Note This Nurse reviewed and provided patient with copy of written instructions for EGD and colonoscopy with GoLytely. No medications to be held. The patient verbalized understanding and was given a number for questions. Edna Paula RN [facility] 05-03-2024 Nurse Note This Nurse reviewed and provided patient with copy of written instructions for EGD and colonoscopy with GoLytely. No medications to be held. The patient verbalized understanding and was given a number for questions. Edna Paula RN REVIEW OF SYSTEMS: General: The patient denies fatigue, denies weight loss, denies weight gain, denies feeling hot, and denies feelings of cold. Eyes: The patient denies glaucoma, denies eye injury/surgery, does not wear glasses or contacts. Ear/Nose/Throat: The patient NOTES allergies, denies hayfever, denies ear infections, and denies bloody noses. Cardiovascular: The patient denies chest pain, denies heart disease, denies high blood pressure,denies cardiac stent, denies prior heart attack, denies irregular heart beat, denies high cholesterol, denies poor circulation, denies heart failure, other cardiac issues, denies claudication, denies cold feet, denies peripheral arterial stent. Respiratory: The patient denies tuberculosis, denies pneumonia, denies frequent cough, denies pulmonary embolism, denies shortness of breath, and denies coughing up blood. Gastrointestinal: The patient denies difficulty swallowing, denies acid reflux, denies ulcers, denies vomiting, denies jaundice/hepatitis, denies gallbladder problems, denies black or tarry stools, NOTES hemorrhoids, NOTES bleeding from rectum, denies diverticulitis, denies constipation, denies diarrhea, denies loss of stool control, denies hernias, and NOTES IBS. Kidney/Bladder: The patient denies kidney stones, denies urine infections, and denies bloody urine. Skin: The patient denies a history of skin cancer, denies bleeding/changing moles, and denies a history of skin rash. Neurologic: The patient denies a history of epilepsy/convulsions, denies headaches, denies head/spinal injuries, and denies stroke/TIA. Psychiatric: The patient denies psychiatric medications, NOTES depression, and denies voices, denies substance abuse. Endocrine: The patient denies thyroid disorders, denies diabetes, and denies hormonal problems. Hematologic: The patient denies a history of bruising, denies bleeding, and NOTES anemia, denies blood clots. Infections: The patient denies a history of measles and mumps, denies rheumatic fever, and denies sexually transmitted diseases. Musculoskeletal: The patient NOTES back pain/injury, NOTES back problems, denies sciatica, denies knee/foot trouble, denies arthritis, or denies gout. When was patient's last Mammogram screening? 02/01/2023 Last Colonoscopy: None Edna Paula RN documented in this encounter [facility] 05-03-2024 Nurse Note REVIEW OF SYSTEMS: General: The patient denies fatigue, denies weight loss, denies weight gain, denies feeling hot, and denies feelings of cold. Eyes: The patient denies glaucoma, denies eye injury/surgery, does not wear glasses or contacts. Ear/Nose/Throat: The patient NOTES allergies, denies hayfever, denies ear infections, and denies bloody noses. Cardiovascular: The patient denies chest pain, denies heart disease, denies high blood pressure,denies cardiac stent, denies prior heart attack, denies irregular heart beat, denies high cholesterol, denies poor circulation, denies heart failure, other cardiac issues, denies claudication, denies cold feet, denies peripheral arterial stent. Respiratory: The patient denies tuberculosis, denies pneumonia, denies frequent cough, denies pulmonary embolism, denies shortness of breath, and denies coughing up blood. Gastrointestinal: The patient denies difficulty swallowing, denies acid reflux, denies ulcers, denies vomiting, denies jaundice/hepatitis, denies gallbladder problems, denies black or tarry stools, NOTES hemorrhoids, NOTES bleeding from rectum, denies diverticulitis, denies constipation, denies diarrhea, denies loss of stool control, denies hernias, and NOTES IBS. Kidney/Bladder: The patient denies kidney stones, denies urine infections, and denies bloody urine. Skin: The patient denies a history of skin cancer, denies bleeding/changing moles, and denies a history of skin rash. Neurologic: The patient denies a history of epilepsy/convulsions, denies headaches, denies head/spinal injuries, and denies stroke/TIA. Psychiatric: The patient denies psychiatric medications, NOTES depression, and denies voices, denies substance abuse. Endocrine: The patient denies thyroid disorders, denies diabetes, and denies hormonal problems. Hematologic: The patient denies a history of bruising, denies bleeding, and NOTES anemia, denies blood clots. Infections: The patient denies a history of measles and mumps, denies rheumatic fever, and denies sexually transmitted diseases. Musculoskeletal: The patient NOTES back pain/injury, NOTES back problems, denies sciatica, denies knee/foot trouble, denies arthritis, or denies gout. When was patient's last Mammogram screening? 02/01/2023 Last Colonoscopy: None Edna Paula RN [facility] 05-03-2024 History of Present illness Narrative HISTORY AND PHYSICAL Estella Robles : 1980 REFERRING PHYSICIAN: [address] [facility] [id number] CHIEF COMPLAINT: Patient presents with: Consult: Colonoscopy consultation, blood in stool, family history of colon cancer. HPI: Estella is a 44 year old female referred for endoscopy. Estella notes blood in stools. Estella states that she was on vacation in March when she had 2 episodes of BRBPR when wiping followed by an episode of bright red blood in the toilet. Estella also refers that frequently when she is eating she will choke on the food, this does not happen with water Only also refers that after eating she will get upset stomach with mild allover abdominal pain that relieves on its own. Denies any change in bowel habits, weight changes, black tarry stools. Denies reflux Refers family history of colon issues.-Maternal grandmother with colon cancer Estella has not undergone prior endoscopy. Current Outpatient Medications Medication Sig buPROPion SR (WELLBUTRIN SR) 100 mg 12 hr tablet Take 1 tablet by mouth once daily as needed (for symptoms). No current facility-administered medications for this visit. ALLERGIES: Iodine PAST MEDICAL HISTORY No date: Anemia 2003: Depression Comment: took meds only couple weeks 2013: Fissure, anal No date: Hemorrhoid 2013: History of blood transfusion Comment: H/o transfusion after first c/s 2 units No date: IBS (irritable bowel syndrome) No date: PMH - PAST MEDICAL HISTORY OF Comment: [place] disease (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) No date: PMH - PAST MEDICAL HISTORY OF Comment: Slipped lumbar disc No date: depression No date: hemorrhage PAST SURGICAL HISTORY 10/24/12: DELIVERY ONLY Comment: , low transverse 01/15/16: DELIVERY ONLY Comment: , low transverse 08/28/2018: DELIVERY ONLY Comment: RC/S low transverse No date: EXTRACTION, ERUPTED TOOTH OR EXPOSED ROOT (ELEVATION AND/OR FORCEPS REMOVAL) Comment: @ 21yrs of age 1208/28/2018: SALPINGECTOMY COMPLETE/PARTIAL UNI/BI SPX; Bilateral FAMILY HISTORY Problem Relation Age of Onset Hypertension Mother Hypertension Father Seizures Sister Heart Sister Cancer Maternal Grandmother colon Diabetes Maternal Grandfather Diabetes Paternal Grandmother Heart Paternal Grandmother Hypertension Paternal Grandmother Diabetes Paternal Grandfather Heart Paternal Grandfather fatal [place] Asthma Son Allergies Son Asthma Son Allergies Son Allergies Son Social History Tobacco Use Smoking status: Never Smokeless tobacco: Never Vaping Use Vaping status: Never Used Substance Use Topics Alcohol use: No Drug use: No REVIEW OF SYMPTOMS: The review of systems data was entered by the nurse and reviewed by hi Nursing Notes: Edna Paula RN 05/03/2024 10:01 AM Signed REVIEW OF SYSTEMS: General: The patient denies fatigue, denies weight loss, denies weight gain, denies feeling hot, and denies feelings of cold. Eyes: The patient denies glaucoma, denies eye injury/surgery, does not wear glasses or contacts. Ear/Nose/Throat: The patient NOTES allergies, denies hayfever, denies ear infections, and denies bloody noses. Cardiovascular: The patient denies chest pain, denies heart disease, denies high blood pressure,denies cardiac stent, denies prior heart attack, denies irregular heart beat, denies high cholesterol, denies poor circulation, denies heart failure, other cardiac issues, denies claudication, denies cold feet, denies peripheral arterial stent. Respiratory: The patient denies tuberculosis, denies pneumonia, denies frequent cough, denies pulmonary embolism, denies shortness of breath, and denies coughing up blood. Gastrointestinal: The patient denies difficulty swallowing, denies acid reflux, denies ulcers, denies vomiting, denies jaundice/hepatitis, denies gallbladder problems, denies black or tarry stools, NOTES hemorrhoids, NOTES bleeding from rectum, denies diverticulitis, denies constipation, denies diarrhea, denies loss of stool control, denies hernias, and NOTES IBS. Kidney/Bladder: The patient denies kidney stones, denies urine infections, and denies bloody urine. Skin: The patient denies a history of skin cancer, denies bleeding/changing moles, and denies a history of skin rash. Neurologic: The patient denies a history of epilepsy/convulsions, denies headaches, denies head/spinal injuries, and denies stroke/TIA. Psychiatric: The patient denies psychiatric medications, NOTES depression, and denies voices, denies substance abuse. Endocrine: The patient denies thyroid disorders, denies diabetes, and denies hormonal problems. Hematologic: The patient denies a history of bruising, denies bleeding, and NOTES anemia, denies blood clots. Infections: The patient denies a history of measles and mumps, denies rheumatic fever, and denies sexually transmitted diseases. Musculoskeletal: The patient NOTES back pain/injury, NOTES back problems, denies sciatica, denies knee/foot trouble, denies arthritis, or denies gout. When was patient's last Mammogram screening? 02/01/2023 Last Colonoscopy: None Edna Paula RN PHYSICAL EXAMINATION: General: The patient is 44 year old, female well nourished, well hydrated in no acute distress. The patient is oriented to time, place, and person. VITALS: Blood pressure 118/70, pulse 97, temperature 36.7 C (98 F), height 156.2 cm (5' 1.5), weight 95.2 kg (209 lb 12.8 oz), last menstrual period 04/12/2024, SpO2 98%. Body mass index is 39 kg/m . HEENT: Normal cephalic, ataumatic, pupils are equally round, sclera are anicteric, mucous membranes are moist, oropharynx is clear. Neck has no masses, asymmetry or lymphadenopathy. Respiratory: Clear to auscultation and percussion. Normal respiratory excursion and pattern. Cardiac: Examination is regular rate and rhythm. Normal S1/S2 Abdominal exam: Soft, nontender, with no palpable masses. No hepatosplenomegaly. No palpable hernias. Extremities: no clubbing, cyanosis or edema. No adenopathy. LABORATORY VALUES: As Noted RADIOLOGIC STUDIES: As Noted Assessment IMPRESSION: BRBPR, blood in stool, screen for colon cancer, dysphagia PLAN: I have reviewed my findings with the surgeon. Will plan for upper and lower endoscopy. We discussed the risks and benefits of the planned endoscopy. I have informed the patient that complications can occur including failure to complete the endoscopy and perforation. Estella had the opportunity to ask questions concerning the planned endoscopy. My staff has also explained the procedure to the patient in understandable terms and has given the patient printed material concerning the procedure. Estella freely consents to surgery. I plan to use GoLytely bowel preparation I have explained to the patient the difference between IV conscious sedation and MAC anesthesia - and I have offered either, according to the patient's wishes. I have explained that with IV conscious sedation there is no anesthesia provider available and therefore there is a limitation of the amount of IV medications that can be given and that the patient may wake up in the middle of the procedure and/or experience pain/discomfort during the procedure. Further discussion was done and the patient was given the opportunity to ask questions and all questions were answered. Estella chooses IV conscious sedation Estella was counseled that if there are changes in his/her medical condition, to let the office know if surgery should proceed. If there are changes in patient's medical condition from time of this encounter to the day of the procedure that preclude anesthesia, patient may have procedure cancelled for patient's safety. Diagnoses: (K92.1) Blood in stool (primary encounter diagnosis) (R13.10) Dysphagia, unspecified type (Z12.11) Screen for colon cancer (K62.5) BRBPR (bright red blood per rectum) Consultation requested by Dr. Velasquez for an opinion regarding blood in stool. My final recommendations will be communicated back to the requesting physician by way of shared Medical record or letter to requesting physician via [place] mail. Susan Richard APRN.CNP documented in this encounter [facility] 04-16-2024 History of Present illness Narrative Estella Robles is a 44 year old female who presents for problem visit for f/u mood. She has a lot of depression and feels terrible after she has sex. She feels guilty about this because wants to be intimate w/ her . She feels like she gets in a hole and very dark feelings 5-7 minutes after intercourse then resolves. No raciong heartbeat, palpitations, sense of doom. Feels overwhelming sense to . Tried control but that made her feel terrible. Sometimes during sex, sometimes after. Brings her to tears at times. Arousal takes longer. Past couple of cycles cramping worse, more like before she had her kids. Tired. Not always rephreshed when she wakes up. Wakes up gasping more than snoring. Sleeps 6.5 hrs. Has had some wt gain. Working out. Trying to eat healthy. Had some blood in stools a couple of weeks ago when not on menses. Then stopped. OB History T4 L4 SAB1 IAB0 Ectopic0 Multiple0 Live Births4 Private Watchman History LMP: 04/12/2024 (Exact Date), Having periods Age at Menarche: Age at First : Age at Menopause: Private Watchman History Comments: Sexual Activity: Yes; Male; bilateral salpingectomy at c/s Contraception: Tubal Ligation PAST MEDICAL HISTORY No date: Anemia 2002: Depression Comment: took meds only couple weeks 2012: Fissure, anal No date: Hemorrhoid 2012: History of blood transfusion Comment: H/o transfusion after first c/s 2 units No date: IBS (irritable bowel syndrome) No date: PMH - PAST MEDICAL HISTORY OF Comment: [place] disease (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) No date: PMH - PAST MEDICAL HISTORY OF Comment: Slipped lumbar disc No date: depression No date: hemorrhage PAST SURGICAL HISTORY 10/24/12: DELIVERY ONLY Comment: , low transverse 01/15/16: DELIVERY ONLY Comment: , low transverse 08/28/2018: DELIVERY ONLY Comment: RC/S low transverse No date: EXTRACTION, ERUPTED TOOTH OR EXPOSED ROOT (ELEVATION AND/OR FORCEPS REMOVAL) Comment: @ 21yrs of age 1208/28/2018: SALPINGECTOMY COMPLETE/PARTIAL UNI/BI SPX; Bilateral FAMILY HISTORY Problem Relation Age of Onset Hypertension Mother Hypertension Father Seizures Sister Heart Sister Cancer Maternal Grandmother colon Diabetes Maternal Grandfather Diabetes Paternal Grandmother Heart Paternal Grandmother Hypertension Paternal Grandmother Diabetes Paternal Grandfather Heart Paternal Grandfather fatal [place] Asthma Son Allergies Son Asthma Son Allergies Son Allergies Son Social History Tobacco Use Smoking status: Never Smokeless tobacco: Never Vaping Use Vaping Use: Never used Substance Use Topics Alcohol use: No Drug use: No Current Outpatient Medications Medication Sig predniSONE (DELTASONE) 10 mg tablet Take 4 tabs daily for 3 days, then 2 tabs daily for 3 days, then 1 tab daily for 3 days with food. (Patient not taking: Reported on 04/16/2024) cholecalciferol, vitamin D3, (VITAMIN D3 ORAL) Take by mouth. (Patient not taking: Reported on 04/16/2024) Norethindrone Acet-Ethinyl Est (LOESTRIN 10/01, ,) 1-20 mg-mcg per tablet Take 1 tablet by mouth once daily. (Patient not taking: Reported on 10/15/2023) Gabriel's Wort 300 mg cap (Patient not taking: Reported on 04/16/2024) VITAMIN B COMPLEX-100 ORAL (Patient not taking: Reported on 04/16/2024) [place]-3 Fatty Acids (FISH OIL) 500 mg cap Take 2 capsules by mouth once daily. (Patient not taking: Reported on 09/16/2019) No current facility-administered medications for this visit. Allergies As of Date: 04/16/2024 Allergen Noted Reaction IODINE 03/07/2013 Rash Fully Assessed 04/16/2024 Allergies and current medication updated:Yes EXAM: BP 118/72 Wt 203 lb (92.1kg) LMP 04/12/2024 GENERAL: pleasant, female in no apparent distress ASSESSMENT AND PLAN: weight management consult for obesity, likely sleep apnea d/w her will ask for consult from specialized women[facility] care about dysphoric milk ejection reflex that now seems to be related to sexual activity, she wonders if maybe related to nipple stimulation during intimacy. Wellbutrin has been used to help w/ this in so can consider this and will trial. blood in stool- colonoscopy ordered Irina Velasquez MD documented in this encounter [facility] 04-06-2024 Telephone encounter Note Order linked to visit. Juliet Melgar RN [facility] 04-06-2024 Miscellaneous Notes Order linked to visit. Juliet Melgar RN Signed. Estella Basurto APRN.CNP Please submit new order for screening mammogram as the current order will prior to patient's appointment. Please link order once signed to appointment scheduled on 09/14/23. documented in this encounter [facility] 04-06-2024 Telephone encounter Note Signed. Estella Basurto APRN.CNP [facility] 04-06-2024 Telephone encounter Note Please submit new order for screening mammogram as the current order will prior to patient's appointment. Please link order once signed to appointment scheduled on 09/14/23. [facility] 10-16-2023 Miscellaneous Notes Patient identified by name and date of . Advised of + influenza A result; tamiflu sent to pharmacy per patient request. Louisa Jacques APRN.CNP documented in this encounter [facility] 10-15-2023 History of Present illness Narrative This note was created using NoteWriter. Subjective Estella Robles is a 43 year old female. 43 year old female with PMH depression presents for illness. Acute onset yesterday +sore throat +cough, productive +sinus pressure +body aches +fatigue Denies fever Denies tobacco +ill contacts, citing at home ill The history is provided by the patient. No restaurant delivery driver was used. Sore Throat This is a new problem. The current episode started yesterday. The problem has been unchanged. Neither side of throat is experiencing more pain than the other. There has been no fever. The pain is at a severity of 5/10. Associated symptoms include congestion and coughing. Pertinent negatives include no abdominal pain, diarrhea, drooling, ear discharge, ear pain, headaches, hoarse voice, plugged ear sensation, neck pain, shortness of breath, stridor, swollen glands, trouble swallowing or vomiting. She has had exposure to strep. She has had no exposure to mono. She has tried nothing for the symptoms. The treatment provided no relief. PAST MEDICAL HISTORY Diagnosis Date Anemia Depression 2002 took meds only couple weeks Fissure, anal 2012 Hemorrhoid History of blood transfusion 2012 H/o transfusion after first c/s 2 units IBS (irritable bowel syndrome) PMH - PAST MEDICAL HISTORY OF [place] disease (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) PMH - PAST MEDICAL HISTORY OF Slipped lumbar disc depression hemorrhage PAST SURGICAL HISTORY Procedure Laterality Date DELIVERY ONLY 10/24/12 , low transverse DELIVERY ONLY 01/15/16 , low transverse DELIVERY ONLY 08/28/2018 RC/S low transverse EXTRACTION, ERUPTED TOOTH OR EXPOSED ROOT (ELEVATION AND/OR FORCEPS REMOVAL) @ 21yrs of age SALPINGECTOMY COMPLETE/PARTIAL UNI/BI SPX Bilateral 08/28/2018 ALLERGIES Iodine MEDICATIONS cholecalciferol, vitamin D3, (VITAMIN D3 ORAL) Take by mouth. Gabriel's Wort 300 mg cap VITAMIN B COMPLEX-100 ORAL predniSONE (DELTASONE) 10 mg tablet Take 4 tabs daily for 3 days, then 2 tabs daily for 3 days, then 1 tab daily for 3 days with food. Norethindrone Acet-Ethinyl Est (LOESTRIN 10/01, ,) 1-20 mg-mcg per tablet Take 1 tablet by mouth once daily. (Patient not taking: Reported on 10/15/2023) [place]-3 Fatty Acids (FISH OIL) 500 mg cap Take 2 capsules by mouth once daily. (Patient not taking: Reported on 09/16/2019) FAMILY HISTORY Problem Relation Age of Onset Hypertension Mother Hypertension Father Seizures Sister Heart Sister Cancer Maternal Grandmother colon Diabetes Maternal Grandfather Diabetes Paternal Grandmother Heart Paternal Grandmother Hypertension Paternal Grandmother Diabetes Paternal Grandfather Heart Paternal Grandfather fatal [place] Asthma Son Allergies Son Asthma Son Allergies Son Allergies Son Social History Tobacco Use Smoking status: Never Smokeless tobacco: Never Vaping Use Vaping Use: Never used Substance Use Topics Alcohol use: No Drug use: No Review of Systems Constitutional: Negative for activity change, appetite change, chills, diaphoresis and fatigue. HENT: Positive for congestion and sore throat. Negative for drooling, ear discharge, ear pain, hoarse voice and trouble swallowing. Eyes: Negative for photophobia, pain, discharge, redness and itching. Respiratory: Positive for cough. Negative for shortness of breath and stridor. Cardiovascular: Negative for chest pain, palpitations and leg swelling. Gastrointestinal: Negative for abdominal pain, diarrhea and vomiting. Musculoskeletal: Negative for arthralgias, back pain, gait problem and neck pain. Skin: Negative for color change, pallor, rash and wound. Allergic/Immunologic: Negative for environmental allergies, food allergies and immunocompromised state. Neurological: Negative for dizziness, facial asymmetry and headaches. Hematological: Negative for adenopathy. Does not bruise/bleed easily. Psychiatric/Behavioral: Negative for agitation and behavioral problems. Objective BP 104/64 Pulse 100 Temp 36.5 C (97.7 F) Resp 16 Wt 94.8 kg (209 lb) LMP 04/21/2023 (Exact Date) SpO2 97% BMI 38.54 kg/m Physical Exam Vitals and nursing note reviewed. Constitutional: General: She is not in acute distress. Appearance: Normal appearance. She is normal weight. She is not ill-appearing, toxic-appearing or diaphoretic. HENT: Head: Normocephalic and atraumatic. Right Ear: Ear canal and external ear normal. Left Ear: Ear canal and external ear normal. Nose: Nose normal. No congestion or rhinorrhea. Mouth/Throat: Mouth: Mucous membranes are moist. Pharynx: Posterior oropharyngeal erythema present. No oropharyngeal exudate. Eyes: General: Right eye: No discharge. Left eye: No discharge. Extraocular Movements: Extraocular movements intact. Conjunctiva/sclera: Conjunctivae normal. Pupils: Pupils are equal, round, and reactive to light. Cardiovascular: Rate and Rhythm: Normal rate and regular rhythm. Pulses: Normal pulses. Heart sounds: Normal heart sounds. No murmur heard. No friction rub. Pulmonary: Effort: Pulmonary effort is normal. No respiratory distress. Breath sounds: Normal breath sounds. No stridor. No wheezing, rhonchi or rales. Chest: Chest wall: No tenderness. Abdominal: General: Abdomen is flat. There is no distension. Palpations: Abdomen is soft. There is no mass. Tenderness: There is no abdominal tenderness. There is no right CVA tenderness, left CVA tenderness, guarding or rebound. Hernia: No hernia is present. Musculoskeletal: General: No swelling, tenderness, deformity or signs of injury. Normal range of motion. Cervical back: Normal range of motion and neck supple. No rigidity. Right lower leg: No edema. Left lower leg: No edema. Lymphadenopathy: Cervical: Cervical adenopathy present. Skin: General: Skin is warm and dry. Capillary Refill: Capillary refill takes less than 2 seconds. Coloration: Skin is not jaundiced or pale. Findings: No bruising, erythema, lesion or rash. Neurological: General: No focal deficit present. Mental Status: She is alert and oriented to person, place, and time. Cranial Nerves: No cranial nerve deficit. Sensory: No sensory deficit. Motor: No weakness. Coordination: Coordination normal. Gait: Gait normal. Psychiatric: Mood and Affect: Mood normal. Behavior: Behavior normal. Thought Content: Thought content normal. Judgment: Judgment normal. Assessment and Plan ASSESSMENT/PLAN: 1. URI, acute - ICD9: 465.9, ICD10: J06.9 X 1 day No red flags - Discussed viral etiology and rationale for treatment. - Group A strep molecular testing negative - Symptomatic treatment with prn analgesia - Supportive care with fluids and rest - The patient may also use OTC cough and cold meds as needed, warm salt water gargles, throat lozenges and/or OTC throat spray as needed, and nasal saline gtts and suction prn. - Follow up in 3-5 days if symptoms persist or sooner if worsening of symptoms - STREP A MOLECULAR (POC) - COVID & INFLUENZA A/B & RSV NAAT, ROUTINE RX Prednisone taper for continued sx if flu negative Sloane Walter APRN.[employer] documented in this encounter [facility] 04-25-2023 Miscellaneous Notes Addended by: IRINA VELASQUEZ on: 04/25/2023 02:37 PM Modules accepted: Orders documented in this encounter [facility] 04-25-2023 History of Present illness Narrative Estella is a 43 year old who presents for an annual gynecologic exam with complaints, feels hormones are changing. Perimenopause. Doesn't sleep well . Notes sometimes w/ intercourse gets the dark feelign of wishing she weren't alive, similar to what she got when . Decreased libido Menses: cycles every 28 days and 5-9 days of flow. Contraception: tubal sterilization HPV vaccine: No Last Pap: 01/29/2022 normal HPV: 01/27/2022 negative History of abnormal pap: No Last mammogram: 2022normal Sexually active: Yes OB History T4 L4 SAB1 IAB0 Ectopic0 Multiple0 Live Births4 Private Watchman History LMP: 04/21/2023 (Exact Date), Having periods Age at Menarche: Age at First : Age at Menopause: Private Watchman History Comments: Sexual Activity: Yes; Male; bilateral salpingectomy at c/s Contraception: Tubal Ligation PAST MEDICAL HISTORY Diagnosis Date Anemia Depression 2002 took meds only couple weeks Fissure, anal 2012 Hemorrhoid History of blood transfusion 2012 H/o transfusion after first c/s 2 units IBS (irritable bowel syndrome) PMH - PAST MEDICAL HISTORY OF [place] disease (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) PMH - PAST MEDICAL HISTORY OF Slipped lumbar disc depression hemorrhage PAST SURGICAL HISTORY Procedure Laterality Date DELIVERY ONLY 10/24/12 , low transverse DELIVERY ONLY 01/15/16 , low transverse DELIVERY ONLY 08/28/2018 RC/S low transverse EXTRACTION, ERUPTED TOOTH OR EXPOSED ROOT (ELEVATION AND/OR FORCEPS REMOVAL) @ 21yrs of age SALPINGECTOMY COMPLETE/PARTIAL UNI/BI SPX Bilateral 08/28/2018 FAMILY HISTORY Problem Relation Age of Onset Hypertension Mother Hypertension Father Seizures Sister Heart Sister Cancer Maternal Grandmother colon Diabetes Maternal Grandfather Diabetes Paternal Grandmother Heart Paternal Grandmother Hypertension Paternal Grandmother Diabetes Paternal Grandfather Heart Paternal Grandfather fatal [place] Asthma Son Allergies Son Asthma Son Allergies Son Allergies Son SOCIAL HISTORY Social History Tobacco Use Smoking status: Never Smokeless tobacco: Never Vaping Use Vaping Use: Never used Substance Use Topics Alcohol use: No Drug use: No REVIEW OF SYSTEMS Abdomen: No abdominal pain, nausea, vomiting, diarrhea, or constipation. No bloating, early satiety, indigestion, or increased flatulence. Bladder: No dysuria, gross hematuria, urinary frequency, urinary urgency, or incontinence. Breast: No breast lumps, nipple d/c, overlying skin changes, redness or skin retraction. Allergies and current medication updated:Yes EXAM: BP 116/64 Ht 5' 1.75 (1.57m) Wt 196 lb (88.9kg) LMP 04/21/2023 BMI 36.16 kg/(m^2). GENERAL: pleasant, female in no apparent distress HEENT: Normocephalic, atraumatic, mucus membranes moist, and no lesions NECK: Supple, full range of motion, no adenopathy, and thyroid normal DERMATOLOGY: Normal, without lesions, non-icteric, and non-hirsute BREAST: soft, non-tender, symmetric, no dominant mass, normal nipple-areolar complex, no lymphadenopathy, and no nipple discharge CHEST: Normal inspiratory effort ABDOMEN: soft, non-tender, and no masses PELVIC: external genitalia normal, normal Bartholin's glands, urethra, [place]'s glands, no vulvar lesions, no cervical lesions, good vaginal support, physiologic discharge present, normal appearing perineal body and perianal region BIMANUAL: uterus normal size, shape and consistency, no adnexal masses, and non-tender RECTOVAGINAL: deferred. NEURO: alert and oriented x3,exam grossly non-focal EXTREMITIES: normal ASSESSMENT/PLAN: 1) Health maintenance: Pap/HPV up to date. Mammogram up to date . 2) Contraception: tubal sterilization. Contraceptive options reviewed and information provided. 3) STD screening: Declined STD check. 4) Follow up one year or sooner as needed trial ocps for perimenopause Irina Velasquez MD documented in this encounter [facility] 02-01-2023 History of Present illness Narrative Radiology Service Progress Note PATIENT NAME: Estella Robles DATE OF SERVICE: February 01, 2023 TIME: 10:37 AM PATIENT IDENTITY VERIFICATION COMPLETED USING TWO (2) IDENTIFIERS: Name and Date of confirmed by patient verbally. FALL SCREENING: Has the patient had 2 falls in the last year or 1 fall with injury or currently using an Ambulatory Assistive Device (Walker, Cane, Wheelchair, Crutches, etc.)? No PATIENT GENDER DATA: Female. status: : No status: NO. PATIENT RELEVANT IMPLANT DATA REVIEWED: Not Applicable RADIOLOGY DEPARTMENT: Mammography PERIPHERAL IV DATA: Not applicable SIGNED BY: RT Renzo(Shannon) February 01, 2023 10:37 AM documented in this encounter [facility] 11-18-2022 Miscellaneous Notes Spoke with pt and relayed below information. Pt voiced understanding. Shiela Cohn LPN Honestly, with how low the head was during her c/s and being 10 cm a cervical tear is not uncommon. However, with this and her son having it there is a fair chance she has it and testing would not be unreasonable and if she wants testing I think it is reasonable and she should request it. I would say if they tell her the type he has is not likely to have come from a parent and is a new random type, then she wouldn't need to. Maybe review again at February appointment w/ genetic counselor as there is a lot of new information on the genetic screening front and they would have reviewed the info and know the recommendations more thoroughly than me. Irina Velasquez MD Patient's son has Matt-Danlos syndrome (EDS). Patient called asking for RR's opinion since this is a genetic connective tissue disorder and her son meets with the genetic counselor in February. They will not test the patient unless there is a family hx of EDS. It's unknown if there is a family hx. Patient had a in 2013 due to an arrest in [place]. She states she had a cervical tear. The information that she found online stated that a cervical laceration or an abruption could be related to EDS. Doesn't believe she had an abruption, but did have a cervical tear. Operative report from her 2013 to RR to review. Can you give patient any guidance on this based on her surgery? Juliet Melgar RN documented in this encounter [facility] 01-25-2022 History of Present illness Narrative Estella is a 41 year old who presents for an annual gynecologic exam without complaints. Menses: cycles every 28 days and 4-5 days of flow. Contraception: tubal sterilization HPV vaccine: No Last Pap: 07/16/2014 normal HPV: 07/08/2014 negative History of abnormal pap: No Last mammogram: never Sexually active: Yes OB History T4 L4 SAB1 IAB0 Ectopic0 Multiple0 Live Births4 Private Watchman History LMP: 01/04/2022 (Within Days), Having periods Age at Menarche: Age at First : Age at Menopause: Private Watchman History Comments: Sexual Activity: Yes; Male; bilateral salpingectomy at c/s Contraception: Tubal Ligation PAST MEDICAL HISTORY Diagnosis Date Anemia Depression 2002 took meds only couple weeks Fissure, anal 2012 Hemorrhoid History of blood transfusion 2012 H/o transfusion after first c/s 2 units IBS (irritable bowel syndrome) PMH - PAST MEDICAL HISTORY OF [place] disease (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) PMH - PAST MEDICAL HISTORY OF Slipped lumbar disc depression hemorrhage PAST SURGICAL HISTORY Procedure Laterality Date DELIVERY ONLY 10/24/12 , low transverse DELIVERY ONLY 01/15/16 , low transverse DELIVERY ONLY 08/28/2018 RC/S low transverse EXTRACTION, ERUPTED TOOTH OR EXPOSED ROOT (ELEVATION AND/OR FORCEPS REMOVAL) @ 21yrs of age SALPINGECTOMY COMPLETE/PARTIAL UNI/BI SPX Bilateral 08/28/2018 FAMILY HISTORY Problem Relation Age of Onset Hypertension Mother Hypertension Father Seizures Sister Cancer Maternal Grandmother colon Diabetes Maternal Grandfather Diabetes Paternal Grandmother Heart Paternal Grandmother Hypertension Paternal Grandmother Diabetes Paternal Grandfather Heart Paternal Grandfather fatal [place] Asthma Son Allergies Son Asthma Son Allergies Son Allergies Son SOCIAL HISTORY Social History Tobacco Use Smoking status: Never Smoker Smokeless tobacco: Never Used Vaping Use Vaping Use: Never used Substance Use Topics Alcohol use: No Drug use: No REVIEW OF SYSTEMS Abdomen: No abdominal pain, nausea, vomiting, diarrhea, or constipation. No bloating, early satiety, indigestion, or increased flatulence. Bladder: No dysuria, gross hematuria, urinary frequency, urinary urgency, or incontinence. Breast: No breast lumps, nipple d/c, overlying skin changes, redness or skin retraction. Allergies and current medication updated:Yes EXAM: BP 118/68 Wt 185 lb (83.9kg) LMP 01/04/2022 GENERAL: pleasant, female in no apparent distress HEENT: Normocephalic, atraumatic, mucus membranes moist and no lesions NECK: Supple, full range of motion, no adenopathy and thyroid normal DERMATOLOGY: Normal, without lesions, non-icteric and non-hirsute BREAST: soft, non-tender, symmetric, no dominant mass, normal nipple-areolar complex, no lymphadenopathy and no nipple discharge CHEST: Normal inspiratory effort ABDOMEN: soft, non-tender and no masses PELVIC: external genitalia normal, normal Bartholin's glands, urethra, [place]'s glands, no vulvar lesions, no cervical lesions, good vaginal support, physiologic discharge present, normal appearing perineal body and perianal region BIMANUAL: uterus normal size, shape and consistency, no adnexal masses and non-tender RECTOVAGINAL: deferred. NEURO: alert and oriented x3,exam grossly non-focal EXTREMITIES: normal ASSESSMENT/PLAN: 1) Health maintenance: Pap done with HPV. Mammogram ordered. 2) Contraception: tubal sterilization. Contraceptive options reviewed and information provided. 3) STD screening: Declined STD check. 4) Follow up one year or sooner as needed Irina Velasquez MD documented in this encounter [facility] 01-25-2022 History of Present illness Narrative Radiology Service Progress Note PATIENT NAME: Estella Robles DATE OF SERVICE: January 25, 2022 TIME: 1:26 PM PATIENT IDENTITY VERIFICATION COMPLETED USING TWO (2) IDENTIFIERS: Name and Date of confirmed by patient verbally. FALL SCREENING: Has the patient had 2 falls in the last year or 1 fall with injury or currently using an Ambulatory Assistive Device (Walker, Cane, Wheelchair, Crutches, etc.)? No PATIENT GENDER DATA: Female. status: : No status: NO. PATIENT RELEVANT IMPLANT DATA REVIEWED: Not Applicable RADIOLOGY DEPARTMENT: Mammography PERIPHERAL IV DATA: Not applicable SIGNED BY: RT Margo(R) January 25, 2022 1:26 PM documented in this encounter [facility] 12-07-2021 Miscellaneous Notes Summary: Mammogram Scheduled PT on 01/25/2022 at 1:30 PM for a routine mammogram. done. thanks. Irina Velasquez MD Patient coming in for annual exam on 01/19 and would like to have mammogram the same day. Please file pended order, this will be patients first mammogram. Will contact patient to schedule once order placed. Radha Wooten RN documented in this encounter [facility] 10-20-2015 History of Past i llness Narrative Problem Noted Date Resolved Date Abnormal glucose complicating 10/20/19 16 01/30/2016 Supervision of other high risk pregnancies, firs t trimester 07/01/2015 01/30/2016 Encounter for supervision of normal first in first trimester 06/30/2015 07/01/2015 Overview: Urine culture contaminated:rpt next OB visit. MH Hemorrhoids 04/11/2013 07/01/2015 Fissure in ano 03/22/2012 07/01/2015 Hx of maternal laceration, 3rd degree, currently 02/23/2012 01/30/2016 Overview: She has a history of a third-degree laceration and a rectal fissure. She has noted her bowel movements have been more painful the past 3-4 days and she believes that the anal fissure has been causing some rectal bleeding. She is requesting Colace and the Diltiazen ointment be refilled. I discussed with patient importance of avoiding constipation. Dietary considerations discussed. Dr. Wilson refilled the patient's prescriptions as requested. Patient is worked into Dr. Irina Velasquez scheduled for tomorrow to check the anal fissure. RR- March 20, [address] David this week for an opinion regarding dx, trt and thoughts on vaginal vs c/s delivery. She isn't bleeding anymore w/ BMs, they are soft w/ miralax and colace. RR_ d/w her options c/s vs vaginal delivery, plan vaginal delivery, no instruments July 01, 2015 Doing much better, no c/o. Recommend repeat c/s with this due to clinical course of last 2 deliveries. Irina Velasquez MD History of IBS 02/23/2012 07/01/2015 Overview: Pt was diagnosed with IBS in 2002. It is diet controlled. Family history of defects 02/23/2012 01/30/2016 Overview: 01/23/2018Pt's 2nd cousin born with Down's Syndrome. Pt born with genetic eye disease. TKRN Supervision of normal 05/07/2010 02/22/2011 Threatened , antepartum 05/01/2010 11/13/2010 documented as of this encounter (statuses as of 12/07/2021) [facility] History of Past illness Narrative* Problem Noted Date Resolved Date Abnormal glucose complicating 10/20/19 16 01/30/2016 Supervision of other high risk pregnancies, firs t trimester 07/01/2015 01/30/2016 Encounter for supervision of normal first in first trimester 06/30/2015 07/01/2015 Overview: Urine culture contaminated:rpt next OB visit. MH Hemorrhoids 04/11/2013 07/01/2015 Fissure in ano 03/22/2012 07/01/2015 Hx of maternal laceration, 3rd degree, currently 02/23/2012 01/30/2016 Overview: She has a history of a third-degree laceration and a rectal fissure. She has noted her bowel movements have been more painful the past 3-4 days and she believes that the anal fissure has been causing some rectal bleeding. She is requesting Colace and the Diltiazen ointment be refilled. I discussed with patient importance of avoiding constipation. Dietary considerations discussed. Dr. Wilson refilled the patient's prescriptions as requested. Patient is worked into Dr. Irina Velasquez scheduled for tomorrow to check the anal fissure. RR- March 20, [address] David this week for an opinion regarding dx, trt and thoughts on vaginal vs c/s delivery. She isn't bleeding anymore w/ BMs, they are soft w/ miralax and colace. RR_ d/w her options c/s vs vaginal delivery, plan vaginal delivery, no instruments July 01, 2015 Doing much better, no c/o. Recommend repeat c/s with this due to clinical course of last 2 deliveries. Irina Velasquez MD History of IBS 02/23/2012 07/01/2015 Overview: Pt was diagnosed with IBS in 2002. It is diet controlled. Family history of defects 02/23/2012 01/30/2016 Overview: 01/23/2018Pt's 2nd cousin born with Down's Syndrome. Pt born with genetic eye disease. TKRN Supervision of normal 05/07/2010 02/22/2011 Threatened , antepartum 05/01/2010 11/13/2010 documented as of this encounter (statuses as of 01/25/2022) [facility] History of Past illness Narrative* Problem Noted Date Resolved Date Abnormal glucose complicating 10/20/19 16 01/30/2016 Supervision of other high risk pregnancies, firs t trimester 07/01/2015 01/30/2016 Encounter for supervision of normal first in first trimester 06/30/2015 07/01/2015 Overview: Urine culture contaminated:rpt next OB visit. MH Hemorrhoids 04/11/2013 07/01/2015 Fissure in ano 03/22/2012 07/01/2015 Hx of maternal laceration, 3rd degree, currently 02/23/2012 01/30/2016 Overview: She has a history of a third-degree laceration and a rectal fissure. She has noted her bowel movements have been more painful the past 3-4 days and she believes that the anal fissure has been causing some rectal bleeding. She is requesting Colace and the Diltiazen ointment be refilled. I discussed with patient importance of avoiding constipation. Dietary considerations discussed. Dr. Wilson refilled the patient's prescriptions as requested. Patient is worked into Dr. Irina Velasquez scheduled for tomorrow to check the anal fissure. RR- March 20, [address] David this week for an opinion regarding dx, trt and thoughts on vaginal vs c/s delivery. She isn't bleeding anymore w/ BMs, they are soft w/ miralax and colace. RR_ d/w her options c/s vs vaginal delivery, plan vaginal delivery, no instruments July 01, 2015 Doing much better, no c/o. Recommend repeat c/s with this due to clinical course of last 2 deliveries. Irina Velasquez MD History of IBS 02/23/2012 07/01/2015 Overview: Pt was diagnosed with IBS in 2002. It is diet controlled. Family history of defects 02/23/2012 01/30/2016 Overview: 01/23/2018Pt's 2nd cousin born with Down's Syndrome. Pt born with genetic eye disease. TKRN Supervision of normal 05/07/2010 02/22/2011 Threatened , antepartum 05/01/2010 11/13/2010 documented as of this encounter (statuses as of 01/26/2022) [facility] History of Past illness Narrative* Problem Noted Date Resolved Date Abnormal glucose complicating 10/20/19 16 01/30/2016 Supervision of other high risk pregnancies, firs t trimester 07/01/2015 01/30/2016 Encounter for supervision of normal first in first trimester 06/30/2015 07/01/2015 Overview: Urine culture contaminated:rpt next OB visit. Hemorrhoids 04/11/2013 07/01/2015 Fissure in ano 03/22/2012 07/01/2015 Hx of maternal laceration, 3rd degree, currently 02/23/2012 01/30/2016 Overview: She has a history of a third-degree laceration and a rectal fissure. She has noted her bowel movements have been more painful the past 3-4 days and she believes that the anal fissure has been causing some rectal bleeding. She is requesting Colace and the Diltiazen ointment be refilled. I discussed with patient importance of avoiding constipation. Dietary considerations discussed. Dr. Wilson refilled the patient's prescriptions as requested. Patient is worked into Dr. Irina Velasquez scheduled for tomorrow to check the anal fissure. RR- March 20, [address] David this week for an opinion regarding dx, trt and thoughts on vaginal vs c/s delivery. She isn't bleeding anymore w/ BMs, they are soft w/ miralax and colace. RR_ d/w her options c/s vs vaginal delivery, plan vaginal delivery, no instruments July 01, 2015 Doing much better, no c/o. Recommend repeat c/s with this due to clinical course of last 2 deliveries. Irina Velasquez MD History of IBS 02/23/2012 07/01/2015 Overview: Pt was diagnosed with IBS in 2002. It is diet controlled. Family history of defects 02/23/2012 01/30/2016 Overview: 01/23/2018Pt's 2nd cousin born with Down's Syndrome. Pt born with genetic eye disease. TKRN Supervision of normal 05/07/2010 02/22/2011 Threatened , antepartum 05/01/2010 11/13/2010 documented as of this encounter (statuses as of 11/18/2022) [facility] History of Past illness Narrative* Problem Noted Date Diagnosed Date Resolved Date Abnormal glucose complicating 10/20/2015 01/30/2016 Supervision of other high ri sk pregnancies, first trimester 07/01/2015 01/30/2016 Encounter for supervision of normal first in first trimester 06/30/2015 07/01/2015 Overview: Urine culture contaminated:rpt next OB visit. Hemorrhoids 04/11/2013 07/01/2015 Fissure in ano 03/22/2012 07/01/2015 Hx of maternal laceration, 3 rd degree, currently 02/23/2012 01/30/2016 Overview: She has a history of a third-degree laceration and a rectal fissure. She has noted her bowel movements have been more painful the past 3-4 days and she believes that the anal fissure has been causing some rectal bleeding. She is requesting Colace and the Diltiazen ointment be refilled. I discussed with patient importance of avoiding constipation. Dietary considerations discussed. Dr. Wilson refilled the patient's prescriptions as requested. Patient is worked into Dr. Irina Velasquez scheduled for tomorrow to check the anal fissure. RR- March 20, [address] David this week for an opinion regarding dx, trt and thoughts on vaginal vs c/s delivery. She isn't bleeding anymore w/ BMs, they are soft w/ miralax and colace. RR_ d/w her options c/s vs vaginal delivery, plan vaginal delivery, no instruments July 01, 2015 Doing much better, no c/o. Recommend repeat c/s with this due to clinical course of last 2 deliveries. Irina Velasquez MD History of IBS 02/23/2012 07/01/2015 Overview: Pt was diagnosed with IBS in 2002. It is diet controlled. Family history of defects 02/23/2012 01/30/2016 Overview: 01/23/2018Pt's 2nd cousin born with Down's Syndrome. Pt born with genetic eye disease. TKRN Supervision of normal 05/07/2010 02/22/2011 Threatened , antepartum 05/01/2010 11/13/2010 documented as of this encounter (statuses as of 04/25/2023) [facility] History of Past illness Narrative* Problem Noted Date Diagnosed Date Resolved Date Abnormal glucose complicating 10/20/2015 01/30/2016 Supervision of other high ri sk pregnancies, first trimester 07/01/2015 01/30/2016 Encounter for supervision of normal first in first trimester 06/30/2015 07/01/2015 Overview: Urine culture contaminated:rpt next OB visit. Hemorrhoids 04/11/2013 07/01/2015 Fissure in ano 03/22/2012 07/01/2015 Hx of maternal laceration, 3 rd degree, currently 02/23/2012 01/30/2016 Overview: She has a history of a third-degree laceration and a rectal fissure. She has noted her bowel movements have been more painful the past 3-4 days and she believes that the anal fissure has been causing some rectal bleeding. She is requesting Colace and the Diltiazen ointment be refilled. I discussed with patient importance of avoiding constipation. Dietary considerations discussed. Dr. Wilson refilled the patient's prescriptions as requested. Patient is worked into Dr. Irina Velasquez scheduled for tomorrow to check the anal fissure. RR- March 20, [address] David this week for an opinion regarding dx, trt and thoughts on vaginal vs c/s delivery. She isn't bleeding anymore w/ BMs, they are soft w/ miralax and colace. RR_ d/w her options c/s vs vaginal delivery, plan vaginal delivery, no instruments July 01, 2015 Doing much better, no c/o. Recommend repeat c/s with this due to clinical course of last 2 deliveries. Irina Velasquez MD History of IBS 02/23/2012 07/01/2015 Overview: Pt was diagnosed with IBS in 2002. It is diet controlled. Family history of defects 02/23/2012 01/30/2016 Overview: 01/23/2018Pt's 2nd cousin born with Down's Syndrome. Pt born with genetic eye disease. TKRN Supervision of normal 05/07/2010 02/22/2011 Threatened , antepartum 05/01/2010 11/13/2010 documented as of this encounter (statuses as of 07/17/2023) [facility] History of Past illness Narrative* Problem Noted Date Diagnosed Date Resolved Date Abnormal glucose complicating 10/20/2015 01/30/2016 Supervision of other high ri sk pregnancies, first trimester 07/01/2015 01/30/2016 Encounter for supervision of normal first in first trimester 06/30/2015 07/01/2015 Overview: Urine culture contaminated:rpt next OB visit. [facility] Hemorrhoids 04/11/2013 07/01/2015 Fissure in ano 03/22/2012 07/01/2015 Hx of maternal laceration, 3 rd degree, currently 02/23/2012 01/30/2016 Overview: She has a history of a third-degree laceration and a rectal fissure. She has noted her bowel movements have been more painful the past 3-4 days and she believes that the anal fissure has been causing some rectal bleeding. She is requesting Colace and the Diltiazen ointment be refilled. I discussed with patient importance of avoiding constipation. Dietary considerations discussed. Dr. Wilson refilled the patient's prescriptions as requested. Patient is worked into Dr. Irina Velasquez scheduled for tomorrow to check the anal fissure. RR- March 20, [address] David this week for an opinion regarding dx, trt and thoughts on vaginal vs c/s delivery. She isn't bleeding anymore w/ BMs, they are soft w/ miralax and colace. RR_ d/w her options c/s vs vaginal delivery, plan vaginal delivery, no instruments July 01, 2015 Doing much better, no c/o. Recommend repeat c/s with this due to clinical course of last 2 deliveries. Irina Velasquez MD History of IBS 02/23/2012 07/01/2015 Overview: Pt was diagnosed with IBS in 2002. It is diet controlled. Family history of defects 02/23/2012 01/30/2016 Overview: 01/23/2018Pt's 2nd cousin born with Down's Syndrome. Pt born with genetic eye disease. TKRN Supervision of normal 05/07/2010 02/22/2011 Threatened , antepartum 05/01/2010 11/13/2010 documented as of this encounter (statuses as of 10/15/2023) [facility] History of Past illness Narrative* Problem Noted Date Diagnosed Date Resolved Date Abnormal glucose complicating 10/20/2015 01/30/2016 Supervision of other high ri sk pregnancies, first trimester 07/01/2015 01/30/2016 Encounter for supervision of normal first in first trimester 06/30/2015 07/01/2015 Overview: Urine culture contaminated:rpt next OB visit. [facility] Hemorrhoids 04/11/2013 07/01/2015 Fissure in ano 03/22/2012 07/01/2015 Hx of maternal laceration, 3 rd degree, currently 02/23/2012 01/30/2016 Overview: She has a history of a third-degree laceration and a rectal fissure. She has noted her bowel movements have been more painful the past 3-4 days and she believes that the anal fissure has been causing some rectal bleeding. She is requesting Colace and the Diltiazen ointment be refilled. I discussed with patient importance of avoiding constipation. Dietary considerations discussed. Dr. Wilson refilled the patient's prescriptions as requested. Patient is worked into Dr. Irina Velasquez scheduled for tomorrow to check the anal fissure. RR- March 20, [address] David this week for an opinion regarding dx, trt and thoughts on vaginal vs c/s delivery. She isn't bleeding anymore w/ BMs, they are soft w/ miralax and colace. RR_ d/w her options c/s vs vaginal delivery, plan vaginal delivery, no instruments July 01, 2015 Doing much better, no c/o. Recommend repeat c/s with this due to clinical course of last 2 deliveries. Irina Velasquez MD History of IBS 02/23/2012 07/01/2015 Overview: Pt was diagnosed with IBS in 2002. It is diet controlled. Family history of defects 02/23/2012 01/30/2016 Overview: 01/23/2018Pt's 2nd cousin born with Down's Syndrome. Pt born with genetic eye disease. TKRN Supervision of normal 05/07/2010 02/22/2011 Threatened , antepartum 05/01/2010 11/13/2010 documented as of this encounter (statuses as of 10/16/2023) [facility] Diagnosis Encounter for screening mammogram for malignant neoplasm of breast- Primary Other screening mammogram [facility] Diagnosis Encounter for gynecological examination (general) (routine) without abnormal findings Screening for cervical cancer Screening for malignant neoplasm of the cervix Encounter for screening for human papillomavirus (HPV) Special screening examination for human papillomavirus (HPV) Encounter for screening mammogram for breast cancer [facility] Diagnosis Encounter for screening mammogram for malignant neoplasm of breast Other screening mammogram [facility] Diagnosis Encounter for gynecological examination (general) (routine) without abnormal findings- Primary Encounter for screening mammogram for breast cancer Malaise and fatigue Other malaise and fatigue Irregular menstrual cycle Screening cholesterol level Screening for lipoid disorders Encounter for screening for diabetes mellitus Screening for diabetes mellitus [facility] Diagnosis Encounter for gynecological examination (general) (routine) without abnormal findings Encounter for screening mammogram for breast cancer [facility]* Diagnosis URI, acute- Primary Acute upper respiratory infections of unspecified site documented in this encounter [facility]* Diagnosis Influenza A- Primary Influenza with other respiratory manifestations documented in this [facility]* Diagnosis Encounter for screening mammogram for malignant neoplasm of breast- Primary Other screening mammogram [facility]* Diagnosis Blood in stool- Primary Class 2 obesity due to excess calories without serious comorbidity with body mass index (BMI) of 37.0 to 37.9 in adult Thought disorder Other symptoms involving nervous and musculoskeletal systems [facility]* Diagnosis Blood in stool- Primary Dysphagia, unspecified type Screen for colon cancer Special screening for malignant neoplasms, colon BRBPR (bright red blood per rectum) Hemorrhage of rectum and anus [facility] Diagnosis Blood in stool Screen for colon cancer Special screening for malignant neoplasms, colon Dysphagia, unspecified type [facility]* Diagnosis BRBPR (bright red blood per rectum)- Primary Hemorrhage of rectum and anus [facility]* Diagnosis Encounter for gynecological examination (general) (routine) without abnormal findings- Primary Encounter for screening mammogram for breast cancer [facility]* Diagnosis Encounter for screening mammogram for malignant neoplasm of breast Other screening mammogram [facility]* Diagnosis PCOS (polycystic ovarian syndrome)- Primary Polycystic ovaries Malaise and fatigue Other malaise and fatigue Hypercholesteremia Pure hypercholesterolemia Snoring Other dyspnea and respiratory abnormality Observed sleep apnea Unspecified sleep apnea Screening cholesterol level Screening for lipoid disorders Screening for deficiency anemia Screening for other and unspecified deficiency anemia Screening for diabetes mellitus Screening for metabolic disorder Screening for thyroid disorder Encounter for vitamin deficiency screening Screening for other and unspecified endocrine, nutritional, metabolic, and immunity disorders Class 2 severe obesity with serious comorbidity and body mass index (BMI) of 38.0 to 38.9 in adult, unspecified obesity type (HCC) Class 2 obesity due to excess calories without serious comorbidity with body mass index (BMI) of 37.0 to 37.9 in adult documented [facility]* Diagnosis Mass of right breast, unspecified quadrant- Primary documented [facility] this [facility]* Diagnosis Mass of right breast, unspecified quadrant documented [facility] this [facility]* Diagnosis Mass of right breast, unspecified quadrant documented [facility] this [facility]* Diagnosis Vitamin D deficiency- Primary Unspecified vitamin D deficiency documented [facility] this [facility]* Diagnosis Viral gastroenteritis- Primary Intestinal infection due to other organism, not elsewhere classified Nausea and vomiting, unspecified vomiting type documented in this encounter [facility] for referral (narrative)* Diagnostic Procedure Only (Routine) - Authorized Specialty Diagnoses / Procedures Referred By Prisca ansari Referred To Contact [facility] Diagnoses Encounter for screening mammogram for malignant neoplasm of breast Procedures JASMEET SCREENING SCREENING MAMMOGRAPHY BI 2-VIEW BREAST INC Irina Singh MD [address] [place] [address] [facility] [address] [address] Referral ID Status Reason Start Date Expiration Date Visits Requested Visits Authorized [id number] Authorized Auto-Generat ed Referral 12/07/2021 01/06/2023 1 1 [facility] for referral (narrative)* Diagnostic Procedure Only (Routine) - Pending Review Specialty Diagnoses / Procedures Referred By Prisca ansari Referred To Contact [facility] Diagnoses Encounter for gynecological examination (general) (routine) without abnormal findings Encounter for screening mammogram for breast cancer Procedures JASMEET SCREENING SCREENING MAMMOGRAPHY BI 2-VIEW BREAST INC Irina Singh MD [address] [place] [address] [facility] [address] [address] Referral ID Status Reason Start Date Expiration Date Visits Requested Visits Authorized [id number] Pending Review Auto-Generat ed Referral 01/25/2022 02/24/2023 1 1 T [facility] for referral (narrative)* Diagnostic Procedure Only (Routine) - Closed Specialty Diagnoses / Procedures Referred By Prisca ansari Referred To Contact [facility] Diagnoses Encounter for screening mammogram for malignant neoplasm of breast Procedures JASMEET SCREENING SCREENING MAMMOGRAPHY BI 2-VIEW BREAST INC Irina Singh MD [address] [place] [address] [facility] [address] [place] [address] Referral ID Status Reason Start Date Expiration Date V isits Requested Visits Authorized [id number] Closed Auto-Generate d Referral 12/07/2021 01/06/2023 1 1 [facility] for referral (narrative)* Diagnostic Procedure Only (Routine) - Authorized Specialty Diagnoses / Procedures Referred By Prisca ansari Referred To Contact [facility] Diagnoses Encounter for gynecological examination (general) (routine) without abnormal findings Encounter for screening mammogram for breast cancer Procedures JASMEET SCREENING SCREENING MAMMOGRAPHY BI 2-VIEW BREAST INC Irina Singh MD [address] [place] [address] [facility] [address] [place] [address] Referral ID Status Reason Start Date Expiration Date Visits Requested Visits Authorized [id number] Authorized Auto-Generat ed Referral 04/25/2023 05/24/2024 1 1 [facility] for referral (narrative)* Diagnostic Procedure Only (Routine) - Closed Specialty Diagnoses / Procedures Referred By Prisca t Referred To Contact [facility] Diagnoses Encounter for gynecological examination (general) (routine) without abnormal findings Encounter for screening mammogram for breast cancer Procedures JASMEET SCREENING SCREENING MAMMOGRAPHY BI 2-VIEW BREAST INC Irina Singh MD [address] [place] [address] [facility] [address] [place] [address] Referral ID Status Reason Start Date Expiration Date V isits Requested Visits Authorized [id number] Closed Auto-Generate d Referral 01/25/2022 02/24/2023 1 1 [facility] for referral (narrative)* Diagnostic Procedure Only (Routine) - Authorized Specialty Diagnoses / Procedures Referred By Prisca ansari Referred To Contact [facility] Diagnoses Encounter for screening mammogram for malignant neoplasm of breast Procedures JASMEET SCREENING SCREENING MAMMOGRAPHY BI 2-VIEW BREAST INC Estella Mendez APRN.CNP [address] [place] [address] [facility] [address] [place] [address] Referral ID Status Reason Start Date Expiration Date Visits Requested Visits Authorized [id number] Authorized Auto-Generat ed Referral 04/06/2024 05/06/2025 1 1 [facility] for referral (narrative)* Outpatient Procedure (Routine) - Pending Review Specialty Diagnoses / Procedures Referred By Prisca ansari Referred To Contact [facility] Diagnoses Blood in stool Dysphagia, unspecified type Procedures EGD DIAGNOSTIC ESOPHAGOGASTRODUODENOSC OPY TRANSORAL DIAGNOSTIC Susan Richard APRN.[employer] [address] [place] [address] [facility] [address] [place] [address] Referral ID Status Reason Start Date Expiration Date Visits Requested Visits Authorized [id number] Pending Review Auto-Generat ed Referral 05/03/2024 05/03/2025 1 1 * Outpatient Procedure (Routine) - Pending Review Specialty Diagnoses / Procedures Referred By Prisca ansari Referred To Contact [facility] Diagnoses Blood in stool Screen for colon cancer Procedures COLONOSCOPY DIAGNOSTIC COLONOSCOPY FLX DX W/COLLJ SPEC WHEN PFRMSusan Ferreira APRN.[employer] [address] [place] [address] [facility] [address] [place] [phone] Referral ID Status Reason Start Date Expiration Date Visits Requested Visits Authorized [id number] Pending Review Auto-Generat ed Referral 05/03/2024 05/03/2025 1 1 [facility] for referral (narrative)* Outpatient Procedure (Routine) - Closed Specialty Diagnoses / Procedures Referred By Contac t Referred To Contact [facility] Diagnoses Blood in stool Dysphagia, unspecified type Procedures EGD DIAGNOSTIC ESOPHAGOGASTRODUODENOSC OPY TRANSORAL DIAGNOSTIC Susan Richard APRN.[employer] [address] [place] [address] [facility] [place] [phone] Referral ID Status Reason Start Date Expiration Date V isits Requested Visits Authorized [id number] Closed Auto-Generate d Referral 05/04/2024 09/11/2024 1 1 * Outpatient Procedure (Routine) - Closed Specialty Diagnoses / Procedures Referred By Contac t Referred To Contact [facility] Diagnoses Blood in stool Screen for colon cancer Procedures COLONOSCOPY DIAGNOSTIC COLONOSCOPY FLX DX W/COLLJ SPEC WHEN PFRMSusan Ferreira APRN.[employer] [address] [place] [address] [facility] [place] [phone] Referral ID Status Reason Start Date Expiration Date V isits Requested Visits Authorized [id number] Closed Auto-Generate d Referral 05/07/2024 09/11/2024 1 1 [facility] for referral (narrative)* Diagnostic Procedure Only (Routine) - Authorized Specialty Diagnoses / Procedures Referred By Contac t Referred To Contact [facility] Diagnoses Encounter for gynecological examination (general) (routine) without abnormal findings Encounter for screening mammogram for breast cancer Procedures JASMEET SCREENING W JESSICA SCREENING DIGITAL BREAST TOMOSYNTHESIS BI SCREENING MAMMOGRAPHY BI 2-VIEW BREAST INC CAD Irina Velasquez MD [address] [place] [address] [facility] [address] [place] [id number] Referral ID Status Reason Start Date Expiration Date Visits Requested Visits Authorized [id number] Authorized Auto-Generat ed Referral 09/17/2024 10/17/2025 1 1 [facility] for visit Narrative* Diagnostic Procedure Only (Routine) - Closed Specialty Diagnoses / Procedures Referred By Prisca ansari Referred To Contact [facility] Diagnoses Encounter for screening mammogram for malignant neoplasm of breast Procedures JASMEET SCREENING SCREENING MAMMOGRAPHY BI 2-VIEW BREAST INC CAD Irina Velasquez MD [address] [place] [address] [facility] [address] [place] [id number] Referral ID Status Reason Start Date Expiration Date V isits Requested Visits Authorized [id number] Closed Auto-Generate d Referral 12/07/2021 01/06/2023 1 1 [facility] for visit Narrative* Diagnostic Procedure Only (Routine) - Closed Specialty Diagnoses / Procedures Referred By Prisca ansari Referred To Contact [facility] Diagnoses Encounter for gynecological examination (general) (routine) without abnormal findings Encounter for screening mammogram for breast cancer Procedures JASMEET SCREENING SCREENING MAMMOGRAPHY BI 2-VIEW BREAST INC CAD Irina Velasquez MD [address] [place] [address] [facility] [address] [place] [address] Referral ID Status Reason Start Date Expiration Date V isits Requested Visits Authorized [id number] Closed Auto-Generate d Referral 01/25/2022 02/24/2023 1 1 [facility] for visit Narrative* Outpatient Procedure (Routine) - Closed Specialty Diagnoses / Procedures Referred By Prisca ansari Referred To Contact [facility] Diagnoses Blood in stool Dysphagia, unspecified type Procedures EGD DIAGNOSTIC ESOPHAGOGASTRODUODENOSC OPY TRANSORAL DIAGNOSTIC Susan Richard APRN.[employer] [address] [place] [address] [facility] [address] [place] [address] Referral ID Status Reason Start Date Expiration Date V isits Requested Visits Authorized [id number] Closed Auto-Generate d Referral 05/04/2024 09/11/2024 1 1 [facility] for visit Narrative* Diagnostic Procedure Only (Routine) - Closed Specialty Diagnoses / Procedures Referred By Arlineac t Referred To Contact [facility] Diagnoses Encounter for screening mammogram for malignant neoplasm of breast Procedures JASMEET SCREENING SCREENING MAMMOGRAPHY BI 2-VIEW BREAST INC Estella Mendez, BUSINESS INTELLIGENCE DEVELOPER.[employer] [address] [place] [address] [facility] [address] [place] [address] Referral ID Status Reason Start Date Expiration Date V isits Requested Visits Authorized [id number] Closed Auto-Generate d Referral 04/06/2024 05/06/2025 1 1 [facility] for visit Narrative* Diagnostic Procedure Only (Routine) - Closed Specialty Diagnoses / Procedures Referred By Prisca t Referred To Contact [facility] Diagnoses Mass of right breast, unspecified quadrant Procedures JASMEET DIAGNOSTIC RIGHT DIAGNOSTIC MAMMOGRAPHY COMPUTER-AIDED DETCJ UNI Irina Velasquez MD [address] [place] [address] Phone: tel: fax: [facility] [address] [place] [address] Referral ID Status Reason Start Date Expiration Date V isits Requested Visits Authorized [id number] Closed Auto-Generate d Referral 12/27/2024 01/26/2026 1 1 [facility] Summary Purpose Family History No Family History Records FoundNo Family History Records Found Advance Directives No Advanced Directives Records FoundNo Advanced Directives Records Found Health Concerns Infection Onset Date Last Indicated Resolved Time COVID-19 Rule-Out 10/15/2023 10/15/2023 Infection Onset Date Last Indicated Resolved Time Influenza 10/15/2023 10/15/2023 Reason for Referral Specialty Diagnoses / Procedures Referred By Prisca t Referred To Contact Diagnoses Class 2 obesity due to excess calories without serious comorbidity with body mass index (BMI) of 37.0 to 37.9 in adult Procedures CONSULT TO [facility] WEIGHT MANAGEMENT PROGRAM OFFICE/OUTPATIENT [facility] 60 MINUTES Irina Velasquez MD [address] [place] [address] Referral ID Status Reason Start Date Expiration Date Visits Requested Visits Authorized [id number] Authorized PCP Requested Referral Auto-Generate d Referral 04/16/2024 04/16/2025 1 1 Specialty Diagnoses / Procedures Referred By Contac t Referred To Contact General Surgery Diagnoses Blood in stool Procedures CONSULT TO GENERAL SURGERY OFFICE/OUTPATIENT [facility] 60 MINUTES Irina Velasquez MD [address] [place] [address] Referral ID Status Reason Start Date Expiration Date Visits Requested Visits Authorized [id number] Authorized PCP Requested Referral 04/16/2024 04/16/2025 1 1 Additional Source Comments INFORMATION SOURCE (unrecogn ized section and content) DATE CREATED AUTHOR 01/23/2021 [facility] DATE CREATED AUTHOR AUTHOR'S ORGANIZ ATION 05/27/2025 [facility] Source Comments (unrecognize d section and content) In the event this informatio n is protected by the Federal Confidentiality of Alcohol and Drug Abuse Patient Records regulations: The Federal rules restrict any use of the information to criminally investigate or prosecute any alcohol or drug abuse patient.[facility] HospitalIn the event this information is protected by the Federal Confidentiality of Alcohol and Drug Abuse Patient Records regulations: The Federal rules restrict any use of the information to criminally investigate or prosecute any alcohol or drug abuse patient.[facility] HospitalIn the event this information is protected by the Federal Confidentiality of Alcohol and Drug Abuse Patient Records regulations: The Federal rules restrict any use of the information to criminally investigate or prosecute any alcohol or drug abuse patient.[facility] HospitalIn the event this information is protected by the Federal Confidentiality of Alcohol and Drug Abuse Patient Records regulations: The Federal rules restrict any use of the information to criminally investigate or prosecute any alcohol or drug abuse patient.[facility] HospitalIn the event this information is protected by the Federal Confidentiality of Alcohol and Drug Abuse Patient Records regulations: The Federal rules restrict any use of the information to criminally investigate or prosecute any alcohol or drug abuse patient.[facility] HospitalIn the event this information is protected by the Federal Confidentiality of Alcohol and Drug Abuse Patient Records regulations: The Federal rules restrict any use of the information to criminally investigate or prosecute any alcohol or drug abuse patient.[facility] HospitalIn the event this information is protected by the Federal Confidentiality of Alcohol and Drug Abuse Patient Records regulations: The Federal rules restrict any use of the information to criminally investigate or prosecute any alcohol or drug abuse patient.[facility] HospitalIn the event this information is protected by the Federal Confidentiality of Alcohol and Drug Abuse Patient Records regulations: The Federal rules restrict any use of the information to criminally investigate or prosecute any alcohol or drug abuse patient.[facility] HospitalIn the event this information is protected by the Federal Confidentiality of Alcohol and Drug Abuse Patient Records regulations: The Federal rules restrict any use of the information to criminally investigate or prosecute any alcohol or drug abuse patient.[facility] HospitalIn the event this information is protected by the Federal Confidentiality of Alcohol and Drug Abuse Patient Records regulations: The Federal rules restrict any use of the information to criminally investigate or prosecute any alcohol or drug abuse patient.[facility] HospitalIn the event this information is protected by the Federal Confidentiality of Alcohol and Drug Abuse Patient Records regulations: The Federal rules restrict any use of the information to criminally investigate or prosecute any alcohol or drug abuse patient.[facility] HospitalIn the event this information is protected by the Federal Confidentiality of Alcohol and Drug Abuse Patient Records regulations: The Federal rules restrict any use of the information to criminally investigate or prosecute any alcohol or drug abuse patient.[facility] HospitalIn the event this information is protected by the Federal Confidentiality of Alcohol and Drug Abuse Patient Records regulations: The Federal rules restrict any use of the information to criminally investigate or prosecute any alcohol or drug abuse patient.[facility] HospitalIn the event this information is protected by the Federal Confidentiality of Alcohol and Drug Abuse Patient Records regulations: The Federal rules restrict any use of the information to criminally investigate or prosecute any alcohol or drug abuse patient.[facility] HospitalIn the event this information is protected by the Federal Confidentiality of Alcohol and Drug Abuse Patient Records regulations: The Federal rules restrict any use of the information to criminally investigate or prosecute any alcohol or drug abuse patient.[facility] HospitalIn the event this information is protected by the Federal Confidentiality of Alcohol and Drug Abuse Patient Records regulations: The Federal rules restrict any use of the information to criminally investigate or prosecute any alcohol or drug abuse patient.[facility] HospitalIn the event this information is protected by the Federal Confidentiality of Alcohol and Drug Abuse Patient Records regulations: The Federal rules restrict any use of the information to criminally investigate or prosecute any alcohol or drug abuse patient.[facility] HospitalIn the event this information is protected by the Federal Confidentiality of Alcohol and Drug Abuse Patient Records regulations: The Federal rules restrict any use of the information to criminally investigate or prosecute any alcohol or drug abuse patient.[facility] HospitalIn the event this information is protected by the Federal Confidentiality of Alcohol and Drug Abuse Patient Records regulations: The Federal rules restrict any use of the information to criminally investigate or prosecute any alcohol or drug abuse patient.[facility] HospitalIn the event this information is protected by the Federal Confidentiality of Alcohol and Drug Abuse Patient Records regulations: The Federal rules restrict any use of the information to criminally investigate or prosecute any alcohol or drug abuse patient.[facility] HospitalIn the event this information is protected by the Federal Confidentiality of Alcohol and Drug Abuse Patient Records regulations: The Federal rules restrict any use of the information to criminally investigate or prosecute any alcohol or drug abuse patient.[facility] HospitalIn the event this information is protected by the Federal Confidentiality of Alcohol and Drug Abuse Patient Records regulations: The Federal rules restrict any use of the information to criminally investigate or prosecute any alcohol or drug abuse patient.[facility] HospitalIn the event this information is protected by the Federal Confidentiality of Alcohol and Drug Abuse Patient Records regulations: The Federal rules restrict any use of the information to criminally investigate or prosecute any alcohol or drug abuse patient.[facility] HospitalIn the event this information is protected by the Federal Confidentiality of Alcohol and Drug Abuse Patient Records regulations: The Federal rules restrict any use of the information to criminally investigate or prosecute any alcohol or drug abuse patient.[facility] HospitalIn the event this information is protected by the Federal Confidentiality of Alcohol and Drug Abuse Patient Records regulations: The Federal rules restrict any use of the information to criminally investigate or prosecute any alcohol or drug abuse patient.[facility] HospitalIn the event this information is protected by the Federal Confidentiality of Alcohol and Drug Abuse Patient Records regulations: The Federal rules restrict any use of the information to criminally investigate or prosecute any alcohol or drug abuse patient.[facility] HospitalIn the event this information is protected by the Federal Confidentiality of Alcohol and Drug Abuse Patient Records regulations: The Federal rules restrict any use of the information to criminally investigate or prosecute any alcohol or drug abuse patient.[facility] HospitalIn the event this information is protected by the Federal Confidentiality of Alcohol and Drug Abuse Patient Records regulations: The Federal rules restrict any use of the information to criminally investigate or prosecute any alcohol or drug abuse patient.[facility] Reason for Visit (unrecogniz ed section and content) Reason Comments Orders Reason Comments Yearly Exam With Mammogram Reason Comments Patient Question Reason Comments Yearly Exam Reason Comments Sore Throat cough, burning in ch est, sinus x 1 day Reason Comments Results Reason Comments Orders Screening Mammogram Reason Comments cole mienopause concerns Reason Comments Consult Colonoscopy consulta tion, blood in stool, family history of colon cancer. Specialty Diagnoses / Procedures Referred By Contac t Referred To Contact General Surgery Diagnoses Blood in stool Procedures CONSULT TO GENERAL SURGERY OFFICE/OUTPATIENT [facility] 60 MINUTES Irina Velasquez MD [address] [place] [address] Referral ID Status Reason Start Date Expiration Date V isits Requested Visits Authorized [id number] Closed PCP Requested Referral 04/16/2024 04/16/2025 1 1 Reason Comments Nausea & Vomiting Reason Comments Follow Up Review EGD and colon oscopy results. Reason Onset Date Comments Weight Management 12/19/2024 Specialty Diagnoses / Procedures Referred By Contac t Referred To Contact Diagnoses Class 2 obesity due to excess calories without serious comorbidity with body mass index (BMI) of 37.0 to 37.9 in adult Procedures CONSULT TO [facility] WEIGHT MANAGEMENT PROGRAM OFFICE/OUTPATIENT [facility] 60 MINUTES Irina Velasquez MD [address] [place] [address] Phone: tel: fax: Referral ID Status Reason Start Date Expiration Date V isits Requested Visits Authorized [id number] Closed PCP Requested Referral Auto-Generated Referral 04/16/2024 04/16/2025 1 1 Reason Comments Right breast lump Reason Comments Breast Problem Right breast lump Reason Comments Refill Request Reason Comments Radiology US Specialty Diagnoses / Procedures Referred By Contac t Referred To Contact [facility] Diagnoses Mass of right breast, unspecified quadrant Procedures US BREAST LTD RIGHT US BREAST UNI REAL TIME WITH IMAGE LIMITED Irina Velasquez MD [address] [place] [address] Phone: tel: fax: [facility] [address] [place] [address] Referral ID Status Reason Start Date Expiration Date V isits Requested Visits Authorized [id number] Closed Auto-Generate d Referral 12/27/2024 01/26/2026 1 1 Reason Comments Appointment Reason Onset Date Comments Refill Request 03/20/2025 Reason Comments Fever Fever, vomiting and fatigue x 1 day Care Teams (unrecognized sec tion and content) Speech Assistant Relationship Specialty Start Date End Date Nicholas Burciaga MD [address] [place] [address] PCP - General 03/09/04 Speech Assistant Relationship Specialty Start Date End Date Nicholas Burciaga MD [address] [place] [address] PCP - General 03/09/04 Speech Assistant Relationship Specialty Start Date End Date Nicholas Burciaga MD [address] [place] [address] PCP - General 03/09/04 Speech Assistant Relationship Specialty Start Date End Date Nicholas Burciaga MD [address] [place] [address] PCP - General 03/09/04 Speech Assistant Relationship Specialty Start Date End Date Nicholas Burciaga MD [address] [place] [address] PCP - General 03/09/04 Speech Assistant Relationship Specialty Start Date End Date Nicholas Burciaga MD [address] [place] [address] PCP - General 03/09/04 Speech Assistant Relationship Specialty Start Date End Date Meliton Shay MD [address] [facility] [address] [place] [address] PCP - General Family Medicine 10/15/23 Speech Assistant Relationship Specialty Start Date End Date Meliton Shay MD [address] [facility] [address] [place] [address] PCP - General Family Medicine 10/15/23 Speech Assistant Relationship Specialty Start Date End Date Meliton Shay MD [address] [facility] [address] [place] [address] PCP - General Family Medicine 10/15/23 Speech Assistant Relationship Specialty Start Date End Date Meliton Shay MD [address] [facility] [address] [address] [place] [address] PCP - General Family Medicine 10/15/23 Speech Assistant Relationship Specialty Start Date End Date Meliton Shay MD [address] [facility] [address] [place] [address] PCP - General Family Medicine 10/15/23 Speech Assistant Relationship Specialty Start Date End Date Meliton Shay MD [address] [facility] [address] [place] [address] PCP - General Family Medicine 10/15/23 Speech Assistant Relationship Specialty Start Date End Date Meliton Shay MD [address] [facility] [address] [place] [address] PCP - General Family Medicine 10/15/23 Speech Assistant Relationship Specialty Start Date End Date Meliton Shay MD [address] [facility] [address] [place] [address] PCP - General Family Medicine 10/15/23 Speech Assistant Relationship Specialty Start Date End Date Meliton Shay MD [address] [facility] [address] [place] [address] PCP - General Family Medicine 10/15/23 Speech Assistant Relationship Specialty Start Date End Date Meliton Shay MD [address] [facility] [address] [address] [place] [address] PCP - General Family Medicine 10/15/23 Speech Assistant Relationship Specialty Start Date End Date Meliton Shay MD [address] [place] [address] PCP - General Family Medicine 10/15/23 Speech Assistant Relationship Specialty Start Date End Date Meliton Shay MD [address] [place] [address] PCP - General Family Medicine 10/15/23 Speech Assistant Relationship Specialty Start Date End Date Meliton Shay MD [address] [place] [address] PCP - General Family Medicine 10/15/23 Speech Assistant Relationship Specialty Start Date End Date Meliton Shay MD [address] [place] [address] PCP - General Family Medicine 10/15/23 Speech Assistant Relationship Specialty Start Date End Date Meliton Shay MD [address] [place] [address] PCP - General Family Medicine 10/15/23 Speech Assistant Relationship Specialty Start Date End Date Meliton Shay MD [address] [place] [address] PCP - General Family Medicine 10/15/23 Speech Assistant Relationship Specialty Start Date End Date Meliton Shay MD [address] [place] [address] PCP - General Family Medicine 10/15/23 Speech Assistant Relationship Specialty Start Date End Date Meliton Shay MD [address] [place] [address] PCP - General Family Medicine 10/15/23 FOR RECORDS PERTAINING TO PATIENTS WHO ARE OR HAVE BEEN ENROLLED IN A CHEMICAL DEPENDENCY/SUBSTANCEABUSE PROGRAM, SOME INFORMATION MAY BE OMITTED. This clinical summary was aggregated from multiple sources. Caution should be exercised in using it in the provision of clinical care. This summary normalizes information from multiple sources, and as a consequence, information in this document may materially change the coding, format and clinical context of patient data. In addition, data may be omitted in some cases. CLINICAL DECISIONS SHOULD BE BASED ON THE PRIMARY CLINICAL RECORDS. [facility] [facility]. provides no warranty or guarantee of the accuracy or completeness of information in this document.
== END | disposition home or self-care (01) ==
LOC: MTLAB 17:07
PROVIDERS: PCP Family Medicine; Referring Provider Family Medicine; Visit Provider Family Medicine
DX: R19.7 Diarrhea, unspecified (principal)
CPT/HCPCS: 36415; 80053; 85025

== ENCOUNTER → 2025-05-30 | Outpatient (CLI) | payer BC, SELFPAY | END | disposition home or self-care (01) | LOC: MTLAB 09:29 | PROVIDERS: PCP Family Medicine; Visit Provider Family Medicine | DX: R19.7 Diarrhea, unspecified (principal) | CPT/HCPCS: 82274; 87177; 87209; 87493; 87506 ==